=== PATIENT | female | born 1960 | race African-American/Black ===

== ENCOUNTER 2016-07-26 15:45 | Inpatient (IN) ==
--- NOTE | 2016-07-26 17:44 | PROVIDER DOCUMENTATION ---
This chart was entered by Monica Murray Scribe, acting as scribe for Agusto De Guzman MD. HPI-General Adult - General Chief Complaint: Weakness Stated Complaint: lethargy, post dialysis Time Seen by Provider: 07/26/16 16:22 Source: patient Allergies/Adverse Reactions: Patient Allergies Allergy/AdvReac Type Severity Reaction Status Date / Time No Known Allergies Allergy Verified 07/26/16 16:07 Home Medications: Home Medication List Medication Instructions Recorded Confirmed Last Taken Type Insulin NPH Hum/Reg Insulin Hm 4 unit SQ DIRECTED 06/02/14 07/26/16 07/26/16 History [Humulin 70/30 Kwikpen] Hydralazine [Apresoline] 50 mg PO TID #90 tablet 05/03/15 07/26/16 07/26/16 Rx Gabapentin [Neurontin] 100 mg PO TID #60 capsule 07/28/16 Unknown Rx - History of Present Illness -Gen Adult Nature of Presenting Problems: Pt is a 55 yof who came to the ED with a cc of being lethargic after completing dialysis. Pt reports she took a sleeping pill before her treatment, when she finished her treatment her blood pressure was low and was lethargic. Location of Pain/Injury: reports: none Pain Radiation: reports: no radiation Quality of Pain: reports: none Onset/Duration: reports: just prior to arrival Timing: reports: still present Context/Activities at Onset: reports: none Modifying Factors: improves with: nothing Associated Symptoms: reports: weakness Similar Symptoms Previously?: No Recently seen or treated by another doctor?: Yes Review of Systems - Adult - REVIEW OF SYSTEMS - ADULT Constitutional: reports: fatique. denies: chills, fever Eyes: reports: no symptoms reported Ears, Nose, Mouth & Throat: reports: no symptoms reported Cardiovascular: reports: no symptoms reported Respiratory: reports: no symptoms reported Gastrointestinal: denies: diarrhea, nausea, vomiting Genitourinary: reports: no symptoms reported Musculoskeletal: reports: no symptoms reported Integumentary: reports: no symptoms reported Neurological: reports: loss of balance. denies: ataxia, seizure, syncope, tremors Psychiatric: reports: no symptoms reported Endocrine: reports: no symptoms reported Hematologic/Lymphatic: reports: no symptoms reported Allergic/Immunologic: reports: no symptoms reported All Other Systems: Reviewed and Negative Past History - Adult - PAST MEDICAL HISTORY-ADULT Review of Records: reports: Nursing Assessment Review Major Childhood Illnesses: reports: denies history Cardiovascular: reports: CAD, CHF, HTN Respiratory: reports: denies history Gastrointestinal: reports: denies history Obstetrical/Gynecological: reports: denies history Genitourinary: reports: kidney disease, kidney stones, other (stents in kidneys ) Musculoskeletal: reports: arthritis, chronic pain (neuropathy) Neurological: reports: other (diabetic BLE peripheral neuropathy) Endocrine/Immune: reports: anemia, Diabetes Other Conditions: reports: denies history - PRIOR SURGERIES/PROCEDURES Surgical/Procedure History: reports: other (stents in kidney) - PRIOR HOSPITALIZATIONS Prior Hospitalizations: reports: for other non-related - IMMUNIZATION STATUS Childhood Immunizations: See Nurse Assessment Flu Vaccine: See Nurse Assessment - FAMILY HISTORY Family History: reviewed, not pertinent Physical Exam-General - PHYSICAL EXAM-ADULT Initial Vital Signs Reviewed: Yes - CONSTITUTIONAL General Appearance: alert, no apparent distress, slow to respond - EYES Eyes: PERRL/EOMI, pink conjunctivae - HEAD, EARS, NOSE, MOUTH & THROAT HENMT: normocephalic/atraumatic, moist mucous membranes - NECK Neck: non-tender, full range of motion - RESPIRATORY Respiratory: chest non-tender, lungs clear, normal breath sounds - CARDIOVASCULAR Cardiovascular: normal peripheral pulses, regular rate, rhythm - GASTROINTESTINAL (ABDOMEN) Abdominal Exam: normal bowel sounds, non tender, soft - MUSCULOSKELETAL Back Exam: normal inspection, no CVA tenderness Extremity: normal range of motion, non-tender - SKIN Integumentary: normal color, normal turgor, warm/dry Progress - PLAN OF CARE/RESULTS Progress/Plan/Lab Results: Vital Signs - 8 hr 07/26/16 16:01 Temperature 98.0 F Pulse Rate 65 Respiratory Rate 16 Blood Pressure 99/56 O2 Sat by Pulse Oximetry 98 Result Diagrams: 07/28/16 04:25 07/28/16 04:25 - CHANGE OF SHIFT REPORT (ED Provider) Report Given and Care Transferred to:: Dr. Ren Time of Transfer: 18:00 Items Pending: Labs, XRAY Results, Other (Dispo) Departure - Departure Time of Disposition Decision: 20:35 DIAGNOSIS: Generalized weakness Disposition: ADMITTED INPATIENT 09 Certified Medical Emergency: Emergent Condition: Stable - Critical Care Note This patient required my direct & personal management of CC.: No This chart was documented by the indicated scribe, (Monica Murray Scribe) and accurately reflects the services I performed and decisions made by me, Agusto De Guzman MD, as attested by the provider's signature.
[2016-07-26 17:54] LABS: MANUAL DIFF NEEDED? NO
[2016-07-26 17:58] LABS: BASO% 0.2 % (0.0-0.8); EOS# 0.03 X1000 (0.0-0.7); EOS% 0.2 % (0.0-10.0); HEMATOCRIT 40.8 % (37.0-47.0); HEMOGLOBIN 13.4 g/dL (12.0-16.0); IMM GRAN# 0.04 X1000 (0.0-0.04); IMM GRAN% 0.3 % (0.0-0.5); LYMPH# 2.07 X1000 (1.2-3.4); LYMPH% 15.9 % (20.5-51.1); MCH 28.6 PG (27-31); MCHC 32.8 g/dL (33-37); MCV 87.2 FL (81-99); MONO# 0.78 X1000 (0.11-0.59); MPV 10.9 FL (7.4-10.4); NEUT% 77.4 % (42.2-75.2); PLT 199 X1000 (130-400); RBC 4.68 XMIL (4.2-5.4)
[2016-07-26 18:27] LABS: ALBUMIN 3.6 g/dL (3.5-5.0); CALCIUM 8.5 mg/dL (8.8-10.2); MAGNESIUM 1.8 mg/dL (1.5-2.7); POTASSIUM 4.1 mmol/L (3.5-5.1); TOTAL BILIRUBIN 0.86 mg/dL (0.20-1.00); TOTAL PROTEIN 9.9 g/dL (6.3-8.3)
[2016-07-26] MEDS ORDERED: NEURONTIN PO ONE (18:52)
[2016-07-26] MEDS ORDERED: NS 500 ML IV ONE (19:47)
[2016-07-26] MEDS ORDERED: NS 500 ML ONE (19:56)
--- NOTE | 2016-07-26 20:01 | Diag Imaging Result Doc PS360 ---
CHEST-PORTABLE - 07/26/2016 INDICATION: Hypotension TECHNIQUE: COMPARISON: 01/15/2016 FINDINGS: The lungs are normally expanded and clear. Heart size and mediastinal contours are normal. No pneumothorax or pleural effusion. IMPRESSION: Negative exam. Electronically signed by August Hong 07/26/2016 7:59 PM
[2016-07-26] MEDS ORDERED: NS 1,000 ML IV SCH (21:33)
[2016-07-26] MEDS ORDERED: ZOFRAN IV PRN (21:33)
[2016-07-26] MEDS ORDERED: NEO-SYNEPHRINE 50 MG in NS 250 ML IV SCH (21:33)
--- NOTE | 2016-07-26 23:15 | HISTORY AND PHYSICAL ---
PRIMARY CARE PHYSICIAN: She does not recall. CHIEF COMPLAINT: She passed out. HISTORY OF PRESENTING ILLNESS: A 55-year-old female with a history of end-stage renal disease on renal dialysis on Friday, Friday, Friday, diabetes mellitus type 2 and hypertension was brought to the emergency department by ambulance after she passed out. She states that she may have been at the dialysis center when this occurred but she does not really recall. Is unclear she states if too much of her volume was pulled out. She was evaluated in the ER, she was hypotensive. She was given fluid boluses and due to presenting symptoms, it was thought that she would need hospitalization for further management. At the time of my examination, she had denied any headache, fever, chills, chest pain, shortness of breath, hemoptysis or weight changes. States that she feels weak. PAST MEDICAL HISTORY: Includes end-stage renal disease on renal dialysis Friday, Friday, Friday, diabetes mellitus type 2, hypertension. PAST SURGICAL HISTORY: Dialysis catheter. ALLERGIES: No known drug allergies. CURRENT MEDICATIONS: As listed in the MAR. SOCIAL HISTORY: She is a former smoker. No history of alcohol or illicit drug use. FAMILY HISTORY: No history of coronary disease. REVIEW OF SYSTEMS: Twelve point review of systems is as in HPI. Other systems negative. PHYSICAL EXAMINATION: GENERAL: Cooperative, friendly female. She is resting comfortably now. VITAL SIGNS: Temperature 98.0 degrees, pulse 65, respirations 16, blood pressure 99/56, she is saturating 98%. HEENT: Atraumatic, normocephalic. Extraocular movements intact. PERRLA. NECK: No masses. CHEST: Clear to auscultation. CARDIOVASCULAR: Regular rate and rhythm. ABDOMEN: Soft. Positive bowel sounds. EXTREMITIES: No edema. NEURO: She is awake, alert, oriented x3. : No bladder distention. SKIN: Warm. LABORATORIES AND STUDIES: WBC 12.99, hemoglobin 13.4 hematocrit 40.8, platelets 199,000. Sodium 135, potassium 4.1, chloride is 87, BUN is 19, creatinine 3.8, glucose is 223. ASSESSMENT: This is a 55-year-old female with a history of end-stage renal disease, diabetes mellitus type 2 and hypertension was brought to the emergency department after she had an episode where she passed out. She is unclear exactly what happened but states that she may have been at dialysis center when this occurred. She was evaluated in the emergency room, she was found to be hypotensive and due to presenting symptoms, she would need hospitalization for further management. 1. Syncopal episode. 2. End-stage renal disease. 3. Diabetes mellitus type 2. 4. Hypotension. PLAN: 1. We will admit patient to ICU. 2. We will check orthostatic blood pressure and pulse. 3. We will consult Nephrology for dialysis. 4. Will monitor blood glucose closely and put patient on sliding scale insulin regimen. 5. Due to hypotension will give her IV fluid boluses and will consider pressors if she remains hypotensive. 6. We will put patient on DVT prophylaxis with SCD and heparin. 7. We will continue to follow and reassess. cc: Melchor Potter MD
[2016-07-26] MEDS: HEPARIN SUBQ SCH (23:48)
[2016-07-26] MEDS: HUMALOG SUBQ SCH (23:48)
[2016-07-26] MEDS: TYLENOL PO PRN (23:49)
[2016-07-27 05:01] LABS: MANUAL DIFF NEEDED? NO
[2016-07-27 05:04] LABS: BASO% 0.2 % (0.0-0.8); EOS% 0.8 % (0.0-10.0); HEMATOCRIT 38.9 % (37.0-47.0); HEMOGLOBIN 12.8 g/dL (12.0-16.0); IMM GRAN# 0.02 X1000 (0.0-0.04); IMM GRAN% 0.2 % (0.0-0.5); LYMPH% 36.4 % (20.5-51.1); MCH 28.8 PG (27-31); MCHC 32.9 g/dL (33-37); MCV 87.4 FL (81-99); MONO# 0.82 X1000 (0.11-0.59); MONO% 6.8 % (1.7-9.3); MPV 11.1 FL (7.4-10.4); NEUT% 55.6 % (42.2-75.2); PLT 203 X1000 (130-400); RBC 4.45 XMIL (4.2-5.4)
[2016-07-27 05:42] LABS: CALCIUM 8.1 mg/dL (8.8-10.2); POTASSIUM 3.9 mmol/L (3.5-5.1)
[2016-07-27] MEDS: HUMALOG SUBQ SCH ×4 (06:27→20:50)
[2016-07-27] MEDS ORDERED: NS 2,000 ML MISC PRN (09:09)
[2016-07-27] MEDS ORDERED: HEPARIN ONE (09:19)
[2016-07-27] MEDS ORDERED: NS 2,000 ML ONE (09:19)
--- NOTE | 2016-07-27 11:36 | CONSULTATION ---
DATE OF CONSULTATION: 07/27/2016 REASON FOR ADMISSION: Altered mental status. REASON FOR CONSULTATION: Assist with medical management, end-stage renal disease management. CONSULTING PHYSICIAN: Dr. Potter. HISTORY OF PRESENT ILLNESS: This is a 55-year-old female who was at dialysis yesterday when I received a call from the charge nurse there that the patient was extremely obtunded, would rouse up to tactile stimuli, become very agitated, and drift off back to sleep. At that time, she had stable vital signs with blood pressure systolic greater than 90. The patient has a history of inappropriate medication consumption and they were directed to send the patient to the emergency room in the event that she needed narcotic reversal. Apparently, on the way to the emergency room, she did confide in the attendant coin operated laundry that she had taken extra doses of her sleeping medicine. She did not inform this to the ER staff, but did again relay that information to the Intensive Care Unit staff. In the emergency room, her blood pressures were never below 90 systolic. However, she was given fluid boluses because there was some concern that she was "too dry." The patient was admitted to the hospital for further workup and treatment. This morning, her blood pressures are elevated and on clinical exam she does actually appear to be somewhat fluid overloaded. She openly states to me that she took at least 1 dose of her "sleeping medicine" when she was getting on the bus to go to dialysis. She could not confirm that she had taken an additional dose of her medication, but she stated that she wanted to "sleep through dialysis." This morning, she is awake and alert, oriented to person and place. She states that the events of yesterday are still foggy. She could not remember the name of her medication that she was recently started on, but she states that she got it filled at the [facility]. PAST MEDICAL HISTORY: End-stage renal disease on hemodialysis on a Friday, Friday, Friday schedule. Diabetes, type 2, insulin-dependent. Hypertension. COPD. Gastroparesis. Diabetic neuropathy. Neurogenic bladder. Previous history of tobacco and cocaine abuse. PAST SURGICAL HISTORY: She has had a renal stent with removal, dialysis catheter in the past, and she has an AV fistula to the right upper extremity now. ALLERGIES: No known drug allergies. HOME MEDICATIONS: Listed as insulin, Apresoline, gabapentin and, amitriptyline. Unclear if the amitriptyline is what the patient is referring to as her sleeping medicine. FAMILY HISTORY: Diabetes, type 2; hypertension; COPD; breast cancer. SOCIAL HISTORY: She has a previous history of both illicit drug use and inappropriate narcotic use, with an episode during 1 of her hospitalizations of taking outside medicines. Previous smoker. Denies ETOH use. REVIEW OF SYSTEMS: Pertinent positives noted above. PHYSICAL EXAMINATION: Vital Signs: Temperature 97.3 degrees, pulse 59, respiratory rate 13. Blood pressure currently is 127/44. There have been on the monitor blood pressures in the upper 150s over 80s. Intake and output have not been measured. She had what appears to be at least a liter of fluid given in the emergency room that was not documented, according to the orders. HEENT: Normocephalic, atraumatic. Oral mucosa moist. Tongue is midline. Neck : Supple. Trachea midline. She has positive JVD. Cardiovascular: She has a regular rate and rhythm. There is no murmur or gallop. Pulmonary: She has equal excursion. She is on O2 supplementation. She has no increased work of breathing. She has no wheezes or rales currently. Abdomen: Soft. Positive bowel sounds. Genitourinary: Not inspected. Minimal void. Extremities: She has 1+ pretibial edema. Integumentary: Skin is warm and dry. AV fistula in upper extremity is clean, dry, and intact. Neuro: Grossly nonfocal this morning. LABORATORY DATA: WBC of 12.0, hemoglobin 12.8, sodium 138, potassium 3.9, CO2 of 26, BUN 34, creatinine 5.3, calcium 8.1 albumin 3.6, and lactic acid of 3.2. ASSESSMENT AND PLAN: 1. Altered mental status. It does not appear that the patient was hypovolemic during dialysis. Her blood pressures did not indicate that and clinical examination definitely does not correlate with hypovolemia. We do have information from the patient directly to this practitioner that she did, indeed, take her medications not as prescribed. This morning, she is awake and alert, and in no acute distress. We will plan to ultrafiltrate today to get her back to her dry weight, as she is now a couple of liters heavy. 2. Electrolytes, acid-base balance, anemia. These are all stable. 3. Blood pressure. Anticipate that we will achieve control once we get this extra fluid off of her. Seen data reviewed discussed anthony Norris. I agree with the above assessment and plan of care. rg Dictated by ARTUR East for Noel Price MD cc: Noel Price MD [facility]
[2016-07-27] MEDS: HEPARIN SUBQ SCH ×2 (11:57→20:50)
[2016-07-27] MEDS: NEURONTIN PO SCH (16:19)
--- NOTE | 2016-07-27 16:28 | PROGRESS NOTE ---
DATE: 07/27/2016 SUBJECTIVE: Today Ms. Cheney refers to be doing a whole lot better. According to her, she took 1 of her amitriptyline pills yesterday before dialysis and she became very or altered at dialysis. This morning she is a whole lot awake, alert, and very conversational. OBJECTIVE: Vital signs: Blood pressure is 123/94, pulse of 73, respirations 15 , temperature 97.8 degrees. General: Ms. Cheney is a 55-year-old female. She is in bed, not seemingly distress. HEENT: Mucosa is pink and moist. Anicteric. Acyanotic. Neck: Supple. Chest: Clear. Cardiovascular: Regular rate and rhythm. Abdomen: Soft. Extremities: No pedal edema. REPEATER CHIEF: Patient is alert and oriented. LABORATORY DATA: WBC is 12.09, hemoglobin is 12.8, platelet count of 203,000. Chemistries reviewed, consistent with end-stage renal disease. Glucose is 126. ASSESSMENT AND PLAN: 1. Altered mental status, likely due to toxic metabolic encephalopathy from drug side effects as we assume this is due to amitriptyline or possibly other sedatives that she might have taking. 2. End-stage renal disease, on hemodialysis. 3. Diabetes mellitus, stable. 4. Hypotension on admission. This, as I said, could be due to medication side effects and amitriptyline is very notorious for causing that. 5. Peripheral diabetic neuropathy. Patient is on both amitriptyline and gabapentin. Amitriptyline is on hold. I will restart her on her gabapentin at a lower dose, 100 mg 3 times per day. 6. Mild troponin elevation. She denies any chest pain. Will just keep an eye on that. cc: MD NEHAL Solaon
[2016-07-27] MEDS: TYLENOL PO PRN (20:51)
[2016-07-28 05:07] LABS: MANUAL DIFF NEEDED? NO
[2016-07-28 05:10] LABS: BASO% 0.5 % (0.0-0.8); EOS# 0.27 X1000 (0.0-0.7); EOS% 3.1 % (0.0-10.0); HEMATOCRIT 36.5 % (37.0-47.0); HEMOGLOBIN 12.4 g/dL (12.0-16.0); IMM GRAN# 0.02 X1000 (0.0-0.04); IMM GRAN% 0.2 % (0.0-0.5); LYMPH# 4.39 X1000 (1.2-3.4); LYMPH% 50.1 % (20.5-51.1); MCH 29.4 PG (27-31); MCV 86.5 FL (81-99); MONO# 0.85 X1000 (0.11-0.59); MONO% 9.7 % (1.7-9.3); NEUT% 36.4 % (42.2-75.2); PLT 187 X1000 (130-400); RBC 4.22 XMIL (4.2-5.4)
[2016-07-28 05:39] LABS: CALCIUM 7.5 mg/dL (8.8-10.2); POTASSIUM 4.5 mmol/L (3.5-5.1)
[2016-07-28] MEDS: HUMALOG SUBQ SCH ×2 (06:34→10:48)
[2016-07-28] MEDS: TYLENOL PO PRN (07:27)
[2016-07-28 07:28] VITALS: BP 145/90
[2016-07-28] MEDS: NEURONTIN PO SCH (08:11)
[2016-07-28] MEDS: HEPARIN SUBQ SCH (08:11)
--- NOTE | 2016-07-28 20:56 | DISCHARGE SUMMARY ---
ADMISSION DATE: 07/26/2016 DISCHARGE DATE: 07/28/2016 DISPOSITION: home. FOLLOWUP: Dr. Noel Price. INVASIVE PROCEDURES DONE DURING ADMISSION: None. IMAGING STUDIES OF SIGNIFICANCE: A chest x-ray was done on presentation which was negative for any acute lung disease. ADMISSION DIAGNOSES: 1. Syncopal episode. 2. Endstage renal disease. 3. Diabetes mellitus. 4. Hypotension. DIAGNOSIS AT THE TIME OF DISCHARGE: 1. Altered mental status on presentation likely due to toxic metabolic encephalopathy from drug side effects, improved. 2. Hypotension on admission likely due to amitriptyline side effects. 3. Severe peripheral diabetic neuropathy. 4. End stage renal disease, on hemodialysis. 5. Diabetes mellitus. DISCHARGE MEDICATIONS: 1. Insulin 70/30, 4 units. 2. Hydralazine 50 mg, 3 times per day. 3. Gabapentin 100 mg, 3 times per day. MEDICATIONS THAT HAVE BEEN DISCONTINUED: 1. Amitriptyline 10 mg at bedtime has been discontinued. 2. Gabapentin 300 3 times per day has also been changed to only 100 mg 3 times per day because she has end-stage renal disease on hemodialysis. PRESENTING COMPLAINT: Passed out and confused. HISTORY OF PRESENTING COMPLAINT: Ms. Cheney is a 55-year-old female who refers to have severe peripheral neuropathy, so he would she took a dose of amitriptyline for sleeping to go to dialysis. At dialysis she was found to be confused and not very coherent, so she was brought to the emergency department for further medical care. On presentation, patient was found to have a blood pressure of about 99/ 56, was admitted to the ICU for further medical care. HOSPITAL COURSE: Patient received a session of dialysis. All of the sedatives were discontinued. Blood pressure improved, gabapentin was reduced to 100 mg 3 times per day and amitriptyline was completely discontinued from her medications. She improved very significantly, blood pressure improved and her mentation completely cleared. Today she is eating, she feels strong, she wants to go home. Vitals today, blood pressure is 145/90, pulse of 73, respirations 15, temperature 97.9 degrees. Physical exam is completely unremarkable. Patient is going to be discharged in a very stable condition. DISPOSITION: home. ACTIVITY: As tolerated. DIET: Healthy heart diet and renal diet. FOLLOWUP: Dr. Noel Price. She has been strictly counseled against amitriptyline and also has been told to reduce the dose on the gabapentin. cc: Anthony Cruz MD
== END 2016-07-28 11:22 | disposition home or self-care (01) ==
LOC: ED 15:45 → 3N 21:09 → SUATTDRO 21:09 → 3N 21:26 → ICU 21:49
PROVIDERS: ATTEND Internal Medicine

== ENCOUNTER 2018-04-05 02:31 | Inpatient (IN) ==
--- NOTE | 2018-04-05 03:03 | PROVIDER DOCUMENTATION ---
HPI-General Adult - General Chief Complaint: Chest Pain Stated Complaint: GENERAL ADULT Time Seen by Provider: 04/05/18 02:55 Source: patient, EMS (Patient is a 57 year old black female with ESRD (receives hemodialysis MWF,right forearm fistula), HTN, painful diabetic neuropathy, cirrhosis with ascites who presents by EMS complaining of sharp left sided chest pain for past 3 days. Chest pain is worse with movement and touch. Followed by Dr. WILEY Hammonds. Denies h/o CAD.) Allergies/Adverse Reactions: Patient Allergies Allergy/AdvReac Type Severity Reaction Status Date / Time No Known Allergies Allergy Verified 03/31/18 09:26 Home Medications: Home Medication List Medication Instructions Recorded Confirmed Last Taken Type Amlodipine Besylate [Norvasc] 10 mg PO DAILY 01/16/17 04/05/18 02/10/18 07:00 History Gabapentin [Neurontin] 300 mg PO BID 01/16/17 04/05/18 02/10/18 07:00 History Calcium Acetate 2 cap PO AC 01/25/17 04/05/18 02/10/18 07:00 History Cholecalciferol (Vitamin D3) 1,000 unit PO DAILY 01/25/17 04/05/18 02/10/18 07: 00 History [Vitamin D3] Mv,Calcium,Min/Iron/Folic/Vitk 1 each PO DAILY 01/25/17 02/10/18 02/10/18 07:00 History [Essential Woman Tablet] Duloxetine HCl 60 mg PO DAILY 08/26/17 04/05/18 02/10/18 07:00 History Amitriptyline [Elavil] 10 mg PO HS 08/27/17 04/05/18 02/08/18 21:00 History Methocarbamol [Robaxin] 500 mg PO QHS 08/27/17 04/05/18 02/09/18 21:00 History Insulin Humulin 70/30 [Humulin 10 unit SUBQ BID CC insuln.pen 01/29/1802/10/18 07:00 Rx 70/30] Dicyclomine HCl 10 mg PO TID 04/05/18 04/05/18 Unknown History Furosemide 1 tab PO BID 04/05/18 04/05/18 Unknown History Omeprazole 1 cap PO DIRECTED 02/03/19 02/03/19 Unknown History - History of Present Illness -Gen Adult Nature of Presenting Problems: Patient is a 57 year old black female with ESRD (receives hemodialysis MWF, right forearm fistula), HTN, painful diabetic neuropathy,cirrhosis with ascites who presents by EMS complaining of sharp left sided chest pain for past 3 days. Chest pain is worse with movement and touch. Followed by Dr. WILEY Hammonds. Denies h /o CAD. Location of Pain/Injury: reports: chest, lower extremity (both feet due to peripheral neuropathy) Pain Radiation: reports: no radiation Quality of Pain: reports: sharp Onset/Duration: reports: gradual, 3 days ago Timing: reports: still present Context/Activities at Onset: reports: none Modifying Factors: improves with: movement Similar Symptoms Previously?: Yes Recently seen or treated by another doctor?: Yes (Dr. WILEY Hammonds) Review of Systems - Adult - REVIEW OF SYSTEMS - ADULT Constitutional: denies: chills, fever Eyes: denies: blurred vision Ears, Nose, Mouth & Throat: reports: no symptoms reported Cardiovascular: reports: chest pain Respiratory: reports: see HPI Gastrointestinal: denies: abdominal pain, diarrhea, nausea, vomiting Genitourinary: reports: no symptoms reported Musculoskeletal: reports: see HPI Integumentary: denies: rash Neurological: reports: no symptoms reported Psychiatric: reports: no symptoms reported Endocrine: reports: no symptoms reported Hematologic/Lymphatic: reports: no symptoms reported Allergic/Immunologic: reports: no symptoms reported Past History - Adult - PAST MEDICAL HISTORY-ADULT Review of Records: reports: Old Records Reviewed, Nursing Assessment Review, Medications Reviewed, Social history reviewed & non-contributory. Major Childhood Illnesses: reports: denies history Cardiovascular: reports: CAD, CHF, HTN Respiratory: reports: asthma Gastrointestinal: reports: denies history Obstetrical/Gynecological: reports: denies history Genitourinary: reports: dialysis, kidney disease, kidney stones, other (stents in kidneys ) Musculoskeletal: reports: arthritis, chronic pain (neuropathy) Neurological: reports: other (diabetic BLE peripheral neuropathy) Psychiatric: reports: denies history Endocrine/Immune: reports: anemia, Diabetes Other Conditions: reports: denies history - PRIOR SURGERIES/PROCEDURES Surgical/Procedure History: reports: cholecystectomy, other (stents in kidney) - PRIOR HOSPITALIZATIONS Prior Hospitalizations: reports: for other non-related - IMMUNIZATION STATUS Childhood Immunizations: See Nurse Assessment Flu Vaccine: See Nurse Assessment - FAMILY HISTORY Family History: reviewed, not pertinent Physical Exam-General - CONSTITUTIONAL General Appearance: alert, no apparent distress, other - EYES Eyes: other (clear, nonicteric) - HEAD, EARS, NOSE, MOUTH & THROAT HENMT: moist mucous membranes - NECK Neck: supple - RESPIRATORY Respiratory: lungs clear - CARDIOVASCULAR Cardiovascular: regular rate, rhythm - GASTROINTESTINAL (ABDOMEN) Abdominal Exam: non tender, distended (acites) - LYMPHATIC Lymphatic: no adenopathy - MUSCULOSKELETAL Back Exam: normal inspection, no CVA tenderness Extremity: normal range of motion, non-tender Peripheral Pulses: radial (R): 2+, radial (L): 2+ - SKIN Integumentary: warm/dry - NEUROLOGIC Neurologic: grossly normal, no motor/sensory deficits - PSYCHIATRIC Psych/Mental Status: anxious Progress - PLAN OF CARE/RESULTS Progress/Plan/Lab Results: Vital Signs - 8 hr 04/05/18 02:35 Temperature 98 F Pulse Rate 63 Respiratory Rate 18 Blood Pressure 151/084 O2 Sat by Pulse Oximetry 98 HEART SCORE= 5 Result Diagrams: 04/06/18 07:23 04/06/18 07:23 - CONSULTS/PCP/HOSPITALIST Notification #1 *Consult/PCP/Hospitalist*: Dr. Irving, hospitalist Time Discussed: 05:30 Reason/Comments: admit to hospitalist at [facility] Consult Disposition: Admit #2 Consult: Dr. Potter hospitalist Reason/Comments: will notify WILEY Hammonds, admit to WILEY Hammonds Consult Disposition: Admit Departure - Departure Date of Disposition Decision: 04/05/18 Time of Disposition Decision: 07:05 DIAGNOSIS: Hypocalcemia, Hyperkalemia, Elevated d-dimer Chest pain Qualifiers: Chest pain type: unspecified Qualified Code(s): R07.9 - Chest pain, unspecified Ascites Qualifiers: Ascites type: other type Qualified Code(s): R18.8 - Other ascites Disposition: ADMITTED INPATIENT 09 Certified Medical Emergency: Emergent Condition: Stable - Critical Care Note This patient required my direct & personal management of CC.: No Attestation - Physician/ JULISA Attestation Patient care was provided by Advanced Practice Provider:: No The physician spent face to face time with patient:: Yes Advanced Practice Provider documentation review:: Supervising physician onsite and consulted in the evaluation and care of this patient. The physician did have a face to face encounter with the patient.
[2018-04-05 03:38] LABS: BASO# 0.05 X1000 (0.0-0.2); BASO% 0.6 % (0.0-0.8); EOS# 0.44 X1000 (0.0-0.7); EOS% 4.9 % (0.0-10.0); HEMATOCRIT 32.2 % (37.0-47.0); HEMOGLOBIN 10.7 g/dL (12.0-16.0); IMM GRAN# 0.02 X1000 (0.0-0.04); IMM GRAN% 0.2 % (0.0-0.5); LYMPH# 2.85 X1000 (1.2-3.4); LYMPH% 31.9 % (20.5-51.1); MCH 28.1 PG (27-31); MCHC 33.2 g/dL (33-37); MCV 84.5 FL (81-99); MONO# 0.66 X1000 (0.11-0.59); MONO% 7.4 % (1.7-9.3); MPV 11.3 FL (7.4-10.4); NEUT# 4.91 X1000 (1.4-6.5); PLT 170 X1000 (130-400); RBC 3.81 XMIL (4.2-5.4); RDW 14.7 % (11.5-14.5); WBC 8.93 X1000 (4.8-10.8)
[2018-04-05] MEDS ORDERED: ASPIRIN PO ONE (04:07)
[2018-04-05 04:09] LABS: ALBUMIN 2.5 g/dL (3.5-5.0); TOTAL BILIRUBIN 0.5 mg/dL (0.20-1.00); TOTAL PROTEIN 7.4 g/dL (6.3-8.3)
[2018-04-05 04:25] LABS: POTASSIUM 5.8 mmol/L (3.5-5.1)
[2018-04-05 04:26] LABS: CREATININE 14.7 mg/dL (0.5-0.9)
[2018-04-05 04:27] LABS: CALCIUM 6.5 mg/dL (8.8-10.2)
[2018-04-05] MEDS ORDERED: TUMS EXTRA STRENGTH PO ONE (04:49)
[2018-04-05] MEDS ORDERED: HUMULIN R IV ONE (05:37)
[2018-04-05] MEDS ORDERED: D50W SYRINGE IV ONE (05:37)
[2018-04-05] MEDS ORDERED: SODIUM BICARBONATE 8.4% IV PUSH ONE (05:37)
--- NOTE | 2018-04-05 07:26 | Diag Imaging Result Doc PS360 ---
EXAM: CHEST-PORTABLE 04/05/2018 HISTORY: left sided chest pain TECHNIQUE: AP portable at 0327 COMMENT: The inspiration is suboptimal. The atelectatic and other ill-defined opacities present on 02/25/2018 have largely resolved. The heart size and pulmonary vascularity are within normal limits. IMPRESSION: No evidence of acute disease. Electronically signed by Dhaval Morris 04/05/2018 7:23 AM
[2018-04-05] MEDS ORDERED: VELTASSA PO ONE (08:43)
[2018-04-05 10:06] LABS: POTASSIUM 5.4 mmol/L (3.5-5.1)
[2018-04-05 10:13] LABS: CALCIUM 6.7 mg/dL (8.8-10.2); CREATININE 13.4 mg/dL (0.5-0.9)
[2018-04-05] MEDS ORDERED: ZOFRAN IV PRN (12:21)
[2018-04-05] MEDS ORDERED: LABETALOL IV PRN (12:32)
[2018-04-05] MEDS ORDERED: OMEPRAZOLE PO SCH (12:45)
--- NOTE | 2018-04-05 13:57 | PROGRESS NOTE ---
DATE: 04/05/2018 Ms Cheney was admitted early this morning for a renal failure as well as chest pains. She had borderline troponin elevation however renal failure is difficult to decide. We have ordered EKG on her and we are going to get abdominal ultrasound and later on possibly abdominal paracentesis on her . -5 cc: MD Gonzalo Elena MD
--- NOTE | 2018-04-05 14:17 | HISTORY AND PHYSICAL ---
HISTORY OF PRESENT ILLNESS: Ms. Cheney who is a 57-year-old female had some chest pain in the pectoral area on the left side, and she also had some drowsy spells and she had passed out. She says she passed out many times during the dialysis. PAST MEDICAL HISTORY: She has a known case of chronic renal failure for the last 2 years and has been getting dialysis. She has a shunt in the right upper arm. She says she has insulin- dependent diabetes as well as history of hypertension. SOCIAL HISTORY: She used to be an alcoholic. She quit drinking 3 years ago. She does not smoke and does not use any illicit drugs. ALLERGIES: She is not allergic to any medications. PAST SURGICAL HISTORY: Reveals history of cholecystectomy as well as the shunt put in. MEDICATIONS: Include amitriptyline 10 mg, amlodipine, calcium acetate, cholecalciferol, dicyclomine, duloxetine, furosemide, gabapentin, methocarbamol, Humulin 70/30 10 units subcutaneously b.i.d., and omeprazole. REVIEW OF SYSTEMS: Other than what has been mentioned except generalized weakness and increasing ascites, it is noncontributory. PHYSICAL EXAMINATION: VITAL SIGNS: Reveal temperature normal, pulse 63 per minute, respiratory rate 14 per minute, blood pressure 136/70. HEENT: Head normocephalic. Pupils PERRLA. Fundus examination not done. ENT examination unremarkable. NECK: Supple. JVP normal. There is no evidence of lymphadenopathy or thyroid enlargement. EXTREMITIES: There is mild bilateral pedal edema. No calf tenderness, no edema. No cyanosis or clubbing. Pedal pulses feeble. The patient has a shunt in the right upper arm. BREASTS: Exam not done. CHEST: Normal to inspection. LUNGS: Clear on auscultation. CARDIAC: PMI in the normal position. Heart sounds normal. No murmur, gallop or rub noted. ABDOMEN: Distended from ascites. No guarding, rigidity, free fluid, masses, or organomegaly. Bowel sounds normal. RECTAL: Exam deferred. SENIOR POLICY ANALYST: Higher functions normal. Cranial nerves normal. Motor and sensory system examination unremarkable. Deep tendon reflexes normal. Plantars downgoing. Skull and spine examination normal for age. No cerebellar signs or signs of meningeal irritation. LOCOMOTOR: Exam unremarkable. SKIN: Exam unremarkable. IMPRESSION: 1. The patient has a history of chest pain. There is borderline elevation of the troponins. EKG has been ordered. 2. She has massive ascites from history of cirrhosis. 3. Chronic renal failure. 4. History of hypertension. 5. The patient has a history of chronic alcoholism; has quit drinking for last 3 years. PLAN: We will continue the current management outlined. cc: MD Gonzalo Elena MD
[2018-04-05] MEDS: BENTYL PO SCH ×2 (14:25→20:23)
[2018-04-05] MEDS: PROTONIX IV SCH (14:25)
--- NOTE | 2018-04-05 15:04 | Diag Imaging Result Doc PS360 ---
EXAM: US ABDOMEN-COMPLETE 04/05/2018 HISTORY: ascites TECHNIQUE: Abdominal ultrasound. COMMENT: There is marked ascites. The liver is somewhat nodular in appearance suggesting cirrhosis. There is antegrade flow in the portal vein. The kidneys are slightly atrophic and hyperechoic. The spleen is not enlarged. There is no evidence of hydronephrosis. The gallbladder is surgically absent. There is no evidence of biliary dilatation the common bile duct measuring 4 mm. There is a left pleural effusion. The visualized portions of the aorta and inferior vena cava are within normal limits. IMPRESSION: Ascites. Cirrhosis. Renal atrophy and medical renal disease. Left pleural effusion. Electronically signed by Dhaval Morris 04/05/2018 3:02 PM
--- NOTE | 2018-04-05 16:09 | EKG Report ---
Test Performed on : 04/05/2018 03:30:47 AM Test Reason : pain Blood Pressure : / mmHG Vent. Rate : 061 BPM Atrial Rate : 061 BPM P-R Int : 128 ms QRS Dur : 072 ms QT Int : 496 ms P-R-T Axes : 040 007 060 degrees QTc Int : 499 ms Normal sinus rhythm. with sinus arrhythmia. Cannot rule out Anterior infarct (cited on or before 16-DEC-2017) Abnormal ECG When compared with ECG of 16-DEC-2017 06:38, No significant change was found Unconfirmed Result
[2018-04-05] MEDS: HUMULIN R SUBQ SCH ×2 (17:12→22:32)
[2018-04-05] MEDS ORDERED: INSULIN PEN NEEDLES ONE (17:31)
[2018-04-05] MEDS ORDERED: IMODIUM PO PRN (17:54)
[2018-04-05] MEDS: MORPHINE IV PRN ×2 (18:06→20:23)
[2018-04-05] MEDS: HUMULIN 70/30 SUBQ SCH (18:46)
[2018-04-05] MEDS: LASIX PO SCH (20:23)
[2018-04-05] MEDS: NEURONTIN PO SCH (20:23)
[2018-04-05] MEDS: ROBAXIN PO SCH (20:23)
[2018-04-06] MEDS: HUMULIN R SUBQ SCH ×4 (05:32→21:14)
[2018-04-06] MEDS ORDERED: TIGHT: 0.2 ML/HR FOR DIALYSIS MISC PRN (06:41)
[2018-04-06] MEDS ORDERED: NS 2,000 ML MISC PRN (06:41)
[2018-04-06] MEDS ORDERED: HEPARIN IV PRN (06:41)
[2018-04-06] MEDS: MORPHINE IV PRN ×2 (07:18→17:16)
--- NOTE | 2018-04-06 07:29 | EKG Report ---
Test Performed on : 04/06/2018 07:09:49 AM Test Reason : CP Blood Pressure : / mmHG Vent. Rate : 072 BPM Atrial Rate : 072 BPM P-R Int : 134 ms QRS Dur : 076 ms QT Int : 452 ms P-R-T Axes : 048 -05 041 degrees QTc Int : 494 ms Sinus rhythm. with premature atrial complexes. Cannot rule out Anterior infarct (cited on or before 16-DEC-2017) Abnormal ECG When compared with ECG of 05-APR-2018 12:51, (Unconfirmed) premature atrial complexes. are now present Confirmed by Trice PEREZ, Carlos Oliver ([id number]) on 04/06/2018 3:56:40 PM
[2018-04-06 07:52] LABS: BASO# 0.05 X1000 (0.0-0.2); BASO% 0.6 % (0.0-0.8); EOS# 0.27 X1000 (0.0-0.7); EOS% 3.1 % (0.0-10.0); HEMATOCRIT 32.6 % (37.0-47.0); HEMOGLOBIN 10.5 g/dL (12.0-16.0); IMM GRAN# 0.02 X1000 (0.0-0.04); IMM GRAN% 0.2 % (0.0-0.5); LYMPH# 2.02 X1000 (1.2-3.4); LYMPH% 23.4 % (20.5-51.1); MCH 27.9 PG (27-31); MCHC 32.2 g/dL (33-37); MCV 86.7 FL (81-99); MONO# 0.48 X1000 (0.11-0.59); MONO% 5.6 % (1.7-9.3); MPV 11.5 FL (7.4-10.4); NEUT# 5.79 X1000 (1.4-6.5); NEUT% 67.1 % (42.2-75.2); PLT 168 X1000 (130-400); RBC 3.76 XMIL (4.2-5.4); RDW 14.9 % (11.5-14.5); WBC 8.63 X1000 (4.8-10.8)
--- NOTE | 2018-04-06 08:04 | EKG Report ---
Test Performed on : 04/05/2018 12:51:45 PM Test Reason : chest pain Blood Pressure : / mmHG Vent. Rate : 066 BPM Atrial Rate : 066 BPM P-R Int : 132 ms QRS Dur : 074 ms QT Int : 492 ms P-R-T Axes : 047 003 061 degrees QTc Int : 515 ms Normal sinus rhythm. Cannot rule out Anterior infarct (cited on or before 16-DEC-2017) Prolonged QT Abnormal ECG When compared with ECG of 05-APR-2018 03:30, (Unconfirmed) No significant change was found Confirmed by Carlos Carnes MD ([id number]) on 04/06/2018 3:55:57 PM
--- NOTE | 2018-04-06 08:18 | EKG Report ---
Test Performed on : 04/06/2018 08:14:37 AM Test Reason : Chest Pain Blood Pressure : / mmHG Vent. Rate : 075 BPM Atrial Rate : 075 BPM P-R Int : 134 ms QRS Dur : 072 ms QT Int : 432 ms P-R-T Axes : 032 001 057 degrees QTc Int : 482 ms Sinus rhythm. with marked sinus arrhythmia. Cannot rule out Anterior infarct (cited on or before 16-DEC-2017) Abnormal ECG When compared with ECG of 06-APR-2018 07:09, (Unconfirmed) premature atrial complexes. are no longer present Confirmed by Trice PEREZ, Carlos Oliver ([id number]) on 04/06/2018 3:56:48 PM
[2018-04-06 08:24] LABS: ALB/GLOB RATIO 0.5; ALBUMIN 2.5 g/dL (3.5-5.0); TOTAL BILIRUBIN 0.39 mg/dL (0.20-1.00); TOTAL PROTEIN 7.6 g/dL (6.3-8.3)
[2018-04-06] MEDS: NEURONTIN PO SCH ×2 (08:26→21:13)
[2018-04-06] MEDS: BENTYL PO SCH ×3 (08:26→17:09)
[2018-04-06] MEDS: CENTRUM TABLET PO SCH (08:26)
[2018-04-06] MEDS: LASIX PO SCH ×2 (08:26→21:13)
[2018-04-06] MEDS: HUMULIN 70/30 SUBQ SCH ×2 (08:27→17:09)
[2018-04-06] MEDS: CYMBALTA PO SCH (08:27)
[2018-04-06 08:56] LABS: CALCIUM 6.1 mg/dL (8.8-10.2); CREATININE 14.1 mg/dL (0.5-0.9); POTASSIUM 6.5 mmol/L (3.5-5.1)
[2018-04-06] MEDS: PROTONIX IV SCH (14:01)
--- NOTE | 2018-04-06 18:09 | NEPHROLOGY CONSULTATION ---
DATE: 04/06/2018 REASON FOR ADMISSION: Chest pain. REASON FOR CONSULT: End-stage renal disease with assistance with medical management. CONSULTING PHYSICIAN: Dr. Canchola for Dr. Hammonds. HISTORY OF PRESENT ILLNESS: Ms. Cheney is a 57-year-old female who is known to our outpatient services for hemodialysis on Friday, Friday, Friday at the [facility]. Patient stated that she had onset of chest pain going into her left pectoral area left side down her arm. She states that she has had drowsy spells where she felt like she might have passed out. She denies any chest pain at this time except to touch. No increased work of breathing. She does have a congested cough. No fever or chills, though she states she has had a fever at home. She has complains of loss of appetite though she has no nausea, vomiting or diarrhea. She denies any recent falls. PAST MEDICAL HISTORY: End-stage renal disease with hemodialysis on Friday, Friday, Friday. She has a left upper arm graft. She is an insulin-dependent diabetic. She has hypertension, anemia of chronic disease, osteodystrophy of chronic disease. She has no liver disease secondary to history of hepatitis C with multiple ultrasound abdominal guided paracentesis. This has been followed by Dr. Gipson. PREVIOUS SURGICAL HISTORY: Is again multiple paracentesis, she has an AV graft to the left upper arm. She has a history of cirrhosis of the liver, peripheral neuropathy secondary to her diabetes, as mentioned fistula to the right upper arm, cholecystectomy, previous tunnel dialysis catheters and paracentesis. FAMILY HISTORY: Notable for father with COPD, mother with lung cancer. SOCIAL HISTORY: She is single. She states that she lives with her . She has 1 son. She denies tobacco. Remote use of cocaine. No illicit drug use or alcohol use recently according to the patient. She is receiving pain medication per the pain clinic. CURRENT ALLERGIES: Listed as no known drug allergies. HOME MEDICATIONS: Have yet to be reconciled. REVIEW OF SYSTEMS: Times 10 with pertinent positives listed above in the HPI. VITAL SIGNS: Temperature 99.2 degrees, blood pressure 130/81, heart rate 84, respirations 18, she is on room air, her last recorded saturation is 100%, she has had 0 recorded in or out up to this point. LAB: Sodium 140, potassium 6.5, chloride 102, CO2 19, BUN 86, creatinine 14.1 , glucose 85, anion gap of 19, calcium 6.1, albumin 2.5, white count 8.63, hemoglobin 10.5, hematocrit 32.6 with a platelet count of 168,000. REPORTS: The patient has had a chest x-ray upon admission showing no evidence of acute disease. Abdominal ultrasound indicates ascites, cirrhosis, renal atrophy of medical renal disease with a left pleural effusion. PHYSICAL EXAM: This is a 57-year-old female, she is resting quietly in bed. She appears chronically ill, no acute distress.Skin: Warm and dry. HEENT: Normocephalic, atraumatic. Conjunctiva is pale. She has ADAM. Mucous membranes are dry. Neck: Supple. Trachea midline, no evidence of JVD. Cardiovascular: She is regular rate and rhythm without murmur or gallop. Lungs: Clear to auscultation bilaterally. Equal excursion. She is on room air. Abdomen: Soft, slightly distended, nontender, hypoactive bowel sounds. Genitourinary: Not inspected. Minimal void with dialysis assist. Extremities: Has no edema, no clubbing or cyanosis. Palpable fistula to the right upper arm. Neurological: Alert and oriented x3. ASSESSMENT AND PLAN: 1. Chronic kidney disease stage 5D. The patient is due for her routine dialysis treatment today. We will place her on a 2 K bath, she is to dialyze for 3-1/2 hours. We will attempt to pull her below her outpatient dry weight and challenge this weight secondary to fluid volume overload. 2. Electrolytes and acid-base balance. Hyperkalemia with correction on dialysis. 3. Anemia. This is acceptable. 4. Left pleural effusion. We will challenge her dry weight on dialysis today. We reevaluate in the a.m. for further need of dialysis. 5. Chronic ascites with multiple paracentesis. We will defer to the primary care team. Like to thank you for allowing us to follow with this patient. Dictated by ARTUR Keith for Noel Price MD Face to face encounter, data reviewed, discussed with Farida Bajwa on 04/06/18. I agree with the above assessment and plan of care. cc: ARTUR Keithh, MD Gonzalo Hammonds, MD [facility]
[2018-04-06] MEDS ORDERED: CALCIUM GLUCONATE 1 GM in NS 50 ML IV ONE (20:54)
[2018-04-06] MEDS: ROBAXIN PO SCH (21:14)
[2018-04-06] MEDS: ELAVIL PO SCH (21:27)
--- NOTE | 2018-04-06 22:22 | PROGRESS NOTE ---
DATE: 04/06/2018 A 57-year-old female admitted from [place] for chest pain. The patient is known history of end-stage kidney disease, on dialysis #3 also ascites requiring repeated paracenteses due to cirrhosis of liver from hepatitis C. Pain is reproducible. EXAMINATION: Temperature is 99 degrees, pulse is 85, blood pressure 143/84, weight 152 pounds.HEENT: Slightly pale. No jaundice. Neck: Supple. Pain is reproducible. Bilateral air entry. Heart: Sounds are regular. Belly: Is soft. Ascites noted. No neurological deficits. INVESTIGATIONS: CBC. White cell count 8.6, hematocrit 32, platelet 168,000. SMA 7 sodium 140, potassium 6.5, chloride 102, BUN 86, creatinine 14.1, glucose 85, calcium 6.1. Positive cardiac CK was normal. EKG showed normal sinus. QT interval slightly prolonged nothing acute. ASSESSMENT AND PLAN: 1. Chest pain. EKG is negative. Troponin is falsely elevated due to end-stage kidney disease. Previous stress test August 2017 negative looked like musculoskeletal pain. Will use the morphine and basically topical NSAIDs. 2. End-stage kidney disease. Going for dialysis. 3. Ascites due to cirrhosis. Paracentesis as needed. 4. Hypocalcemia. Replace the calcium and reconcile home medications. Will follow up. LEVEL OF DOCUMENTATION: 25 minutes. cc: Gonzalo Hammonds MD
[2018-04-07] MEDS: HUMULIN R SUBQ SCH ×4 (06:28→20:53)
[2018-04-07] MEDS: PHOSLO PO SCH ×3 (06:32→16:53)
[2018-04-07] MEDS: MORPHINE IV PRN ×3 (06:35→12:30)
[2018-04-07 08:24] LABS: ALBUMIN 2.7 g/dL (3.5-5.0); CREATININE 8.5 mg/dL (0.5-0.9); PHOSPHORUS 7.5 mg/dL (2.7-4.5); POTASSIUM 5.2 mmol/L (3.5-5.1)
[2018-04-07] MEDS: CYMBALTA PO SCH (08:37)
[2018-04-07] MEDS: VITAMIN D PO SCH (08:37)
[2018-04-07] MEDS: NORVASC PO SCH (08:37)
[2018-04-07] MEDS: NEURONTIN PO SCH ×2 (08:37→20:53)
[2018-04-07] MEDS: BENTYL PO SCH ×3 (08:37→16:53)
[2018-04-07] MEDS: LASIX PO SCH ×2 (08:37→20:53)
[2018-04-07] MEDS: HUMULIN 70/30 SUBQ SCH ×2 (08:38→16:53)
[2018-04-07] MEDS: CENTRUM TABLET PO SCH (08:41)
[2018-04-07 09:17] LABS: CALCIUM 6.9 mg/dL (8.8-10.2)
[2018-04-07] MEDS: SODIUM CHLORIDE 0.9% INJ SCH (12:34)
[2018-04-07] MEDS: PROTONIX IV SCH (12:34)
--- NOTE | 2018-04-07 15:14 | NEPHROLOGY PROGRESS NOTE ---
DATE: 04/07/2018 TIME SEEN: 08 SUBJECTIVE: Ms. Cheney is resting quietly on the side of the bed. She has just finished washing up this a.m. Complains of pain to touch to her left chest wall. OBJECTIVE: Vital Signs: Temperature 98.2 degrees, blood pressure 146/81, heart rate 76, respirations 18. She is on room air. Last recorded saturation 95%. She has had 540 in, 2600 out. LABORATORY DATA: Sodium 141, potassium 5.2, chloride 100, CO2 24, BUN 38, creatinine 8.5, glucose 100, anion gap 17, calcium 6.9, phosphorus 7.5, albumin 2.7. Previous hemoglobin 10.5. PHYSICAL EXAMINATION: General: This is a 57-year-old female. She is resting quietly on the side of the bed. She is in no acute distress though she does have some discomfort to tactile stimuli of the left chest wall. HEENT: Normocephalic, atraumatic. Conjunctivae pale. She has ADAM. Mucous membranes dry. Neck: Supple. Trachea midline. No JVD. Cardiovascular: Regular rate and rhythm without murmur or gallop. Lungs: Clear to auscultation bilaterally. Equal excursion on room air. Abdomen: Distended, nontender. Hypoactive bowel sounds. Genitourinary: Not inspected. Minimal void with dialysis assist. Extremities : No edema, no clubbing or cyanosis. Palpable fistula to the right upper arm. Neurological: Alert and oriented x3. ASSESSMENT AND PLAN: 1. Chronic kidney disease stage 5D. The patient had her dialysis treatment yesterday. No indications for intervention today. We will plan for dialysis in the a.m. 2. Fluid volume overload. Again, we challenged the patient's dry weight yesterday. We will re- evaluate in the a.m. 3. Electrolytes, acid-base balance. This is improved after dialysis yesterday. 4. Anemia. This remains acceptable. 5. Left pleural effusion, again with challenge on her dry weight. 6. Chronic ascites with multiple paracenteses. This is followed by the primary care. 7. Continued chest pain. I have not spoken with Dr. Hammonds. He is planning to order topical analgesic. I would like to thank you for allowing us to follow with this patient. Dictated by ARTUR Keith for Noel Price MD Face to face encounter, data reviewed, discussed with Farida Bajwa on 04/08/18. I agree with the above assessment and plan of care. cc: ARTUR Keith MD Jagan Reddy, MD [facility]
[2018-04-07] MEDS: ROBAXIN PO SCH (20:53)
[2018-04-07] MEDS: ELAVIL PO SCH (20:53)
[2018-04-07] MEDS ORDERED: VOLTAREN 1% GEL TOP ONE (21:53)
--- NOTE | 2018-04-07 22:53 | PROGRESS NOTE ---
DATE: 04/07/2018 SUBJECTIVE: The patient is in the bathroom. Still complains of left-sided precordial chest pain, reproducible. The patient had dialysis yesterday. PHYSICAL EXAMINATION: Temperature is 97 degrees, pulse is 76, blood pressure 126/87. HEENT: Minus 2 L. Pain is reproducible. Cardiovascular: Heart sounds are regular. Abdomen: Belly is soft. Mild ascites noted. Neurologic: No neurological deficits. INVESTIGATIONS: EKG was unremarkable. Cardiac enzymes were negative. Previous stress test 6 months ago negative. Chest x-ray was stable. ASSESSMENT AND PLAN: 1. Chest pain is musculoskeletal pain. We will use the diclofenac gel topically. 2. End-stage kidney disease, as per Dr. Price for dialysis. 3. Hypocalcemia, on replacement therapy. 4. Ascites due to cirrhosis of liver. Paracentesis as needed. 5. No need for cardiac workup until she has some EKG changes. 6. Continue with present medical therapy. LEVEL OF DOCUMENTATION: 25 minutes. cc: Gonzalo Hammonds MD
[2018-04-08] MEDS: MORPHINE IV PRN ×3 (04:15→19:23)
[2018-04-08] MEDS ORDERED: HEPARIN IV PRN (05:38)
[2018-04-08] MEDS ORDERED: TIGHT: 0.2 ML/HR FOR DIALYSIS MISC PRN (05:38)
[2018-04-08] MEDS ORDERED: NS 2,000 ML MISC PRN (05:38)
[2018-04-08] MEDS: PHOSLO PO SCH ×3 (06:23→16:02)
[2018-04-08] MEDS: HUMULIN R SUBQ SCH ×4 (06:24→21:06)
--- NOTE | 2018-04-08 08:05 | NEPHROLOGY PROGRESS NOTE ---
DATE: 04/08/2018 TIME SEEN: 0640. SUBJECTIVE: Ms. Cheney is resting quietly in bed. She has just awoken. She states that it is too early to tell if she is feeling well, though she does have some abdominal discomfort due to swelling. OBJECTIVE: Vital Signs: Temperature 97.6 degrees, blood pressure 114/88, heart rate 75, respirations 16. She is on room air. Last recorded saturation 99%. She has had 420 in. She has had only 3 mL recorded out after dialysis yesterday. Laboratory Data: Labs are currently pending. Last potassium 5.2, with a hemoglobin of 10.5. Physical Examination: General: This is a 57-year-old, female resting quietly in bed. Skin: Warm and dry. HEENT: Normocephalic, atraumatic. Conjunctivae pale. She has ADAM. Mucous membranes dry. Neck: Supple. Trachea midline. No JVD. Cardiovascular : Regular rate and rhythm without murmur or gallop. Lungs: Clear to auscultation bilaterally. Equal excursion, on room air. Abdomen: Distended. Semifirm. Hypoactive bowel sounds noted. Tender on palpation. Genitourinary: Not inspected. Minimal void with dialysis assist. Extremities: Have no edema. No clubbing or cyanosis. Neurological: She is alert and oriented x3. ASSESSMENT AND PLAN: 1. Chronic kidney disease stage 5D. We will plan for hemodialysis today. We will place her on a 2 K bath. She is to dialyze for 3.5 hours. We will attempt to pull her to her outpatient dry weight. 2. Electrolytes and acid-base balance. These are all currently pending. 3. Anemia. This has been low but acceptable. 4. Left pleural effusion. Again, we have challenged her dry weight. 5. Chronic ascites with multiple paracenteses. We will defer to the primary care team. I would like to thank you for allowing us to follow with this patient. Dictated by ARTUR Keith for Noel Price MD Face to face encounter, data reviewed, discussed with Farida Bajwa on 04/08/18. I agree with the above assessment and plan of care. cc: ARTUR Keith MD Jagan Reddy, MD [facility]
[2018-04-08 08:22] LABS: ALBUMIN 2.9 g/dL (3.5-5.0); PHOSPHORUS 8.2 mg/dL (2.7-4.5); POTASSIUM 5.2 mmol/L (3.5-5.1)
[2018-04-08 08:25] LABS: CALCIUM 6.9 mg/dL (8.8-10.2); CREATININE 10.8 mg/dL (0.5-0.9)
[2018-04-08] MEDS ORDERED: CALCIUM GLUCONATE 1 GM in NS 50 ML IV ONE (08:32)
[2018-04-08] MEDS: CENTRUM TABLET PO SCH (10:09)
[2018-04-08] MEDS: CYMBALTA PO SCH (10:09)
[2018-04-08] MEDS: HUMULIN 70/30 SUBQ SCH ×2 (10:09→16:02)
[2018-04-08] MEDS: NEURONTIN PO SCH ×2 (10:09→21:06)
[2018-04-08] MEDS: BENTYL PO SCH ×3 (10:09→16:02)
[2018-04-08] MEDS: NORVASC PO SCH (10:09)
[2018-04-08] MEDS: VITAMIN D PO SCH (10:09)
[2018-04-08] MEDS: LASIX PO SCH ×2 (10:09→21:06)
[2018-04-08] MEDS: VOLTAREN 1% GEL TOP SCH ×4 (10:10→21:07)
[2018-04-08] MEDS ORDERED: INSULIN PEN NEEDLES ONE (10:13)
[2018-04-08] MEDS: PROTONIX IV SCH (14:25)
[2018-04-08] MEDS: ROBAXIN PO SCH (21:06)
[2018-04-08] MEDS: ELAVIL PO SCH (21:06)
--- NOTE | 2018-04-09 01:19 | PROGRESS NOTE ---
DATE: 04/08/2018 SUBJECTIVE: The patient is still complaining of pain and swelling of the belly. OBJECTIVE: Vital Signs: Temperature is 99 degrees, pulse is 79. Vitals are stable. HEENT: Within normal limits. Neck: Supple. Abdomen: Reproducible pain, some ascites noted. LABORATORY DATA: Reviewed. Sodium 138, potassium 5.2, BUN 44, creatinine 10.8 , glucose 120, calcium 6.9. ASSESSMENT AND PLAN: 1. Hypocalcemia on PhosLo and calcium gluconate. 2. Chest pain is musculoskeletal pain. Diclofenac gel. 3. Going for dialysis. 4. Diabetes is stable on sliding scale with insulin coverage. 5. We will attempt a paracentesis. She is more distended and going for dialysis today. Continue to follow up. LEVEL OF DOCUMENTATION: 25 minutes. cc: Gonzalo Hammonds MD MTDD
[2018-04-09] MEDS: MORPHINE IV PRN ×2 (05:24→11:32)
[2018-04-09] MEDS: HUMULIN R SUBQ SCH ×4 (06:22→21:33)
[2018-04-09] MEDS: PHOSLO PO SCH ×3 (06:22→17:08)
[2018-04-09 07:45] LABS: ALBUMIN 2.8 g/dL (3.5-5.0); CREATININE 6.9 mg/dL (0.5-0.9); PHOSPHORUS 4.7 mg/dL (2.7-4.5); POTASSIUM 4.6 mmol/L (3.5-5.1)
[2018-04-09 07:55] LABS: CALCIUM 6.9 mg/dL (8.8-10.2)
--- NOTE | 2018-04-09 08:33 | Diag Imaging Result Doc PS360 ---
EXAM: CHEST-1 VIEW - 04/09/2018 HISTORY: congested cough with chest tightness TECHNIQUE: Portable chest COMPARISON: 04/05/2018 FINDINGS: Heart size appears upper normal. Inspiration is mildly shallow. There is atelectasis at the bilateral lung bases which has increased. The upper lungs appear clear. There is no pleural effusion or pneumothorax identified. IMPRESSION: Mildly shallow inspiration. Atelectasis at bilateral lung bases which has increased compared to prior. Electronically signed by Rocky Alvarado 04/09/2018 8:31 AM
[2018-04-09] MEDS ORDERED: CALCIUM GLUCONATE 1 GM in NS 50 ML IV ONE (08:52)
[2018-04-09 09:33] LABS: INR 1.04; PROTIME 14.5 Seconds (11.0-16.0)
[2018-04-09 09:34] LABS: PTT 24.4 Seconds (22.3-41.8)
[2018-04-09] MEDS: HUMULIN 70/30 SUBQ SCH ×2 (11:28→16:47)
[2018-04-09] MEDS: NORVASC PO SCH (11:29)
[2018-04-09] MEDS: NEURONTIN PO SCH ×2 (11:29→21:42)
[2018-04-09] MEDS: CYMBALTA PO SCH (11:29)
[2018-04-09] MEDS: VITAMIN D PO SCH (11:29)
[2018-04-09] MEDS: LASIX PO SCH ×2 (11:29→21:41)
[2018-04-09] MEDS: VOLTAREN 1% GEL TOP SCH ×4 (11:30→21:42)
[2018-04-09] MEDS: CENTRUM TABLET PO SCH (11:30)
[2018-04-09] MEDS: BENTYL PO SCH ×3 (11:30→17:08)
[2018-04-09] MEDS: PROTONIX IV SCH ×2 (11:31→11:36)
--- NOTE | 2018-04-09 11:42 | Diag Imaging Result Doc PS360 ---
US ABD PARACENTESIS W S/I - 04/09/2018 INDICATION: ascites COMPARISON: 04/05/2018 FINDINGS: The risks and benefits of the procedure were discussed with the patient. All questions were answered. Written and verbal consent was obtained. Ultrasound scanning demonstrated ascites. Overlying skin was prepped and draped in sterile fashion. Local anesthesia was achieved with injection of 10 cc 1% lidocaine. The paracentesis catheter was advanced until the return of ascites fluid. 4.75 L of dark tylor fluid was aspirated. The catheter was withdrawn intact. There were no known complications. IMPRESSION: Technically successful ultrasound-guided paracentesis with no known complications. Electronically signed by Todd Duke 04/09/2018 11:40 AM
--- NOTE | 2018-04-09 12:51 | NEPHROLOGY PROGRESS NOTE ---
DATE: 04/09/2018 DATE AND TIME SEEN: 04/09/2018 at 0650. SUBJECTIVE: Ms. Cheney is resting quietly in bed. The head of the bed is elevated. She states that she is lethargic. Difficulty with inspiratory breathing. OBJECTIVE: Her most recent vital signs: Temperature 98 degrees, blood pressure 123/80 heart rate 87, respirations 18. She is on room air. Last recorded saturation 94%. She has had 240 In. She has had 1800 Out. LABORATORY DATA: Sodium 135, potassium 4.6, chloride 95, CO2 of 28. BUN 20, creatinine 6.9, glucose 113. Her anion gap is 12. Calcium 6.9, phosphorus 4.7, albumin is 2.8. She has a corrected calcium of 7.86. Previous hemoglobin 10.5 on 04/06/2018. PHYSICAL EXAMINATION: This is a 57-year-old -[place] female resting quietly in bed. She is in no acute distress. Her skin is warm and dry. HEENT: Normocephalic, atraumatic. Conjunctiva is pale. She has ADAM. Mucous membranes are dry. Neck is supple. Trachea midline. She does have JVD at the 6 cm mame. Cardiovascular: She has regular rate and rhythm. S4 is present. Lungs are clear to auscultation bilaterally. Equal excursion. She is on room air. Abdomen is soft, distended, tight, tympanic with hypo bowel sounds. Genitourinary not inspected. Minimal void with dialysis assist. Extremities have no edema. No clubbing or cyanosis. Neurologic: Alert and oriented x3. ASSESSMENT AND PLAN: 1. Chronic kidney disease, stage 5D. The patient had her routine dialysis treatment yesterday. No indications for intervention today. She is scheduled for paracentesis for possible later this afternoon. 2. Electrolytes and acid-base balance. These are acceptable with correction on dialysis. 3. Anemia, this remains stable next increased work of breathing. Patient is scheduled for paracentesis. I would to thank you for allowing us to follow with this patient. Dictated by ARTUR Keith for Noel Price MD [id number] encounter. Data reviewed and discussed with Janet Bajwa. I agree with the above assessment and plan of care. cc: ARTUR Keith MD Jagan Hammonds, MD [facility]
[2018-04-09] MEDS ORDERED: LASIX IV ONE (19:49)
[2018-04-09] MEDS ORDERED: TYLENOL PO ONE (19:49)
[2018-04-09 20:03] LABS: ALLEN TEST YES; BE 4.1 mmoll (-3.0-3.0); BLOOD TYPE ARTERIAL; METHB 0.9 % (0.0-1.5); O2(CT) 14.3 mL/dL (15.0-23.0); O2HB 90.4 % (95.0-99.0); PCO2(98.6) 45 mmHg (35-45); PO2(98.6) 63 mmHg (60-100); SAMPLE BLOOD; SAO2 93.9 % (95.0-100.0); THB 11.2 g/dL (11.5-17.4); pH(98.6) 7.42 (7.35-7.45)
[2018-04-09 20:04] LABS: MODALITY VENTIMASK
[2018-04-09] MEDS ORDERED: LASIX ONE (20:07)
--- NOTE | 2018-04-09 20:09 | Diag Imaging Result Doc PS360 ---
EXAM: CHEST-PORTABLE 04/09/2018 HISTORY: decreased o2 sat TECHNIQUE: AP portable upright at 2002 COMMENT: The inspiration is suboptimal. There is ill-defined opacity in both lungs which is worse than on the previous study of 04/09/2018 at 0814. IMPRESSION: Pulmonary edema. Electronically signed by Dhaval Morris 04/09/2018 8:06 PM
[2018-04-09] MEDS ORDERED: LASIX 160 MG in NS 25 ML IV ONE (21:00)
[2018-04-09] MEDS ORDERED: SODIUM CHLORIDE 0.9% INJ SCH (21:30)
[2018-04-09] MEDS ORDERED: TYLENOL PR ONE (21:35)
[2018-04-09] MEDS: ELAVIL PO SCH (21:41)
[2018-04-09] MEDS: ROBAXIN PO SCH (21:42)
[2018-04-09] MEDS ORDERED: LEVAQUIN 250 MG in NS 50 ML IV ONE (22:00)
--- NOTE | 2018-04-09 22:49 | PROGRESS NOTE ---
DATE: 04/09/2018 SUBJECTIVE: The patient still has a little bit of chest pain, reproducible. EXAMINATION: Chest: Clear. Heart: Sounds are regular. Abdomen: Belly is soft, distended. Ascites. LABS: PT/INR is normal. SMA-7: Sodium 138, potassium 4.6, chloride 95, BUN 20 , creatinine 6.9, calcium 6.9. Albumin 2.8. ASSESSMENT AND PLAN: 1. Cirrhosis of liver due to hepatitis C, with intractable ascites. We will do the abdominal paracentesis today. 2. End-stage kidney disease on dialysis tomorrow. 3. Chest pain, basically reproducible. Diclofenac gel as needed. 4. Hypocalcemia, asymptomatic. Corrected calcium is 7.4. We will give calcium acetate and gluconate as needed. Will follow up. LEVEL OF DOCUMENTATION: 25 minutes. cc: Gonzalo Hammonds MD MTDD
[2018-04-09] MEDS ORDERED: ROCEPHIN 1 GM in NS 50 ML IV ONE (23:06)
[2018-04-09] MEDS ORDERED: NS 250 ML IV SCH (23:15)
[2018-04-09] MEDS ORDERED: LEVOPHED 8 MG in D5 1/2 NS 250 ML IV SCH (23:15)
[2018-04-09 23:25] LABS: URINE SOURCE CATH
[2018-04-09 23:29] LABS: BILIRUBIN URINE NEGATIVE (NEGATIVE); BLOOD URINE MODERATE (NEGATIVE); COLOR ORANGE; GLUCOSE URINE NEGATIVE (NEGATIVE); KETONE URINE NEGATIVE (NEGATIVE); LEUKOCYTES URINE LARGE (NEGATIVE); NITRITE URINE NEGATIVE (NEGATIVE); PH URINE 7.5; PROTEIN URINE 200 mg/dL (NEGATIVE); SP GRAVITY URINE 1.004; TURBIDITY URINE TURBID (CLEAR); UROBILINOGEN URINE NORMAL (NORMAL)
[2018-04-09 23:32] LABS: UR EPITHELIAL CELLS <10 /HPF (<10); URINE BACTERIA 4+ /HPF; URINE RBC <10 /HPF (<10); URINE WBC TNTC /HPF (<10); URINE YEAST PRESENT
[2018-04-10 01:34] LABS: BASO# 0.03 X1000 (0.0-0.2); BASO% 0.2 % (0.0-0.8); EOS# 0.03 X1000 (0.0-0.7); EOS% 0.2 % (0.0-10.0); HEMATOCRIT 33.3 % (37.0-47.0); HEMOGLOBIN 10.3 g/dL (12.0-16.0); IMM GRAN# 0.07 X1000 (0.0-0.04); IMM GRAN% 0.5 % (0.0-0.5); LYMPH# 1.74 X1000 (1.2-3.4); LYMPH% 12.3 % (20.5-51.1); MCH 28.2 PG (27-31); MCHC 30.9 g/dL (33-37); MCV 91.2 FL (81-99); MONO# 0.64 X1000 (0.11-0.59); MONO% 4.5 % (1.7-9.3); MPV 11.5 FL (7.4-10.4); NEUT# 11.65 X1000 (1.4-6.5); NEUT% 82.3 % (42.2-75.2); PLT 134 X1000 (130-400); RBC 3.65 XMIL (4.2-5.4); RDW 14.9 % (11.5-14.5); WBC 14.16 X1000 (4.8-10.8)
[2018-04-10 02:00] LABS: ALB/GLOB RATIO 0.5; ALBUMIN 2.4 g/dL (3.5-5.0); CREATININE 8.1 mg/dL (0.5-0.9); MAGNESIUM 1.7 mg/dL (1.5-2.7); POTASSIUM 4.6 mmol/L (3.5-5.1); TOTAL BILIRUBIN 0.86 mg/dL (0.20-1.00); TOTAL PROTEIN 7.2 g/dL (6.3-8.3)
[2018-04-10 02:55] LABS: CK INDEX 0.6 (0.0-2.5); CK-MB 2.64 ng/mL (0.0-5.0)
[2018-04-10] MEDS: TYLENOL PO PRN (04:19)
[2018-04-10 04:35] LABS: BASO# 0.02 X1000 (0.0-0.2); BASO% 0.1 % (0.0-0.8); EOS# 0.01 X1000 (0.0-0.7); EOS% 0.1 % (0.0-10.0); HEMOGLOBIN 9.8 g/dL (12.0-16.0); IMM GRAN% 0.5 % (0.0-0.5); LYMPH# 1.42 X1000 (1.2-3.4); LYMPH% 8.9 % (20.5-51.1); MCH 28.7 PG (27-31); MCHC 31.6 g/dL (33-37); MCV 90.6 FL (81-99); MONO# 0.79 X1000 (0.11-0.59); MONO% 4.9 % (1.7-9.3); MPV 11.5 FL (7.4-10.4); NEUT# 13.72 X1000 (1.4-6.5); NEUT% 85.5 % (42.2-75.2); PLT 120 X1000 (130-400); RBC 3.42 XMIL (4.2-5.4); RDW 14.9 % (11.5-14.5); WBC 16.04 X1000 (4.8-10.8)
[2018-04-10 04:36] LABS: IMM GRAN# 0.08 X1000 (0.0-0.04)
[2018-04-10 04:37] LABS: ALLEN TEST YES; BE 1.3 mmoll (-3.0-3.0); BLOOD TYPE ARTERIAL; HCO3-(ACT) 25.9 mmoll (20.0-26.0); METHB 1.2 % (0.0-1.5); O2(CT) 13.6 mL/dL (15.0-23.0); PCO2(98.6) 44 mmHg (35-45); PO2(98.6) 75 mmHg (60-100); SAMPLE BLOOD; THB 10.3 g/dL (11.5-17.4); pH(98.6) 7.39 (7.35-7.45)
[2018-04-10 04:49] LABS: MODALITY VENTIMASK
[2018-04-10 05:02] LABS: ALBUMIN 2.2 g/dL (3.5-5.0); CREATININE 8.4 mg/dL (0.5-0.9); PHOSPHORUS 6.4 mg/dL (2.7-4.5)
[2018-04-10 05:05] LABS: CALCIUM 6.7 mg/dL (8.8-10.2)
[2018-04-10] MEDS: HUMULIN R SUBQ SCH ×4 (06:11→20:31)
[2018-04-10] MEDS: PHOSLO PO SCH ×3 (06:13→15:59)
[2018-04-10 06:28] LABS: LYMPHS 9 % (21-51); MONO 4 % (1-9); SEGS 87 % (42-75)
--- NOTE | 2018-04-10 07:23 | EKG Report ---
Test Performed on : 04/09/2018 9:48:16 PM Test Reason : SOB Blood Pressure : / mmHG Vent. Rate : 103 BPM Atrial Rate : 103 BPM P-R Int : 118 ms QRS Dur : 064 ms QT Int : 344 ms P-R-T Axes : 039 008 051 degrees QTc Int : 450 ms Sinus tachycardia. Otherwise normal ECG When compared with ECG of 06-APR-2018 08:14, No significant change was found Confirmed by Trice PEREZ, Carlos Oliver ([id number]) on 04/10/2018 9:22:23 AM
[2018-04-10] MEDS ORDERED: NS 2,000 ML MISC PRN (08:12)
[2018-04-10] MEDS ORDERED: HEPARIN IV PRN (08:12)
[2018-04-10] MEDS ORDERED: TIGHT: 0.2 ML/HR FOR DIALYSIS MISC PRN (08:12)
[2018-04-10] MEDS: CYMBALTA PO SCH (08:31)
[2018-04-10] MEDS: HUMULIN 70/30 SUBQ SCH ×2 (08:31→15:59)
[2018-04-10] MEDS: NEURONTIN PO SCH ×2 (08:32→20:29)
[2018-04-10] MEDS: PROTONIX IV SCH ×2 (08:32→14:58)
[2018-04-10] MEDS: NORVASC PO SCH (08:32)
[2018-04-10] MEDS: VITAMIN D PO SCH (08:32)
[2018-04-10] MEDS: LASIX PO SCH (08:32)
[2018-04-10] MEDS: CENTRUM TABLET PO SCH (08:32)
[2018-04-10] MEDS: BENTYL PO SCH ×3 (08:32→15:59)
[2018-04-10] MEDS: VOLTAREN 1% GEL TOP SCH ×4 (08:35→20:30)
[2018-04-10] MEDS: MORPHINE IV PRN ×2 (15:59→20:51)
--- NOTE | 2018-04-10 18:07 | PROGRESS NOTE ---
DATE: 04/10/2018 SUBJECT: Events noted. Last night I was told patient went to respiratory distress and crackles in both bases. Blood pressure was dropped, moved to the ICU. The patient was on Ventimask. Chest x-ray mild pulmonary vasculature. Patient had a paracentesis and this morning patient is little comfortable, blood pressure is stable, little bit on the low side. EXAM: Temperature is 98 degrees, blood pressure is on the low side.HEENT: Within normal limits. Crackles in the right base. Heart: Sounds are regular. Belly: Is soft. Decreased abdominal distention. No edema. LABS: White cell count 16, hematocrit 31, platelets 120,000. ABG pH is 7.39, pCO2 44, PO2 75 on 50% Ventimask. SMA-7 sodium 136, potassium 4.6, chloride 95, BUN 32, creatinine 8.1, calcium 7.0. Cardiac enzymes were negative. Positive troponin. EKG sinus tachycardia nothing acute. ASSESSMENT AND PLAN: 1. Acute respiratory distress, possible aspiration pneumonia. Oxygen, Levaquin was given. 2. Altered mental status. Will check the ammonia level tomorrow. 3. Cirrhosis of liver status post paracentesis. 4. End-stage kidney disease on dialysis. 5. Hold the blood pressure medicine since the blood pressure on the low side and also since the patient is on dialysis will stop the Lasix. 6. Patient is due for dialysis. 7. Gastrointestinal prophylaxis with IV Protonix. 8. Hypocalcemia stable. Will give her Levaquin after the dialysis. Will repeat the labs in the morning. LEVEL OF DOCUMENTATION: 35 minutes. cc: Gonzalo Hammonds MD
[2018-04-10] MEDS: ROBAXIN PO SCH (20:29)
[2018-04-10] MEDS: ELAVIL PO SCH (20:29)
--- NOTE | 2018-04-11 01:58 | NEPHROLOGY PROGRESS NOTE ---
DATE: 04/10/2018 TIME SEEN: 08:50 a.m. SUBJECTIVE: The patient is currently undergoing hemodialysis. Her blood pressure has dropped some this morning. She has no complaints. No pain or work of breathing. OBJECTIVE: Vital Signs: Temperature is 100.3 degrees, pulse 68, respiratory rate 13, blood pressure 85/56. Intake 640 mL, output 200 mL. General: This is a middle-aged female, resting in bed, no acute distress. HEENT: Normocephalic and atraumatic. Conjunctivae pale. Neck: Supple. Positive JVD in a reclined position. Cardiovascular: Regular rate and rhythm with a gallop. Pulmonary: She is clear, she has some rhonchi bilaterally. No increased work of breathing. Abdomen: Soft, positive bowel sounds. Genitourinary: Not inspected. Extremities: Dialysis access noted. No edema. Integumentary: Skin is warm and dry. LABORATORY DATA: WBC of 16.0, hemoglobin 9.8, sodium 136, potassium 5.0, CO2 is 24, creatinine 8.4. ASSESSMENT AND PLAN: 1. End-stage renal disease on hemodialysis, today is her routine dialysis day. We have had to reduce her goal for ultrafiltration secondary to her hypotension. The nurses will monitor and keep me in close contact to make further decisions. We will attempt to finish a complete 4 hour treatment today. 2. Cirrhosis of the liver. Followed by primary. 3. Hypocalcemia. Her calcium today corrected was 7.4. We will treat it as warranted. She is running on a normal calcium bath today. Dictated by ART[facility] for Noel Price MD cc: MD Gonzalo Badillo MD
[2018-04-11 05:43] LABS: ALLEN TEST YES; BLOOD TYPE ARTERIAL; HCO3-(ACT) 31.1 mmoll (20.0-26.0); METHB 0.9 % (0.0-1.5); O2HB 92.6 % (95.0-99.0); PO2(98.6) 71 mmHg (60-100); SAMPLE BLOOD; SAO2 95.6 % (95.0-100.0); THB 9.9 g/dL (11.5-17.4)
[2018-04-11 05:44] LABS: PCO2(98.6) 55 mmHg (35-45)
[2018-04-11 05:45] LABS: MODALITY CANNULA
[2018-04-11 05:56] LABS: HEMATOCRIT 32.7 % (37.0-47.0); HEMOGLOBIN 10.2 g/dL (12.0-16.0); MCH 29.9 PG (27-31); MCHC 31.2 g/dL (33-37); MCV 95.9 FL (81-99); MPV 12.4 FL (7.4-10.4); RBC 3.41 XMIL (4.2-5.4); RDW 15.7 % (11.5-14.5); WBC 21.41 X1000 (4.8-10.8)
[2018-04-11] MEDS: HUMULIN R SUBQ SCH ×4 (06:14→21:18)
[2018-04-11] MEDS: PHOSLO PO SCH ×3 (06:16→16:34)
[2018-04-11] MEDS: HUMULIN 70/30 SUBQ SCH ×2 (07:43→16:35)
[2018-04-11] MEDS: BENTYL PO SCH ×3 (08:46→16:34)
[2018-04-11] MEDS: VOLTAREN 1% GEL TOP SCH ×4 (08:46→21:18)
[2018-04-11] MEDS: CYMBALTA PO SCH (08:46)
[2018-04-11] MEDS: VITAMIN D PO SCH (08:46)
[2018-04-11] MEDS: PROTONIX IV SCH ×2 (08:46→12:12)
[2018-04-11] MEDS: CENTRUM TABLET PO SCH (08:46)
[2018-04-11] MEDS: NEURONTIN PO SCH ×2 (08:46→21:17)
[2018-04-11] MEDS: MORPHINE IV PRN ×2 (09:43→16:51)
[2018-04-11 10:02] LABS: ALBUMIN 2.2 g/dL (3.5-5.0); CALCIUM 7.5 mg/dL (8.8-10.2); PHOSPHORUS 4.9 mg/dL (2.7-4.5); POTASSIUM 5.2 mmol/L (3.5-5.1)
[2018-04-11 10:05] LABS: CREATININE 5.3 mg/dL (0.5-0.9)
--- NOTE | 2018-04-11 11:41 | Diag Imaging Result Doc PS360 ---
CHEST-2 VIEWS - 04/11/2018 INDICATION: hypoxia COMPARISON: 04/09/2018 FINDINGS: There is some increasing linear atelectasis or infiltrate in the right lower lobe. The central pulmonary edema/volume overload has significantly improved. Heart size and pulmonary vascularity are normal. No pneumothorax or pleural effusion. IMPRESSION: Mixed changes, with overall improvement from prior. Electronically signed by August Hong 04/11/2018 11:38 AM
--- NOTE | 2018-04-11 12:40 | PROGRESS NOTE ---
DATE: 04/11/2018 VITAL SIGNS: Vital signs stable with temperature 98.0 degrees, heart rate 76, respirations 18, blood pressure 127/75, O2 saturation on 3 L nasal oxygen 97%. SUBJECTIVE: The patient is a 57-year-old black female with history of chronic renal failure on dialysis, history of hepatitis C, history of respiratory distress, improving. She had paracentesis and hemodialysis yesterday. Chest reveals a few increased upper airway sounds, but she states she feels better than yesterday. Blood gases this morning reveal pCO2 55, PO2 71, pH 7.40 on 3 L nasal oxygen. Hemoglobin is 10.2, hematocrit 32.7, white blood count 21,400. Blood sugar is 85. Troponin on 04/10/2018 was 0.28. EKG on 04/05 revealed sinus rhythm with a rate 61. There was a possibility of anterior infarct, age undetermined, but according to me, there was a Q- wave in anterior leads. She is improved, but will be kept in ICU today. cc: MD Gonzalo Cordero MD
[2018-04-11] MEDS: ROBAXIN PO SCH (21:17)
[2018-04-11] MEDS: ELAVIL PO SCH (21:17)
--- NOTE | 2018-04-12 05:12 | NEPHROLOGY PROGRESS NOTE ---
DATE: 04/11/2018 SUBJECTIVE: The patient is complaining of some shortness of breath. She was unable to have significant fluid volume removal yesterday secondary to blood pressure. OBJECTIVE: Vital Signs: Temperature 98 degrees, pulse 76, respiratory rate 18, blood pressure 127/75. Intake 980 mL. Output 244 mL. General: This is a chronically ill-appearing female, resting in bed. She does not appear in acute distress. HEENT: Normocephalic, atraumatic. Conjunctivae are pale. Oral mucosa moist. Neck: Supple, with positive JVD. Cardiovascular: Regular rate and rhythm with a gallop. Pulmonary: She had some rhonchi bilaterally. No wheeze or rales. Abdomen: Soft. Positive bowel sounds. : Not inspected. Extremities: No clubbing, cyanosis, or edema. Integumentary: Skin remains warm and dry. Lab Data: WBC of 21.4, hemoglobin 10.2. ASSESSMENT AND PLAN: 1. Chronic kidney disease 5D. She is to have a chest x-ray later on this morning and then, depending on those results, we will make a decision if we need to run her for ultrafiltrate removal only. If not, her next dialysis treatment will be on Friday. 2. Cirrhosis, followed by primary. 3. Electrolytes, acid-base balance, anemia. These have been stable. Dictated by ART[facility] for Noel Price MD cc: MD Gonzalo Badillo MD
[2018-04-12] MEDS: PHOSLO PO SCH ×3 (06:28→16:17)
[2018-04-12] MEDS: HUMULIN R SUBQ SCH ×4 (06:29→21:13)
[2018-04-12] MEDS: MORPHINE IV PRN ×5 (06:33→21:13)
[2018-04-12] MEDS: HUMULIN 70/30 SUBQ SCH ×2 (07:28→16:11)
[2018-04-12] MEDS: CYMBALTA PO SCH (08:40)
[2018-04-12] MEDS: VITAMIN D PO SCH (08:40)
[2018-04-12] MEDS: PROTONIX IV SCH ×2 (08:40→11:37)
[2018-04-12] MEDS: NEURONTIN PO SCH ×3 (08:40→16:17)
[2018-04-12] MEDS: BENTYL PO SCH ×3 (08:40→16:16)
[2018-04-12] MEDS: CENTRUM TABLET PO SCH (08:42)
[2018-04-12] MEDS: VOLTAREN 1% GEL TOP SCH ×4 (08:44→21:14)
[2018-04-12 09:18] LABS: HEMATOCRIT 33.8 % (37.0-47.0); HEMOGLOBIN 10.4 g/dL (12.0-16.0); MCHC 30.8 g/dL (33-37); MCV 90.9 FL (81-99); MPV 11.8 FL (7.4-10.4); RBC 3.72 XMIL (4.2-5.4); RDW 14.8 % (11.5-14.5); WBC 16.51 X1000 (4.8-10.8)
[2018-04-12 09:37] LABS: ALBUMIN 2.3 g/dL (3.5-5.0); CALCIUM 7.2 mg/dL (8.8-10.2); PHOSPHORUS 4.5 mg/dL (2.7-4.5); POTASSIUM 4.9 mmol/L (3.5-5.1)
[2018-04-12 09:47] LABS: CREATININE 7.7 mg/dL (0.5-0.9)
--- NOTE | 2018-04-12 10:04 | Diag Imaging Result Doc PS360 ---
CHEST-2 VIEWS - 04/12/2018 INDICATION: hypoxia COMPARISON: 04/11/2018 FINDINGS: Lung volumes are slightly lower, with slight worsening linear atelectasis in the lung bases. Heart size is normal. No pneumothorax or pleural effusion. IMPRESSION: Slightly lower lung volumes with slight worsening linear atelectasis in the bases. Electronically signed by August Hong 04/12/2018 10:02 AM
--- NOTE | 2018-04-12 10:33 | PROGRESS NOTE ---
DATE: 04/12/2018 VITAL SIGNS: Temperature 98, heart rate 63, respirations 10, blood pressure 129/76, O2 saturation on 3 L nasal oxygen of 99%. LABORATORY: Glucose 88. SUBJECTIVE: Patient complains of hurting all over. She is receiving morphine for pain. She also has gabapentin 300 mg b.i.d. This is increased to t.i.d. OBJECTIVE: Chest reveals a few scattered rhonchi. Abdomen is soft. There is no ankle edema. PLAN: Continue hemodialysis, which will be done tomorrow. Chest x-ray this morning is pending. cc: MD Gonzalo Cordero MD
--- NOTE | 2018-04-12 15:18 | NEPHROLOGY PROGRESS NOTE ---
DATE: 04/12/2018 SUBJECTIVE: Patient complaining of some back pain. Otherwise no other issues. OBJECTIVE: Vital Signs: Temperature 97.9 degrees, pulse 75, respiratory rate 14, blood pressure 135/80. Intake 1.1. Output none. General: Middle-aged female, resting in bed. No acute distress. Complaining of some back pain. HEENT: Normocephalic, atraumatic. ADAM. Neck: Supple. Positive JVD. Cardiovascular: Regular rate and rhythm. Has a gallop noted. Pulmonary: Continues with rhonchi bilaterally. She is on 2 L nasal cannula. Abdomen: Soft. Positive bowel sounds. : Not inspected. Extremities: No clubbing, cyanosis. Perhaps some trace dependent edema. Integumentary: Skin is warm and dry. LAB DATA: WBC of 16.5, hemoglobin 10.4. Sodium 135, potassium 4.9, CO2 29, creatinine 7.7, calcium 7.2, albumin 2.3. Chest x-ray with slightly lower lung volumes and worsening linear atelectasis. No pneumothorax or pleural effusion is noted. ASSESSMENT AND PLAN: 1. Chronic kidney disease 5D. We are dialyzing on a Friday, Friday, Friday schedule. Her next treatment will be Friday. 2. Cirrhosis has been followed by the primary. She has received a paracentesis. 3. Respiratory status has been marginal. We did not dialyze her yesterday as she had some interval improvement noted on CXR. We will plan tomorrow for dialysis with attempt to get her back down to dry weight. We had difficulty with her fluid volumes prior on dialysis secondary to her paracentesis. 4. Medication review. No changes needed. Dictated by ART[facility] for Noel Price MD cc: MD Gonzalo Badillo MD MTDD
[2018-04-12] MEDS: ROBAXIN PO SCH (21:12)
[2018-04-12] MEDS: ELAVIL PO SCH (21:12)
[2018-04-13] MEDS: PHOSLO PO SCH ×4 (05:36→16:18)
[2018-04-13] MEDS: MORPHINE IV PRN ×2 (05:37→08:16)
[2018-04-13] MEDS ORDERED: NS 2,000 ML MISC PRN (05:57)
[2018-04-13] MEDS ORDERED: TIGHT: 0.2 ML/HR FOR DIALYSIS MISC PRN (05:57)
[2018-04-13] MEDS ORDERED: HEPARIN IV PRN (05:57)
[2018-04-13] MEDS: HUMULIN R SUBQ SCH ×4 (06:26→21:28)
[2018-04-13 07:54] LABS: HEMATOCRIT 33.9 % (37.0-47.0); HEMOGLOBIN 10.3 g/dL (12.0-16.0); MCH 27.6 PG (27-31); MCHC 30.4 g/dL (33-37); MCV 90.9 FL (81-99); MPV 11.3 FL (7.4-10.4); RBC 3.73 XMIL (4.2-5.4); RDW 14.8 % (11.5-14.5); WBC 11.26 X1000 (4.8-10.8)
[2018-04-13] MEDS: PROTONIX IV SCH (08:06)
[2018-04-13] MEDS: VOLTAREN 1% GEL TOP SCH ×4 (08:06→21:40)
[2018-04-13] MEDS: CYMBALTA PO SCH (08:07)
[2018-04-13] MEDS: NEURONTIN PO SCH ×3 (08:07→16:19)
[2018-04-13] MEDS: CENTRUM TABLET PO SCH (08:07)
[2018-04-13] MEDS: VITAMIN D PO SCH (08:07)
[2018-04-13] MEDS: SODIUM CHLORIDE 0.9% INJ SCH (08:07)
[2018-04-13] MEDS: BENTYL PO SCH ×3 (08:07→16:18)
[2018-04-13 08:24] LABS: ALBUMIN 2.4 g/dL (3.5-5.0); CALCIUM 7.9 mg/dL (8.8-10.2); CREATININE 9.1 mg/dL (0.5-0.9); POTASSIUM 5.9 mmol/L (3.5-5.1)
[2018-04-13] MEDS: HUMULIN 70/30 SUBQ SCH ×2 (08:44→16:24)
--- NOTE | 2018-04-13 09:17 | Diag Imaging Result Doc PS360 ---
EXAM: CHEST-2 VIEWS HISTORY: hypoxia TECHNIQUE: Chest two views COMPARISON: 04/12/2018 FINDINGS: Poor inspiratory effort. There are infiltrates and atelectasis in the lower right lung. These are slightly more pronounced. The heart remains mildly prominent. No pleural effusions. IMPRESSION: Mild interval worsening. Electronically signed by Hussein Knox 04/13/2018 9:14 AM
--- NOTE | 2018-04-13 10:16 | NEPHROLOGY PROGRESS NOTE ---
DATE: 04/13/2018 SUBJECTIVE: The patient is sitting up in bed. She states that she just hurts all over. OBJECTIVE: Vital Signs: Temperature 98.7 degrees, pulse 91, respiratory rate 16, blood pressure 130/62. Intake 960 mL. Output not measured. General: This is a middle-aged female, sitting up in bed. She is in no acute distress. HEENT: Normocephalic, atraumatic. ADAM. Neck: Supple with trace JVD. Cardiovascular: Regular rate and rhythm with a gallop. Pulmonary: Continues with rhonchi bilaterally. Equal excursion. He is on O2 supplementation via nasal cannula. Abdomen: Soft with positive bowel sounds. Mildly distended. : Not inspected. Extremities: No clubbing or cyanosis. Trace dependent edema. Integumentary: Skin is warm and dry. LABORATORY DATA: WBC of 11.2, hemoglobin 10.3. Sodium 135, potassium 5.9, CO2 of 27, creatinine 9.1. Phosphorus 5.0. Albumin 2.4. ASSESSMENT AND PLAN: 1. Chronic kidney disease 5D. Today is her routine dialysis day. Will dialyze on a 2-potassium bath/ultrafiltrate to her last dry weight as tolerated, 2 to 3 liters removal regular treatment time. 2. Respiratory status. She has had some interval worsening. See above for plan. 3. Cirrhosis, followed by primary. She has received a paracentesis while she has been in the hospital. Dictated by [facility] for Noel Price MD Face to face encounter, data reviewed, discussed with Leah Norris on 04/13/18. I agree with the above assessment and plan of care. cc: MD Gonzalo Badillo MD MTDD
[2018-04-13] MEDS ORDERED: VANCOMYCIN 1 GM/NS 1 GM/250 ML IVPB IV SCH (13:00)
[2018-04-13 14:41] LABS: INR 0.92; PROTIME 13.2 Seconds (11.0-16.0)
[2018-04-13] MEDS: TAZIDIME 2 GM/NS 2 GM/100 ML IVPB IV SCH (15:05)
[2018-04-13] MEDS ORDERED: VANCOMYCIN 1 GM/NS 1 GM/250 ML IVPB IV ONE (17:00)
[2018-04-13] MEDS: ROBAXIN PO SCH (21:40)
[2018-04-13] MEDS: ELAVIL PO SCH (21:40)
--- NOTE | 2018-04-14 00:46 | PROGRESS NOTE ---
DATE: 04/13/2018 SUBJECTIVE: The patient is running a fever. Discussed with Dr. Murphy. He is going to give some vancomycin and Fortaz after dialysis. She also some crackles in the right base. Chest x-ray: Right lower lobe atelectasis. Apparently, she had a fall in the night. No external head injuries noted. Continue to monitor. EXAMINATION: Vital Signs: Temperature is 97 degrees, pulse is 85, blood pressure is stable. HEENT: Crackles in the right base. Heart sounds are regular. Abdomen: Belly is soft. Does have distention. LABS: White cell count 11, hematocrit 33, platelets 142,000. SMA-7: Sodium 135, potassium 5.9, BUN 44, creatinine 9.1. Urine cultures: Gram positive cocci on 04/10/2018, 40,000 to 22881. Blood cultures were negative. Chest x-ray: Right lower lobe atelectasis and pneumonia. ASSESSMENT AND PLAN: 1. Fever. Slightly elevated white cell count. Right lower lobe pneumonia. Continue antibiotics, as per Dr. Price, vancomycin and Fortaz. 2. Incentive spirometry every 2 hours. 3. End-stage kidney disease, on hemodialysis, as per Dr. Price. 4. Ascites, due to cirrhosis. Required paracentesis as needed. 5. Rule out subacute bacterial peritonitis. 6. Diabetes is stable. 7. Hypotension. Discontinue the amlodipine. 8. Also requested palliative care consult, basically for the living will and the group home prognosis. 9. Head injury. Monitor neuro checks. Will follow up. LEVEL OF DOCUMENTATION: 25 minutes. cc: Gonzalo Hammonds MD
[2018-04-14] MEDS ORDERED: BLISTEX MEDICATED BERRY LIP BALM TOP PRN (02:07)
[2018-04-14] MEDS: PHOSLO PO SCH ×3 (06:08→16:56)
[2018-04-14] MEDS: HUMULIN R SUBQ SCH ×4 (06:10→21:00)
[2018-04-14] MEDS: HUMULIN 70/30 SUBQ SCH ×2 (08:00→16:57)
[2018-04-14] MEDS: VITAMIN D PO SCH (09:04)
[2018-04-14] MEDS: SODIUM CHLORIDE 0.9% INJ SCH (09:04)
[2018-04-14] MEDS: CYMBALTA PO SCH (09:04)
[2018-04-14] MEDS: NEURONTIN PO SCH ×3 (09:04→16:59)
[2018-04-14] MEDS: PROTONIX IV SCH (09:04)
[2018-04-14] MEDS: VOLTAREN 1% GEL TOP SCH ×4 (09:05→21:59)
[2018-04-14] MEDS: BENTYL PO SCH ×3 (09:05→16:59)
[2018-04-14] MEDS: CENTRUM TABLET PO SCH (09:05)
--- NOTE | 2018-04-14 11:27 | Diag Imaging Result Doc PS360 ---
US ABD PARACENTESIS W S/I - 04/14/2018 INDICATION: diagnostic paracentesis to exclude SBP COMPARISON: None FINDINGS: The risks and benefits of the procedure were discussed with the patient. All questions were answered. Written and verbal consent was obtained. Ultrasound scanning demonstrated a very small amount of ascites. Overlying skin was prepped and draped in sterile fashion. Anesthesia was achieved with injection of 10 cc 1% lidocaine. The paracentesis catheter was advanced until the return of ascites fluid. 80 cc was aspirated. The catheter was withdrawn intact. The patient reported no symptoms from the procedure. IMPRESSION: Successful and uncomplicated ultrasound-guided paracentesis. Electronically signed by August Hong 04/14/2018 11:25 AM
[2018-04-14] MEDS: ATIVAN IV PRN ×2 (12:25→22:30)
--- NOTE | 2018-04-14 14:58 | NEPHROLOGY PROGRESS NOTE ---
DATE: 04/14/2018 SUBJECTIVE: The patient had a fall last night. Today she has some confusion. She has some spasticity noted with movement. OBJECTIVE: Vital Signs: Afebrile, pulse 78, respiratory rate 28, blood pressure 111/73. Intake 820 mL. Output 2 L. General: This is a middle-aged female, sitting up in bed. She is awake and alert. She is in no acute distress. HEENT: Normocephalic, atraumatic. Oral mucosa moist. Neck: Supple without JVD. Cardiovascular: Regular rate and rhythm. Pulmonary : She has rhonchi bilaterally but no wheeze or rales. Abdomen: Soft. Positive bowel sounds. : Not inspected. Extremities: No clubbing, cyanosis, or edema. She does have some spasticity noted to the upper extremities. Integumentary: Skin is warm and dry. LAB DATA: No new labs today. ASSESSMENT AND PLAN: 1. Chronic kidney disease 5D. Continue Friday, Friday, Friday schedule. 2. Cirrhosis. She has received a previous paracentesis. She has had an elevation in white count and some positive cultures. She is to have a diagnostic paracentesis today. 3. Respiratory status acceptable. Continue to monitor. We will dialyze again tomorrow. 4. Some spasticity. Her calcium was noted yesterday at 7.9. She did dialyze on a normal calcium bath. We will plan to check labs in the morning and adjust treatment as needed. Dictated by ARTUR [facility] for Noel Price MD Face to face encounter, data reviewed, discussed with Leah Norris on 04/14/18. I agree with the above assessment and plan of care. cc: MD Gonzalo Badillo MD [facility]
[2018-04-14 16:07] LABS: BODY FLUID SOURCE PERITONEAL FLUID; WBC BF 452 /cumm
[2018-04-14 16:39] LABS: MONOS 72 %; POLYS 28 %
--- NOTE | 2018-04-14 21:55 | PROGRESS NOTE ---
DATE: 04/14/2018 SUBJECT: The patient is confused. Had a injury left elbow and she is not doing very well. EXAM: Low-grade fever. Vitals are stable.HEENT: Within normal limits. Neck: Supple. No lymphadenopathy. Chest: Poor air entry. Heart: Sounds are regular. Belly: Soft. Ascites noted. INVESTIGATIONS: None reported. Blood sugar 144. Peritoneal fluid white cell count is 452 and PML 28. Urine cultures positive for enterococci faecalis faecium 40,000 to 50,000. ASSESSMENT AND PLAN: 1. Altered mental status and ammonia levels were normal. 2. Fever. Right lower lobe pneumonia. White cells more than 250. Subacute bacterial peritonitis. Patient was receiving vancomycin and Fortaz after dialysis by Dr. Price. 3. Incentive spirometry. 4. Agitations. Ativan as needed, in restraints. 5. End-stage kidney disease on dialysis. 6. Diabetes stable. 7. Gastrointestinal prophylaxis with IV Protonix. Long-term prognosis is poor. Consulted palliative consult with Rosy. The patient is due for dialysis tomorrow. 8. Urinary tract infection with vancomycin-resistant enterococci and resistant to vancomycin is only sensitive to Macrobid. Will discuss with the family about long-term prognosis. LEVEL OF DOCUMENTATION: 25 minutes. cc: Gonzalo Hammonds MD
--- NOTE | 2018-04-14 21:58 | PROGRESS NOTE ---
DATE: 04/15/2018 SUBJECT: Since last night patient is mental status changed, she has come back to restless, confused, wants to go home. Had injury to the left elbow. No external bruises noted. EXAM: Temperature 97 degrees, pulse is 59, blood pressure is 155/70.HEENT: Within normal limits. Neck: Supple. Lungs: Poor air entry. Crackles in the right base. Heart: Sounds are regular. Belly: Is soft, distended ascites. LABS: Urine cultures grew enterococci faecium resistant to the vancomycin. Blood cultures are pending. White cell counts cell count is 452. ASSESSMENT AND PLAN: 1. Altered mental status. Ammonia levels were normal. Continue Ativan as needed. 2. End-stage kidney disease on hemodialysis as per Dr. Price. 3. Right lower lobe atelectasis pneumonia status post vancomycin and Fortaz. 4. Subacute bacterial peritonitis based on the cell count. Continue antibiotics postdialysis. 5. Cirrhosis of liver due to hepatitis C, poor candidate for treatment. 6. Diabetes stable. 7. Altered mental status due to metabolic encephalopathy. Consider palliative consult. 8. Will discuss with the family about living will and further treatment. Prognosis is poor. Also vancomycin-resistant Enterococci. We have to consider using Macrobid by mouth based on the sensitivity. LEVEL OF DOCUMENTATION: 25 minutes. cc: Gonzalo Hammonds MD MTDD
[2018-04-14] MEDS: ELAVIL PO SCH (21:59)
[2018-04-14] MEDS: ROBAXIN PO SCH (21:59)
[2018-04-15] MEDS: HUMULIN R SUBQ SCH ×4 (06:15→21:04)
[2018-04-15] MEDS: PHOSLO PO SCH ×3 (06:20→18:23)
[2018-04-15] MEDS ORDERED: NS 2,000 ML MISC PRN (06:36)
[2018-04-15] MEDS ORDERED: HEPARIN IV PRN (06:36)
[2018-04-15] MEDS ORDERED: TIGHT: 0.2 ML/HR FOR DIALYSIS MISC PRN (06:36)
[2018-04-15 08:21] LABS: BASO# 0.06 X1000 (0.0-0.2); BASO% 0.7 % (0.0-0.8); EOS# 0.35 X1000 (0.0-0.7); EOS% 3.8 % (0.0-10.0); HEMATOCRIT 35.4 % (37.0-47.0); HEMOGLOBIN 11.1 g/dL (12.0-16.0); IMM GRAN# 0.06 X1000 (0.0-0.04); IMM GRAN% 0.7 % (0.0-0.5); LYMPH# 1.78 X1000 (1.2-3.4); LYMPH% 19.4 % (20.5-51.1); MCH 27.9 PG (27-31); MCHC 31.4 g/dL (33-37); MCV 88.9 FL (81-99); MONO# 1.08 X1000 (0.11-0.59); MONO% 11.8 % (1.7-9.3); MPV 11.6 FL (7.4-10.4); NEUT# 5.85 X1000 (1.4-6.5); NEUT% 63.6 % (42.2-75.2); PLT 154 X1000 (130-400); RBC 3.98 XMIL (4.2-5.4); RDW 14.6 % (11.5-14.5); WBC 9.18 X1000 (4.8-10.8)
[2018-04-15] MEDS: SODIUM CHLORIDE 0.9% INJ SCH (08:32)
[2018-04-15] MEDS: PROTONIX IV SCH (08:32)
[2018-04-15] MEDS: HUMULIN 70/30 SUBQ SCH ×2 (08:33→18:23)
[2018-04-15] MEDS: VOLTAREN 1% GEL TOP SCH ×4 (08:43→21:00)
[2018-04-15] MEDS: CYMBALTA PO SCH (08:44)
[2018-04-15] MEDS: BENTYL PO SCH ×3 (08:44→18:22)
[2018-04-15] MEDS: VITAMIN D PO SCH (08:44)
[2018-04-15] MEDS: CENTRUM TABLET PO SCH (08:45)
[2018-04-15] MEDS: NEURONTIN PO SCH ×3 (08:45→18:22)
--- NOTE | 2018-04-15 09:11 | Diag Imaging Result Doc PS360 ---
EXAM: CHEST-PORTABLE 04/15/2018 HISTORY: PNA TECHNIQUE: AP portable at 0808 COMMENT: There are atelectatic changes present in the lingula and right base particularly in the right middle lobe. The possibility of right middle lobe pneumonia cannot be excluded. Compared to 04/13/2018 the ill-defined opacity over the right base which was present previously has diminished. IMPRESSION: Bilateral subsegmental atelectasis, particularly in the right middle lobe. Electronically signed by Dhaval Morris 04/15/2018 9:09 AM
[2018-04-15 09:18] LABS: POTASSIUM 5.1 mmol/L (3.5-5.1)
[2018-04-15 10:02] LABS: ALBUMIN 2.3 g/dL (3.5-5.0); CALCIUM 7.3 mg/dL (8.8-10.2); CREATININE 7.5 mg/dL (0.5-0.9); PHOSPHORUS 4.3 mg/dL (2.7-4.5)
[2018-04-15] MEDS: TAZIDIME 2 GM/NS 2 GM/100 ML IVPB IV SCH (12:03)
[2018-04-15] MEDS: MORPHINE IV PRN ×2 (18:32→21:16)
[2018-04-15] MEDS: ROBAXIN PO SCH (21:00)
[2018-04-15] MEDS: ELAVIL PO SCH (21:00)
--- NOTE | 2018-04-15 21:39 | NEPHROLOGY PROGRESS NOTE ---
DATE: 04/15/2018 SUBJECTIVE: She is somnolent, but arousable. I was not really able to get any purposeful speech from her or participation. OBJECTIVE: Her exam was performed at 0630. Vital signs: Blood pressure 128/86, heart rate 67, respirations 10, afebrile. General: Again somnolent but arousable. No acute distress. Skin: Warm and dry. HEENT: Oropharynx is dry. Neck: Neck veins are not distended. Cardiovascular: Heart is irregular with S4. Lungs: Equal. No crackles or wheezes. Abdomen: Distended, soft, modestly tender. Bowel sounds are diminished. Extremities: Have no edema, clubbing, or cyanosis. IMPRESSION: 1. Chronic kidney disease, 5D. She will have routine hemodialysis today. Her ultrafiltration will be guided by her blood pressure. Two K bath. 2. Altered mental status. She did have an elevated white blood cell count in her peritoneal fluid, but it is not clear to me that she has peritonitis. She has been treated with IV antibiotics without improvement. Her ammonia level was normal. She did grow vancomycin- resistant Enterococcus from the urine. We will ask Dr. Walton to help us with a plan. cc: MD Gonzalo Badillo MD
--- NOTE | 2018-04-15 21:43 | INFECTIOUS DISEASE CONSULT REP ---
DATE: 04/15/2018 PRESENT ILLNESS: The patient has cirrhosis of the liver and does have ascites. The ascities white blood cell count is 452 and anything above 250 qualifies as being spontaneous bacterial peritonitis. The only problem I have with the patient's white blood cell count though is that 72% of the cells are mononuclear and usually with spontaneous bacterial peritonitis neutrophils are the predominant type of white cell. Also, another factor is that the patient is not complaining of pain in her abdomen and on exam it was not tender. It may be that the patient is early in the development of the infection and that could explain some of the atypical features. On chest x- ray, she may have a right middle lobe pneumonia. The patient does have a vancomycin resistant enterococcal urinary tract infection. The patient is asymptomatic and she denied having dysuria or flank pain or fever or chills. I would consider her urine is an symptomatic urinary tract infection. RECOMMENDATIONS: I agree with treating the patient with vancomycin and ceftazidime for two reasons. One, she may have a right middle lobe pneumonia, and two, she may have spontaneous bacterial peritonitis in its early stages. As far as treating the patient's vancomycin-resistant enterococcal urinary tract infection, I think it is totally asymptomatic and for that reason I do not think it is necessary to treat it. If treatment were going to be done, I would be giving her daptomycin. If she develops a leukocytosis or appears not to be getting better , then I will go ahead and repeat the urine culture and at that time if it shows vancomycin- resistant Enterococcus, I think the patient would deserve treatment at that time. DISCUSSION: I was unable to get a history from the patient. According to the information in the computer, the patient was initially admitted with left-sided chest pain. She also had an altered mental status. Her CBC shows a white count of 9180, hemoglobin 11.1 and platelet count 154,000. Creatinine 7.5. GFR is 7. The patient's ascites had a white blood cell count of 452 of which 72% were mononuclear cells. The patient's chest x-ray showed possible right middle lobe pneumonia. Blood cultures are negative. The ascitic fluid drawn off has a negative culture , also. The patient's urine grew vancomycin-resistant Enterococcus. PAST MEDICAL HISTORY / REVIEW OF SYSTEMS: I was unable to be to obtain that from the patient. The patient's past medical history a is renal failure requiring dialysis, diabetes mellitus, hypertension, alcoholic. The patient, however, has said that she stopped drinking alcoholic beverages 3 years ago. She does not smoke cigarettes or use illicit drugs. PAST SURGICAL HISTORY: Positive for cholecystectomy and creation of an arterial venous shunt in the right arm. HOME MEDICATIONS: Include: Amitriptyline, amlodipine, cholecalciferol, dicyclomine, duloxetine, furosemide, gabapentin, methocarbamol, insulin and omeprazole. PHYSICAL EXAMINATION: Vital Signs: Temperature is 98, pulse 80, respirations 12, blood pressure is 130/90. The patient weighs 129 pounds. General: This is a chronically ill- appearing middle- aged female. She also looks somewhat malnourished. Head, Eyes, Ears, Nose and Throat: She did attempt to talk, but it was in a very soft voice and I could not make out anything she was saying. There was no drainage from the nose or ears, and she did not have any white coating on her tongue. Neck: No meningismus. Lungs: Clear to auscultation. Cardiovascular: Heart rate is regular. Abdomen: Somewhat protuberant. It is soft. It is not tender. Neurologic: The patient is lethargic. She could move her extremities. There was no tremor. Extremities: Patient has an AV fistula in the right arm. The fistula is functional. Integument: No rash noted. Thank you for the consult. cc: MD Gonzalo Potter MD MTDD
--- NOTE | 2018-04-16 01:11 | PROGRESS NOTE ---
DATE: 04/15/2018 SUBJECTIVE: The patient was combative last night. She was given 1 dose of Ativan. This morning, the patient was dozing off, still under restraints. EXAM: Vital Signs: Temperature is 98 degrees, vitals are stable. HEENT: Sleeping. Heart: Sounds are regular. Abdomen: Belly is soft, distended. INVESTIGATIONS: CBC: White cell count 9.1, hematocrit 35, platelets 154,000. SMA-7: BUN 30, creatinine 7.5. ASSESSMENT AND PLAN: 1. Altered mental status due to metabolic encephalopathy. 2. Aspiration pneumonia. Currently, receiving antibiotics post dialysis, as per Dr. Price. 3. VRE. We will slowly change to the Macrobid by mouth. 4. Ascites, due to cirrhosis from hepatitis C. Paracenteses p.r.n. May be subacute bacterial peritonitis. Continues to need IV antibiotics post dialysis. 5. Altered mental status. We will hold Ativan. Patient is going for dialysis today. We will closely monitor mental status. Also, initiate palliative services for advanced directives. 6. We will follow up. LEVEL OF DOCUMENTATION: 25 minutes. cc: Gonzalo Hammonds MD
[2018-04-16] MEDS: MORPHINE IV PRN ×3 (05:48→19:54)
[2018-04-16] MEDS: HUMULIN R SUBQ SCH ×3 (06:57→16:15)
[2018-04-16] MEDS: PHOSLO PO SCH ×3 (06:58→16:22)
[2018-04-16] MEDS: HUMULIN 70/30 SUBQ SCH ×2 (08:25→16:25)
[2018-04-16] MEDS: SODIUM CHLORIDE 0.9% INJ SCH (08:25)
[2018-04-16] MEDS: PROTONIX IV SCH (08:26)
[2018-04-16] MEDS: NEURONTIN PO SCH ×3 (08:26→16:22)
[2018-04-16] MEDS: VOLTAREN 1% GEL TOP SCH (08:26)
[2018-04-16] MEDS: CYMBALTA PO SCH (08:26)
[2018-04-16] MEDS: VITAMIN D PO SCH (08:26)
[2018-04-16] MEDS: BENTYL PO SCH ×3 (08:26→16:22)
[2018-04-16] MEDS: CENTRUM TABLET PO SCH (08:26)
--- NOTE | 2018-04-16 12:12 | NEPHROLOGY PROGRESS NOTE ---
DATE: 04/16/2018 TIME SEEN: 06 SUBJECTIVE: Ms. Cheney is resting quietly in bed. She does open her eyes today. She has recognition to Dr. Price and myself. No specific complaints. VITAL SIGNS: Temperature 97.7 degrees, blood pressure 110/73, heart rate 66, respirations 10. She is on 2 L nasal cannula. Her last recorded saturation is 100%. She has had 960 in. She has had 1600 out. LABORATORY DATA: Sodium 130, potassium 5.1, BUN of 30 with a creatinine of 7.5 on the 13th, with a hemoglobin of 11.1. PHYSICAL EXAMINATION: General: This is a 57-year-old female. She is resting quietly in bed. There is no acute distress. Skin: Warm and dry. HEENT: Normocephalic, atraumatic. Conjunctivae pale pink. She has ADAM. Mucous membranes are dry. Neck: Supple. Trachea midline. No evidence of JVD. Cardiovascular: She is regular rate and rhythm. She has an S4 present. Lungs: She has expiratory wheezes, otherwise scattered rhonchi bilateral, on O2. Abdomen: Slightly distended. Paracentesis yesterday. Positive bowel sounds. Genitourinary: Not inspected. Minimal void with dialysis assist. Extremities: No edema. No clubbing or cyanosis. Neurological: As mentioned above. ASSESSMENT AND PLAN: 1. Chronic kidney disease stage 5D. The patient had hemodialysis yesterday. No indications for intervention today. 2. Electrolytes and acid-base balance. These have been acceptable. 3. Anemia. This has been low, but acceptable. 4. Altered mental status. The patient continues with an elevated white blood cell count in her peritoneal fluid. Dr. Walton is now on board. She does have vancomycin- resistant enterococcus in her urine. She remains on intravenous antibiotics. I would like to thank you for allowing us to follow with this patient. Dictated by ARTUR Keith for Noel Price MD Face to face encounter, data reviewed, discussed with Farida Bajwa on 04/16/18. I agree with the above assessment and plan of care. cc: ARTUR Keith MD Jagan Reddy, MD [facility]
[2018-04-16] MEDS: ATIVAN IV PRN (13:33)
--- NOTE | 2018-04-16 19:16 | INFECTIOUS DISEASE PROGRESS NO ---
DATE: 04/16/2018 PRESENT ILLNESS: The patient has spontaneous bacterial peritonitis. She also has a vancomycin- resistant enterococcal infection, which is asymptomatic. The patient also, based on chest x-ray finding, may have a right middle lobe pneumonia. MEDICATIONS: The patient is getting vancomycin and ceftazidime. PHYSICAL EXAMINATION: Vital Signs: Temperature is 97.6 degrees, pulse 71, respirations 16, blood pressure 121/76. General: This is an ill-appearing, lethargic, middle-aged female. She is in no acute distress. Head, eyes, ears, nose, and throat: She did not respond to verbal stimuli. She did not open her eyes when I requested her to. Neck: No stiffness. Lungs: Clear to auscultation. Cardiovascular: Regular heart rate. Extremities: Patient has an AV fistula in her right arm. Abdomen: Soft and nontender. Neurologic: Patient is lethargic tonight. She does not respond to verbal stimuli. There is no tremor. DIAGNOSTIC STUDIES: There is no lab today and no new x-ray today. ASSESSMENT AND PLAN: The patient has: 1. Spontaneous bacterial peritonitis. 2. Possible right lung pneumonia. 3. She also has a symptomatic vancomycin-resistant enterococcal urinary tract infection. My plan is to continue with the vancomycin and ceftazidime, which was ordered by Dr. Price, to treat the patient's spontaneous bacterial peritonitis, and those also should treat well any possible pneumonia. COMORBIDITIES: Include the followin. She has end-stage renal disease, requiring dialysis. 2. The patient also has cirrhosis of the liver. 3. She is a diabetic. 4. She is an alcoholic. cc: MD Gonzalo Potter MD
[2018-04-16] MEDS: ROBAXIN PO SCH (20:02)
[2018-04-16] MEDS: ELAVIL PO SCH (20:02)
[2018-04-17] MEDS: HUMULIN R SUBQ SCH ×5 (01:51→22:02)
--- NOTE | 2018-04-17 03:52 | PROGRESS NOTE ---
DATE: 04/16/2018 SUBJECTIVE: The patient's mental status improved off Ativan. Able to eat. Appreciated Dr. Wlaton' consult. EXAMINATION: Vital Signs: Temperature is 98.6, pulse is 77, blood pressure is stable. 2 L nasal cannula 97%. Poor air entry. Heart: Sounds are regular. Abdomen: Belly is soft. Some ascites noted. INVESTIGATIONS: Blood sugars normal. ASSESSMENT AND PLAN: 1. Altered mental status, metabolic encephalopathy. Better. 2. Right middle lobe pneumonia, along with subacute bacterial peritonitis. Continue on vancomycin and Fortaz, as per Dr. Walton and Dr. Price. 3. End-stage kidney disease, on dialysis. 4. Posterior reversible encephalopathy syndrome, asymptomatic. Continue to watch. 5. The patient clinically stable. Will be transferred to the regular floor. Discussed with the palliative services about advanced care planning. So far, no decision was made. Continue present treatment. Please see the transfer orders to the floor. LEVEL OF DOCUMENTATION: 25 minutes. cc: Gonzalo Hammonds MD
[2018-04-17] MEDS: PHOSLO PO SCH ×3 (06:19→18:47)
[2018-04-17] MEDS: MORPHINE IV PRN ×4 (06:25→18:56)
[2018-04-17 06:50] LABS: ALBUMIN 2.2 g/dL (3.5-5.0); CALCIUM 7.3 mg/dL (8.8-10.2); PHOSPHORUS 3.8 mg/dL (2.7-4.5); POTASSIUM 4.5 mmol/L (3.5-5.1)
[2018-04-17 06:53] LABS: CREATININE 5.7 mg/dL (0.5-0.9)
[2018-04-17] MEDS ORDERED: HEPARIN IV PRN (07:18)
[2018-04-17] MEDS ORDERED: TIGHT: 0.2 ML/HR FOR DIALYSIS MISC PRN (07:18)
[2018-04-17] MEDS ORDERED: NS 2,000 ML MISC PRN (07:18)
[2018-04-17] MEDS: DUONEB (A & A) INH PRN (07:46)
[2018-04-17] MEDS: VITAMIN D PO SCH (10:57)
[2018-04-17] MEDS: NEURONTIN PO SCH ×3 (10:57→18:47)
[2018-04-17] MEDS: BENTYL PO SCH ×3 (10:57→18:47)
[2018-04-17] MEDS: CENTRUM TABLET PO SCH (10:57)
[2018-04-17] MEDS: PROTONIX IV SCH (10:57)
[2018-04-17] MEDS: CYMBALTA PO SCH (10:57)
[2018-04-17] MEDS: HUMULIN 70/30 SUBQ SCH ×2 (11:06→18:52)
[2018-04-17] MEDS: D50W 250 ML, AMINOSYN 15% 500 ML, LIPOSYN 20% 250 ML IV SCH ×3 (14:00)
--- NOTE | 2018-04-17 14:24 | INFECTIOUS DISEASE PROGRESS NO ---
DATE: 04/17/2018 PRESENT ILLNESS: Ms. Cheney is being treated for a spontaneous bacterial peritonitis and right- sided pneumonia. There is also a vancomycin-resistant Enterococcus growing in her urine. However, she is asymptomatic. MEDICATIONS: She is receiving 1 g of IV vancomycin after dialysis and 2 g of IV ceftazidime every 48 hours. PHYSICAL EXAMINATION: Vital Signs: Temperature is 98 degrees, pulse rate 75, respiratory rate 18, blood pressure 114/70, O2 saturation 93% on 2 L nasal cannula. General: This is a chronically ill-appearing, middle-aged female. She is lying in bed, currently in no acute distress. HEENT: Oral mucous membranes are pink and moist. Conjunctivae are pale pink. Neck: Supple. Trachea is midline. Cardiovascular: Heart rate and rhythm are regular. Normal sinus rhythm on the monitor. Radial and pedal pulses are palpable bilaterally, +1. She has a right upper arm fistula. Site has a good thrill and bruit. Lungs: Coarse rhonchi on the right and wheezing noted on the left. Abdomen: Mildly firm but nontender; bowel sounds are active. Neurologic: She is awake, alert, and appropriate. Able to move around in the bed with mild weakness. No tremors noted. LABORATORY AND X-RAY: No CBC today. Her creatinine is 5.7, GFR 9. Her urine has grown a vancomycin resistant enterococcus. Blood cultures have been negative. Peritoneal fluid on gram stain shows no bacteria; however, the culture is preliminary. No imaging reports today. ASSESSMENT AND PLAN: Ms. Cheney is being treated for a bacterial peritonitis as well as a right- sided pneumonia. She is receiving IV vancomycin after dialysis and ceftazidime every 48 hours, which we will continue at this time. Her vancomycin resistant enterococcus is asymptomatic so does not deserve any treatment at this point. These plans have been discussed with and recommended by Dr. Walton. COMORBIDITIES: For Ms. Cheney include end-stage renal disease with hemodialysis, history of cirrhosis of the liver, diabetes mellitus, and alcoholism. Dictated by ARTUR Tate for Rory Walton MD This chart was documented by, ARTUR Tate and accurately reflects the services performed, treatment plan and medical decisions as attested by the providers signature Rory Walton MD. cc: MD Gonzalo Potter MD [facility]ITALOriana
--- NOTE | 2018-04-17 15:51 | NEPHROLOGY PROGRESS NOTE ---
DATE: 04/17/2018 SUBJECTIVE: Ms. Cheney is much better today. She is sitting up eating, talking appropriate. Denies abdominal pain. OBJECTIVE: Vital Signs: Blood pressure 146/73, heart rate 92, respiration 18, afebrile. Generally: No acute distress. Skin: Warm and dry. HEENT: Oropharynx is dry. Neck: Neck veins are not distended. Heart: Regular. No gallops. Lungs: Equal. No crackles or wheezes. Abdomen: Distended, soft, nontender. Extremities: No edema, clubbing, or cyanosis. IMPRESSION: 1. Chronic kidney disease 5D. She will have her routine dialysis today using a 2 potassium bath. 2. Anemia, within target. 3. Spontaneous bacterial peritonitis. Appears to be responding. 4. Cirrhosis. 5. Malnutrition. She is eating better. cc: MD Gonzalo Badillo MD
[2018-04-17] MEDS ORDERED: VANCOMYCIN 1 GM/NS 1 GM/250 ML IVPB IV ONE (17:00)
[2018-04-17] MEDS: TAZIDIME 2 GM/NS 2 GM/100 ML IVPB IV SCH ×2 (18:50→18:53)
--- NOTE | 2018-04-17 20:34 | PROGRESS NOTE ---
DATE: 04/17/2018 SUBJECTIVE: Patient is doing better. Transferred out of the ICU and patient getting routine dialysis. Apparently, patient wants to go for rehab at [facility], [employer] involved. Waiting for a bed in [facility]. OBJECTIVE: Vital Signs: Weight 113 pounds. Chest: Clear. Cardiovascular: Heart sounds are regular. Abdomen: Belly is soft. Ascites noted. ASSESSMENT AND PLAN: 1. End-stage kidney disease on dialysis as per Dr. Price. 2. Pneumonia. Subacute bacterial peritonitis. Vancomycin and Fortaz. 3. Incentive spirometry. 4. Diabetes is stable. 5. Ascites, stable. 6. VRE asymptomatic. 7. Disposition: Will go to rehab at [facility]. medical services manager consult. LEVEL OF DOCUMENTATION: 25 minutes. cc: Gonzalo Hammonds MD MTDD
[2018-04-17] MEDS: ELAVIL PO SCH (22:02)
[2018-04-17] MEDS: ROBAXIN PO SCH (22:02)
[2018-04-18] MEDS: MORPHINE IV PRN ×4 (04:24→23:55)
[2018-04-18] MEDS: PHOSLO PO SCH ×3 (06:18→17:36)
[2018-04-18 06:55] LABS: CALCIUM 7.1 mg/dL (8.8-10.2)
[2018-04-18 07:04] LABS: ALBUMIN 2.4 g/dL (3.5-5.0); CREATININE 4.4 mg/dL (0.5-0.9); PHOSPHORUS 2.7 mg/dL (2.7-4.5); POTASSIUM 3.9 mmol/L (3.5-5.1)
[2018-04-18] MEDS: HUMULIN R SUBQ SCH ×4 (07:32→21:33)
[2018-04-18] MEDS: DUONEB (A & A) INH PRN ×3 (07:42→20:20)
[2018-04-18] MEDS: HUMULIN 70/30 SUBQ SCH ×2 (08:15→17:35)
[2018-04-18] MEDS: PROTONIX IV SCH (08:15)
[2018-04-18] MEDS: SODIUM CHLORIDE 0.9% INJ SCH (08:15)
[2018-04-18] MEDS: BENTYL PO SCH ×3 (08:16→17:36)
[2018-04-18] MEDS: CYMBALTA PO SCH (08:16)
[2018-04-18] MEDS: VITAMIN D PO SCH (08:16)
[2018-04-18] MEDS: CENTRUM TABLET PO SCH (08:17)
[2018-04-18] MEDS: NEURONTIN PO SCH ×3 (08:17→17:36)
--- NOTE | 2018-04-18 13:54 | PROGRESS NOTE ---
DATE: 04/18/2018 SUBJECTIVE: The patient is a little better. Had dialysis yesterday. Receiving antibiotics. Abdomen is distending. The patient wants to go to rehab at [facility]. PHYSICAL EXAMINATION: Vital signs: Temperature is 98 degrees, pulse is 92, blood pressure 129/78 on 90% room air. HEENT: Within normal limits. Decreased air entry on the right side. Heart: Sounds are regular. Abdomen: Belly is soft, distended. ASSESSMENT AND PLAN: 1. End-stage kidney disease, on dialysis Friday, Friday, Friday. 2. Right lower lobe pneumonia and subacute bacterial peritonitis on IV vancomycin and Fortaz after dialysis. 3. Continue incentive spirometry. 4. Cirrhosis of liver due to hepatitis, which is stable. 5. Diabetes is stable. 6. Hypertension is stable and now, off amlodipine due to low blood pressure. 7. Since the patient is , I am going to discuss with the for palliative services and living will tomorrow and also social insurance specialist consult for rehab placement. LEVEL OF DOCUMENTATION: 25 minutes. cc: Gonzalo Hammonds MD
[2018-04-18] MEDS ORDERED: INSULIN PEN NEEDLES ONE (15:18)
[2018-04-18] MEDS: ROBAXIN PO SCH (21:05)
[2018-04-18] MEDS: ELAVIL PO SCH (21:05)
[2018-04-19 06:08] LABS: ALBUMIN 2.5 g/dL (3.5-5.0); CALCIUM 7.6 mg/dL (8.8-10.2); CREATININE 6.1 mg/dL (0.5-0.9); PHOSPHORUS 3.2 mg/dL (2.7-4.5); POTASSIUM 4.5 mmol/L (3.5-5.1)
[2018-04-19] MEDS: MORPHINE IV PRN ×5 (06:24→21:04)
[2018-04-19] MEDS: HUMULIN R SUBQ SCH ×3 (06:51→17:28)
[2018-04-19] MEDS: DUONEB (A & A) INH PRN ×2 (07:33→11:42)
[2018-04-19] MEDS: PHOSLO PO SCH ×3 (08:48→17:27)
[2018-04-19] MEDS: NEURONTIN PO SCH ×3 (08:50→17:27)
[2018-04-19] MEDS: BENTYL PO SCH ×3 (08:51→17:27)
[2018-04-19] MEDS: CYMBALTA PO SCH (08:51)
[2018-04-19] MEDS: HUMULIN 70/30 SUBQ SCH ×2 (08:51→17:27)
[2018-04-19] MEDS: VITAMIN D PO SCH (08:51)
[2018-04-19] MEDS: CENTRUM TABLET PO SCH (08:52)
[2018-04-19] MEDS: SODIUM CHLORIDE 0.9% INJ SCH (08:52)
[2018-04-19] MEDS: PROTONIX IV SCH (08:52)
[2018-04-19] MEDS: VOLTAREN 1% GEL TOP SCH ×2 (13:38→17:27)
[2018-04-19] MEDS: ROBITUSSIN PO PRN ×2 (13:39→21:05)
[2018-04-19] MEDS: TAZIDIME 2 GM/NS 2 GM/100 ML IVPB IV SCH (15:32)
--- NOTE | 2018-04-19 15:43 | PROGRESS NOTE ---
DATE: 04/19/2018 SUBJECTIVE: Last night, I had several phone calls from the nursing staff. She has complaining of precordial chest pain, coughing, distention of the abdomen. She wants to go for rehabilitation. Subsequent EKGs and cardiac enzymes were negative. Pain is reproducible. Some rhonchi on the right side of the chest. EXAMINATION: Vital signs: Temperature is 98.7, pulse is 95, blood pressure 115/77. Lungs: Rhonchi. Chest: Reproducible pain. Abdomen: Ascites noted. DIAGNOSTIC STUDIES: SMA-7: Sodium 137, potassium 4.5, chloride 96, BUN 27, creatinine 6.1, glucose 99, calcium 7.6. CK was normal. ASSESSMENT AND PLAN: 1. Chest pain, musculoskeletal. Topical diclofenac gel. 2. Bronchitis. Continue on IV antibiotics post dialysis. 3. Ascites. We will attempt another paracentesis before she leaves. DISPOSITION: 1. Discussed palliative services. No family was around. 2. Rehab placement. LEVEL OF DOCUMENTATION: 25 minutes. cc: Gonzalo Hammonds MD
[2018-04-19] MEDS: ROBAXIN PO SCH (20:52)
[2018-04-19] MEDS: ELAVIL PO SCH (20:52)
[2018-04-20] MEDS ORDERED: HEPARIN IV PRN (05:49)
[2018-04-20] MEDS ORDERED: NS 2,000 ML MISC PRN (05:49)
[2018-04-20] MEDS ORDERED: TIGHT: 0.2 ML/HR FOR DIALYSIS MISC PRN (05:49)
[2018-04-20] MEDS: HUMULIN R SUBQ SCH ×4 (06:47→21:52)
[2018-04-20] MEDS: PHOSLO PO SCH ×3 (06:56→15:14)
[2018-04-20 07:01] LABS: ALBUMIN 2.4 g/dL (3.5-5.0); CALCIUM 8.5 mg/dL (8.8-10.2); CREATININE 7.8 mg/dL (0.5-0.9); PHOSPHORUS 4.4 mg/dL (2.7-4.5); POTASSIUM 5.3 mmol/L (3.5-5.1)
[2018-04-20] MEDS: DUONEB (A & A) INH PRN ×2 (07:43→15:55)
[2018-04-20] MEDS: HUMULIN 70/30 SUBQ SCH ×2 (08:49→17:46)
[2018-04-20] MEDS: SODIUM CHLORIDE 0.9% INJ SCH (08:50)
[2018-04-20] MEDS: PROTONIX IV SCH (08:50)
[2018-04-20] MEDS: VOLTAREN 1% GEL TOP SCH ×3 (08:50→17:45)
[2018-04-20] MEDS: MORPHINE IV PRN ×2 (08:50→15:14)
--- NOTE | 2018-04-20 08:57 | EKG Report ---
Test Performed on : 04/18/2018 9:16:24 PM Test Reason : Chest Pain Blood Pressure : / mmHG Vent. Rate : 088 BPM Atrial Rate : 088 BPM P-R Int : 134 ms QRS Dur : 080 ms QT Int : 400 ms P-R-T Axes : 033 004 052 degrees QTc Int : 484 ms Normal sinus rhythm. Prolonged QT Abnormal ECG When compared with ECG of 18-APR-2018 15:58, (Unconfirmed) No significant change was found Confirmed by Carlos Carnes MD ([id number]) on 04/20/2018 3:28:08 PM
--- NOTE | 2018-04-20 09:01 | EKG Report ---
Test Performed on : 04/18/2018 3:58:35 PM Test Reason : CP Blood Pressure : / mmHG Vent. Rate : 080 BPM Atrial Rate : 080 BPM P-R Int : 136 ms QRS Dur : 090 ms QT Int : 418 ms P-R-T Axes : 034 002 041 degrees QTc Int : 482 ms Normal sinus rhythm. Nonspecific T wave abnormality Prolonged QT Abnormal ECG When compared with ECG of 09-APR-2018 21:48, QRS duration has increased Confirmed by Trice PEREZ, Carlos Oliver ([id number]) on 04/20/2018 3:27:54 PM
[2018-04-20] MEDS: D50W 250 ML, AMINOSYN 15% 500 ML, LIPOSYN 20% 250 ML IV SCH ×3 (10:00)
--- NOTE | 2018-04-20 11:22 | NEPHROLOGY PROGRESS NOTE ---
DATE: 04/20/2018 TIME SEEN 0700.: SUBJECTIVE: Ms. Cheney is resting quietly in bed. She is sitting up. She is eating her dinner from last night. OBJECTIVE: Vitals: Her most recent vital signs, last temperature 98.6 degrees , blood pressure 116/65, heart rate 74, respirations 12. She is on room air. Last recorded saturation is 96%. General: This is a 57-year-old female resting quietly in bed. She is more awake and alert. She has no complaints of abdominal discomfort. Skin: Warm and dry. HEENT: Normocephalic, atraumatic. Conjunctivae pale pink. She has ADAM. Mucous membranes are dry. Neck: Supple. Trachea midline. No evidence of JVD. Cardiovascular: Regular rate and rhythm. S4 is present. Lungs: Clear to auscultation bilaterally. Equal excursion on room air. Abdomen: Remains distended without tenderness. Genitourinary: Not inspected. Minimal void with dialysis assist. Extremities: Have no edema. No clubbing or cyanosis. Neurological: She is alert and oriented x3. INPUT AND OUTPUT: She has had 1080 in, she has had 0 recorded out with need for dialysis. LABORATORIES: Sodium 134, potassium 5.3, chloride 96, CO2 25, BUN 35, creatinine 7.8, glucose 110, anion gap of 13, her calcium is 8.5, phosphorus 4.4, albumin is 2.4. Patient had a previous hemoglobin of 11.1 on 04/15. ASSESSMENT AND PLAN: 1. Chronic kidney disease stage 5D. The patient is due for her routine dialysis treatment today. We will place her on a 2K bath. She is to dialyze for 3.5 hours. We will attempt to pull 2 L of ultrafiltration. 2. Electrolytes and acid-base balance. These remain fairly stable. 3. Anemia. This is acceptable. 4. Peritonitis. Abdomen remains distended. She did have a paracentesis last week. No tenderness noted. 5. Malnutrition. The patient states that she is eating better. I would like to thank you for allowing us to follow with this patient. Dictated by ARTUR Keith for Noel Price MD Face to face encounter, data reviewed, discussed with Farida Bajwa on 04/21/18. I agree with the above assessment and plan of care. cc: ARTUR Keith MD Jagan Reddy, MD MTDD
[2018-04-20] MEDS: BENTYL PO SCH ×3 (14:14→17:46)
[2018-04-20] MEDS: NEURONTIN PO SCH ×3 (14:15→17:46)
[2018-04-20] MEDS: CENTRUM TABLET PO SCH (15:13)
[2018-04-20] MEDS: CYMBALTA PO SCH (15:13)
[2018-04-20] MEDS: VITAMIN D PO SCH (15:14)
--- NOTE | 2018-04-20 15:29 | INFECTIOUS DISEASE PROGRESS NO ---
DATE: 04/20/2018 PRESENT ILLNESS: The patient is being treated now for spontaneous bacterial peritonitis and a right-sided pneumonia. The patient does have a vancomycin-resistant enterococcal urinary tract infection; however, as mentioned above, this is asymptomatic and because of that, does not require treatment. MEDICATIONS: Currently the patient is receiving vancomycin and ceftazidime as treatment for the patient's pneumonia and spontaneous bacterial peritonitis. PHYSICAL EXAMINATION: Vital Signs: Temperature is 98.3 degrees, pulse 74, respirations 16, blood pressure 122/71. General: This is an ill-appearing, middle-aged female. She is in no acute distress. Head, eyes, ears, nose, throat: She can hear my spoken words and see near objects. She does not have any white patches on her tongue. Neck: No meningismus. Lungs: Clear to auscultation. Cardiovascular: Heart rate is regular. Abdomen: Soft and nontender. Extremities: The patient has a right upper arm AV fistula which is functioning well. Neurologic: The patient is alert. She can move her extremities. There is no tremor. LAB AND X-RAY: There is no new x-ray for today. The patient's creatinine is 7.8. GFR is 7. CK is 91. ASSESSMENT AND PLAN: Patient is being treated for spontaneous bacterial peritonitis and pneumonia with vancomycin and ceftazidime, as mentioned above. I plan to continue those 2 antibiotics. I have ordered a chest x-ray for tomorrow. As regarding the patient's enterococcal urinary tract infection, she is asymptomatic and because of this, treatment is not indicated. COMORBIDITIES: The patient has end-stage renal disease with hemodialysis. She also has a history of cirrhosis of the liver, diabetes mellitus, and alcoholism. cc: MD Gonzalo Potter MD
[2018-04-20] MEDS ORDERED: VANCOMYCIN 1 GM/NS 1 GM/250 ML IVPB IV ONE (17:00)
--- NOTE | 2018-04-20 20:10 | PROGRESS NOTE ---
DATE: 04/20/2018 SUBJECTIVE: The patient anxious to go to [facility] and spoke to Dr. Price. She has gone to dialysis. Also abdomen is distended. She has some peritonitis. EXAM: Vital signs: Temperature 97, vitals are stable. HEENT: Within normal limits. Lungs: Reproducible sign, decreased rhonchi on the right side. Abdomen: Belly is soft, distended. LABS: SMA-7: Sodium 134, potassium 5.3, BUN 35, creatinine 7.8. ASSESSMENT AND PLAN: 1. Right lower lobe pneumonia and subacute bacterial endocarditis. Continue on vancomycin and Fortaz. 2. Vancomycin-resistant enterococcus, stable. 3. Chest pain, atypical. Previous cardiac workup was negative in August 2017. 4. Diabetes. Stable. DISPOSITION: Rehab at [facility]. We will schedule for paracentesis in the morning tomorrow and after that, we will discharge to the rehab when the bed is available. Dr. Price is going to do vancomycin and Fortaz after the dialysis. LEVEL OF DOCUMENTATION: 25 minutes. cc: Gonzalo Hammonds MD
[2018-04-20] MEDS: ELAVIL PO SCH (21:52)
[2018-04-20] MEDS: ROBAXIN PO SCH (21:52)
[2018-04-21] MEDS ORDERED: INSULIN PEN NEEDLES ONE (05:18)
--- NOTE | 2018-04-21 06:31 | Diag Imaging Result Doc PS360 ---
EXAM: CHEST-1 VIEW HISTORY: pneumonia TECHNIQUE: Portable chest single view COMPARISON: 04/15/2018 FINDINGS: Poor inspiratory effort. The heart is borderline mildly prominent. Decreased infiltrates in the right lower lung. No pleural effusions identified. IMPRESSION: Mild interval improvement. Electronically signed by Hussein Knox 04/21/2018 6:27 AM
[2018-04-21] MEDS: TYLENOL PO PRN (06:41)
[2018-04-21] MEDS: PHOSLO PO SCH ×3 (06:42→16:47)
[2018-04-21] MEDS: HUMULIN R SUBQ SCH ×4 (06:47→23:37)
[2018-04-21 06:59] LABS: CALCIUM 7.6 mg/dL (8.8-10.2); CREATININE 4.9 mg/dL (0.5-0.9); PHOSPHORUS 2.9 mg/dL (2.7-4.5); POTASSIUM 4.4 mmol/L (3.5-5.1)
[2018-04-21] MEDS: MORPHINE IV PRN ×4 (07:33→21:39)
[2018-04-21] MEDS: DUONEB (A & A) INH PRN ×2 (07:39→14:56)
[2018-04-21] MEDS: SODIUM CHLORIDE 0.9% INJ SCH (09:56)
[2018-04-21] MEDS: PROTONIX IV SCH (09:56)
[2018-04-21] MEDS: CYMBALTA PO SCH (09:57)
[2018-04-21] MEDS: CENTRUM TABLET PO SCH (09:57)
[2018-04-21] MEDS: BENTYL PO SCH ×3 (09:57→21:39)
[2018-04-21] MEDS: HUMULIN 70/30 SUBQ SCH ×2 (09:57→17:27)
[2018-04-21] MEDS: NEURONTIN PO SCH ×3 (09:57→21:39)
[2018-04-21] MEDS: VITAMIN D PO SCH (09:57)
[2018-04-21] MEDS: VOLTAREN 1% GEL TOP SCH ×2 (10:04→14:33)
--- NOTE | 2018-04-21 10:41 | Diag Imaging Result Doc PS360 ---
EXAM: US ABD PARACENTESIS W S/I HISTORY: Ascites TECHNIQUE: Ultrasound-guided paracentesis COMPARISON: None. FINDINGS: Prior to the procedure I discussed the risk and benefits with the patient. Primary risks include bleeding, infection, bowel injury, and liver injury. Questions were answered. Consent was given. The permit was signed. Ultrasound was used to localize the largest fluid collection in the right abdomen. This area was cleaned and draped in the normal fashion. Lidocaine was used as a local anesthetic. Needle and catheter were advanced into the fluid collection on the first attempt without difficulty. The needle was withdrawn. The catheter was hooked to suction. Approximately 4.4 L of thin yellowish fluid were withdrawn without difficulty. The catheter was then withdrawn. No immediate postprocedural complications. IMPRESSION: Successful ultrasound-guided paracentesis. Electronically signed by Hussein Knox 04/21/2018 10:39 AM
[2018-04-21] MEDS: TAZIDIME 2 GM/NS 2 GM/100 ML IVPB IV SCH (13:15)
--- NOTE | 2018-04-21 14:09 | NEPHROLOGY PROGRESS NOTE ---
DATE: 04/21/2018 TIME SEEN: 0735 SUBJECTIVE: Ms. Cheney is resting quietly. No complaints. She is n.p.o. She is to have a paracentesis this morning. They are just administering morphine at this time. OBJECTIVE: Vital Signs: The patient's last temperature was 98.1 degrees, blood pressure 136/88, heart rate 73, respirations 18. She is on room air. Last recorded saturation is 100%. She has had 620 in, 1995 out on dialysis with plans for dialysis in the a.m. LABORATORY DATA: Electrolytes: Sodium 135, potassium 4.4, chloride 101, CO2 27 , BUN 21, creatinine 4.9, glucose 86, anion gap 7, calcium 7.6, phosphorus 2.9, albumin 2. The patient had a previous hemoglobin of 11.1 on 04/15/2018. PHYSICAL EXAMINATION: General: This is a 57-year-old female resting quietly in bed. Head of the bed is elevated. No acute distress. Skin: Warm and dry. HEENT: Normocephalic, atraumatic. Conjunctivae pale. She has ADAM. Mucous membranes are dry. Neck: Supple. Trachea midline. No evidence of JVD. Cardiovascular: She is regular rate and rhythm. She has an S4 present. Lungs: Clear to auscultation anteriorly. Equal excursion on room air. Abdomen: Soft, nontender. Positive bowel sounds. This is distended, tight, tympanic. Genitourinary: Not inspected. Minimal void with dialysis assist. Extremities : No edema. No clubbing or cyanosis. Neurological: Alert and oriented x3. ASSESSMENT AND PLAN: 1. Chronic kidney disease stage 5D. The patient is due for her routine dialysis treatment in the a.m. No indications for intervention at this time. 2. Electrolytes and acid-base balance, again with correction on dialysis. 3. Anemia. This is acceptable. 4. Peritonitis. The patient has been on approximately 13 days of an antibiotic with possible no indications for follow up on an outpatient basis. We will evaluate upon discharge. 5. Malnutrition. The patient states that she is eating slightly better. I would like to thank you for allowing us to follow with this patient. Dictated by ARTUR Keith for Noel Price MD Face to face encounter, data reviewed, discussed with Farida Bajwa on 04/21/18. I agree with the above assessment and plan of care. cc: ARTUR Keith MD Jagan Reddy, MD MTDD
[2018-04-21] MEDS: VANCOCIN PO SCH (16:47)
--- NOTE | 2018-04-21 17:51 | INFECTIOUS DISEASE PROGRESS NO ---
DATE: 04/21/2018 PRESENT ILLNESS: Ms. Cheney is being treated for a spontaneous bacterial peritonitis and a right- sided pneumonia. There is also a vancomycin-resistant Enterococcus in her urine. However, she is asymptomatic, and this does not require treatment. This morning she has had an ultrasound-guided paracentesis with over 4 L of fluid removed. She also has a positive C difficile antigen. Although the C. difficile toxin is negative, she is having numerous loose bowel movements, so we will treat her for C. Diff diarrhea. MEDICATIONS: She is on day 8 of vancomycin 1 g IV after dialysis and ceftazidime 2 g IV every 48 hours. PHYSICAL EXAMINATION: Vital Signs: Temperature is 97.8, pulse rate 90, respiratory rate 16, blood pressure 115/71, O2 saturation 94% on room air. General: Ms. Cheney is a chronically ill- appearing, middle-aged female. She is lying in bed, currently in no acute distress. HEENT: Atraumatic, normocephalic. Oral mucous membranes are pink and dry. Conjunctivae are pink. Neck: Supple. Trachea is midline. Cardiovascular: Heart rate and rhythm are regular. Normal sinus rhythm on the monitor. Pedal and radial pulses are +1 bilaterally. There is a right upper arm AV fistula. The site has a good thrill and bruit. Respiratory: Lung sounds are clear and diminished bilaterally. Abdomen: Soft, round, and mildly tender to the right lower quadrant where there is a Band-Aid from her previous paracentesis. Bowel sounds are active. Neurologic: She is awake and alert. She states she has not had many bowel movements, however, the tech and nurse confirmed that there have been multiple bowel movements with at least 6 for today. She is able to move all her extremities while in the bed without a tremor. LABORATORY AND X-RAY: No recent CBC today. Her creatinine is 4.9. GFR 11. As mentioned before, stool for C difficile antigen was positive; C. difficile toxin was negative. Chest x-ray today shows decreased infiltrates in the right lower lung with a mild interval improvement. On ultrasound-guided paracentesis done this morning, approximately 4.4 L of thin yellowish fluid were removed. ASSESSMENT AND PLAN: Ms. Cheney is being treated for right-sided pneumonia and spontaneous bacterial peritonitis. She has had ultrasound-guided paracentesis, however, the lab does not have any fluid available for us to test. At this point, we will continue her on the IV vancomycin after dialysis and ceftazidime as ordered. Because of her numerous stools and positive Clostridium difficile antigen, we will start her on vancomycin 250 mg by mouth every 6 hours. These plans have been discussed with and recommended by Dr. Walton. COMORBIDITIES: For Ms. Cheney include end-stage renal disease with hemodialysis, cirrhosis of the liver, diabetes mellitus and alcoholism. Dictated by ARTUR Tate for Rory Walton MD This chart was documented by, ARTUR Tate and accurately reflects the services performed, treatment plan and medical decisions as attested by the providers signature Rory Walton MD. cc: MD Gonzalo Potter MD MTDD
[2018-04-21] MEDS: ELAVIL PO SCH (21:39)
[2018-04-21] MEDS: ROBAXIN PO SCH (21:39)
--- NOTE | 2018-04-21 21:49 | PROGRESS NOTE ---
DATE: 04/21/2018 SUBJECTIVE: The patient is a little better. Chest x-ray elevation of right hemidiaphragm. The patient is going for dialysis and paracentesis today. EXAMINATION: Vital Signs: Temp 97, pulse is 90, blood pressure 133/72. HEENT: Within normal limits. Decreased breath sounds in the right base. Heart: Heart sounds are regular. Abdomen: Belly is soft, distended. INVESTIGATIONS: SMA-7: Sodium 135, potassium 4.4, BUN 21, creatinine 4.9. Paracentesis was done, removed 4.4 L of fluid. ASSESSMENT AND PLAN: 1. Recurrent paracentesis with subacute bacterial peritonitis. Currently receiving IV vancomycin and Fortaz. 2. VRE, stable. 3. Elevation of right hemidiaphragm. Pneumonia better. 4. Cirrhosis of liver due to hepatitis C. 5. 4.4 L removed. End-stage kidney disease, on dialysis and currently stable. 6. We will follow up. Palliative care consult is still pending. cc: Gonzalo Hammonds MD
[2018-04-22] MEDS: VOLTAREN 1% GEL TOP SCH ×6 (00:14→16:37)
[2018-04-22] MEDS: VANCOCIN PO SCH ×4 (00:14→17:46)
[2018-04-22] MEDS ORDERED: TIGHT: 0.2 ML/HR FOR DIALYSIS MISC PRN (06:15)
[2018-04-22] MEDS ORDERED: HEPARIN IV PRN (06:15)
[2018-04-22] MEDS ORDERED: NS 2,000 ML MISC PRN (06:15)
[2018-04-22 06:22] LABS: BASO# 0.06 X1000 (0.0-0.2); BASO% 0.7 % (0.0-0.8); EOS# 0.29 X1000 (0.0-0.7); EOS% 3.1 % (0.0-10.0); HEMATOCRIT 27.6 % (37.0-47.0); HEMOGLOBIN 8.3 g/dL (12.0-16.0); IMM GRAN# 0.02 X1000 (0.0-0.04); IMM GRAN% 0.2 % (0.0-0.5); LYMPH# 2.27 X1000 (1.2-3.4); LYMPH% 24.6 % (20.5-51.1); MCH 26.6 PG (27-31); MCHC 30.1 g/dL (33-37); MCV 88.5 FL (81-99); MONO# 0.59 X1000 (0.11-0.59); MONO% 6.4 % (1.7-9.3); MPV 11.1 FL (7.4-10.4); PLT 148 X1000 (130-400); RBC 3.12 XMIL (4.2-5.4); RDW 14.1 % (11.5-14.5); WBC 9.23 X1000 (4.8-10.8)
[2018-04-22 06:32] LABS: ALBUMIN 2.1 g/dL (3.5-5.0); CALCIUM 7.6 mg/dL (8.8-10.2)
[2018-04-22 06:35] LABS: CREATININE 6.6 mg/dL (0.5-0.9)
[2018-04-22] MEDS: PHOSLO PO SCH ×3 (06:36→17:02)
[2018-04-22] MEDS: HUMULIN R SUBQ SCH ×3 (06:36→17:19)
[2018-04-22] MEDS: BENTYL PO SCH ×4 (07:06→20:41)
[2018-04-22] MEDS: NEURONTIN PO SCH ×4 (07:06→20:41)
[2018-04-22] MEDS: DUONEB (A & A) INH PRN ×2 (07:47→19:38)
[2018-04-22] MEDS: MORPHINE IV PRN (08:00)
[2018-04-22] MEDS: CYMBALTA PO SCH (08:11)
[2018-04-22] MEDS: CENTRUM TABLET PO SCH (08:11)
[2018-04-22] MEDS: PROTONIX IV SCH (08:11)
[2018-04-22] MEDS: SODIUM CHLORIDE 0.9% INJ SCH (08:11)
[2018-04-22] MEDS: VITAMIN D PO SCH (08:11)
[2018-04-22] MEDS: HUMULIN 70/30 SUBQ SCH ×2 (08:26→17:18)
[2018-04-22] MEDS: TAZIDIME 2 GM/NS 2 GM/100 ML IVPB IV SCH (10:24)
--- NOTE | 2018-04-22 14:28 | NEPHROLOGY PROGRESS NOTE ---
DATE: 04/22/2018 TIME SEEN: 0800 hours. SUBJECTIVE: Ms. Cheney is resting quietly on the side of the bed. Her is at her bedside. She states that she is feeling a little bit better today. She had a paracentesis completed yesterday. OBJECTIVE: Vital Signs: Temperature 98.3 degrees, blood pressure 117/75, heart rate 83, respirations 20. She is currently on room air. Last recorded saturation 100%. The patient has a paracentesis of 4.4 L removed without any urine output documented; 960 in. General: On physical examination, this is a 57-year-old female resting quietly on the side of the bed. She is in no acute distress, so she states that she will be discharged. She is to go to rehab. HEENT: Normocephalic, atraumatic. Conjunctiva is pale pink. She has ADAM. Mucous membranes are dry. Neck: Supple. Trachea midline. No JVD. Cardiovascular: Regular rate and rhythm. She has an S4 present. Lungs: Clear to auscultation bilaterally. Equal excursion on room air. Abdomen: Soft, still slightly distended, but not tight. Positive bowel sounds. No tenderness present. Genitourinary: Not inspected. Minimal void with dialysis assist. Extremities: Have no edema. No clubbing or cyanosis. Neurological: Alert and oriented x3. LABS: Sodium is 135, potassium 5, chloride 99, CO2 28. BUN 29, creatinine 6.6 , glucose is 96. Her anion gap is 8. Her calcium is 7.6, phosphorus 4, albumin 2.1. The patient has a white count 9.23, hemoglobin 8.3, hematocrit 27.6 with a platelet count of 148. ASSESSMENT AND PLAN: 1. Chronic kidney disease stage 5 D. The patient is due for her routine dialysis treatment today. We will place her on a 2 potassium bath, dialyze for 3-1/2 hours. We will attempt to pull 2 liters of ultrafiltration as tolerated. 2. Electrolytes, acid-base balance with correction on dialysis. 3. Anemia. This remains low. It appears that it has dropped to 8.3 from 11.1 on her last check on the . No indications for intervention. We will monitor. 4. Abdominal discomfort. The patient has a history of peritonitis. She has received 14 days of antibiotics. I would like to thank you for allowing us to follow with this patient. Dictated by ARTUR Keith for Noel Price MD Face to face encounter, data reviewed, discussed with Farida Bajwa on 04/22/18. I agree with the above assessment and plan of care. cc: ARTUR Keith MD Jagan Reddy, MD [facility]
[2018-04-22] MEDS ORDERED: VANCOMYCIN 1 GM/NS 1 GM/250 ML IVPB IV ONE (17:00)
[2018-04-22] MEDS: TYLENOL PO PRN (17:46)
--- NOTE | 2018-04-22 17:48 | INFECTIOUS DISEASE PROGRESS NO ---
DATE: 04/22/2018 SUBJECTIVE: The patient is being treated for spontaneous bacterial peritonitis , right-sided pneumonia and Clostridium difficile diarrhea. The patient also has a vancomycin -resistant enterococcus in her urine, but this is asymptomatic. MEDICATIONS: The patient is being treated with vancomycin which is the 9th day of treatment, and ceftazidime with the 9th day of treatment also. This is the first day of treatment with p.o. vancomycin. OBJECTIVE: Vital signs: Temperature is 98.6 degrees, pulse 92, respirations 16 , blood pressure 107/64. In general this is a chronically ill-appearing middle-aged female. She is in no acute distress. She told me today that she is not having as many loose stools. Head , eyes, ears, nose, throat: She can hear my spoken words and see near objects. She does not have any white coating of her tongue. Neck: No stiffness. Lungs clear to auscultation. Cardiovascular: Heart rate is regular. Abdomen is soft and nontender. Extremities: The patient has a functional AV fistula in the right arm. Neurologic: The patient is alert. She can move her extremities. There is no tremor. DIAGNOSTIC DATA: There is no new radiographic study today. ASSESSMENT AND PLAN: 1. The patient has spontaneous bacterial peritonitis, pneumonia, and Clostridium difficile diarrhea. The plan is to continue treatment with intravenous vancomycin and ceftazidime, and also p.o. vancomycin. The patient's urinary tract infection is asymptomatic and does not require antibiotic treatment. COMORBIDITIES: She has endstage renal disease and on hemodialysis. 3. She also has cirrhosis of the liver with an associated ascites. 4. The patient has diabetes mellitus. 5. Unfortunately she is an alcoholic. cc: MD Gonzalo Potter MD [facility]
--- NOTE | 2018-04-22 18:45 | PROGRESS NOTE ---
DATE: 04/22/2018 SUBJECTIVE: Patient's family at bedside. Leatha the nurse was there. I discussed with the patient along with . She does have living will DNR. She does want to go to [facility]. She had a paracentesis yesterday. The patient has been in good spirits. OBJECTIVE: On examination, temperature is 98 degrees, heart rate is 104, and blood pressure 90/60, and 130 pounds.HEENT: Exam is within normal limits. Neck: Supple. Decreased breath sounds on the right side. Heart: Sounds are regular. Abdomen: Belly is soft with ascites noted. INVESTIGATIONS: CBC: White cell count 9.2, hematocrit 27, and platelets 148, 000. SMA 7. BUN 29 and creatinine 6.6. ASSESSMENT AND PLAN: 1. The patient is medically stable for subacute bacterial endocarditis. C. Difficile antigen diarrhea. Continue on IV vancomycin and ceftazidime. 2. AMS stable. 3. Living will, DNR. 4. Disposition: Rehab at [facility]. We will discuss with the licensed social worker. LEVEL OF DOCUMENTATION: 25 minutes. cc: Gonzalo Hammonds MD MTDD
[2018-04-22] MEDS: ELAVIL PO SCH (20:41)
[2018-04-22] MEDS: ROBAXIN PO SCH (20:41)
[2018-04-23] MEDS: VANCOCIN PO SCH ×2 (00:42→05:58)
[2018-04-23] MEDS: HUMULIN R SUBQ SCH ×2 (01:49→07:24)
[2018-04-23] MEDS: PHOSLO PO SCH ×2 (05:55→07:17)
[2018-04-23 06:54] LABS: ALBUMIN 2.1 g/dL (3.5-5.0); CALCIUM 7.9 mg/dL (8.8-10.2); CREATININE 3.9 mg/dL (0.5-0.9); PHOSPHORUS 2.9 mg/dL (2.7-4.5)
[2018-04-23] MEDS: HUMULIN 70/30 SUBQ SCH (07:17)
[2018-04-23] MEDS: DUONEB (A & A) INH PRN (07:18)
[2018-04-23 07:47] VITALS: BP 95/56
--- NOTE | 2018-04-23 09:06 | DISCHARGE SUMMARY ---
ADMISSION DATE: 04/05/2018 DISCHARGE DATE: 04/23/2018 DISCHARGING DIAGNOSES: 1. Chest pain, atypical, musculoskeletal. Previous cardiac workup in August 2017 was negative. 2. Altered mental status due to metabolic encephalopathy due to right lower lobe pneumonia and subacute bacterial peritonitis. SECONDARY DIAGNOSES: 1. Abnormal chest x-ray with elevated right hemidiaphragm. 2. Cirrhosis of liver due to chronic hepatitis C infection, genotype 1 B, viral load 2.6 million units. 3. End-stage kidney disease, on hemodialysis. 4. Type 2 diabetes, insulin dependent. 5. Peripheral neuropathy due to diabetes. 6. Hypertension, off medications. CONSULTS: 1. Dr. Price. 2. Dr. Walton. PROCEDURES: 1. Hemodialysis as per Dr. Price. 2. BiPAP machine. 3. Multiple paracenteses. White cell count more than 500. 4. Microbiology: C. difficile toxin is negative but the antigen is positive. Blood cultures are negative. Peritoneal fluid so far is negative. Urine cultures, Enterobacter faecium VRE. BRIEF HISTORY: She is a 57-year-old, female with a known history of cirrhosis of liver due to hepatitis C, waiting for treatment, associated with ascites and also end-stage kidney disease, on dialysis. Came in with atypical chest pain. The patient was ruled out for DC. EKG changes were negative. She was given diclofenac gel for p.r.n. pain. HOSPITAL COURSE: 1. The patient had extensive workup done 6 months ago which was negative. I would pursue further workup if there are any EKG changes. 2. The patient continues to have ascites. We attempted twice to drain the 4.5 L fluid x2. 3. Hospital course was prolonged due to altered mental status due to metabolic encephalopathy associated with aspiration pneumonia in the right lung and also fever. Panculture workup done. It showed nonspecific VRE, asymptomatic. 4. Subacute bacterial peritonitis. White cell count more than 500. Cultures were negative. Dr. Walton was consulted. Patient was given incentive spirometry, noninvasive ventilator support, and also IV antibiotics with vancomycin and Fortaz post dialysis. 5. After that, her mental status was improved. Patient was given incentive spirometry. 6. I did discuss with the living will. The patient was competent as well as the proxy, the , was there. She did express living will, Do Not Resuscitate. No CPR, no ventilator support, no defibrillation. 7. The patient continues to be weak. [facility] The patient is transferred to [facility]. LABS: CBC: White cell count 9.2, hematocrit 27, platelets 148,000. SMA 7 is normal. Creatinine 3.1. Chest x-ray, stable elevation of right hemidiaphragm. DISCHARGING INSTRUCTIONS: 1. Oxygen as needed. 2. Pneumococcal vaccine 13, 05/26/2017. 3. Living will, Do Not Resuscitate. 4. End-stage kidney disease, on hemodialysis by Dr. Price. 5. Vancomycin and Fortaz post dialysis for the next 2 weeks. 6. For diabetes, I cut down the insulin 70/35 units subcutaneous b.i.d., and follow with sliding scale with insulin coverage. 7. For the hypertension, discontinue amlodipine. 8. Chronic neuropathy pain, gabapentin 300 b.i.d. 9. Vitamin D 3000 units daily, multivitamin 1 tablet daily, calcium acetate 667 two tablets p.o. a.c. t.i.d., duloxetine 60 daily, Elavil 10 daily, Robaxin 500 daily, Prilosec 40 daily. 10. Follow up maintenance care with Dr. Price. cc: MD Noel Trejo MD Leroy F. Harris, MD
[2018-04-23] MEDS: PROTONIX IV SCH (09:14)
[2018-04-23] MEDS: CENTRUM TABLET PO SCH (09:15)
[2018-04-23] MEDS: NEURONTIN PO SCH (09:15)
[2018-04-23] MEDS: VITAMIN D PO SCH (09:15)
[2018-04-23] MEDS: SODIUM CHLORIDE 0.9% INJ SCH (09:15)
[2018-04-23] MEDS: CYMBALTA PO SCH (09:15)
[2018-04-23] MEDS: BENTYL PO SCH (09:15)
--- NOTE | 2018-04-23 14:59 | NEPHROLOGY PROGRESS NOTE ---
DATE: 04/23/2018 DATE AND TIME: Date seen 04/23/2018; time seen is 721. SUBJECTIVE: Ms. Cheney is resting quietly in bed. She does not appear as tearful today as yesterday. She appears very lethargic. OBJECTIVE: Vital Signs: Her most recent vital signs: Her last temperature 98.7, blood pressure 115/66, heart rate 79, respirations 12. She is on room air. Last recorded saturation is 94%. She had 480 in. She had a liter removed on dialysis. LABS: Sodium 139, potassium 4, chloride 101, CO2 34, BUN 17, creatinine is 3.9 , glucose of 73. Her anion gap is 4. Calcium 7.9, phosphorus 2.9, albumin 2.1. Her most recent hemoglobin of 8.3 on the . PHYSICAL EXAMINATION: General: This is a 57-year-old female resting quietly in bed. She is in no acute distress. Skin: Warm and dry. HEENT: Normocephalic , atraumatic. Conjunctiva is pale. She has ADAM. Mucous membranes are dry. Neck: Supple. Trachea midline. No evidence of JVD. Cardiovascular: She is regular rate and rhythm. She has an S4. Lungs: Clear to auscultation bilaterally. Equal excursion on room air. Abdomen: Slightly distended, though soft, nontender. Genitourinary: Not inspected. Minimal void with dialysis assist. Extremities: Have trace pretibial edema. Neurologic: She is awake and alert today. ASSESSMENT AND PLAN: 1. Chronic kidney disease stage 5D. Patient is due for her routine dialysis treatment in the a.m. We have discussed that if she is discharged for rehab, she is to go to her outpatient prescription on Friday, Friday, Friday. 2. Electrolytes, acid-base balance, again with correction on dialysis. 3. Anemia. This is low but stable. 4. Abdominal discomfort with a history of peritonitis. She has been on a 14- day history of antibiotics, followed by Dr. Walton and the primary care team. I would like to thank you for allowing us to follow with this patient. Dictated by ARTUR Keith for Noel Price MD Face to face encounter, data reviewed, discussed with Farida Bajwa on 04/23/18. I agree with the above assessment and plan of care. cc: ARTUR Keith MD Jagan Reddy, MD MTDD
== END 2018-04-23 11:04 | DRG 432 ==
LOC: 3N 02:31 → P.ED 02:31 → SUATTDRO 07:05 → SUPCPDRO 07:05 → 3N 04-07 05:30 → ICU 04-09 23:42 → 4N 04-16 12:59
PROVIDERS: ADMIT Internal Medicine; ATTEND Internal Medicine
CPT/HCPCS: 49083; 71010; 71020; 71045; 71046; 76700; 80048; 80053; 80069; 81001; 82140; 82550; 82553; 82805; 82948; 83735; 84484; 85025; 85027; 85610; 85730; 86850; 86900; 86901; 87040; 87070; 87077; 87088; 87186; 87205; 87324; 87449; 89051; 93005; 93010; 94640; 94761; 94799; 96374; 96375; 97110; 97116; 97162; 97530; 99285; A9270; C9113; J0610; J0696; J0713; J1644; J1940; J1956; J2060; J2270; J3370; J7030; S0164; XXXXX

== ENCOUNTER 2018-05-22 00:58 | Inpatient (IN) ==
[2018-05-22] MEDS ORDERED: ASPIRIN PO ONE (01:17)
[2018-05-22] MEDS ORDERED: ASPIRIN PR ONE (01:17)
[2018-05-22 02:02] LABS: BASO# 0.04 X1000 (0.0-0.2); BASO% 0.4 % (0.0-0.8); EOS# 0.24 X1000 (0.0-0.7); EOS% 2.7 % (0.0-10.0); HEMATOCRIT 34.8 % (37.0-47.0); HEMOGLOBIN 10.7 g/dL (12.0-16.0); IMM GRAN# 0.02 X1000 (0.0-0.04); IMM GRAN% 0.2 % (0.0-0.5); LYMPH# 2.35 X1000 (1.2-3.4); LYMPH% 26.2 % (20.5-51.1); MCH 26.6 PG (27-31); MCHC 30.7 g/dL (33-37); MCV 86.4 FL (81-99); MONO# 0.51 X1000 (0.11-0.59); MONO% 5.7 % (1.7-9.3); MPV 11.5 FL (7.4-10.4); NEUT# 5.82 X1000 (1.4-6.5); NEUT% 64.8 % (42.2-75.2); PLT 204 X1000 (130-400); RBC 4.03 XMIL (4.2-5.4); RDW 15.1 % (11.5-14.5); WBC 8.98 X1000 (4.8-10.8)
[2018-05-22 02:08] LABS: INR 0.95; PROTIME 13.5 Seconds (11.0-16.0)
[2018-05-22 02:09] LABS: PTT 26.3 Seconds (22.3-41.8)
[2018-05-22 03:13] LABS: ALB/GLOB RATIO 0.4; ALBUMIN 2.5 g/dL (3.5-5.0); CALCIUM 7.4 mg/dL (8.8-10.2); POTASSIUM 5.4 mmol/L (3.5-5.1); TOTAL BILIRUBIN 0.38 mg/dL (0.20-1.00); TOTAL PROTEIN 8.9 g/dL (6.3-8.3)
[2018-05-22 03:18] LABS: CREATININE 7.5 mg/dL (0.5-0.9)
--- NOTE | 2018-05-22 04:00 | PROVIDER DOCUMENTATION ---
This chart was entered by Jacquelin Grant Scribe, acting as scribe for Elan Aponte MD. HPI-Cardiac General - General Chief Complaint: Chest Pain Stated Complaint: cp Time Seen by Provider: 05/22/18 01:03 Source: patient Allergies/Adverse Reactions: Patient Allergies Allergy/AdvReac Type Severity Reaction Status Date / Time No Known Allergies Allergy Verified 03/31/18 09:26 Home Medications: Home Medication List Medication Instructions Recorded Confirmed Last Taken Type Gabapentin [Neurontin] 300 mg PO BID 01/16/17 05/08/18 05/07/18 History Calcium Acetate 2 cap PO AC 01/25/17 05/08/18 05/07/18 History Cholecalciferol (Vitamin D3) 1,000 unit PO DAILY 01/25/17 05/08/18 05/07/18 History [Vitamin D3] Mv,Calcium,Min/Iron/Folic/Vitk 1 each PO DAILY 01/25/17 05/08/18 05/07/18 History [Essential Woman Tablet] Duloxetine HCl 60 mg PO DAILY 08/26/17 05/08/18 05/07/18 History Amitriptyline [Elavil] 10 mg PO HS 08/27/17 05/08/18 05/07/18 History Methocarbamol [Robaxin] 500 mg PO QHS 08/27/17 05/08/18 05/07/18 History Omeprazole 1 cap PO DIRECTED 04/05/18 05/08/18 05/07/18 History Duloxetine HCl [Cymbalta] 60 mg PO DAILY #5 capsule. 04/23/18 05/08/18 05/07/18 Rx Insulin Humulin 70/30 [Humulin 5 unit SUBQ BID CC #1 insuln.pen 04/23/18 05/08/18 05/07/18 Rx 70/30] - History of Present Illness-Cardiac Nature of Presenting Problem: pT IS 57/F Presenting to ED w/ sharp chest pain that is intermittent and started around 1 hr [employer]. Pt sts that she was sleeping and right after she woke up the pain started. She sts that she has had a cough lately w/ yellow sputum. Pt has hx of DM, neuropathy, Cirrhosis, htn, and has dialysis Friday, Friday, Friday. Location: reports: substernal Quality of Pain: reports: sharp Severity in ED: moderate Onset/Duration: 1 hour ago Timing: still present Context/Activities at Onset: reports: none, sleep Modifying Factors: improves with: nothing Palpitation Quality: N/A History of arrythmia: reports: none Recent use of:: reports: no stimulants Nitro Today/Relief: reports: no nitro taken today Aspirin Treatment Today: reports: no aspirin today Prior Chest Pain/Cardiac Workup: reports: no prior chest pain Associated Symptoms: reports: denies symptoms. denies: abdominal pain, back pain, diaphoresis, fever/chills, vomiting Similar Symptoms Previously?: No Recently Seen Here or By Another Healthcare Provider: No Review of Systems - Adult - REVIEW OF SYSTEMS - ADULT Constitutional: reports: no symptoms reported. denies: chills, fever Eyes: reports: no symptoms reported Ears, Nose, Mouth & Throat: reports: no symptoms reported. denies: ear pain, throat pain Cardiovascular: reports: chest pain. denies: edema Respiratory: reports: cough (Productive cough w/ yellow sputum) Gastrointestinal: denies: abdominal pain, constipation, nausea, vomiting Genitourinary: reports: no symptoms reported Musculoskeletal: reports: no symptoms reported Integumentary: reports: no symptoms reported Neurological: reports: no symptoms reported. denies: dizziness/vertigo, headache/migraines Psychiatric: reports: no symptoms reported Endocrine: reports: no symptoms reported Hematologic/Lymphatic: reports: no symptoms reported Allergic/Immunologic: reports: no symptoms reported All Other Systems: Reviewed and Negative Past History - Adult - PAST MEDICAL HISTORY-ADULT Review of Records: reports: Old Records Reviewed, Nursing Assessment Review, Medications Reviewed, Social history reviewed & non-contributory. Major Childhood Illnesses: reports: denies history Cardiovascular: reports: CAD, CHF, HTN Respiratory: reports: asthma Gastrointestinal: reports: denies history Obstetrical/Gynecological: reports: denies history Genitourinary: reports: dialysis, kidney disease, kidney stones, other (stents in kidneys ) Musculoskeletal: reports: arthritis, chronic pain (neuropathy) Neurological: reports: other (diabetic BLE peripheral neuropathy) Psychiatric: reports: denies history Endocrine/Immune: reports: anemia, Diabetes Other Conditions: reports: denies history - PRIOR SURGERIES/PROCEDURES Surgical/Procedure History: reports: cholecystectomy, other (stents in kidney) - PRIOR HOSPITALIZATIONS Prior Hospitalizations: reports: for other non-related - IMMUNIZATION STATUS Childhood Immunizations: See Nurse Assessment Flu Vaccine: See Nurse Assessment - FAMILY HISTORY Family History: reviewed, not pertinent - SOCIAL HISTORY Smoking: denies, non-smoker Substance Use: none/never Alcohol Use Frequency: sober (former use) Living Situation: family Physical Exam-General - PHYSICAL EXAM-ADULT Initial Vital Signs Reviewed: Yes - CONSTITUTIONAL General Appearance: appears well, alert, no apparent distress - EYES Eyes: PERRL/EOMI, pink conjunctivae - HEAD, EARS, NOSE, MOUTH & THROAT HENMT: normocephalic/atraumatic, moist mucous membranes, normal ENT inspection, TMs normal, pharynx normal - NECK Neck: non-tender, full range of motion, supple, normal inspection - RESPIRATORY Respiratory: chest non-tender, normal breath sounds, rhonchi (Diffuse expitory Rhonchi bilaterally) - CARDIOVASCULAR Cardiovascular: regular rate, rhythm - GASTROINTESTINAL (ABDOMEN) Abdominal Exam: soft - LYMPHATIC Lymphatic: no adenopathy - MUSCULOSKELETAL Back Exam: normal inspection Extremity: non-tender, normal gait, normal inspection - SKIN Integumentary: normal color, warm/dry - NEUROLOGIC Neurologic: grossly normal - PSYCHIATRIC Psych/Mental Status: normal mood/affect, normal thought content, normal thought process, oriented x 3 - HEART Score HEART Score: History: Moderately Suspicious HEART Score: ECG: Normal HEART Score: Age: 45-65 Years HEART Score: Risk Factors for Atherosclerotic Disease: > or = 3 Risk Factors or History of Atherosclerotic Disease HEART Score: Troponin: > or = 3x Normal Limit Total HEART Score:: 6 Progress - PLAN OF CARE/RESULTS Progress/Plan/Lab Results: Vital Signs - 8 hr 05/22/18 01:15 05/22/18 01:17 05/22/18 02:02 Temperature 98.2 F Pulse Rate 83 83 77 Respiratory Rate 19 18 20 Blood Pressure 153/107 153/107 146/82 O2 Sat by Pulse Oximetry 98 97 95 Laboratory Results - last 24 hr 05/22/18 05/22/18 05/22/18 01:45 01:45 01:45 WBC 8.98 RBC 4.03 L Hgb 10.7 L Hct 34.8 L MCV 86.4 MCH 26.6 L MCHC 30.7 L RDW Std Deviation 15.1 H Plt Count 204 MPV 11.5 H Immature Gran % (Auto) 0.2 Neut % (Auto) 64.8 Lymph % (Auto) 26.2 [place] % (Auto) 5.7 Eos % (Auto) 2.7 Baso % (Auto) 0.4 Immature Gran # (Auto) 0.02 Neut # (Auto) 5.82 Lymph # (Auto) 2.35 [place] # (Auto) 0.51 Eos # (Auto) 0.24 Baso # (Auto) 0.04 PT INR PTT (Actin FS) Sodium 144 Potassium 5.4 H Chloride 104 Carbon Dioxide 28 Anion Gap 12 BUN 24 H Creatinine 7.5 H Estimated GFR/1.73 m2 7 BUN/Creatinine Ratio 3 Glucose 118 H Calculated Osmolality 292 Calcium 7.4 L Total Bilirubin 0.38 AST 46 H ALT 24 Alkaline Phosphatase 148 H Creatine Kinase 60 Troponin T [id number] Pept 4808 H Total Protein 8.9 H Albumin 2.5 L Globulin 6.4 Albumin/Globulin Ratio 0.4 05/22/18 05/22/18 01:45 01:45 WBC RBC Hgb Hct MCV MCH MCHC RDW Std Deviation Plt Count MPV Immature Gran % (Auto) Neut % (Auto) Lymph % (Auto) [place] % (Auto) Eos % (Auto) Baso % (Auto) Immature Gran # (Auto) Neut # (Auto) Lymph # (Auto) [place] # (Auto) Eos # (Auto) Baso # (Auto) PT 13.5 INR 0.95 PTT (Actin FS) 26.3 Sodium Potassium Chloride Carbon Dioxide Anion Gap BUN Creatinine Estimated GFR/1.73 m2 BUN/Creatinine Ratio Glucose Calculated Osmolality Calcium Total Bilirubin AST ALT Alkaline Phosphatase Creatine Kinase Troponin T 0.287 H [id number] Pept Total Protein Albumin Globulin Albumin/Globulin Ratio Orders Category Date Time Status Cardiac Monitoring DIRECTED Care 05/22/18 01:17 Active Oxygen Therapy- ED Nursing DIRECTED Care 05/22/18 01:17 Active Saline Loc NOW Care 05/22/18 01:17 Active CHEST-2 VIEWS [RAD] Stat Exams 05/22/18 01:17 Taken CBC WITH ELECTRONIC DIFF [HEME] Stat Lab 05/22/18 01:45 Completed CK PROFILE [SP CHEM] Stat Lab 05/22/18 01:45 Completed CK PROFILE [SP CHEM] Stat Lab 05/22/18 03:47 Ordered COMPREHENSIVE METABOLIC PANEL [CHEM] Stat Lab 05/22/18 01:45 Completed PRO B-NATRIURETIC PEPTIDE Stat Lab 05/22/18 01:45 Completed PROTIME WITH INR [COAG] Stat Lab 05/22/18 01:45 Completed PTT [COAG] Stat Lab 05/22/18 01:45 Completed TROPONIN T Stat Lab 05/22/18 01:45 Completed TROPONIN T Stat Lab 05/22/18 03:47 Ordered Aspirin Med 05/22/18 01:17 Discontinued 300 mg [place] NOW ONE Aspirin Med 05/22/18 01:17 Discontinued 325 mg PO NOW ONE CP/SOB/Palp >45 yrs of Age Stat Oth 05/22/18 01:17 Ordered EKG [EKG] Stat Ther 05/22/18 00:48 Ordered EKG [EKG] Stat Ther 05/22/18 01:17 Ordered Result Diagrams: 05/22/18 01:45 05/22/18 01:45 - EKG 1 Time of EKG reading by physician:: 01:09 EKG Read and Signed by:: Elan Aponte EKG Interpretation (*Must complete 3 of following elements*): Abnormal (normal sinus rhythm, prolonged QT, abnormal ECG) Rate: 81 Rhythm: sinus 2 Time of EKG reading by physician:: 03:58 EKG Read and Signed by:: Elan Aponte EKG Interpretation (*Must complete 3 of following elements*): Abnormal Rate: 77 Rhythm: NSR QRS: other (prolonged QT) - XRAY 1 XRAY Study: Chest Impression: Normal (per me) - CONSULTS/PCP/HOSPITALIST Notification #1 *Consult/PCP/Hospitalist*: [place] Time Discussed: 03:52 Consult Disposition: Admit Departure - Departure Date of Disposition Decision: 05/22/18 Time of Disposition Decision: 03:52 DIAGNOSIS: Chest pain Qualifiers: Chest pain type: unspecified Qualified Code(s): R07.9 - Chest pain, unspecified Chronic renal failure Qualifiers: Chronic kidney disease stage: stage 5 Qualified Code(s): N18.5 - Chronic kidney disease, stage 5 Cirrhosis Qualifiers: Hepatic cirrhosis type: alcoholic cirrhosis Disposition: ADMITTED INPATIENT 09 Certified Medical Emergency: Emergent Condition: Good Referrals and Follow-Ups: Arias Hammonds MD [Primary Care Provider] - - Critical Care Note This patient required my direct & personal management of CC.: No Attestation - Physician/ JULISA Attestation Patient care was provided by Advanced Practice Provider:: No The physician spent face to face time with patient:: Yes Advanced Practice Provider documentation review:: Supervising physician onsite and consulted in the evaluation and care of this patient. The physician did have a face to face encounter with the patient. This chart was documented by the indicated scribe, (Jacquelin Grant, Clementeibnesha) and accurately reflects the services I performed and decisions made by me, Elan Aponte MD, as attested by the provider's signature.
--- NOTE | 2018-05-22 05:13 | HISTORY AND PHYSICAL ---
ADDENDUM HISTORY OF PRESENT ILLNESS: Ashley Cheney is a 57-year-old lady complaining of 1-2 day history of chest pain with associated shortness of breath, no palpitations, but she did admit to having lightheadedness. The pain has been sharp, intermittent in the left precordial area. Admits to having a cough productive of yellowish sputum, but no fever or chills. No specific aggravating or relieving factors associated with this chest pain. Denies any palpitations or diaphoresis. No leg swelling, PND or orthopnea. OBJECTIVE: Exam notable for bibasilar crepitations. A distended abdomen with shifting dullness on percussion of the abdomen. She has an everted umbilical hernia. Bowel sounds diminished. ASSESSMENT AND PLAN: The patient has chest pain with mildly elevated troponin, but CK is normal. This could very well be renal in nature, however, the patient also has had a stress test in the last 6 months which was negative. She may benefit from an elective catheterization by Cardiology. Cardiac serial enzymes will be ordered. Patient's chest film showed very poor inspiratory effort, but her exam was very impressive for bibasilar crepitations. With a history of a cough productive of sputum I think it would not be out of order to order a noncontrast CT scan to rule out a coexisting pneumonia. She will be scheduled for dialysis today and also she may benefit from paracentesis. For now on aspirin, statins, i.e. 20 mg of Lipitor and 81 mg aspirin. Continue with insulin. Dr. 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 cc: MD Gonzalo Nath MD
[2018-05-22] MEDS ORDERED: NS 2,000 ML MISC PRN (05:51)
[2018-05-22] MEDS ORDERED: HEPARIN IV PRN (05:51)
[2018-05-22] MEDS ORDERED: TIGHT: 0.2 ML/HR FOR DIALYSIS MISC PRN (05:51)
[2018-05-22] MEDS ORDERED: VANCOMYCIN IV PER PHARMACY MISC SCH (06:15)
[2018-05-22] MEDS: HEPARIN SUBQ SCH ×2 (06:58→18:26)
[2018-05-22] MEDS: HUMULIN R SUBQ SCH ×4 (06:59→20:11)
[2018-05-22] MEDS: PRILOSEC PO SCH (06:59)
--- NOTE | 2018-05-22 07:20 | Diag Imaging Result Doc PS360 ---
EXAM: CHEST-2 VIEWS 05/22/2018 HISTORY: CP TECHNIQUE: PA and lateral chest COMMENT: There is apparent platelike atelectasis in the right lower lobe and middle lobe. There may be some atelectasis in the left lower lobe as well. The lungs are actually slightly better expanded than on 04/21/2018. IMPRESSION: Bibasilar atelectasis. Electronically signed by Dhaval Morris 05/22/2018 7:17 AM
--- NOTE | 2018-05-22 07:23 | HISTORY AND PHYSICAL ---
PRIMARY CARE PROVIDER: Dr. Hammonds. DATE AND TIME: 05/22/2018 at 0430. CHIEF COMPLAINT: Chest pain. HISTORY OF PRESENT ILLNESS: Ms. Cheney is a 57-year-old female with a past medical history most notable for insulin-dependent diabetes mellitus, liver cirrhosis, and end-stage renal disease, on hemodialysis on Mondays, Wednesdays, and Fridays. The patient states that at approximately 30 minutes prior to her arrival to the ER tonight she began having chest pain which she described was sharp in nature. It was in her left chest just below her left breast and does radiate to the center of her chest. She reports associated symptoms of feeling like she was going to pass out. The patient states that last night that she did have an episode of nausea and 1 3 did have 1 episode of nausea and vomiting. The patient reports that during this vomiting episode that she did become choked. She also is reporting on productive cough that has been ongoing but has slightly worsened. She reports the sputum he is thick yellow in color. She also reports that she feels as though she has been running a fever. She denies any headache, shortness of breath, abdominal pain. The patient states that she does feel that her abdomen is distended and stretched. She denies any swelling in the extremities. Upon evaluation in the ER. The patient was noted to have some slightly elevated troponins with the initial being 0.287 and a repeat being 0.241, though she is a renal patient. BUN is 24, creatinine is 7.5 with a GFR 7. The patient's chest x-ray does not appear to have any acute abnormalities, though the patient did have crackles noted in the right upper lung field as well as bilateral lung bases. She was also diminished in her bilateral bases as well. Given this as well as her reported productive cough and fever, we did decide to do a CT chest without contrast which did show that the patient did have a small amount of fluid in the right bronchus which could indicate aspiration. There was mid right lung base atelectasis and consolidation which likely represents pneumonia or pneumonitis. She was also noted to have a large abdominal ascites. At this time the patient will be admitted for further treatment and evaluation of her chest pain, abdominal ascites, and pneumonia. REVIEW OF SYSTEMS: A 14 point review of systems was conducted with the patient. All were negative except for pertinent positives mentioned above in the HPI. PAST MEDICAL HISTORY: 1. End-stage renal disease, on hemodialysis on Mondays, Wednesdays, and Fridays. 2. Insulin-dependent diabetes mellitus. 3. History of hypertension. 4. History of alcohol abuse. 5. History of nicotine abuse. PAST SURGICAL HISTORY: 1. Shunt placement in right upper arm. 2. Cholecystectomy. 3. Reported stent placement and removal in the kidneys. SOCIAL HISTORY: The patient is a former smoker. She also has a history of alcoholism though reports that she quit drinking 3 years ago. There is no known illicit drug use. FAMILY HISTORY: Positive for her mother having a history of diabetes mellitus and lung cancer. She reports she thinks her father from lung problems. ALLERGIES: Patient has no known allergies. HOME MEDICATIONS: 1. Elavil 10 mg p.o. at bedtime. 2. Calcium acetate 667 mg 2 capsules p.o. a.c. 3. Duloxetine 60 mg p.o. daily. 4. Gabapentin 300 mg p.o. b.i.d. 5. Methocarbamol 500 mg p.o. at bedtime. DIAGNOSTIC DATA/LABORATORY RESULTS: White blood cell count is 8.98, hemoglobin 10.7, hematocrit 34.8, platelet count is 204,000. PT 13.5, INR 0.95. PTT is 26.3. Sodium 144, potassium 5.4, chloride 104, serum bicarb is 28, BUN 24, creatinine 7.5, with a GFR of 7, glucose 118 calcium 7.4, her total bilirubin is 0.38, AST 46, ALT 24, alkaline phosphatase is 148, CK 60, troponin is 0.287, proBNP is 4808. EKGs show normal sinus rhythm with a prolonged QT. Ventricular rate is 81 and QTc is 487. Chest x-ray does not show any acute disease though we did perform a CT chest noncontrast which showed small fluid within the right bronchus which could indicate aspiration. There was mild right lung base atelectasis and consolidation which likely represents pneumonia or pneumonitis. There is also a large abdominal ascites which was noted to be increased since prior exam. There is a nodular liver which may indicate cirrhosis. There is also trace pleural effusion. PHYSICAL EXAMINATION: VITAL SIGNS: Temperature 98.2 degrees, heart rate 56, respirations 18, blood pressure 143/83, oxygen saturation is 97% on room air. PHYSICAL EXAMINATION: Ms. Cheney is a pleasant 57-year-old female. She was resting in the ER stretcher. She was in no acute distress. She was awake, alert and able to answer questions appropriately. HEENT: Head is atraumatic, normocephalic. Pupils are equal, round, reactive to light, were 3 mm bilaterally. Brisk. Oral mucosa is moist. Oropharynx clear. NECK: Supple. Trachea midline. CARDIOVASCULAR: Patient has S1 and S2. No murmurs, gallops, rubs appreciated with a regular rate and rhythm. PULMONARY: Patient has symmetrical chest expansion bilaterally though she did have coarse crackles and rhonchi noted in right upper lung field and did have crackles noted in bilateral bases as well as being diminished somewhat as well. ABDOMEN: Soft. Does appear to be distended. She did have some tenderness upon palpation in the left upper and lower quadrants though no rebound tenderness noted. Bowel sounds were present in all 4 quadrants, were normoactive. EXTREMITIES: No cyanosis or edema noted. No cyanosis or edema noted. Pulse, motor, and sensory is intact in all extremities. Radial pulses and pedal pulses were 2+ bilaterally. INTEGUMENTARY: The patient's skin is pink, warm, and dry. NEUROLOGICAL: The patient is alert and oriented to person, place, time, and situation. She is able to move all extremities, there do not appear to be any focal neurological deficits noted. ASSESSMENT AND PLAN: 1. Chest pain. The patient is reporting some intermittent chest pain that is in her left chest. The patient was recently admitted for this in April,. She has had a stress test in the last 6 months which was negative. At this time we will continue to evaluate her chest pain. Her troponins were slightly elevated. This could be secondary to her renal disease as well. We will continue with serial cardiac enzymes. Repeat the EKG. We will place her on aspirin therapy daily. We have ordered an echocardiogram. We will place a consult with cardiology and will await their evaluation and further recommendations for management. 2. Pneumonia. Given that may be a possibility of aspiration pneumonia as well as the patient has recently been admitted inpatient to the hospital, we will cover her for healthcare associated pneumonia and place her with antibiotic coverage of Zosyn and vancomycin. Blood cultures and sputum cultures have been ordered. We will do DuoNeb as needed, incentive spirometry. We will continue to follow closely. 3. Ascites with a history of liver cirrhosis. The patient has recently in the last month had to have a paracentesis performed. We have placed orders for this to be done. We have placed orders for an ultrasound-guided paracentesis later on this morning as well as peritoneal fluid studies. We will continue to follow. 4. End-stage renal disease, on hemodialysis on Mondays, Wednesdays, and Fridays. We have placed a consult with Dr. Price with Nephrology and will await his evaluation, further recommendations for management. 5. Insulin-dependent diabetes mellitus. We are awaiting the patient's home medication for this to be updated and verified. Though until that time we will continue her on a sliding scale insulin per low-dose protocol and we will do pattern fingerstick blood sugars. 6. Deep vein thrombosis prophylaxis will be provided with heparin 5000 units subcutaneously q.12 hours. The patient has been placed on the medical floor with telemetry. She will have vital signs q.4 hours. We will do strict intake and output. She will be NPO until her ultrasound- guided paracentesis is performed. Further orders and recommendations pending hospital course, diagnostic studies, and physician evaluation. Dictated by ARTUR Parra for Sara Baird MD cc: MD Gonzalo Nath MD MTDD
[2018-05-22] MEDS ORDERED: VANCOMYCIN 1 GM/NS 1 GM/250 ML IVPB IV SCH (07:30)
--- NOTE | 2018-05-22 07:30 | Diag Imaging Result Doc PS360 ---
EXAM: CT THORAX W/O CONTRAST INDICATION: Productive cough,Bilateral Crackles TECHNIQUE: This exam was performed using automated exposure control, adjustment of mA or kV according to patient size, and/or use of iterative reconstruction technique. COMPARISON: 06/06/2016 FINDINGS: There is mild linear atelectasis at the right lung base. There is also superimposed airspace infiltrate at the right lung base in the right middle lobe and right lower lobe suggesting pneumonia or pneumonitis. There is minimal atelectasis at the left lung base. There is trace pleural fluid at the right lung base. There is layering fluid in the right mainstem bronchus. There is extensive coronary artery atherosclerotic calcification. Limited views of the upper abdomen reveals large volume ascites. The liver exhibits a nodular contour indicating cirrhosis. IMPRESSION: 1.Atelectasis with superimposed airspace infiltrate at the right lung base suggesting pneumonia or pneumonitis. 2.Layering fluid in the right mainstem bronchus, which may indicate aspiration or simply bronchitis. 3.Large volume ascites. 4.Cirrhotic liver. Electronically signed by Todd Duke 05/22/2018 7:28 AM
--- NOTE | 2018-05-22 07:58 | EKG Report ---
Test Performed on : 05/22/2018 03:54:08 AM Test Reason : CP Blood Pressure : / mmHG Vent. Rate : 077 BPM Atrial Rate : 077 BPM P-R Int : 130 ms QRS Dur : 072 ms QT Int : 436 ms P-R-T Axes : 032 009 059 degrees QTc Int : 493 ms Normal sinus rhythm. Prolonged QT Abnormal ECG When compared with ECG of 22-MAY-2018 01:07, (Unconfirmed) No significant change was found Unconfirmed Result
[2018-05-22] MEDS ORDERED: VANCOMYCIN 1 GM/NS 1 GM/250 ML IVPB IV ONE ×2 (08:00→18:00)
[2018-05-22] MEDS: PHOSLO PO SCH ×3 (08:26→20:07)
--- NOTE | 2018-05-22 09:07 | Diag Imaging Result Doc PS360 ---
EXAM: US ABD PARACENTESIS W S/I 05/22/2018 HISTORY: Ascites,Hx of Liver Cirrhosis TECHNIQUE: Ultrasound-guided paracentesis COMMENT: The risks and benefits of the procedure including the possibility of bleeding, infection, or reaction to lidocaine were discussed with patient and she agreed to the procedure. Following sterile preparation of the skin laterally on the right and administration 1% lidocaine to the skin and deeper soft tissues, the paracentesis catheter was placed and subsequently 2.8 L of dark tylor fluid was drained. There are no immediate complications. The fluid was sent to the laboratory in its entirety. IMPRESSION: Successful ultrasound-guided paracentesis. Electronically signed by Dhaval Morris 05/22/2018 9:04 AM
--- NOTE | 2018-05-22 09:17 | EKG Report ---
Test Performed on : 05/22/2018 01:07:55 AM Test Reason : cp Blood Pressure : / mmHG Vent. Rate : 081 BPM Atrial Rate : 081 BPM P-R Int : 124 ms QRS Dur : 070 ms QT Int : 420 ms P-R-T Axes : 038 -01 067 degrees QTc Int : 487 ms Normal sinus rhythm. Prolonged QT Abnormal ECG When compared with ECG of 18-APR-2018 21:16, No significant change was found Unconfirmed Result
[2018-05-22 09:42] LABS: GLUCOSE BODY FLUID 113 mg/dL; LDH BODY FLUID 139 U/L; TOTAL PROT BODY FLUID 3.2 g/dL
[2018-05-22 10:11] LABS: WBC BF 467 /cumm
[2018-05-22 10:14] LABS: MONOS 97 %; POLYS 3 %
[2018-05-22 10:20] LABS: BODY FLUID SOURCE PERITONEAL FLUID
[2018-05-22] MEDS: TYLENOL PO PRN ×2 (13:26→19:04)
[2018-05-22] MEDS: NEURONTIN PO SCH (13:26)
[2018-05-22] MEDS: ZOSYN 2.25 GM in NS 50 ML IV SCH (14:26)
[2018-05-22] MEDS: DUONEB (A & A) INH PRN (15:55)
--- NOTE | 2018-05-22 17:33 | CARDIOLOGY CONSULTATION ---
DATE: 05/22/2018 Cardiology was consulted for chest pain. Ms. Cheney is a 57-year-old, Afro-[place]ong[place]ian lady with history of insulin-dependent diabetes, liver cirrhosis, end-stage renal disease on dialysis. Came to the emergency room complained of having 30 minutes of chest pain which is said under her left chest. She also has cirrhosis, ascites and underwent dialysis today. She complains of having had cough with mucoid to mucopurulent expectoration. There is no history of palpitations. There is no previous cardiac history. Her troponins were abnormal at 0.287 and 0.241 in the setting of chronic renal failure. Chest x-ray showed no acute abnormalities. Chest CT was done which revealed small fluid in the right bronchus which could indicate aspiration. REVIEW OF SYSTEM: 14 -point review of systems was done. GI: There is no history of nausea, vomiting, diarrhea. There is no history of hematemesis or melena. Central nervous system: No focal weakness to suggest CVA, TIA. : There is no dysuria or hematuria. PAST MEDICAL HISTORY: 1. End-stage renal disease on dialysis, insulin-dependent diabetic. 2. Hypertension. 4. Shunt placement in the right upper arm. 5. Cholecystectomy reported stent placement and removal of kidneys in the past. 6. Patient is a former smoker. She has history of alcohol abuse. She quit drinking 3 years ago. PHYSICAL EXAMINATION: Blood pressure was 104/57. First and second heart sounds were heard. There was no S3 gallop.Respiratory: Few scattered wheeze. Abdomen: Was distended, nontender. Respiratory: Normal air entry. There was scattered wheeze. Central nervous system: Patient was alert oriented x3. Was moving all 4 extremities. Detailed central nervous system examination not performed . HOME MEDICATIONS: Include gabapentin, calcium acetate, duloxetine, amitriptyline, methocarbamol . ASSESSMENT AND PLAN: Ms. Ashley Cheney is a 57-year-old lady with history of diabetes, liver cirrhosis, end-stage renal disease on dialysis. Was admitted with chest discomfort. Cardiac enzymes abnormal secondary to renal failure. Electrocardiogram revealed normal sinus rhythm. There was no acute ST-T changes to suggest ischemia or infarction. She underwent paracentesis today given the large abdominal ascites secondary to her cirrhosis. From a cardiac standpoint she has history of diabetes and hypertension. Will get an echocardiogram to assess cardiac and valvular function. She has a history of alcohol abuse which she discontinued 3 years back. She underwent dialysis today. Will plan for a Lexiscan Cardiolite stress test to assess for and rule out ischemia. I have not made any other changes to her medications. Thank for the consult. Will follow hospital course. cc: MD Gonzalo Miller MD MTDD
--- NOTE | 2018-05-22 18:01 | NEPHROLOGY PROGRESS NOTE ---
DATE: 05/22/2018 SUBJECTIVE: She was admitted because of chest pain. She recently was hospitalized for the same pain. It has resolved now. She is coughing some. OBJECTIVE: Vital Signs: Blood pressure 104/57, heart rate 82, respirations 15, afebrile. General: No acute distress. Skin: Warm and dry. Conjunctivae are pink. Neck: Neck veins are not distended. Heart: Regular. No gallops. Lungs: Equal with rhonchi. Abdomen: Distended and soft. Bowel sounds are present. Extremities: Have no edema, clubbing, or cyanosis. IMPRESSION: 1. Chronic kidney disease 5D. She will have her routine hemodialysis today. 2. Chest pain. Possible pneumonia. Chest CT results are suggestive of pneumonia. She is being treated by Dr. Hammonds with Zosyn and vancomycin. Her anemia is in target. Chest pain is resolved at this time. cc: MD Gonzalo Badillo MD
[2018-05-22] MEDS ORDERED: TYLENOL PO PRN (18:57)
[2018-05-22] MEDS: ELAVIL PO SCH (20:07)
[2018-05-23] MEDS: HEPARIN SUBQ SCH ×2 (06:43→17:26)
[2018-05-23] MEDS: PRILOSEC PO SCH (06:43)
[2018-05-23] MEDS: PHOSLO PO SCH ×3 (06:43→17:25)
[2018-05-23] MEDS: ZOSYN 2.25 GM in NS 50 ML IV SCH ×2 (06:43→17:25)
[2018-05-23] MEDS: HUMULIN R SUBQ SCH ×4 (06:50→20:45)
[2018-05-23 07:49] LABS: BASO# 0.03 X1000 (0.0-0.2); BASO% 0.5 % (0.0-0.8); EOS# 0.16 X1000 (0.0-0.7); EOS% 2.7 % (0.0-10.0); HEMATOCRIT 27.9 % (37.0-47.0); HEMOGLOBIN 8.4 g/dL (12.0-16.0); LYMPH# 1.33 X1000 (1.2-3.4); LYMPH% 22.8 % (20.5-51.1); MCH 26.6 PG (27-31); MCHC 30.1 g/dL (33-37); MCV 88.3 FL (81-99); MONO# 0.41 X1000 (0.11-0.59); MPV 11.6 FL (7.4-10.4); PLT 183 X1000 (130-400); RBC 3.16 XMIL (4.2-5.4); RDW 15.3 % (11.5-14.5); WBC 5.83 X1000 (4.8-10.8)
[2018-05-23 08:04] LABS: ALBUMIN 1.9 g/dL (3.5-5.0); CREATININE 5.8 mg/dL (0.5-0.9); PHOSPHORUS 4.3 mg/dL (2.7-4.5); POTASSIUM 4.1 mmol/L (3.5-5.1)
[2018-05-23 08:05] LABS: CALCIUM 7.1 mg/dL (8.8-10.2)
[2018-05-23] MEDS: ASPIRIN PO SCH (10:12)
--- NOTE | 2018-05-23 12:04 | PROGRESS NOTE ---
DATE: 05/23/2018 SUBJECTIVE: Ms. Cheney is a 57-year-old, patient admitted with chest pain. Admission history and physical noted. The patient is doing fair. The patient is still complaining of generalized pain and achiness. No unusual shortness of breath. No fever or chills. Mild cough. No expectoration. The patient is scheduled to have a stress test on Friday. Oral intake is fair. PAST MEDICAL HISTORY: Significant for diabetes mellitus, on insulin, cirrhosis of the liver, end- stage renal disease, on hemodialysis, history of chronic pain; the patient is to go to a pain clinic, and hypertension. OBJECTIVE: Vitals: Her vital signs were noted. Blood pressure 108/76, pulse 84, respirations 16, temperature 98.1 degrees. Skin: No rash or petechiae. HEENT: Head atraumatic, normocephalic. [place] conjunctivae. Anicteric sclerae. Neck: Supple. No JVD. Lungs: Bibasilar crepitations. Heart: S1 and S2 heard. A 2/6 systolic murmur at the apex. Abdomen: Soft. No distention. Bowel sounds present. CNA PCT: Alert, awake, able to move all 4 limbs. LABORATORY DATA: Hemoglobin 8.4, hematocrit 27.9, WBC count 5.83, platelet count 183,000. Electrolytes results reviewed, BUN 19, creatinine 5.8. Troponin 0.25. PROBLEMS: Chest pain. The patient is scheduled to have a stress test on Friday. She does have multiple risk factors, diabetes mellitus, end-stage renal disease, cirrhosis of the liver with ascites. Overall the patient is doing fair. We will continue current treatment. Her hemoglobin was low, I am going to recheck tomorrow, no active bleeding. cc: MD Gonzalo Lockett MD
[2018-05-23] MEDS: DUONEB (A & A) INH PRN (16:14)
[2018-05-23] MEDS: TYLENOL PO PRN (18:18)
--- NOTE | 2018-05-23 20:29 | ECHO REPORT ---
ORDER DATE: 05/22/2018 REQUESTING TEAM: Hospitalists. REASON FOR STUDY: Patient with dyspnea, edema. M-MODE MEASUREMENTS: Left ventricle end diastole: 2.7. Left ventricle end systole: 1.1. Posterior wall: 1.2. Interventricular septum: 1.1. Left atrium: 4.1. SUMMARY OF 2-DIMENSIONAL IMAGIN. The left ventricle is hyperdynamic. Ejection fraction is 85% to 90%. There is evidence of an intracardiac gradient due to the hypercontractility of the left ventricle. 2. The aortic valve has 3 cusps. They open normally. Color flow mapping unremarkable. 3. The mitral annulus shows calcification. 4. Pulsed wave Doppler of mitral inflow shows normal E/A ratio. 5. Tissue Doppler of septal and lateral mitral annulus was not well demonstrated in this study; in fact, it was not even done. 6. The right-sided chambers appear to be normal. 7. The left atrium appears to be mildly enlarged. 8. I do not see evidence of pericardial effusion. There is the suggestion of a pleural effusion. 9. The pulmonic valve is not abnormal. It was well visualized. 10.The tricuspid valve is unremarkable. 11.Pulmonary pressure is estimated at 41 to 46 mmHg. SUMMARY: This study shows: 1. Hyperdynamic left ventricle with ejection fraction of 85% to 90% with mild degree of concentric LVH. 2. Dense calcification of the mitral annulus. 3. Diastolic function is probably normal. 4. Mild pulmonary hypertension in the range of 41 to 46 mmHg. 5. There is no pericardial effusion. Pleural effusion appears to be present. Clinical correlation recommended. cc: MD Gonzalo Wiggins MD
[2018-05-23] MEDS: ELAVIL PO SCH (20:46)
--- NOTE | 2018-05-23 21:14 | CARDIOLOGY PROGRESS NOTE ---
DATE: 05/23/2018 CHIEF COMPLAINT: Pain in the chest. SUBJECTIVE: Ms. Shravan fleming now is having pain in the legs and in the lower body. She says that the pain in the chest is intermittent and may last up to 10 minutes. It is pleuritic in nature, and to some extent is reproducible by pressing on the rib cage. She underwent dialysis yesterday and also underwent paracentesis with removal of 2.8 liters of ascites. OBJECTIVE: Vital Signs: Blood pressure is 113/72, pulse 84, respirations 16, temperature 98.5. General: The patient is awake and alert, in no distress. HEENT: Unremarkable. Chest: Tender to palpation in the anterior rib cage. Cardiovascular: Heart sounds regular and rhythmic. No definite gallop or significant murmur. Lungs: Clear to auscultation and percussion. Abdomen: Distended with ascites. Extremities: Show no edema. Neurological: Follows commands. Moves all extremities. BLOOD WORK: Sodium 139, potassium 4.1, BUN 19, creatinine 5.8. Troponins are 0.287, 0.241, 0.280, 0.292, 0.255. DIAGNOSTICS: EKG shows sinus rhythm with a prolonged QT. No ST shifts. IMPRESSION: 1. Probably noncardiac chest pain. 2. End-stage renal disease on hemodialysis. 3. Ascites/cirrhosis. 4. Chronic pain syndrome. 5. History of hypertension and nephrotic syndrome from diabetes. 6. Elevation of troponin, chronic, probably nonspecific. Question of CAD/non ST NH/subendocardial ischemia. RECOMMENDATIONS: At this point time I would suggest symptomatic management of the pain and will arrange for a stress test as mentioned by Dr. Moreno in his note. Further advice will follow. cc: MD Gonzalo Wiggins MD [facility]
[2018-05-24] MEDS: HEPARIN SUBQ SCH ×3 (05:55→17:30)
[2018-05-24] MEDS: PRILOSEC PO SCH (06:51)
[2018-05-24] MEDS: PHOSLO PO SCH ×3 (06:51→17:00)
[2018-05-24] MEDS: HUMULIN R SUBQ SCH ×4 (06:51→20:15)
[2018-05-24 07:23] LABS: BASO# 0.04 X1000 (0.0-0.2); BASO% 0.7 % (0.0-0.8); EOS# 0.25 X1000 (0.0-0.7); EOS% 4.2 % (0.0-10.0); HEMOGLOBIN 8.5 g/dL (12.0-16.0); LYMPH# 1.73 X1000 (1.2-3.4); MCH 26.6 PG (27-31); MCHC 30.4 g/dL (33-37); MCV 87.5 FL (81-99); MONO# 0.39 X1000 (0.11-0.59); MONO% 6.5 % (1.7-9.3); MPV 10.6 FL (7.4-10.4); NEUT# 3.55 X1000 (1.4-6.5); NEUT% 59.6 % (42.2-75.2); PLT 164 X1000 (130-400); RDW 15.4 % (11.5-14.5); WBC 5.96 X1000 (4.8-10.8)
[2018-05-24 07:34] LABS: LYMPHS 28 % (21-51); MONO 10 % (1-9); NRBC 1 % (0-0); SEGS 62 % (42-75)
[2018-05-24 07:59] LABS: ALB/GLOB RATIO 0.4; ALBUMIN 2.1 g/dL (3.5-5.0); CREATININE 6.9 mg/dL (0.5-0.9); POTASSIUM 4.1 mmol/L (3.5-5.1); TOTAL BILIRUBIN 0.27 mg/dL (0.20-1.00); TOTAL PROTEIN 7.5 g/dL (6.3-8.3)
[2018-05-24] MEDS: ZOSYN 2.25 GM in NS 50 ML IV SCH ×2 (09:06→20:15)
[2018-05-24] MEDS: ASPIRIN PO SCH (09:07)
[2018-05-24] MEDS: NEURONTIN PO SCH (09:07)
--- NOTE | 2018-05-24 12:03 | PROGRESS NOTE ---
DATE: 05/24/2018 SUBJECTIVE: Ms. Cheney is doing fair. The patient was complaining of getting dizzy when she tries to get up. No typical chest pain. Does have generalized body aches. The patient claimed [place] helps her pain. She used to go to [facility] the [facility]. The patient had episode of dizziness and patient claims she pulled her IV and she does not remember. The patient has end-stage renal disease, on hemodialysis. No nausea or vomiting. No apparent bleeding per rectum or hematemesis. Denied vertigo. The patient is very vague and a poor historian. OBJECTIVE: Vital Signs: Blood pressure this morning 114/79, pulse 79, temperature 97.4. Neck: Supple. No JVD. Lungs: Bilateral good air entry present. CVS: S1 and S2 heard. A 2/6 systolic murmur at the apex. Abdomen: Soft, globular. Bowel sounds present. MORTAR WORKER: Alert, awake. Able to move all 4 limbs. Laboratory Data: Done today, hemoglobin 8.5, hematocrit 28, WBC count 5.96, platelets 164,000. Potassium 4.1, BUN 27, creatinine 6.9, calcium was 7. PROBLEM LIST: 1. End-stage renal disease, on hemodialysis. 2. Hypertension. 3. Postural dizziness. 4. Anemia, most likely of chronic disease. 5. Atypical chest pain. PLAN: Advised patient to get up slowly. Fall precaution. Always ask for help when she goes to the bathroom. The patient is scheduled to have a stress test tomorrow. Her calcium was 7 but corrected calcium is normal. Overall plan discussed with the patient and she is in agreement. cc: MD Gonzalo Lockett MD
[2018-05-24 15:55] LABS: HEMATOCRIT 28.3 % (37.0-47.0); HEMOGLOBIN 8.8 g/dL (12.0-16.0); MCHC 31.1 g/dL (33-37); MCV 90.1 FL (81-99); MPV 11.1 FL (7.4-10.4); RBC 3.14 XMIL (4.2-5.4); WBC 6.67 X1000 (4.8-10.8)
[2018-05-24] MEDS: TYLENOL PO PRN (18:29)
[2018-05-24] MEDS: ELAVIL PO SCH (20:15)
[2018-05-25] MEDS: HUMULIN R SUBQ SCH ×4 (05:47→22:04)
[2018-05-25] MEDS: PHOSLO PO SCH ×3 (05:56→16:10)
[2018-05-25] MEDS: HEPARIN SUBQ SCH ×2 (05:56→18:11)
[2018-05-25] MEDS: PRILOSEC PO SCH (05:57)
[2018-05-25] MEDS ORDERED: TIGHT: 0.2 ML/HR FOR DIALYSIS MISC PRN (07:52)
[2018-05-25] MEDS ORDERED: NS 2,000 ML MISC PRN (07:52)
[2018-05-25] MEDS ORDERED: HEPARIN IV PRN (07:52)
--- NOTE | 2018-05-25 08:11 | EKG Report ---
Test Performed on : 05/23/2018 06:10:53 AM Test Reason : chest pain Blood Pressure : / mmHG Vent. Rate : 079 BPM Atrial Rate : 079 BPM P-R Int : 126 ms QRS Dur : 068 ms QT Int : 446 ms P-R-T Axes : 055 017 067 degrees QTc Int : 511 ms Normal sinus rhythm. Prolonged QT Abnormal ECG When compared with ECG of 22-MAY-2018 03:54, (Unconfirmed) No significant change was found Unconfirmed Result
[2018-05-25] MEDS ORDERED: LEXISCAN ONE (08:53)
[2018-05-25] MEDS ORDERED: AMINOPHYLLINE ONE (09:11)
[2018-05-25] MEDS: ZOSYN 2.25 GM in NS 50 ML IV SCH (15:28)
--- NOTE | 2018-05-25 16:03 | Diag Imaging Result Document ---
PROCEDURE NAME: MYOCARDIAL PERF SCAN, STR/REST - 05/25/2018 PROCEDURE PERFORMED: Lexiscan Cardiolite stress test. DESCRIPTION OF PROCEDURE: Lexiscan was infused per standard protocol. Following Lexiscan infusion, the patient developed hypotension. Aminophylline was given. There was no chest pain. There were 125 mg of aminophylline given intravenously. Blood pressure normalized following that. There were no dysrhythmias noted. There were 11.2 mCi of Cardiolite injected for the rest phase and 31.1 mCi of Cardiolite injected for the stress phase. Gated SPECT images were obtained in standard views. Images revealed normal myocardial perfusion, normal left ventricular cavity size, left ventricular ejection fraction 90%. CONCLUSIONS: 1. No chest pain. 2. Negative Lexiscan stress electrocardiogram. 3. Normal myocardial perfusion. 4. Left ventricular ejection fraction by gated SPECT was 90%. cc: MD Sharron Miller PA
[2018-05-25] MEDS: ASPIRIN PO SCH (16:17)
[2018-05-25] MEDS ORDERED: VANCOMYCIN 1 GM/NS 1 GM/250 ML IVPB IV ONE (17:00)
[2018-05-25] MEDS: TYLENOL PO PRN (19:55)
[2018-05-25] MEDS ORDERED: CALCIUM GLUCONATE 1 GM in NS 50 ML IV ONE (20:58)
--- NOTE | 2018-05-25 21:17 | PROGRESS NOTE ---
DATE: 05/25/2018 SUBJECT: Level 3 documentation. 57-year-old female admitted to the hospital hospitalist with chest pain. The patient was seen by Dr. Moreno. Patient is well known before. I did see the patient on Friday morning and with chest pain on the left side. Followup EKG is negative. Dr. Moreno has been scheduled for perfusion scan test this morning. Events noted over the weekend. Patient also had abdominal paracentesis drain 2.9 L of tylor colored fluid. PAST MEDICAL HISTORY: Reviewed. PAST SURGICAL HISTORY: Reviewed. MEDICINES: Reviewed. ALLERGIES: Not known. EXAMINATION: Temperature is 98 degrees, pulse is 83. Vitals are stable.HEENT: Within normal limits. Neck: Supple. Chest: Bilateral air entry. Heart: Sounds are regular. Pain is not reproducible. Belly: Is soft. Decreased ascites. No obvious deficits noted. INVESTIGATIONS: CBC. White cell count 5.9, hematocrit 28, platelets 164,000. SMA 7 sodium 139, potassium 4.1, chloride 102, BUN 27, creatinine 6.9, calcium 7.0, glucose 200. LFTs were normal. Fluid white cell count 467. Blood cultures were negative. Sputum cultures were negative. ASSESSMENT AND PLAN: 1. Chest pain. EKG is negative, positive troponin with underlying chronic kidney disease. Schedule for Lexiscan. Echocardiography findings were reassuring. Appreciate Dr. Morales follow up over the weekend. 2. End-stage kidney disease on dialysis. 3. Hypocalcemia. Replace the calcium gluconate. 4. Ascites due to hepatitis C, intermittent paracenteses as needed. 5. Living will, do not resuscitate. 6. History of right lower lobe bronchopneumonia getting vancomycin after dialysis. 7. Type 2 diabetes on sliding scale with insulin coverage and will follow up on the pending labs. Hopefully will be discharged in the morning. LEVEL OF DOCUMENTATION: 35. cc: Gonzalo Hammonds MD
[2018-05-25] MEDS: ELAVIL PO SCH (21:51)
[2018-05-26] MEDS: PRILOSEC PO SCH (06:11)
[2018-05-26] MEDS: HEPARIN SUBQ SCH (06:12)
[2018-05-26] MEDS: PHOSLO PO SCH (06:12)
[2018-05-26] MEDS: HUMULIN R SUBQ SCH (06:12)
[2018-05-26 07:13] VITALS: BP 116/71
--- NOTE | 2018-05-26 07:25 | NEPHROLOGY PROGRESS NOTE ---
DATE: 05/26/2018 SUBJECTIVE: She is feeling better this morning. No nausea, vomiting, less diarrhea. She is hoping for discharge. OBJECTIVE: Vital Signs: Blood pressure 132/82, heart rate 79, respirations 15, afebrile. Generally: No acute distress. Skin: Warm and dry. Conjunctivae are pink. Neck: Neck veins are not distended. Heart: Regular with S4. Lungs: Equal, no crackles. Abdomen: Distended but soft. Normal bowel sounds. Nontender. Extremities: No edema, clubbing or cyanosis. IMPRESSION: Chronic kidney disease 5D. She had her routine hemodialysis yesterday. Volume status, electrolytes, acid base in target. Anemia is below target but stable. Does not meet criteria for transfusion. cc: MD Gonzalo Badillo MD
[2018-05-26] MEDS ORDERED: IMODIUM PO ONE (08:49)
[2018-05-26] MEDS: NEURONTIN PO SCH (09:29)
[2018-05-26] MEDS: ASPIRIN PO SCH (09:29)
--- NOTE | 2018-05-27 22:14 | DISCHARGE SUMMARY ---
ADMISSION DATE: 05/22/2018 DISCHARGE DATE: 05/26/2018 DISCHARGING DIAGNOSIS: Atypical chest pain due to noncardiac. Cardiac stress test was negative. SECONDARY DIAGNOSES: 1. Abnormal chest x-ray with elevated right hemidiaphragm. 2. Right-sided bronchopneumonia due to gram-negative rods. 3. Cirrhosis of liver due to chronic hepatitis C infection, genotype 1B. Associated with ascites. 4. End-stage kidney disease, on hemodialysis to the right AV graft. 5. Type 2 diabetes. Diet controlled. 6. Peripheral neuropathy due to diabetes and chronic pain. 7. Hypertension, off medications. CONSULT: 1. Noel Price MD. 2. Christian Moreno MD. PROCEDURES: 1. Cardiac perfusion scan negative for ischemia. 2. Echocardiography: Normal LV systolic function. Mild LVH. No significant valvular heart disease seen. Ejection fraction 70%. 3. Abdominal paracentesis drained 2.8 L of fluid. BRIEF HISTORY: Please see the H and P that was done by hospitalist on 05/22/2018. In brief, she is a 57-year-old, female, with above problems. Came to the hospital with chest pain on the left side associated with increasing ascites and productive cough. Sputum cultures grew gram-negative rods. Patient was given IV vancomycin post dialysis. Abdominal paracentesis was done draining 2.8 L of fluid. Patient also has dialysis as needed by Dr. Price. As a part of the chest pain, positive troponin, EKG was negative. Further workup. The patient has no significant structural heart disease at this time. She has a low risk for having coronary artery disease. Findings were reassuring. The rest of the hospital course was uneventful. DISCHARGE MEDICATIONS: Neurontin 300 p.o. b.i.d., calcium acetate 667, two tablets p.o. a.c. Duloxetine 60 daily. Elavil 10 daily. Robaxin 500 daily. DuoNeb q.6 as needed, Prilosec 40 daily. DISCHARGE INSTRUCTIONS: 1. Continue paracentesis as needed by Dr. Gipson. Continue hemodialysis as per Dr. Price. 2. Living will, DNR. 3. The patient stopped taking blood pressure medicine as well as diabetic medicines. 4. Patient also needs IV antibiotics post dialysis as per Dr. Price. cc: MD Noel Trejo MD
== END 2018-05-26 11:18 | disposition home health service (06) | DRG 313 ==
LOC: SUPCPDRO → ED 00:58 → 3N 05:06 → SUATTDRO 05:06 → 3N 09:04
PROVIDERS: ADMIT Internal Medicine; ATTEND Internal Medicine
CPT/HCPCS: 49083; 71020; 71046; 71250; 78452; 80053; 80069; 82550; 82945; 82948; 83615; 83735; 83880; 84157; 84484; 85025; 85027; 85610; 85730; 87040; 87070; 87077; 87186; 87205; 87324; 89051; 93005; 93010; 93017; 93306; 94640; 94761; 94799; 99283; A9270; A9500; J0280; J0610; J0820; J1644; J2543; J2785; J3370; J7030; XXXXX

== ENCOUNTER 2018-06-15 15:03 | Inpatient (IN) ==
[2018-06-15] MEDS ORDERED: MORPHINE IV ONE ×2 (16:00→17:14)
[2018-06-15] MEDS ORDERED: ZOFRAN IV ONE (16:00)
[2018-06-15] MEDS ORDERED: APRESOLINE IV ONE (16:01)
[2018-06-15 16:37] LABS: BASO# 0.06 X1000 (0.0-0.2); BASO% 0.6 % (0.0-0.8); EOS# 0.21 X1000 (0.0-0.7); EOS% 2.2 % (0.0-10.0); HEMATOCRIT 35.2 % (37.0-47.0); HEMOGLOBIN 11.6 g/dL (12.0-16.0); LYMPH# 2.76 X1000 (1.2-3.4); LYMPH% 28.5 % (20.5-51.1); MCH 26.7 PG (27-31); MCV 81.1 FL (81-99); MONO# 0.35 X1000 (0.11-0.59); MONO% 3.6 % (1.7-9.3); NEUT# 6.32 X1000 (1.4-6.5); NEUT% 65.1 % (42.2-75.2); PLT 255 X1000 (130-400); RBC 4.34 XMIL (4.2-5.4); RDW 14.8 % (11.5-14.5)
[2018-06-15 17:14] LABS: ALB/GLOB RATIO 0.4; ALBUMIN 2.6 g/dL (3.5-5.0); CALCIUM 7.1 mg/dL (8.8-10.2); TOTAL BILIRUBIN 0.38 mg/dL (0.20-1.00); TOTAL PROTEIN 9.3 g/dL (6.3-8.3)
[2018-06-15 17:16] LABS: CREATININE 16.5 mg/dL (0.5-0.9); POTASSIUM 6.6 mmol/L (3.5-5.1)
[2018-06-15] MEDS ORDERED: CALCIUM GLUCONATE 1 GM in NS 50 ML IV ONE (17:22)
[2018-06-15] MEDS ORDERED: HUMULIN R IV ONE (17:53)
[2018-06-15] MEDS ORDERED: D50W SYRINGE IV ONE (17:53)
[2018-06-15] MEDS ORDERED: DILAUDID IV ONE (17:53)
[2018-06-15] MEDS ORDERED: KAYEXALATE PO ONE (17:55)
--- NOTE | 2018-06-15 18:00 | Diag Imaging Result Doc PS360 ---
CHEST-PORTABLE - 06/15/2018 INDICATION: VOLUME OVERLOAD COMPARISON: 05/22/2018 FINDINGS: Lung volumes are critically low. No infiltrates or edema. IMPRESSION: Critically low lung volumes. Electronically signed by August Hong 06/15/2018 5:57 PM
--- NOTE | 2018-06-15 19:48 | HISTORY AND PHYSICAL ---
HISTORY OF PRESENT ILLNESS: A 57-year-old, patient came to the ER because of abdominal pain. The patient was scheduled to have paracentesis tomorrow. Patient's pain was more localized to left lower quadrant. The patient was also complaining of significant pain in the left leg. The patient was supposed to go for dialysis today, but she could not. In the ER, the patient was complaining of significant pain in the left leg, left lower quadrant. The patient did have some nausea but no vomiting. Evaluated by ER physician. The patient's lab data revealed hyperkalemia. Creatinine was 16. The patient was in moderate pain, evaluated by ER physician. The patient's hyperkalemia was treated conservatively. ER physician talked to contract assistant for dialysis, but they decided to do dialysis in the morning. The patient was admitted for further care. The patient denied any vomiting, occasional nausea. No high-grade fever. Patient did have chills. She denied any typical chest pain or palpitations, complaining of cough with scanty sputum production. No diarrhea, blood or mucus in the stool. The patient has end-stage renal disease on dialysis. No major weight loss or weight gain. The patient has increasing ascites with tense abdominal wall and abdomen umbilical hernia, complaining of pain in the left leg, no history of trauma, more pain with movement. No heat or cold intolerance. No further history available at this time. The patient is very vague and poor historian. ALLERGIES: No known drug allergy. PAST SURGICAL HISTORY: Significant for stent in the kidney, AV graft to right upper arm, cholecystectomy. PAST MEDICAL HISTORY: History of alcohol abuse, quit drinking a few years ago, hypertension, insulin-dependent diabetes mellitus, end-stage renal disease on hemodialysis, nicotine abuse, cirrhosis of the liver and ascites. SOCIAL HISTORY: , lives with the . Denied alcohol or substance abuse. FAMILY HISTORY: Significant for diabetes mellitus and lung cancer in the mother. Father from lung problems. Patient is not sure. HOME MEDICATIONS: Include Elavil, calcium acetate, Cymbalta, Neurontin and methocarbamol. PHYSICAL EXAMINATION: GENERAL: Middle-aged patient in moderate distress. VITAL SIGNS: Blood pressure 141/100, pulse 83, respirations 20, temperature 98 degrees. SKIN: No rash or petechiae HEENT: Head atraumatic, normocephalic. [place] conjunctivae. [place] sclerae. Extraocular muscle movement normal. Fundus cannot be penetrated. Good oral hygiene. No tonsillopharyngeal congestion or exudate. Ears and nose benign. NECK: Supple. No JVD, thyromegaly or lymphadenopathy. CHEST: Bibasilar crepitation. No rales. CARDIOVASCULAR: S1 and S2 heard, 2/6 systolic murmur at the apex. ABDOMEN: Soft, globular. Bowel sounds present. The patient does have tense ascites, umbilical hernia. Some tenderness left lower quadrant. EXTREMITIES: No cyanosis, clubbing. No acute DVT. CENTRAL NERVOUS SYSTEM: Alert, awake, answering questions fairly well. Movement of left leg minimally painful. CONSIDERATION: 1. Patient admitted with abdominal pain. The patient does have tense ascites, scheduled to have peritoneocentesis tomorrow. 2. End-stage renal disease with hyperkalemia. The patient missed dialysis. We are going to treat hyperkalemia. 3. Left leg pain. I am going to get x-ray on the left femur and pelvis. 4. Diabetes mellitus. 5. Hypertension. 6. Cirrhosis of the liver, end-stage renal disease. PLAN: Admit the patient for pain management, symptomatic treatment, close observation, nephrology consult. Overall plan discussed at length with the patient, and she is in agreement. cc: Henry Glass MD
[2018-06-15] MEDS ORDERED: SODIUM CHLORIDE 0.9% INJ ONE (20:18)
[2018-06-15] MEDS ORDERED: PROTONIX IV ONE (20:18)
[2018-06-15] MEDS ORDERED: HUMALOG SUBQ ONE (20:18)
--- NOTE | 2018-06-15 21:20 | Diag Imaging Result Doc PS360 ---
CT ABDOMEN/PELVIS W/O CONTRAST - 06/15/2018 INDICATION: abd. pain COMPARISON: 10/23/2017 FINDINGS: There is linear atelectasis in the lung bases. No infiltrates. Heart size is top normal. There is severe ascites. There is severe cirrhosis. There is severe vascular disease. No bowel obstruction or free air. There are moderate degenerative changes of the spine. No acute or suspicious bony lesion. IMPRESSION: Advanced cirrhosis. Severe ascites. This exam was performed using automated exposure control, adjustment of mA or kV according to patient size, and/or use of iterative reconstruction technique Electronically signed by August Hong 06/15/2018 9:18 PM
--- NOTE | 2018-06-15 21:21 | Diag Imaging Result Doc PS360 ---
XRAY PELVIS W/HIP 2-3VW LT - 06/15/2018 INDICATION: lt. hip pain TECHNIQUE: Four views COMPARISON: 07/24/2012 FINDINGS: Bones are intact and normally aligned. Joint spaces and soft tissues are clear. IMPRESSION: Negative exam. Electronically signed by August Hong 06/15/2018 9:18 PM
[2018-06-15] MEDS: ELAVIL PO SCH (22:31)
[2018-06-15] MEDS: NEURONTIN PO SCH (22:31)
[2018-06-15] MEDS: MORPHINE IV PRN (22:32)
--- NOTE | 2018-06-15 23:18 | PROVIDER DOCUMENTATION ---
This chart was entered by Flakita Covington Scribe, acting as scribe for Domonique Baer MD. HPI-Abdominal Pain/GI Problem - General Chief Complaint: Abdominal Pain Stated Complaint: ABDOMENAL DISTENTION Time Seen by Provider: 06/15/18 15:06 Source: patient Allergies/Adverse Reactions: Patient Allergies Allergy/AdvReac Type Severity Reaction Status Date / Time No Known Allergies Allergy Verified 06/15/18 21:43 Home Medications: Home Medication List Medication Instructions Recorded Confirmed Last Taken Type Gabapentin [Neurontin] 300 mg PO BID 01/16/17 06/15/18 05/07/18 History Calcium Acetate 2 cap PO AC 01/25/17 06/15/18 05/07/18 History Duloxetine HCl 60 mg PO DAILY 08/26/17 06/15/18 05/07/18 History Amitriptyline [Elavil] 10 mg PO HS 08/27/17 06/15/18 05/07/18 History Methocarbamol [Robaxin] 500 mg PO QHS 08/27/17 06/15/18 05/07/18 History Albuterol 2.5MG/Ipratrop 0.5MG 3 ml INH Q6H PRN PRN neb 05/26/18 06/15/18 Unknown Rx [Duoneb (A & A)] Omeprazole [Prilosec] 40 mg PO DAILY@0700 cap 05/26/18 06/15/18 Unknown Rx Amlodipine [Norvasc] 1 tab PO QAM 06/15/18 06/15/18 Unknown History Hydroxyzine HCl 1 tab PO Q8H PRN 06/15/18 06/15/18 Unknown History - History of Present Illness-ABD Nature of Presenting Problems: Patient is a 57 year old female who presents to the ED via EMS with LUQ and LLQ abdominal pain with nausea and vomiting. History of liver cirrhosis with multiple paracentesis. Reports she has an appointment tomorrow for paracentesis but could not make it. Denies chest pain and shortness of breath. Report missing her dialysis today due to abdominal pain. Abdominal Pain Onset Location: reports: LUQ, LLQ Pain Radiation: reports: no radiation Quality of Pain: reports: aching Severity in ED: reports: mild Onset/Duration: reports: gradual Timing: reports: still present Activities at Onset: reports: light activity Modifying Factors: improves with: nothing Associated Symptoms: reports: nausea, vomiting Bruising or Bleeding Gums?: No Similar Symptoms Previously?: Yes Recently seen or treated by another doctor?: Yes Review of Systems - Adult - REVIEW OF SYSTEMS - ADULT Constitutional: reports: no symptoms reported. denies: chills, fever, fatique Eyes: reports: no symptoms reported Ears, Nose, Mouth & Throat: reports: no symptoms reported Cardiovascular: reports: no symptoms reported. denies: chest pain, irregular heart rate, palpitations Respiratory: reports: no symptoms reported. denies: cough, shortness of breath, wheezing Gastrointestinal: reports: see HPI, abdominal pain (LUQ and LLQ), nausea, vomit ing. denies: diarrhea Genitourinary: reports: no symptoms reported Musculoskeletal: reports: no symptoms reported. denies: back pain, muscle aches, neck pain Integumentary: reports: no symptoms reported Neurological: reports: no symptoms reported Past History - Adult - PAST MEDICAL HISTORY-ADULT Review of Records: reports: Nursing Assessment Review, Medications Reviewed, Social history reviewed & non-contributory. Major Childhood Illnesses: reports: denies history Cardiovascular: reports: CAD, CHF, HTN Respiratory: reports: asthma Gastrointestinal: reports: other (cirrhosis) Obstetrical/Gynecological: reports: denies history Genitourinary: reports: dialysis, kidney disease, kidney stones, other (stents in kidneys ) Musculoskeletal: reports: arthritis, chronic pain (neuropathy) Neurological: reports: other (diabetic BLE peripheral neuropathy) Psychiatric: reports: denies history Endocrine/Immune: reports: anemia, Diabetes Other Conditions: reports: denies history - PRIOR SURGERIES/PROCEDURES Surgical/Procedure History: reports: cholecystectomy, other (stents in kidney) - PRIOR HOSPITALIZATIONS Prior Hospitalizations: reports: for other non-related - IMMUNIZATION STATUS Childhood Immunizations: See Nurse Assessment Flu Vaccine: See Nurse Assessment - FAMILY HISTORY Family History: reviewed, not pertinent - SOCIAL HISTORY Smoking: cigarettes (former) Substance Use: denies Physical Exam-General - PHYSICAL EXAM-ADULT Initial Vital Signs Reviewed: Yes - CONSTITUTIONAL General Appearance: alert, no apparent distress. negative: lethargic, slow to respond - HEAD, EARS, NOSE, MOUTH & THROAT HENMT: moist mucous membranes, normal ENT inspection. negative: angioedema, hearing deficit - RESPIRATORY Respiratory: chest non-tender, lungs clear, normal breath sounds. negative: crackles, stridor - CARDIOVASCULAR Cardiovascular: normal peripheral pulses, regular rate, rhythm. negative: tachycardia, systolic murmur - GASTROINTESTINAL (ABDOMEN) Abdominal Exam: normal bowel sounds, distended, tenderness (LUQ and LLQ). neg ative: guarding, rebound - MUSCULOSKELETAL Extremity: non-tender, normal inspection. negative: deformity, erythema, swelling - SKIN Integumentary: normal color, normal turgor, warm/dry. negative: ecchymosis, erythema, jaundice - NEUROLOGIC Neurologic: grossly normal, no motor/sensory deficits. negative: aphasia - PSYCHIATRIC Psych/Mental Status: oriented x 3, anxious. negative: paranoid Progress - PLAN OF CARE/RESULTS Progress/Plan/Lab Results: Vital Signs - 8 hr 06/15/18 15:16 Temperature 98 F Pulse Rate 85 Respiratory Rate 20 Blood Pressure 186/110 O2 Sat by Pulse Oximetry 100 Orders Category Date Time Status cxr [CHEST-PORTABLE] [RAD] Stat Exams 06/15/18 15:40 Ordered CBC WITH ELECTRONIC DIFF [HEME] Stat Lab 06/15/18 15:40 Uncollected CMP [COMPREHENSIVE METABOLIC PANEL] [CHEM] Stat Lab 06/15/18 15:40 Uncollected Hydralazine [Apresoline] Med 06/15/18 16:01 Discontinued 10 mg IV NOW ONE Morphine Med 06/15/18 16:00 Discontinued 4 mg IV NOW ONE Ondansetron [Zofran] Med 06/15/18 16:00 Discontinued 4 mg IV NOW ONE Hyperkalemia treated with ca gluconate, kayxalate and D50 and Insulin. EKG didn't show hyperkalemic changes. Further management per PCP. HD tmw per Dr. Price. US done at bedside by myself showed Ascites. Result Diagrams: 06/15/18 15:55 06/15/18 15:55 - REASSESSMENT Reassessment #1 Time Reassessed: 17:12 Status: unchanged - EKG 1 Time of EKG reading by physician:: 15:14 EKG Read and Signed by:: Domonique Traore EKG Interpretation (*Must complete 3 of following elements*): Abnormal Rate: 86 Rhythm: normal sinus rhythm [place] Interval: normal Comments: cannot rule out anterior infarct, age undetermined - CONSULTS/PCP/HOSPITALIST Notification #1 *Consult/PCP/Hospitalist*: Dr. Glass Time Discussed: 17:47 (Dr. Glass accepted patient for Dr. Hammonds. ) Reason/Comments: Dr. Traore consulted with Dr. Glass about patient. Consult Disposition: Admit #2 Consult: Dr. Price Time Discussed: 17:53 Reason/Comments: Dr. Traore consulted with Dr. Price about patient. Consult Disposition: other (Patient will have dialysis tomorrow morning.) Departure - Departure Date of Disposition Decision: 06/15/18 Time of Disposition Decision: 23:14 DIAGNOSIS: Hyperkalemia, ESRD (end stage renal disease) on dialysis, Elevated serum creatinine Ascites Qualifiers: Ascites type: due to alcoholic cirrhosis Qualified Code(s): K70.31 - Alcoholic cirrhosis of liver with ascites Abdominal pain Qualifiers: Abdominal location: left upper quadrant Qualified Code(s): R10.12 - Left upper quadrant pain Disposition: ADMITTED INPATIENT 09 Certified Medical Emergency: Emergent Condition: Serious - Critical Care Note This patient required my direct & personal management of CC.: No Attestation - Physician/ JULISA Attestation Patient care was provided by Advanced Practice Provider:: No The physician spent face to face time with patient:: Yes Advanced Practice Provider documentation review:: Supervising physician onsite and consulted in the evaluation and care of this patient. The physician did have a face to face encounter with the patient. This chart was documented by the indicated scribe, (Flakita Covington Scribe) and accurately reflects the services I performed and decisions made by me, Domonique Baer MD, as attested by the provider's signature.
[2018-06-15] MEDS: DUONEB (A & A) INH PRN (23:24)
[2018-06-16] MEDS: PHOSLO PO SCH ×4 (05:42→16:35)
[2018-06-16] MEDS: MORPHINE IV PRN ×3 (05:58→21:10)
[2018-06-16] MEDS ORDERED: TIGHT: 0.2 ML/HR FOR DIALYSIS MISC PRN (06:09)
[2018-06-16] MEDS ORDERED: HEPARIN IV PRN (06:09)
[2018-06-16] MEDS ORDERED: NS 2,000 ML MISC PRN (06:09)
[2018-06-16 06:27] LABS: BASO# 0.02 X1000 (0.0-0.2); BASO% 0.2 % (0.0-0.8); EOS# 0.05 X1000 (0.0-0.7); EOS% 0.5 % (0.0-10.0); HEMATOCRIT 30.3 % (37.0-47.0); HEMOGLOBIN 10.2 g/dL (12.0-16.0); IMM GRAN# 0.03 X1000 (0.0-0.04); IMM GRAN% 0.3 % (0.0-0.5); LYMPH# 2.81 X1000 (1.2-3.4); LYMPH% 27.9 % (20.5-51.1); MCH 27.2 PG (27-31); MCHC 33.7 g/dL (33-37); MCV 80.8 FL (81-99); MONO# 0.39 X1000 (0.11-0.59); MONO% 3.9 % (1.7-9.3); MPV 10.4 FL (7.4-10.4); NEUT# 6.77 X1000 (1.4-6.5); NEUT% 67.2 % (42.2-75.2); PLT 209 X1000 (130-400); RBC 3.75 XMIL (4.2-5.4); RDW 14.9 % (11.5-14.5); WBC 10.07 X1000 (4.8-10.8)
[2018-06-16 06:35] LABS: INR 1.06; PROTIME 14.7 Seconds (11.0-16.0)
--- NOTE | 2018-06-16 07:15 | EKG Report ---
Test Performed on : 06/15/2018 3:14:37 PM Test Reason : ED. NO EKG ORDER FOR MUSE Blood Pressure : / mmHG Vent. Rate : 086 BPM Atrial Rate : 086 BPM P-R Int : 130 ms QRS Dur : 076 ms QT Int : 416 ms P-R-T Axes : 042 -08 036 degrees QTc Int : 497 ms Normal sinus rhythm. Cannot rule out Anterior infarct , age undetermined Abnormal ECG When compared with ECG of 23-MAY-2018 06:10, Minimal criteria for Anterior infarct are now present Unconfirmed Result
[2018-06-16 07:28] LABS: ALB/GLOB RATIO 0.4; ALBUMIN 2.3 g/dL (3.5-5.0); CALCIUM 7.2 mg/dL (8.8-10.2); TOTAL BILIRUBIN 0.3 mg/dL (0.20-1.00); TOTAL PROTEIN 8.3 g/dL (6.3-8.3)
[2018-06-16] MEDS: DUONEB (A & A) INH PRN (07:32)
[2018-06-16 07:38] LABS: CREATININE 16.1 mg/dL (0.5-0.9)
--- NOTE | 2018-06-16 09:13 | NEPHROLOGY CONSULTATION ---
DATE: 06/16/2018 REASON FOR ADMISSION: Increased work of breathing with localized left lower quadrant pain and weakness. REASON FOR CONSULT: End-stage renal disease with assistance with medical management and hyperkalemia. CONSULTING PHYSICIAN: Henry Glass MD HISTORY OF PRESENT ILLNESS: Ms. Cheney is a 57-year-old female who is known to our outpatient services for hemodialysis on Friday, Friday, Friday. Patient stated that when she woke up yesterday morning, she was very weak, could not get out of bed, had increased work of breathing and had missed her dialysis treatment. Subsequently, she was brought to the ER with complaints of abdominal pain. The patient has a scheduled paracentesis today. Due to this significant pain and elevated potassium in the 6 range, the patient was admitted. Her hyperkalemia was treated conservatively in the emergency room with plan for dialysis today. She states that she has had difficulty breathing over the last 2 weeks, worsening with her increased ascites. She denies any emesis, though she states that she is chronically nauseated. No diarrhea. No fever or chills. Positive for abdominal swelling. No chest pain. No lower extremity swelling. No hematochezia, hemoptysis or hematuria. The patient does have decreased urinary output secondary to dialysis. Due to these findings, patient was admitted for further monitoring and evaluation. She continues to be scheduled for paracentesis today. PAST MEDICAL HISTORY: The patient is positive for end-stage renal disease with hemodialysis on Friday, Friday, Friday. She has positive cirrhosis with ascites, hypertension, insulin- dependent diabetes mellitus type 2, nicotine abuse, anemia of chronic disease, osteodystrophy of chronic disease. PAST SURGICAL HISTORY: Patient has had stent in the kidney, AV graft to the right upper arm, cholecystectomy with multiple paracenteses. SOCIAL HISTORY: She is . She lives with her . Denies any alcohol or current substance abuse. ALLERGIES: Listed as no known drug allergies. HOME MEDICATIONS: Elavil, calcium acetate, Cymbalta, Neurontin, and methocarbamol. REVIEW OF SYSTEMS: Review of systems x10 with pertinent positives listed above in the history of present illness. PHYSICAL EXAMINATION: General: This is a 57-year-old female. She is resting quietly in bed. She appears in moderate distress secondary to shortness of breath with poor inspiratory effort secondary to her ascites. Skin: Warm and dry. HEENT: Normocephalic, atraumatic. Conjunctiva is pale. She has ADAM. Mucous membranes are dry. Neck: Supple, trachea midline, no evidence of JVD. Cardiovascular: She is regular rate and rhythm. She has a soft systolic murmur. Lungs: Clear to auscultation bilaterally. Equal excursion on room air. Abdomen: Distended, tight. Positive bowel sounds. Genitourinary: Not inspected, minimal void with dialysis assist. Extremities: No edema. No clubbing or cyanosis. Neurological: Alert and oriented x3. ASSESSMENT AND PLAN: 1. Chronic kidney disease stage 5D. The patient is due for routine dialysis treatment today secondary to her hyperkalemia and missed treatment yesterday. We will place her on a 2K bath. She is to dialyze for 3.5 hours. We will attempt to pull 2-3 L of ultrafiltration prior to her paracentesis. 2. Electrolytes and acid-base balance with correction on dialysis. 3. Anemia. This remains low, but fairly stable. 4. Abdominal pain with tense ascites, scheduled for paracentesis today. I would like to thank you for allowing us to follow with this patient. Dictated by ARTUR Keith for Noel Price MD Face to face encounter, data reviewed, discussed with Farida Bajwa on 06/16/18. I agree with the above assessment and plan of care. cc: ARTUR Keith MD Bharat K. Vakharia, MD [facility]
[2018-06-16] MEDS: NEURONTIN PO SCH ×2 (13:15→21:04)
[2018-06-16] MEDS: CYMBALTA PO SCH (13:15)
--- NOTE | 2018-06-16 15:13 | Diag Imaging Result Doc PS360 ---
EXAM: US ABD PARACENTESIS W S/I 06/16/2018 HISTORY: ascites TECHNIQUE: Ultrasound-guided paracentesis COMMENT: The study was performed by Dr. Hong. The examination and risks and benefits were discussed with the patient by Dr. Hong. Following sterile preparation the skin and administration 1% lidocaine to the skin and deeper soft tissues the paracentesis catheter was placed on the right and 7.5 L of dark bloody fluid was drained and sent in its entirety to the laboratory. IMPRESSION: Successful ultrasound-guided paracentesis. Electronically signed by Dhaval Morris 06/16/2018 3:10 PM
[2018-06-16 16:23] LABS: BODY FLUID SOURCE ASCETIC FLUID; WBC BF 492 /cumm
[2018-06-16 16:24] LABS: MONOS 88 %; POLYS 12 %
[2018-06-16] MEDS: ELAVIL PO SCH (21:04)
--- NOTE | 2018-06-16 21:51 | PROGRESS NOTE ---
DATE: 06/16/2018 SUBJECTIVE: A 57-year-old, female, well known to the hospital with end-stage kidney disease, intractable ascites, came in with abdominal distention, hyperkalemia. I appreciated Dr. Price consult. The patient is going for dialysis today. REVIEW OF SYSTEMS: Abdominal distention, cough. EXAMINATION: Vital Signs: Temperature is 98, pulse 85, blood pressure is 116/80. HEENT Exam: Within normal limits. Decreased breath sounds in the right base. Heart: Sounds are regular. Abdomen: Belly is soft. Intractable ascites. Tight, tense. No obvious deficits. INVESTIGATIONS: CBC: White cell count 10, hematocrit 30.3, platelets 209. PT/INR is normal. SMA-7: Sodium 138, potassium 6.0, BUN 74, creatinine 6.1. LFTs were normal. White cell count 492 in ascitic fluid. ASSESSMENT AND PLAN: 1. End-stage kidney disease on dialysis. 2. Hyperkalemia. Follow up on dialysis. 3. Hepatitis C with intractable ascites. Schedule for paracentesis. Drained 2.5 L of fluid. Follow up on white cells and culture and sensitivity. 4. Abnormal chest x-ray elevation of right hemidiaphragm. Incentive spirometry. 5. Repeat the renal profile in the morning and a full liquid diet. Off on blood pressure medicine and diabetes. 6. Poor prognosis. Living Will/Do Not Resuscitate. Will follow up. LEVEL OF DOCUMENTATION: 25 minutes. cc: MD Henry Trejo MD
[2018-06-17] MEDS ORDERED: TIGHT: 0.2 ML/HR FOR DIALYSIS MISC PRN (06:06)
[2018-06-17] MEDS ORDERED: NS 2,000 ML MISC PRN (06:06)
[2018-06-17] MEDS ORDERED: HEPARIN IV PRN (06:06)
[2018-06-17 06:09] LABS: PHOSPHORUS 8.2 mg/dL (2.7-4.5); POTASSIUM 5.7 mmol/L (3.5-5.1)
[2018-06-17 06:10] LABS: CALCIUM 6.8 mg/dL (8.8-10.2); CREATININE 11.7 mg/dL (0.5-0.9)
[2018-06-17] MEDS: PHOSLO PO SCH ×3 (06:11→16:51)
[2018-06-17] MEDS ORDERED: CALCIUM GLUCONATE 1 GM in NS 50 ML IV ONE (07:00)
--- NOTE | 2018-06-17 09:07 | NEPHROLOGY PROGRESS NOTE ---
DATE: 06/17/2018 TIME SEEN: 07:15. SUBJECTIVE: Ms. Cheney is resting quietly in bed. She has been on the phone. She states that she is feeling better after her paracentesis yesterday. OBJECTIVE: Vital Signs: Temperature 98.6, pressure 101/44, heart rate 73, respirations 14. She is on room air. Last recorded saturation 94%. General: This is a 57-year-old female. She is resting quietly in bed. She appears chronically ill. No acute distress. Skin: Warm and dry. HEENT: Normocephalic, atraumatic. Conjunctiva is pale pink. She has ADAM. Mucous membranes are dry. Neck: Supple, trachea midline. No evidence of JVD. Cardiovascular: She is regular rate and rhythm. She has an S4 present. Lungs: Clear to auscultation anteriorly. Equal excursion on O2. Abdomen: Soft, nontender, positive bowel sounds. Genitourinary: Not inspected. Minimal void with dialysis assist. Extremities: Currently have no edema. No clubbing or cyanosis. Neurological: She is alert and oriented x3. INPUT AND OUTPUT: She has had 100 in. She has had 700 out with 2.5 L removed on paracentesis not documented yesterday. LABORATORY DATA: Sodium 138, potassium 5.7, chloride 100, CO2 25, BUN 48, creatinine 11.7, glucose 94. Her anion gap is 13, calcium 6.8, phosphorus 8.2, albumin is 2. Previous hemoglobin of 10.2. ASSESSMENT AND PLAN: 1. Chronic kidney disease stage 5D. Today is patient's routine dialysis treatment day. We will place her on a 2K bath. She is to dialyze for 3.5 hours. We will attempt to pull patient to her outpatient dry weight -1 L. 2. Electrolytes and acid-base balance with correction on dialysis. 3. Anemia. This remains low, but stable. 4. Cirrhosis with ascites. Patient had 2.5 L with removal on paracentesis, to be followed by the primary care. I would like to thank you for allowing us to follow with this patient. Dictated by ARTUR Keith for Noel Price MD Face to face encounter, data reviewed, discussed with Farida Bajwa on 06/17/18. I agree with the above assessment and plan of care. cc: ARTUR Keith MD Bharat K. Vakharia, MD [facility]
[2018-06-17] MEDS: CYMBALTA PO SCH (14:09)
[2018-06-17] MEDS: NEURONTIN PO SCH ×2 (14:09→20:53)
--- NOTE | 2018-06-17 16:28 | Diag Imaging Result Doc PS360 ---
EXAM: P'TBLE-CERVICAL SPINE 1 VIEW 06/17/2018 HISTORY: neck pain TECHNIQUE: Portable upright lateral cervical spine COMMENT: There is some disc space narrowing at the C3-4 level and particularly at the C6-7 level where there is anterior and posterior osteophyte formation. This was also the case on the previous study of 07/24/2012. There is no evidence of prevertebral soft tissue swelling, fracture, or subluxation. IMPRESSION: Degenerative disc disease particularly at C6-7. Electronically signed by Dhaval Morris 06/17/2018 4:26 PM
[2018-06-17] MEDS: LEVAQUIN 500 MG/D5W 500 MG/100 ML IVPB IV SCH (16:50)
[2018-06-17] MEDS: MORPHINE IV PRN ×2 (16:50→22:22)
--- NOTE | 2018-06-17 20:07 | PROGRESS NOTE ---
DATE: 06/17/2018 SUBJECTIVE: Interval history was reviewed. Had dialysis yesterday, going for today #2. Abdominal paracentesis done. PHYSICAL EXAMINATION: Vital signs: Temperature is low-grade fever, heart rate is 108. Vitals are stable. HEENT: Within normal limits. Chest: Poor air entry on the right side. Heart: Distant sounds. Abdomen: Belly is soft, less distended. INVESTIGATIONS: Sodium 138, potassium 5.7, chloride 100, BUN 48, creatinine 11.7, calcium 6.8. Ascitic fluid: White cells 492. ASSESSMENT AND PLAN: 1. Abdominal paracentesis, 7.5 L removed. Increased white cells. 2. End-stage kidney disease on dialysis. 3. Elevated right hemidiaphragm. PLAN OF CARE: 1. Administer IV antibiotics, Levaquin, after dialysis. 2. Hypocalcemia: Replace the calcium gluconate. 3. Hold the blood pressure medicine and diabetic medication. 4. Living will/DNR. 5. Follow up. LEVEL OF DOCUMENTATION: 25 minutes. cc: MD Henry Trejo MD
[2018-06-17] MEDS: ELAVIL PO SCH (20:53)
[2018-06-18 08:06] LABS: ALBUMIN 1.9 g/dL (3.5-5.0); CREATININE 6.8 mg/dL (0.5-0.9); PHOSPHORUS 3.7 mg/dL (2.7-4.5); POTASSIUM 4.7 mmol/L (3.5-5.1)
[2018-06-18] MEDS: CYMBALTA PO SCH (08:20)
[2018-06-18] MEDS: NEURONTIN PO SCH ×2 (08:20→21:10)
[2018-06-18] MEDS: PHOSLO PO SCH ×3 (08:22→16:39)
[2018-06-18 08:53] LABS: CALCIUM 6.4 mg/dL (8.8-10.2)
--- NOTE | 2018-06-18 08:57 | NEPHROLOGY PROGRESS NOTE ---
DATE: 06/18/2018 DATE AND TIME OF EXAM: 06/18/2018 at 0620 hours. SUBJECTIVE: Ms. Cheney is resting quietly in bed. Head of the bed is elevated. She states that she is feeling much better. Her abdomen is soft. OBJECTIVE: Her most recent vital signs: Her last temperature 97.5 degrees, blood pressure 125/93, heart rate 94, respirations are 12. She is on room air. Last recorded saturation 95%. She has had 360 in; 1.3 liters removed on dialysis yesterday. General: This is a 57-year-old female resting quietly in bed. She is in no acute distress. Skin: Warm and dry. HEENT: Normocephalic, atraumatic. Conjunctiva is pale pink. She has ADAM. Mucous membranes are dry. Neck: Supple. Trachea midline. No JVD. Cardiovascular: Regular rate and rhythm. Patient has an S4. Lungs: Clear to auscultation anteriorly. Equal excursion on room air. Abdomen: Soft, nontender. Positive bowel sounds. Genitourinary: Not inspected. Minimal void with dialysis assist. Extremities: Have no edema. No clubbing or cyanosis. Neurological: Alert and oriented x3. LABORATORY DATA: Sodium 140, potassium 4.7, chloride is 103, CO2 28. BUN 21, creatinine 6.8, glucose is 130. Her anion gap is 9. Her calcium is currently pending. Her phosphorus is 3.7, albumin of 1.9. Patient had a previous hemoglobin of 10.2 on the sixteenth. ASSESSMENT AND PLAN: 1. Chronic kidney disease stage 5 D. The patient is in need of dialysis in the morning if she remains in the hospital, otherwise she has been instructed to go to her outpatient dialysis prescription appointment as directed. 2. Electrolytes, acid-base balance; these are acceptable with correction on dialysis. 3. Anemia; this has been low, but stable. 4. Cirrhosis with ascites. This is followed by Dr. Hammonds. Patient had a paracentesis during her hospitalization. We will plan to assist the patient since we do a daily weight on arrival at dialysis with possible indications of greater than a 5 kg weight gain of maybe scheduling outpatient paracentesis to prevent further hospitalizations. I would like to thank you for allowing us to follow with this patient. Dictated by ARTUR Keith for Noel Price MD Face to face encounter, data reviewed, discussed with Farida Bajwa on 06/19/18. I agree with the above assessment and plan of care. cc: ARTUR Keith MD Bharat K. Vakharia, MD [facility]
[2018-06-18] MEDS: MORPHINE IV PRN (14:14)
[2018-06-18] MEDS: NORCO-5 PO PRN (16:39)
[2018-06-18] MEDS: LEVAQUIN 500 MG/D5W 500 MG/100 ML IVPB IV SCH (16:42)
[2018-06-18] MEDS ORDERED: CALCIUM GLUCONATE 1 GM in NS 50 ML IV ONE (19:18)
--- NOTE | 2018-06-18 19:41 | PROGRESS NOTE ---
DATE: 06/18/2018 SUBJECTIVE: The patient is getting better. Had a fall and complains of neck pain, requesting pain medicine. X-rays were reviewed. Spondylosis changes. No focal symptoms and signs noted. PHYSICAL EXAMINATION: Vital Signs: Temperature is 98. Vitals are stable. Lungs: Decreased breath sounds at right base. Cardiovascular: Heart sounds are regular. Belly: Soft. No tense ascites. Neurologic: No focal deficits. INVESTIGATIONS: Sodium 140, potassium 4.7, chloride 103, BUN 21, creatinine 6.8, calcium 6.4, albumin 1.9. ASSESSMENT AND PLAN: 1. Hypocalcemia. Replace with calcium gluconate. 2. End-stage kidney disease on dialysis. 3. Ascites with elevated white cell count. Levaquin post dialysis. 4. Living will/DO NOT RESUSCITATE. 5. If she is stable will discharge tomorrow and will coordinate with Dr. Price. LEVEL OF DOCUMENTATION: Twenty-five minutes. cc: MD Henry Trejo MD
[2018-06-18] MEDS: ELAVIL PO SCH (21:10)
[2018-06-19] MEDS: PHOSLO PO SCH ×3 (06:17→16:49)
[2018-06-19] MEDS ORDERED: NS 2,000 ML MISC PRN (08:15)
[2018-06-19] MEDS ORDERED: HEPARIN IV PRN (08:15)
[2018-06-19 09:01] LABS: ALBUMIN 1.8 g/dL (3.5-5.0); CREATININE 8.6 mg/dL (0.5-0.9); PHOSPHORUS 4.6 mg/dL (2.7-4.5); POTASSIUM 4.9 mmol/L (3.5-5.1)
[2018-06-19] MEDS: CYMBALTA PO SCH (09:02)
[2018-06-19] MEDS: NEURONTIN PO SCH ×2 (09:02→20:37)
[2018-06-19] MEDS: NORCO-5 PO PRN ×2 (09:09→16:49)
--- NOTE | 2018-06-19 16:33 | PROGRESS NOTE ---
DATE: 06/19/2018 SUBJECTIVE: The patient is better. Cytology is negative for malignancy and admitted in [place] for heart failure. She lives by herself. She can do her activities of daily living. She wants to go to [facility]. REVIEW OF SYSTEMS: None reported other than neck pain. EXAMINATION: Weight 139 pounds, temperature is 98 degrees, pulse 74, slightly anemic.Neck: Supple. Decreased breath sounds right base. Heart: Sounds are regular. Belly: Is soft, slightly distended. Umbilical hernia present. Nonfocal. INVESTIGATIONS: Sodium 132, potassium 4.9, BUN 31, creatinine 8.6, calcium 7.0, albumin 1.8. ASSESSMENT AND PLAN: 1. End-stage kidney disease on dialysis. 2. Hypocalcemia on calcium acetate. 3. Hypertension off medications. 4. Diabetes off medicines. 5. Intractable ascites due to cirrhosis due to hepatitis C. Paracentesis as needed. Cytology is negative. 6. Severe hypoproteinemia and hypoalbuminemia with combination of end-stage kidney disease and cirrhosis. 7. Living will do not resuscitate. 8. Continue IV Levaquin post dialysis. 9. Incentive spirometry. 10. greeter guest services consult for rehab placement. The patient is going for dialysis today. LEVEL OF DOCUMENTATION: 25 minutes. cc: MD Henry Trejo MD
[2018-06-19] MEDS: LEVAQUIN 500 MG/D5W 500 MG/100 ML IVPB IV SCH (16:50)
--- NOTE | 2018-06-19 18:57 | NEPHROLOGY PROGRESS NOTE ---
DATE: 06/19/2018 SUBJECTIVE: She is lying in bed flat. No shortness of breath, nausea or vomiting. She does feel like her abdomen is somewhat more distended today. She is anticipating discharge after dialysis. OBJECTIVE: Vital Signs: Blood pressure 127/82, heart rate 101, respirations 16, afebrile. General: No acute distress. Skin: Warm and dry. Conjunctivae are pink. Neck: Neck veins are not distended. Heart: Regular with a gallop. Lungs: Equal. No crackles. Abdomen: Mildly distended with ascites. Extremities: Have no edema, clubbing, or cyanosis. IMPRESSION: Chronic kidney disease 5D. She will undergo her routine hemodialysis today with a goal of 2 to 3 L ultrafiltration as her blood pressure allows. Electrolytes and acid-base are in target. Anemia is in target. Okay for discharge after treatment. She is being treated with levofloxacin for presumed SBP. Cultures are negative thus far. Appropriate dosing as an outpatient would be 250 mg every 48 hours. cc: MD Henry Badillo MD
[2018-06-19] MEDS: ELAVIL PO SCH (20:37)
[2018-06-19] MEDS: MORPHINE IV PRN (20:41)
[2018-06-20] MEDS: PHOSLO PO SCH ×4 (05:49→17:16)
[2018-06-20] MEDS: MORPHINE IV PRN ×2 (09:31→17:17)
[2018-06-20] MEDS: CYMBALTA PO SCH (09:31)
[2018-06-20] MEDS: NEURONTIN PO SCH ×2 (09:31→21:10)
--- NOTE | 2018-06-20 09:48 | PROGRESS NOTE ---
DATE: 06/20/2018 SUBJECTIVE: The patient says she does not feel well. She has been coughing up yellow sputum. She has had a frontal headache. Her neck still hurts so we know she has got some cervical disk disease per her previous x-ray. She also says her belly still hurts. She does have ascites from hepatitis C. OBJECTIVE: Vital signs: Blood pressure is 93/57, respirations 16, pulse 84, temperature 99.4 degrees. HEENT: She is normocephalic. EOMI. PERRLA. Throat clear. Neck: Tender posteriorly. Lungs: Have scattered rales that apparently she did not have previously. Heart: Regular rate and rhythm without murmurs, gallops, friction rubs. Abdomen: Distended from some ascites with just mild generalized tenderness. Neurological: Intact grossly. ASSESSMENT: 1. Abdominal pain with ascites from hepatitis C. 2. End-stage renal disease. 3. Rales in her chest, possibly pneumonia versus bronchitis. 4. Headache. 5. Hypocalcemia with of calcium of 7. 6. Chronic anemia. PLAN: We will get a chest x-ray and sinus films. The patient is already on Levaquin. Might consider a change if we think that she has had some aspiration. cc: MD Henry Moncada Jr, MD MTDD
--- NOTE | 2018-06-20 10:10 | Diag Imaging Result Doc PS360 ---
CHEST-2 VIEWS - 06/20/2018 INDICATION: cough COMPARISON: 06/15/2018 FINDINGS: Lung volumes are improved but still rather low. There is some stable infiltrate or atelectasis in the right middle lobe. No new infiltrates. IMPRESSION: Improved lung volumes. No new infiltrates. Electronically signed by August Hong 06/20/2018 10:07 AM
--- NOTE | 2018-06-20 10:11 | Diag Imaging Result Doc PS360 ---
X-ray paranasal sinuses three views - 06/20/2018 INDICATION: headache COMPARISON: None FINDINGS: The paranasal sinuses are normally developed and clear. Mastoid air cells are clear as well. IMPRESSION: Negative exam. Electronically signed by August Hong 06/20/2018 10:08 AM
[2018-06-20] MEDS: ROCEPHIN 1 GM in NS 50 ML IV SCH (13:07)
--- NOTE | 2018-06-20 14:48 | NEPHROLOGY PROGRESS NOTE ---
DATE: 06/20/2018 SUBJECTIVE: She states she does not feel well today. She thought maybe she had a fever and has been coughing. She did a not eat her lunch. OBJECTIVE: Vital Signs: Blood pressure 93/57, heart rate 84, respirations 16, temperature 99.4 degrees. General: Chronically ill woman. No acute distress. Skin: Warm and dry. Conjunctivae are pink. Neck: Neck veins are not distended. Heart: Regular. Lungs: Equal. Abdomen: Has ascites. Extremities: Have no edema, clubbing, or cyanosis. IMPRESSION: Chronic kidney disease 5D. She had her routine dialysis yesterday. Electrolytes and acid-base are in target. Chest x-ray without pulmonary edema. Hemoglobin in target. cc: MD Henry Badillo MD
[2018-06-20] MEDS: DUONEB (A & A) INH PRN (16:39)
[2018-06-20] MEDS: LEVAQUIN 500 MG/D5W 500 MG/100 ML IVPB IV SCH (17:17)
[2018-06-20] MEDS: ELAVIL PO SCH (21:10)
[2018-06-20] MEDS: NORCO-5 PO PRN (21:56)
[2018-06-21] MEDS: PHOSLO PO SCH ×3 (06:25→18:43)
[2018-06-21] MEDS: NORCO-5 PO PRN ×3 (06:25→21:34)
[2018-06-21] MEDS: PRILOSEC PO SCH (06:25)
--- NOTE | 2018-06-21 09:41 | PROGRESS NOTE ---
DATE: 06/21/2018 SUBJECTIVE: The patient says she is still coughing and coughed up some sputum. She is already on Levaquin and Rocephin. Chest x-ray showed either atelectasis or infiltrate in the right middle lobe that is unchanged from previous x-rays. Sinus films were normal. The patient also complains of numbness in her legs but she is already on Neurontin. OBJECTIVE: Vital Signs: Blood pressure is 97/70, respirations 16, pulse 80, temperature 98.4 degrees Fahrenheit. HEENT: She is normocephalic. EOMs intact. PERRLA. Throat clear. Lungs: Have bibasilar rales and rhonchi. Heart: Regular rate and rhythm without murmurs, gallops, or friction rubs. Abdomen: Soft but with some ascites and some mild generalized tenderness. Neurological Examination: Intact grossly except for numbness in her legs, may have neuropathy. ASSESSMENT: 1. Cirrhosis from hepatitis C. 2. End-stage renal disease. 3. Bronchitis. 4. Right middle lobe pneumonia versus atelectasis. PLAN: Continue support. cc: MD Henry Moncada Jr, MD
[2018-06-21] MEDS: CYMBALTA PO SCH (10:32)
[2018-06-21] MEDS: ROCEPHIN 1 GM in NS 50 ML IV SCH (10:32)
[2018-06-21] MEDS: NEURONTIN PO SCH ×2 (10:32→21:34)
[2018-06-21] MEDS: LEVAQUIN 500 MG/D5W 500 MG/100 ML IVPB IV SCH (18:43)
[2018-06-21] MEDS: ELAVIL PO SCH (21:34)
[2018-06-22] MEDS: NORCO-5 PO PRN ×2 (05:45→16:00)
[2018-06-22] MEDS: PHOSLO PO SCH ×2 (05:46→06:13)
[2018-06-22] MEDS: PRILOSEC PO SCH ×2 (05:46→06:13)
[2018-06-22] MEDS ORDERED: NS 2,000 ML MISC PRN (07:21)
[2018-06-22] MEDS ORDERED: TIGHT: 0.2 ML/HR FOR DIALYSIS MISC PRN (07:21)
[2018-06-22] MEDS ORDERED: HEPARIN IV PRN (07:21)
[2018-06-22 08:49] VITALS: BP 120/70
--- NOTE | 2018-06-22 09:50 | NEPHROLOGY PROGRESS NOTE ---
DATE: 06/22/2018 SUBJECTIVE: The patient complaining of some abdominal distention and lower leg pain, "burning numbness". OBJECTIVE: Vital Signs: Temperature 98.8 degrees, pulse 74, respiratory rate 18, blood pressure 98/71. Intake 120 mL, output not measured. General: This is a middle-aged female, resting in bed. She is awake and alert. She is in no acute distress. HEENT: Normocephalic. ADAM. Conjunctivae pale. Oral mucosa moist. Dentition poor. Neck: Supple without JVD. Cardiovascular: Regular rate and rhythm. Pulmonary: Mild ascites with some generalized tenderness. No point tenderness. Positive bowel sounds. : Not inspected. Extremities: No edema. Integumentary: Skin is warm and dry. LABORATORY DATA: Pending. Her last labs on the indicated a sodium of 132, potassium 4.9, creatinine of 8.6, and calcium 7. ASSESSMENT AND PLAN: 1. Chronic kidney disease 5D. Today is her routine dialysis day. We will plan to dialyze on a 2 K bath/UF to dry weight 3.5 hour treatment. We will draw labs this morning prior to dialysis to guide therapy. 2. Neuropathy. Her primary is aware of this. The patient already has morphine and Neurontin ordered for pain control as well as hydrocodone acetaminophen. No changes to current plan. Dictated by ARTUR East for Noel Price MD Face to face encounter, data reviewed, discussed with Leah Norris on 06/22/18. I agree with the above assessment and plan of care. cc: MD Henry Badillo MD MTDD
[2018-06-22] MEDS: MORPHINE IV PRN (10:56)
--- NOTE | 2018-06-22 10:58 | DISCHARGE SUMMARY ---
ADMISSION DATE: 06/15/2018 DISCHARGE DATE: 06/22/2018 DISCHARGING DIAGNOSES: 1. Tense ascites due to cirrhosis of liver due to hepatitis C. 2. Hyperkalemia due to end-stage renal disease. 3. Abnormal chest x-ray with right hemidiaphragm. 4. Cirrhosis of liver due to chronic hepatitis C infection, genotype 1B. 5. End-stage kidney disease, on hemodialysis, on right arteriovenous graft. 6. Type 2 diabetes, diet controlled. 7. Hypertension, off medications. 8. Peripheral neuropathy due to chronic pain and diabetes. CONSULTS: Dr. Price. PROCEDURES: 1. Hemodialysis for hyperkalemia. 2. Abdominal paracentesis, 7.5 L of dark fluid was aspirated. Cytology was negative for malignancy. BRIEF HISTORY: Please see the H and P that was done by Dr. Glass. In brief, she is a 57-year- old, female who was admitted to the hospital on 06/15/2018 with tense ascites, hyperkalemia, worsening of the kidney function tests. HOSPITAL COURSE: The patient had several dialyses to control hyperkalemia. She also has tense ascites. Abdominal paracentesis done by radiologist. Cytology was showing some infection with elevated white cell count and negative for malignancy. I did request Dr. Price to continue IV antibiotics with the Levaquin postdialysis. Unfortunately, patient's was admitted in [place]. She does not have any help at home and she has been requesting to go to [facility] for convalescence. LABS: Sodium 132, potassium 4.9, BUN 31, creatinine 8.6, calcium 7.0, albumin 1.8. Routine cultures from the ascites, no growth. DISCHARGE INSTRUCTIONS: 1. Incentive spirometry. 2. Fluid restrictions of 1.5 L per day. 3. Living will, Do Not Resuscitate. 4. Neurontin 300 p.o. b.i.d., calcium acetate 667 capsule 2 capsules with meals, duloxetine 60 daily, amitriptyline 10 daily, Robaxin 500 at bedtime, DuoNebs as needed for bronchitis, Prilosec 40 daily, hydroxyzine 10 q.8 for itching. 5. Discontinue all the medicines for blood pressure and diabetes control. 6. Sliding scale with insulin coverage. 7. Prognosis is poor. 8. Continue paracentesis as needed and dialysis as per Dr. Price. 9. Continue antibiotics postdialysis for the next 2 weeks. cc: MD Henry Trejo MD
[2018-06-22 12:58] LABS: HEMATOCRIT 26.5 % (37.0-47.0); HEMOGLOBIN 8.4 g/dL (12.0-16.0); MCH 26.3 PG (27-31); MCHC 31.7 g/dL (33-37); MCV 83.1 FL (81-99); RBC 3.19 XMIL (4.2-5.4); RDW 14.5 % (11.5-14.5); WBC 8.29 X1000 (4.8-10.8)
[2018-06-22 13:06] LABS: ALBUMIN 1.9 g/dL (3.5-5.0); CALCIUM 7.3 mg/dL (8.8-10.2); PHOSPHORUS 3.8 mg/dL (2.7-4.5); POTASSIUM 4.9 mmol/L (3.5-5.1)
[2018-06-22 13:14] LABS: CREATININE 5.9 mg/dL (0.5-0.9)
[2018-06-22] MEDS: ROCEPHIN 1 GM in NS 50 ML IV SCH (13:52)
[2018-06-22] MEDS: CYMBALTA PO SCH (15:21)
[2018-06-22] MEDS: NEURONTIN PO SCH (15:21)
[2018-06-22] MEDS: DUONEB (A & A) INH PRN (16:14)
== END 2018-06-22 17:17 | DRG 441 ==
LOC: SUPCPDRO → ED 15:03 → EDIPHOLD 20:26 → 3S 21:55 → 3N 06-17 22:57
PROVIDERS: ADMIT Internal Medicine; ATTEND Internal Medicine
CPT/HCPCS: 49083; 70220; 71010; 71020; 71045; 71046; 72020; 73502; 74176; 80053; 80069; 82948; 85025; 85027; 85610; 87070; 88112; 88305; 89051; 93005; 94640; 94761; 94799; 96365; 96375; 96376; 99285; A9270; C9113; J0360; J0610; J0696; J1170; J1644; J1956; J2270; J2405; J7030; S0164; XXXXX

== ENCOUNTER 2018-07-27 12:54 | Inpatient (IN) ==
--- NOTE | 2018-07-27 13:36 | Diag Imaging Result Doc PS360 ---
EXAM: CHEST-1 VIEW HISTORY: sepsis TECHNIQUE: Chest single view COMPARISON: 07/22/2018 FINDINGS: Poor inspiratory effort. No cardiomegaly. Atelectasis and infiltrates in the right lung base. Right hemidiaphragm is mildly elevated. The left lung is clear. No pulmonary edema. There is a vascular stent in the upper right arm. IMPRESSION: Right basilar infiltrates and atelectasis. Electronically signed by Hussein Knox 07/27/2018 1:33 PM
[2018-07-27 14:23] LABS: BASO# 0.03 X1000 (0.0-0.2); BASO% 0.4 % (0.0-0.8); EOS# 0.09 X1000 (0.0-0.7); EOS% 1.1 % (0.0-10.0); HEMATOCRIT 31.9 % (37.0-47.0); HEMOGLOBIN 10.8 g/dL (12.0-16.0); IMM GRAN# 0.02 X1000 (0.0-0.04); IMM GRAN% 0.2 % (0.0-0.5); LYMPH# 1.64 X1000 (1.2-3.4); LYMPH% 19.3 % (20.5-51.1); MCH 27.4 PG (27-31); MCHC 33.9 g/dL (33-37); MONO# 0.64 X1000 (0.11-0.59); MONO% 7.5 % (1.7-9.3); MPV 11.8 FL (7.4-10.4); NEUT# 6.06 X1000 (1.4-6.5); NEUT% 71.5 % (42.2-75.2); PLT 168 X1000 (130-400); RBC 3.94 XMIL (4.2-5.4); RDW 15.3 % (11.5-14.5); WBC 8.48 X1000 (4.8-10.8)
--- NOTE | 2018-07-27 14:24 | Diag Imaging Result Doc PS360 ---
EXAM: CT ABDOMEN/PELVIS W/O CONTRAST HISTORY: abdo swelling TECHNIQUE: Emergency CT of the abdomen and pelvis without contrast COMPARISON: 06/15/2018 FINDINGS: There is likely a combination of atelectasis and scarring in the lower right lung. There may be small underlying infiltrates on the right as well. The liver is nodular. The gallbladder has been removed. The spleen is not enlarged. Normal pancreas, and adrenal glands. The kidneys are small. Prominent atherosclerosis. There is a large amount of abdominal and pelvic ascites. No bowel obstruction. The uterus is small. Urinary bladder is moderately distended. IMPRESSION: Cirrhosis with ascites This exam was performed using automated exposure control, adjustment of mA or kV according to patient size, and/or use of iterative reconstruction technique. Electronically signed by Hussein Knox 07/27/2018 2:22 PM
[2018-07-27 14:45] LABS: ALB/GLOB RATIO 0.4; ALBUMIN 2.1 g/dL (3.5-5.0); TOTAL BILIRUBIN 0.42 mg/dL (0.20-1.00); TOTAL PROTEIN 7.6 g/dL (6.3-8.3)
[2018-07-27 15:08] LABS: CK INDEX 1.6 (0.0-2.5); CK-MB 22.39 ng/mL (0.0-5.0)
[2018-07-27 15:25] LABS: INR 1.03; PROTIME 14.4 Seconds (11.0-16.0)
[2018-07-27 15:26] LABS: PTT 35.7 Seconds (22.3-41.8)
[2018-07-27] MEDS ORDERED: ZOFRAN IV ONE (15:34)
[2018-07-27] MEDS ORDERED: DILAUDID IV ONE (15:34)
[2018-07-27 15:44] LABS: POTASSIUM 6.1 mmol/L (3.5-5.1)
[2018-07-27 15:45] LABS: CREATININE 14.9 mg/dL (0.5-0.9)
[2018-07-27 15:46] LABS: CALCIUM 6.3 mg/dL (8.8-10.2)
--- NOTE | 2018-07-27 16:59 | PROVIDER DOCUMENTATION ---
This chart was entered by Flakita Covington Scribe, acting as scribe for Dawson Patterson MD. HPI-Abdominal Pain/GI Problem - General Chief Complaint: SEPSIS ALERT - D Stated Complaint: FLUID ON ABDOMEN Time Seen by Provider: 07/27/18 13:17 Source: patient Allergies/Adverse Reactions: Patient Allergies Allergy/AdvReac Type Severity Reaction Status Date / Time No Known Allergies Allergy Verified 07/01/18 15:40 Home Medications: Home Medication List Medication Instructions Recorded Confirmed Last Taken Type Gabapentin [Neurontin] 300 mg PO BID 01/16/17 07/15/18 07/03/18 06:30 History 300 Calcium Acetate 2 cap PO AC 01/25/17 07/15/18 07/03/18 06:30 History 2 Duloxetine HCl 60 mg PO DAILY 08/26/17 07/15/18 07/03/18 06:30 History 60 Amitriptyline [Elavil] 10 mg PO HS 08/27/17 07/15/18 07/02/18 19:00 History 10 Methocarbamol [Robaxin] 500 mg PO QHS 08/27/17 07/15/18 07/02/18 19:00 History 500 Albuterol 2.5MG/Ipratrop 0.5MG 3 ml INH Q6H PRN PRN neb 05/26/18 07/15/18 Unknown Rx [Duoneb (A & A)] Omeprazole [Prilosec] 40 mg PO DAILY@0700 cap 05/26/18 07/15/18 07/03/18 05:00 Rx 40 Hydroxyzine HCl 1 tab PO Q8H PRN 06/15/18 07/15/18 Unknown History - History of Present Illness-ABD Nature of Presenting Problems: Patient is a 57 year old female who presents with generalized abdominal pain. History of cirrhosis. Does not report nausea and vomiting. Abdominal Pain Onset Location: reports: generalized abdomen Pain Radiation: reports: no radiation Quality of Pain: reports: tightness Severity in ED: reports: mild Onset/Duration: reports: gradual Timing: reports: still present, getting worse Activities at Onset: reports: light activity Associated Symptoms: reports: denies symptoms Bruising or Bleeding Gums?: No Similar Symptoms Previously?: Yes Recently seen or treated by another doctor?: Yes Review of Systems - Adult - REVIEW OF SYSTEMS - ADULT Constitutional: reports: no symptoms reported. denies: chills, fever, fatique Eyes: reports: no symptoms reported Ears, Nose, Mouth & Throat: reports: no symptoms reported Cardiovascular: reports: no symptoms reported Respiratory: reports: no symptoms reported Gastrointestinal: reports: see HPI, abdominal pain (generalized). denies: diarrhea, nausea, vomiting Genitourinary: reports: no symptoms reported Musculoskeletal: reports: no symptoms reported. denies: back pain, muscle aches, neck pain Integumentary: reports: no symptoms reported Neurological: reports: no symptoms reported Psychiatric: reports: no symptoms reported Endocrine: reports: no symptoms reported Hematologic/Lymphatic: reports: no symptoms reported Allergic/Immunologic: reports: no symptoms reported All Other Systems: Reviewed and Negative Past History - Adult - PAST MEDICAL HISTORY-ADULT Review of Records: reports: Nursing Assessment Review, Medications Reviewed, Social history reviewed & non-contributory. Major Childhood Illnesses: reports: denies history Cardiovascular: reports: CAD, CHF, HTN Respiratory: reports: asthma Gastrointestinal: reports: liver disease Obstetrical/Gynecological: reports: denies history Genitourinary: reports: dialysis, kidney disease, kidney stones, other (stents in kidneys ) Musculoskeletal: reports: arthritis, chronic pain (neuropathy) Neurological: reports: other (diabetic BLE peripheral neuropathy) Psychiatric: reports: denies history Endocrine/Immune: reports: anemia, Diabetes Other Conditions: reports: denies history - PRIOR SURGERIES/PROCEDURES Surgical/Procedure History: reports: cholecystectomy, other (stents in kidney) - PRIOR HOSPITALIZATIONS Prior Hospitalizations: reports: for other non-related - IMMUNIZATION STATUS Childhood Immunizations: See Nurse Assessment Flu Vaccine: See Nurse Assessment - FAMILY HISTORY Family History: reviewed, not pertinent - SOCIAL HISTORY Smoking: cigarettes (former) Substance Use: none presently/history of abuse Alcohol Use Frequency: sober (former use) Physical Exam-General - PHYSICAL EXAM-ADULT Initial Vital Signs Reviewed: Yes - CONSTITUTIONAL General Appearance: alert, no apparent distress. negative: lethargic, slow to respond - EYES Eyes: PERRL/EOMI, pink conjunctivae. negative: scleral icterus - HEAD, EARS, NOSE, MOUTH & THROAT HENMT: normocephalic/atraumatic, moist mucous membranes. negative: angioedema, hearing deficit - RESPIRATORY Respiratory: chest non-tender, lungs clear, normal breath sounds. negative: crackles, stridor, wheezing - CARDIOVASCULAR Cardiovascular: normal peripheral pulses, regular rate, rhythm. negative: tac hycardia, systolic murmur - GASTROINTESTINAL (ABDOMEN) Abdominal Exam: normal bowel sounds, distended, tenderness (diffuse). negative: guarding, rebound - MUSCULOSKELETAL Extremity: non-tender, normal inspection. negative: deformity, erythema, s welling - SKIN Integumentary: normal color, normal turgor, warm/dry. negative: cyanosis, ecchymosis, erythema, jaundice - NEUROLOGIC Neurologic: grossly normal. negative: aphasia, facial droop - PSYCHIATRIC Psych/Mental Status: normal mood/affect, oriented x 3. negative: anxious Progress - PLAN OF CARE/RESULTS Progress/Plan/Lab Results: Vital Signs - 8 hr 07/27/18 13:05 Temperature 97.3 F L Pulse Rate 97 H Respiratory Rate 24 Blood Pressure 127/92 O2 Sat by Pulse Oximetry 99 Orders Category Date Time Status Cardiac Monitoring DIRECTED Care 07/27/18 13:12 Active IV Insertion ORDERED Care 07/27/18 13:12 Active Notify MD of + Sepsis Screen NOW Care 07/27/18 13:12 Active Notify Physician As Ordered Care 07/27/18 13:12 Active CHEST-1 VIEW [RAD] Stat Exams 07/27/18 13:[address] ABDOMEN/PELVIS W/O CONTRAST [CT] Stat Exams 07/27/18 13:18 Ordered BLOOD CULTURE [BLDCUL] Stat Lab 07/27/18 13:12 Uncollected CBC WITH DIFF [HEME] Stat Lab 07/27/18 13:12 Uncollected CK PROFILE [SP CHEM] Stat Lab 07/27/18 13:12 Uncollected COMPREHENSIVE METABOLIC PANEL [CHEM] Stat Lab 07/27/18 13:12 Uncollected LACTATE, PLASMA [CHEM] Q3H Lab 07/27/18 13:15 Uncollected LACTATE, PLASMA [CHEM] Q3H Lab 07/27/18 16:15 Uncollected LACTATE, PLASMA [CHEM] Q3H Lab 07/27/18 19:15 Uncollected PROTIME WITH INR [COAG] Stat Lab 07/27/18 13:12 Uncollected PTT [COAG] Stat Lab 07/27/18 13:12 Uncollected TROPONIN T Stat Lab 07/27/18 13:12 Uncollected URINALYSIS W/POSS RFLX CULT [URINALYSIS] Stat Lab 07/27/18 13:12 Uncollected Oxygen Device Stat Oth 07/27/18 13:12 Active Result Diagrams: 07/27/18 13:45 07/27/18 13:45 - XRAY 1 XRAY Study: Chest Impression: See EMR Report ( EXAM: CHEST-1 VIEW HISTORY: sepsis TECHNIQUE: Chest single view COMPARISON: 07/22/2018 FINDINGS: Poor inspiratory effort. No cardiomegaly. Atelectasis and infiltrates in the right lung base. Right hemidiaphragm is mildly elevated. The left lung is clear. No pulmonary edema. There is a vascular stent in the upper right arm. IMPRESSION: Right basilar infiltrates and atelectasis. Electronically signed by Hussein Knox 07/27/2018 1:33 PM 07/27/18 1333 Interpreting Physician: Hussein Knox MD Dictated Date/Time: 07/27/18 1332 cc: Dawson Patterson MD; Noel Price MD) - CT/MRI 1 CT Study: Abdomen, Pelvis Impression: See EMR Report ( EXAM: CT ABDOMEN/PELVIS W/O CONTRAST HISTORY: abdo swelling TECHNIQUE: Emergency CT of the abdomen and pelvis without contrast COMPARISON: 06/15/2018 FINDINGS: There is likely a combination of atelectasis and scarring in the lower right lung. There may be small underlying infiltrates on the right as well. The liver is nodular. The gallbladder has been removed. The spleen is not enlarged. Normal pancreas, and adrenal glands. The kidneys are small. Prominent atherosclerosis. There is a large amount of abdominal and pelvic ascites. No bowel obstruction. The uterus is small. Urinary bladder is moderately distended. IMPRESSION: Cirrhosis with ascites This exam was performed using automated exposure control, adjustment of mA or kV according to patient size, and/or use of iterative reconstruction technique. Electronically signed by Hussein Knox 07/27/2018 2:22 PM 07/27/18 1422 Interpreting Physician: Hussein Knox MD Dictated Date/Time: 07/27/18 1418 cc: Dawson Patterson MD; Noel Price MD) - CONSULTS/PCP/HOSPITALIST Notification #1 *Consult/PCP/Hospitalist*: Dr. Canchola Time Discussed: 16:51 Reason/Comments: Dr. Patterson consulted with Dr. Canchola about patient. Consult Disposition: Admit Procedures - ADDITIONAL PROCEDURES Additional Procedure: Paracentesis Consent Form Signed if Applicable?: Yes Site Prep: Chlorhexidine, Betadine Anesthetic: 1%, Lidocaine/Xylocaine Volume of Anesthetic (ml's): 5 Description of Procedure (Other): Dr. Doan removed 3.5 L of beaulieu honey colored fluid from patient's abdomen. Departure - Departure Date of Disposition Decision: 07/27/18 Time of Disposition Decision: 16:53 DIAGNOSIS: Hyperkalemia, Ascites, ESRD (end stage renal disease) on dialysis Disposition: ADMITTED INPATIENT 09 Certified Medical Emergency: Emergent Condition: Fair Referrals and Follow-Ups: Noel Price MD [Primary Care Provider] - - Critical Care Note This patient required my direct & personal management of CC.: No Attestation - Physician/ JULISA Attestation Patient care was provided by Advanced Practice Provider:: No The physician spent face to face time with patient:: Yes Advanced Practice Provider documentation review:: Supervising physician onsite and consulted in the evaluation and care of this patient. The physician did have a face to face encounter with the patient. This chart was documented by the indicated scribe, (Flakita Covington Scribe) and accurately reflects the services I performed and decisions made by me, Dawson Patterson MD, as attested by the provider's signature.
[2018-07-27 17:52] LABS: BODY FLUID SOURCE PERITONEAL FLUID; WBC BF 292 /cumm
[2018-07-27 17:54] LABS: SPECIMEN PERITONEAL FLUID
[2018-07-27 18:06] LABS: ALBUMIN BODY FLUID 0.7 g/dL; AMYLASE BODY FLUID 38 U/L; GLUCOSE BODY FLUID 128 mg/dL; LDH BODY FLUID 128 U/L
[2018-07-27] MEDS ORDERED: ULTRAM PO PRN (18:51)
[2018-07-27] MEDS ORDERED: ZOFRAN IV PRN (18:58)
[2018-07-27] MEDS ORDERED: ATARAX PO PRN (19:05)
[2018-07-27] MEDS ORDERED: DUONEB (A & A) INH PRN (19:05)
[2018-07-27 19:08] LABS: MONOS 83 %; POLYS 17 %
--- NOTE | 2018-07-27 19:29 | HISTORY AND PHYSICAL ---
HISTORY OF PRESENT ILLNESS: Ms. Cheney is a 57-year-old female who has end-stage renal disease came in with abdominal distention today. She said her abdomen was uncomfortable. It was very distended. She has a known case of cirrhosis with ascites. CT scan showed cirrhosis with ascites. Peritoneal tapping was done by the ER physician, Dr. Patterson. The peritoneal fluid had showed the pH was 8, and WBC count was 292. Fluid glucose was 128 and LDH was 128. Fluid amylase was 38, and albumin was 0.7. She was very uncomfortable. An abdominal paracentesis was done in the emergency room. Her potassium was 6.1. Hence, she was admitted to the hospital. She would was sent for emergency dialysis. Ms. Cheney is a very poor historian. Moreover, she is very noncompliant about her dialysis. According to the records, this is the first time in 10 days that she is trying to get the dialysis. She gives history of her being on dialysis for last 5 years. PAST SURGICAL HISTORY: She denies having any surgery. SOCIAL HISTORY: She used to drink 10 years ago heavily. She still smokes about 1 pack of cigarettes per day. She has 1 child. REVIEW OF SYSTEMS: Other than abdominal discomfort and distention, it is noncontributory. She is a patient of Dr. Hammonds. PHYSICAL EXAMINATION: VITAL SIGNS: Reveal temperature normal. Pulse 80 per minute. Blood pressure which was 142/103 in the emergency room, has come down some after about 4 hours to 137/99. She weighs 135 pounds and is 5 feet 6 inches tall. HEENT: Head normocephalic. Pupils PERRLA. Fundus examination not done. Neck supple. JVP normal. ENT examination is unremarkable. There is no evidence of lymphadenopathy, thyroid enlargement, cyanosis, or clubbing. She is anemic. She has bilateral leg edema. She has a shunt on her right upper arm. BREAST EXAM: Not done. CHEST: Normal on inspection. LUNGS: Clear on auscultation except for occasional rales on the right base. PMI in the normal position. HEART: Sounds normal. No murmur, gallop, or rub noted. ABDOMEN: Distended. It is positive for ascites. She has liver cirrhosis. I cannot feel the spleen at the present time on account of mild distention. No lymphadenopathy noted. 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 Higher functions, cranial nerves, motor, sensory system exam is unremarkable. She is alert. Deep tendon reflexes are sluggish. SKIN: Unremarkable. IMPRESSION: 1. Liver cirrhosis with ascites. 2. Hyperkalemia. 3. End-stage renal disease. 4. Possible infiltrate in the right lower lung or atelectasis. PLAN: To repeat potassium in the morning. Get blood cultures and start IV antibiotics on her. cc: Agustín Canchola MD
[2018-07-27] MEDS ORDERED: NS 2,000 ML MISC PRN (19:44)
[2018-07-27] MEDS: ROBAXIN PO SCH (22:02)
[2018-07-27] MEDS: LEVAQUIN 500 MG/D5W 500 MG/100 ML IVPB IV SCH (22:02)
[2018-07-27] MEDS: ELAVIL PO SCH (22:03)
[2018-07-27] MEDS: NEURONTIN PO SCH (22:03)
[2018-07-28] MEDS: PRILOSEC PO SCH (06:40)
[2018-07-28] MEDS: PHOSLO PO SCH ×3 (06:40→16:44)
[2018-07-28] MEDS: HUMALOG SUBQ SCH ×4 (06:55→21:09)
[2018-07-28 07:04] LABS: BASO# 0.03 X1000 (0.0-0.2); BASO% 0.4 % (0.0-0.8); EOS# 0.15 X1000 (0.0-0.7); HEMATOCRIT 29.4 % (37.0-47.0); HEMOGLOBIN 9.7 g/dL (12.0-16.0); LYMPH# 2.25 X1000 (1.2-3.4); LYMPH% 30.1 % (20.5-51.1); MCH 26.9 PG (27-31); MCV 81.7 FL (81-99); MONO# 0.79 X1000 (0.11-0.59); MONO% 10.6 % (1.7-9.3); MPV 11.2 FL (7.4-10.4); NEUT# 4.25 X1000 (1.4-6.5); NEUT% 56.9 % (42.2-75.2); PLT 165 X1000 (130-400); RDW 14.9 % (11.5-14.5); WBC 7.47 X1000 (4.8-10.8)
--- NOTE | 2018-07-28 07:25 | EKG Report ---
Test Performed on : 07/28/2018 07:01:53 AM Test Reason : CP Blood Pressure : / mmHG Vent. Rate : 083 BPM Atrial Rate : 083 BPM P-R Int : 128 ms QRS Dur : 070 ms QT Int : 426 ms P-R-T Axes : 047 021 059 degrees QTc Int : 500 ms Normal sinus rhythm. Prolonged QT Abnormal ECG When compared with ECG of 15-JUN-2018 15:14, (Unconfirmed) No significant change was found Confirmed by Junior PEREZ, Kam Claudio ([id number]) on 07/28/2018 12:43:01 PM
[2018-07-28 07:50] LABS: AGAP 15; ALB/GLOB RATIO 0.4; ALBUMIN 1.9 g/dL (3.5-5.0); ALKALINE PHOSPHATASE 153 U/L (32-104); BUN 47 mg/dL (8-22); CHLORIDE 102 mmol/L (98-107); COSMO 289; DIRECT BILIRUBIN < 0.10 mg/dL (0.00-0.20); ESTIMATED GFR 4; GLUCOSE 78 mg/dL (70-104); GOT 60 U/L (10-30); GPT 33 U/L (10-36); MAGNESIUM 2.1 mg/dL (1.5-2.7); PHOSPHORUS 8.8 mg/dL (2.7-4.5); POTASSIUM 5.5 mmol/L (3.5-5.1); SODIUM 139 mmol/L (136-145); TCO2 22 mmol/L (25-35); TOTAL BILIRUBIN 0.37 mg/dL (0.20-1.00); TOTAL PROTEIN 6.9 g/dL (6.3-8.3)
[2018-07-28 07:57] LABS: CREATININE 11.2 mg/dL (0.5-0.9)
[2018-07-28 07:58] LABS: CALCIUM 6.2 mg/dL (8.8-10.2)
[2018-07-28] MEDS ORDERED: CALCIUM GLUCONATE 2 GM in NS 100 ML IV ONE (08:51)
--- NOTE | 2018-07-28 10:18 | NEPHROLOGY CONSULTATION ---
DATE: 07/28/2018 REASON FOR ADMISSION: Abdominal pain with increased work of breathing. REASON FOR CONSULTATION: End-stage renal disease with assistance with medical management. CONSULTING PHYSICIAN: Dr. Hammonds. HISTORY OF PRESENT ILLNESS: Ms. Cheney is a 57-year-old female who is known to our outpatient services for hemodialysis on Friday, Friday, Friday at the [facility]. The patient has chronic hepatitis C with cirrhosis and chronic ascites. Patient has been scheduled for multiple paracenteses on an outpatient basis approximately every 2 weeks. Due to patient's increased work of breathing and unable to go to her dialysis treatment yesterday, she presented to the emergency room with complaints of abdominal pain. The patient had a paracentesis in the emergency room. Per the ED, they pulled approximately 3.5 L off. She went up to dialysis yesterday evening, had approximately 2 L removed on dialysis yesterday evening. She states her abdomen is wrapping machine tender. She still has positive ascites which is ballotable. She denies any chest pain. No increased work of breathing at this time. This has improved. She denies any nausea, vomiting. No diarrhea. No fever or chills. The patient does say that at times she is chronically nauseated, though not this morning. She has decreased urinary output secondary to her routine dialysis. Otherwise, no further complaints. PAST MEDICAL HISTORY: Chronic kidney disease stage 5D with hemodialysis on Friday, Friday, Friday at the [facility]. She has positive Hepatitis C associated with cirrhosis and ascites, hypertension, insulin-dependent diabetes mellitus type 2, nicotine abuse, anemia of chronic disease, osteodystrophy of chronic disease. PAST SURGICAL HISTORY: She has multiple paracenteses approximately every other week for chronic ascites, AV graft to the right upper arm, cholecystectomy, history of EGD and colonoscopy. SOCIAL HISTORY: She is . She lives with her . Denies any alcohol or current substance abuse. ALLERGIES: Listed as no known drug allergies. HOME MEDICATIONS: 1. Elavil. 2. Calcium acetate. 3. Cymbalta. 4. Neurontin. 5. Methocarbamol. REVIEW OF SYSTEMS: Times 10 with pertinent positives best listed in HPI. VITAL SIGNS: The patient's most recent vital signs are temperature is 98.9 degrees, blood pressure 109/77, heart rate 83, respirations 14. She is on room air, last recorded saturation 100%. She has had 5.5 L removed, 2 L on dialysis, 3.5 L per paracentesis yesterday. LABORATORY DATA: Most recent labs, sodium is 139, potassium 5.5, chloride 102, CO2 22, BUN 47, creatinine is 11.2, her glucose is 78, her anion gap is 15. Calcium is 6.2. Phosphorus 8.8, albumin is 1.9. Her corrected calcium is 7.88 for hypoalbuminemia. The patient's white count 7.47, hemoglobin 9.7, hematocrit is 29.4 with a platelet count of 165,000. Prior to her paracentesis, she had a PT of 14.4, INR 1.03, PTT of 35.7. PHYSICAL EXAMINATION: General: This is a 57-year-old female. She is resting quietly in bed. She appears chronically ill. No acute distress. Skin: Warm and dry. HEENT: Normocephalic, atraumatic. Conjunctiva is pale. She has ADAM. Mucous membranes are dry. Neck: Supple. Trachea midline. She has positive JVD. Cardiovascular: She is regular rate and rhythm. She has an S4 gallop. Lungs: Clear to auscultation bilaterally. Equal excursion. Diminished breath sounds on room air. Abdomen: Remains distended. She has an umbilical hernia in place. Hypo bowel sounds present. Extremities: Have no edema. No clubbing or cyanosis. Genitourinary: Not inspected. Minimal void with dialysis assist. Neurological: Alert and oriented x3. ASSESSMENT AND PLAN: 1. Chronic kidney disease stage 5D. The patient is due for routine dialysis in the a.m. She had her dialysis treatment yesterday evening, tolerated this well. 2. Electrolytes and acid-base balance. These are acceptable. 3. Anemia. This is low but acceptable. 4. Liver cirrhosis with ascites. We will plan for chronically scheduled paracentesis every 2 weeks through our office to assist with patient's fluid volume overload and continue to encourage full dialysis treatments to assist with her fluid volume. 5. Possible infiltrate to the right lower lung. This is followed by the primary care. I would to thank you for allowing us to follow with this patient. Dictated by ARTUR Keith for Noel Price MD Face to face encounter, data reviewed, discussed with Farida Bajwa on 07/28/18. I agree with the above assessment and plan of care. cc: ARTUR Keith MD Amit V. Vora, MD MTDD
[2018-07-28] MEDS: CYMBALTA PO SCH (10:21)
[2018-07-28] MEDS: NEURONTIN PO SCH ×2 (10:22→21:09)
[2018-07-28] MEDS: LEVAQUIN 500 MG/D5W 500 MG/100 ML IVPB IV SCH (18:01)
[2018-07-28] MEDS: ELAVIL PO SCH (21:09)
[2018-07-28] MEDS: ROBAXIN PO SCH (21:09)
--- NOTE | 2018-07-28 21:45 | PROGRESS NOTE ---
DATE: 07/28/2018 SUBJECTIVE: A 57-year-old, female is well known to this hospital with refractory ascites due to hepatitis C and also end-stage kidney disease on dialysis. Apparently, she skipped the dialysis and came in with ascites, worsening of the kidney function tests. The patient had dialysis yesterday and also abdominal paracentesis. The patient is anxious to go home. OBJECTIVE: Vital signs: 99.2, pulse 92. Vitals are stable. HEENT Exam: Within normal limits. Chest: Bilateral air entry. Decreased breath sounds on the right side. Cardiovascular: Heart sounds are regular. Abdomen: Belly is soft. Ascites noted. Neurologic: No obvious neurological deficits. INVESTIGATIONS: CBC: White cell count 7.4, hematocrit 39, platelets 165,000. Sodium 139, potassium 5.5, BUN 47, creatinine 11.2, calcium 6.2. ASSESSMENT AND PLAN: 1. Ascites due to hepatitis C. Paracentesis as needed. 2. Genotype 1B hepatitis C infection. Unable to treat the infection by Dr. Gipson. 3. Hyperkalemia due to skipping the dialysis. Continue hemodialysis as per Dr. Price. 4. Elevation of right hemidiaphragm, stable. 5. Type 2 diabetes, diet controlled. 6. Hypertension, off medication. 7. Peripheral neuropathy. Continue chronic pain medications. 8. Hypocalcemia. Give calcium gluconate. 9. Living will/DNR. 10. Reconcile home medications and continue the hemodialysis and follow up on the blood cultures and poor prognosis and will follow up. cc: MD Agustín Trejo MD
[2018-07-29] MEDS ORDERED: TIGHT: 0.2 ML/HR FOR DIALYSIS MISC PRN (06:08)
[2018-07-29] MEDS ORDERED: NS 2,000 ML MISC PRN (06:08)
[2018-07-29] MEDS ORDERED: HEPARIN IV PRN (06:08)
[2018-07-29 07:36] LABS: PHOSPHORUS 9.9 mg/dL (2.7-4.5)
[2018-07-29 07:49] LABS: CREATININE 12.3 mg/dL (0.5-0.9); POTASSIUM 6.1 mmol/L (3.5-5.1)
[2018-07-29] MEDS: PHOSLO PO SCH ×3 (07:49→17:23)
[2018-07-29] MEDS: PRILOSEC PO SCH (07:49)
[2018-07-29 07:50] LABS: CALCIUM 6.5 mg/dL (8.8-10.2)
[2018-07-29] MEDS: HUMALOG SUBQ SCH ×5 (07:50→22:20)
[2018-07-29] MEDS: CALCIUM GLUCONATE 2 GM in NS 100 ML IV ONE (08:53)
[2018-07-29] MEDS: NEURONTIN PO SCH ×2 (08:53→22:14)
[2018-07-29] MEDS: CYMBALTA PO SCH (08:53)
[2018-07-29] MEDS ORDERED: ALBUMIN 25% IV ONE (09:00)
[2018-07-29] MEDS: MORPHINE IV PRN ×4 (09:02→22:15)
--- NOTE | 2018-07-29 10:33 | Diag Imaging Result Doc PS360 ---
EXAM: US ABD PARACENTESIS W S/I HISTORY: ascities TECHNIQUE: Ultrasound-guided paracentesis COMPARISON: None. FINDINGS: Prior to the procedure I discussed the risk and benefits with the patient. Primary risks include bleeding, infection, bowel injury, and liver injury. Questions were answered. Consent was given. The permit was signed. Ultrasound was used to localize the largest fluid collection in the right abdomen. This area was cleaned and draped in the normal fashion. Lidocaine was used as a local anesthetic. Needle and catheter were advanced into the fluid collection on the first attempt without difficulty. The needle was withdrawn. The catheter was hooked to suction. Approximately 5.3 L of thin yellowish fluid were withdrawn without difficulty. The catheter was then withdrawn. No immediate postprocedural complications. IMPRESSION: Successful ultrasound-guided paracentesis. Electronically signed by Hussein Knox 07/29/2018 10:31 AM
[2018-07-29] MEDS: LEVAQUIN 500 MG/D5W 500 MG/100 ML IVPB IV SCH (18:01)
--- NOTE | 2018-07-29 18:49 | NEPHROLOGY PROGRESS NOTE ---
DATE: 07/29/2018 SUBJECTIVE: She had another paracentesis today with total volume of 5.3 L. She is complaining of some back pain but no other new complaints. No nausea or vomiting, etc. OBJECTIVE: Vital Signs: Blood pressure 132/86, heart rate 60, respirations 20, afebrile. She is currently on dialysis. General: No acute distress. Skin: Warm and dry. Eyes: Conjunctivae are pink. Neck: Veins are not appreciated. Heart: Regular with gallop. Lungs: Equal. No crackles. Abdomen: Soft, nontender. Bowel sounds present. Extremities: Minimal edema. No clubbing or cyanosis. IMPRESSION: Chronic kidney disease 5D. She has moderate hyperkalemia today, 6.1. Hemoglobin is stable. Volume status improved. Plan for 3 L ultrafiltration 2K bath today. Okay for discharge thereafter and we will arrange for her to have scheduled outpatient paracenteses every 2 weeks. cc: MD Agustín Badillo MD
--- NOTE | 2018-07-29 19:59 | PROGRESS NOTE ---
DATE: 07/29/2018 SUBJECTIVE: Patient complains of distention and she lives by herself. PHYSICAL EXAMINATION: Vital Signs: Temperature is 98 degrees. Vitals are stable, 148 pounds. HEENT: Within normal limits. Neck: Supple. Chest: Decreased breath sounds, right side. Heart: Sounds are regular. Abdomen: Belly is soft, distended. INVESTIGATIONS: Sodium 137, potassium 6.1, chloride 100, BUN 52, creatinine 12.3, calcium 6.5. ASSESSMENT AND PLAN: 1. Ascites. Will repeat paracentesis today. 2. End-stage kidney disease, on dialysis. Will hold the discharge and after these procedures, if she is stable, will discharge. Continue present treatment. LEVEL OF DOCUMENTATION: 25 minutes. cc: MD Agustín Trejo MD
[2018-07-29] MEDS: ELAVIL PO SCH (22:15)
[2018-07-29] MEDS: ROBAXIN PO SCH (22:15)
[2018-07-30] MEDS: MORPHINE IV PRN ×3 (03:02→08:03)
[2018-07-30] MEDS: PRILOSEC PO SCH (06:56)
[2018-07-30] MEDS: PHOSLO PO SCH (06:56)
[2018-07-30 07:29] LABS: CREATININE 7.1 mg/dL (0.5-0.9); POTASSIUM 4.6 mmol/L (3.5-5.1)
[2018-07-30 07:30] LABS: ALBUMIN 2.5 g/dL (3.5-5.0); PHOSPHORUS 5.6 mg/dL (2.7-4.5)
[2018-07-30] MEDS ORDERED: CALCIUM GLUCONATE 1 GM in NS 50 ML IV ONE (07:48)
[2018-07-30] MEDS: NEURONTIN PO SCH (08:04)
[2018-07-30] MEDS: CYMBALTA PO SCH (08:04)
[2018-07-30 08:16] VITALS: BP 115/86
[2018-07-30] MEDS: HUMALOG SUBQ SCH (08:24)
[2018-07-30] MEDS: CALCIUM GLUCONATE 2 GM in NS 100 ML IV ONE (09:53)
--- NOTE | 2018-07-30 13:55 | NEPHROLOGY PROGRESS NOTE ---
DATE: 07/30/2018 DATE AND TIME OF EXAM: 07/30/2018 at 0650 hours. SUBJECTIVE: Ms. Cheney is resting quietly in bed. States that she got hot during the evening; otherwise, denies any fever or chills. OBJECTIVE: Her most recent vital signs: Last temperature 98.8 degrees, blood pressure 112/78, heart rate 90, respirations 16. She is on room air. Last recorded saturation is 95%. She has had 1200 in; she has had 3 L removed on dialysis. General: This is a 57-year-old female resting quietly in bed. Her skin is warm and dry. She is in no acute distress. HEENT: Normocephalic, atraumatic. Conjunctiva is pale pink. She has ADAM. Mucous membranes are dry. Neck: Supple. Trachea midline. No evidence of JVD. Cardiovascular: She is regular rate and rhythm. She is without murmur or gallop. Lungs: Clear to auscultation bilaterally. Equal excursion on room air. Abdomen: Nontender, slightly distended. Hypo bowel sounds. Genitourinary: Not inspected. Minimal void with dialysis assist. Extremities: Have no edema, no clubbing or cyanosis. Neurological: Alert and oriented x3. LABORATORY DATA: Sodium 139, potassium 4.6, chloride 101, CO2 29. BUN 22, creatinine 7.1, glucose 108. Her anion gap is 9, calcium 7, phosphorus 5.6 with an albumin of 2.5. The patient has a corrected hypoalbuminemia calcium of 8.2. She has a previous hemoglobin of 9.7 on the twenty-. ASSESSMENT AND PLAN: 1. Chronic kidney disease stage 5 D. The patient will plan for hemodialysis in the morning. She has been instructed that if she is discharged, she is to go to her outpatient dialysis clinic appointment. 2. Electrolytes and acid-base balance. These are acceptable. 3. Anemia; this remains low, but stable. 4. Abdominal ascites. Patient had a paracentesis on arrival on Friday and yesterday. We have discussed that we will schedule a planned paracentesis every 2 weeks on an outpatient basis. I would like to thank you for allowing us to follow with this patient. Dictated by ARTUR Keith for Noel Price MD Face to face encounter, data reviewed, discussed with Farida Bajwa on 07/30/18. I agree with the above assessment and plan of care. cc: ARTUR Keith MD Amit V. Vora, MD MTDD
--- NOTE | 2018-08-02 01:41 | DISCHARGE SUMMARY ---
ADMISSION DATE: 07/27/2018 DISCHARGE DATE: 07/30/2018 DISCHARGING DIAGNOSES: 1. Intractable ascites due to hepatitis C infection, genotype 1B, not amenable to treatment. Needs once a week therapeutic paracentesis, as scheduled by Dr. Price. 2. Hyperkalemia due to end-stage kidney disease, abnormal chest x-ray with right hemidiaphragm elevation. 3. Cirrhosis of liver due to chronic hepatitis C infection. 4. End-stage kidney disease on hemodialysis with right arteriovenous graft. 5. Type 2 diabetes, diet controlled. 6. Hypertension, off medication. 7. Peripheral neuropathy causing chronic pain due to diabetes. CONSULTS: Dr. Price. PROCEDURES: 1. Abdominal paracentesis x2. 2. End-stage kidney disease on dialysis requiring for the hyperkalemia. BRIEF HISTORY: Please see the H and P that was done on 07/27/2018. In brief, she is a 57-year- old, female skipping the dialysis, unable to go for abdominal paracentesis. Came in with hyperkalemia, worsening of kidney function tests, and ascites. HOSPITAL COURSE: Patient was given paracentesis x2 and consecutive hemodialysis. After that, her condition is stable. The rest of the hospital course was uneventful. Patient is anxious to go home. LABS: At the time of discharge as follows, CBC: White cell count 7.4, hematocrit 29, platelets 165,000. Sodium 139, potassium 4.6, chloride 101, BUN 22, creatinine 7.1. Glucose 108, calcium 7.0. Blood cultures were negative. DISCHARGE INSTRUCTIONS: 1. Outpatient hemodialysis as per Dr. Price. 2. Outpatient schedule for abdominal paracentesis for tense ascites as needed. 3. Living will, DO NOT RESUSCITATE. 4. Fluid restrictions. 5. Neurontin 300 p.o. b.i.d., calcium acetate 2 capsules with meals t.i.d., duloxetine 60 daily, Elavil 10 at bedtime, Robaxin 500 daily, Prilosec 40 daily, hydroxyzine as needed, nebulizers q.6 hours as needed. The patient has been off on blood pressure medicines and diabetic medicines. 6. For chronic pain, the patient is asking for [place] as needed. The patient in the past seen by pain specialist. cc: MD Agustín Trejo MD
== END 2018-07-30 10:49 | disposition home health service (06) | DRG 432 ==
LOC: ED 12:54 → 4N 18:31
PROVIDERS: ADMIT Internal Medicine; ATTEND Internal Medicine
CPT/HCPCS: 49082; 49083; 71010; 71045; 74176; 80048; 80053; 80069; 80076; 82042; 82150; 82550; 82553; 82945; 82948; 83605; 83615; 83735; 83986; 84100; 84484; 85025; 85610; 85730; 87040; 87205; 88112; 89051; 93005; 93010; 94761; 96374; 96375; 99285; A9270; J0610; J1170; J1644; J1815; J1956; J2270; J2405; J7030; P9047; XXXXX

== ENCOUNTER 2018-08-21 13:02 | Inpatient (IN) ==
--- NOTE | 2018-08-21 14:33 | PROVIDER DOCUMENTATION ---
[id number] - General Chief Complaint: Fall Stated Complaint: FALL Time Seen by Provider: 08/21/18 14:03 Allergies/Adverse Reactions: Patient Allergies Allergy/AdvReac Type Severity Reaction Status Date / Time No Known Allergies Allergy Verified 07/01/18 15:40 Home Medications: Home Medication List Medication Instructions Recorded Confirmed Last Taken Type Gabapentin [Neurontin] 300 mg PO BID 01/16/17 08/12/18 08/11/18 21:00 History Calcium Acetate 2 cap PO AC 01/25/17 08/12/18 08/11/18 21:00 History Duloxetine HCl 60 mg PO DAILY 08/26/17 08/12/18 08/11/18 08:00 History Amitriptyline [Elavil] 10 mg PO HS 08/27/17 08/12/18 08/11/18 21:00 History Methocarbamol [Robaxin] 500 mg PO QHS 08/27/17 08/12/18 08/11/18 21:00 History Albuterol 2.5MG/Ipratrop 0.5MG 3 ml INH Q6H PRN PRN neb 05/26/18 08/12/18 08/11/18 21:00 Rx [Duoneb (A & A)] Omeprazole [Prilosec] 40 mg PO DAILY@0700 cap 05/26/18 08/12/18 08/11/18 08:00 Rx Hydroxyzine HCl 1 tab PO Q8H PRN 06/15/18 08/12/18 08/11/18 21:00 History - History of Present Illness -Trauma Nature of Presenting Problem: reports s/p fall face down last night while ambulating to the bathroom. complaint of headache, diplopia upon awaking up, right knee pain, left lower quadrant pain, and b/l shoulder pain. pt has history of ESRD and cirrhosis. decreased appetite. no fever chills. Review of Systems - Adult - REVIEW OF SYSTEMS - ADULT Constitutional: reports: no symptoms reported Eyes: reports: no symptoms reported Ears, Nose, Mouth & Throat: reports: no symptoms reported Cardiovascular: reports: no symptoms reported Respiratory: reports: no symptoms reported Gastrointestinal: reports: no symptoms reported Genitourinary: reports: no symptoms reported Musculoskeletal: reports: no symptoms reported Integumentary: reports: no symptoms reported Neurological: reports: no symptoms reported Psychiatric: reports: no symptoms reported Endocrine: reports: no symptoms reported Hematologic/Lymphatic: reports: no symptoms reported Allergic/Immunologic: reports: no symptoms reported All Other Systems: Reviewed and Negative Past History - Adult - PAST MEDICAL HISTORY-ADULT Review of Records: reports: Old Records Reviewed, Nursing Assessment Review, Medications Reviewed, Social history reviewed & non-contributory. Major Childhood Illnesses: reports: denies history Cardiovascular: reports: CAD, CHF, HTN Respiratory: reports: asthma Gastrointestinal: reports: liver disease Obstetrical/Gynecological: reports: denies history Genitourinary: reports: dialysis, kidney disease, kidney stones, other (stents in kidneys ) Musculoskeletal: reports: arthritis, chronic pain (neuropathy) Neurological: reports: other (diabetic BLE peripheral neuropathy) Psychiatric: reports: denies history Endocrine/Immune: reports: anemia, Diabetes Other Conditions: reports: denies history - PRIOR SURGERIES/PROCEDURES Surgical/Procedure History: reports: cholecystectomy, other (stents in kidney) - PRIOR HOSPITALIZATIONS Prior Hospitalizations: reports: for other non-related - IMMUNIZATION STATUS Childhood Immunizations: See Nurse Assessment Flu Vaccine: See Nurse Assessment - FAMILY HISTORY Family History: reviewed, not pertinent - SOCIAL HISTORY Smoking: denies Substance Use: none/never Alcohol Use Frequency: never Living Situation: family Physical Exam-Injury Related - Physical Exam-Injury Related Initial Vital Signs Reviewed: Yes General Appearance: alert, moderate distress Eyes: PERRL/EOMI, scleral icterus (mild) Head, Ears, Nose, Mouth & Throat: normocephalic/atraumatic, moist mucous membranes, frontal tenderness (on palpation) Neck: non-tender, full range of motion Respiratory: chest non-tender, lungs clear Cardiovascular: normal peripheral pulses, regular rate, rhythm Abdominal Exam: normal bowel sounds, distended, hernia (umbilical), other (tenderness on palpation of the left lower quadrant) Back Exam: normal inspection, no CVA tenderness Extremity: normal range of motion, pelvis stable, other (tenderness at the right knee. mild abrasion seen, nonbleeding.) Integumentary: normal color, warm/dry Neurologic: grossly normal Psych/Mental Status: oriented x 3 - Glascow Coma Score Best Eye Response (Sunitha): (4) open spontaneously Best Verbal Response ([place]): (5) oriented Best Motor Response (Sunitha): (6) obeys commands Progress - PLAN OF CARE/RESULTS Progress/Plan/Lab Results: Vital Signs - 8 hr 08/21/18 13:42 Temperature 97.8 F Pulse Rate 61 Respiratory Rate 18 Blood Pressure 88/66 O2 Sat by Pulse Oximetry 95 Laboratory Results - last 24 hr 08/21/18 08/21/18 15:00 15:00 WBC 6.91 RBC 3.81 L Hgb 9.9 L Hct 29.7 L MCV 78.0 L MCH 26.0 L MCHC 33.3 RDW Std Deviation 14.9 H Plt Count 197 MPV 11.0 H Immature Gran % (Auto) 0.0 Neut % (Auto) 50.7 Lymph % (Auto) 39.9 [place] % (Auto) 7.1 Eos % (Auto) 1.9 Baso % (Auto) 0.4 Immature Gran # (Auto) 0.00 Neut # (Auto) 3.50 Lymph # (Auto) 2.76 [place] # (Auto) 0.49 Eos # (Auto) 0.13 Baso # (Auto) 0.03 Sodium 135 L Potassium 8.0 H* Chloride 101 Carbon Dioxide 19 L Anion Gap 15 BUN 74 H Creatinine 15.5 H* Estimated GFR/1.73 m2 3 BUN/Creatinine Ratio 5 Glucose 124 H Calculated Osmolality 293 Calcium 6.8 L* Total Bilirubin 0.17 L AST 35 H ALT 18 Alkaline Phosphatase 95 Total Protein 6.3 Albumin 1.8 L Globulin 4.5 Albumin/Globulin Ratio 0.4 Orders Category Date Time Status Admit - [facility] Routine AdmDCTranf 08/21/18 17:33 Active Dialysate Bath: DIRECTED Care 08/21/18 14:40 Completed Dialysate Flow: DIRECTED Care 08/21/18 14:40 Completed Dialysis Blood Flow: DIRECTED Care 08/21/18 14:40 Completed Dialysis Machine Settings: DIRECTED Care 08/21/18 14:40 Completed Dialysis Treatment Time: DIRECTED Care 08/21/18 14:40 Completed Dialysis Treatment Weight ROUTINE Care 08/21/18 14:40 Active Dialysis UF Removal Amount: DIRECTED Care 08/21/18 14:40 Completed Dialyzer Type: DIRECTED Care 08/21/18 14:40 Completed NRSG - Obtain Dialysis Consent NOW Care 08/21/18 14:40 Completed Vital Signs Order ARRIVAL TO ROOM Care 08/21/18 17:[address] ABDOMEN/PELVIS W/O CONTRAST [CT] Stat Exams 08/21/18 14:[address] HEAD W/O CONTRAST [CT] Stat Exams 08/21/18 14:27 Completed KNEE 3 VIEWS RIGHT [RAD] Stat Exams 08/21/18 14:27 Ordered CBC WITH ELECTRONIC DIFF [HEME] Stat Lab 08/21/18 15:00 Completed CMP [COMPREHENSIVE METABOLIC PANEL] [CHEM] Stat Lab 08/21/18 15:00 Completed HGB AND HCT [HEME] Q6H Lab 08/21/18 17:35 Uncollected HGB AND HCT [HEME] Q6H Lab 08/21/18 23:35 Uncollected HGB AND HCT [HEME] Q6H Lab 08/22/18 05:35 Uncollected PROTIME WITH INR [COAG] Stat Lab 08/21/18 15:51 Ordered PTT [COAG] Stat Lab 08/21/18 15:51 Ordered 0.9% Sodium Chloride Inj [Ns] 2,000 ml Med 08/21/18 14:40 Discontinued MISC As Directed mls/hr 0.9% Sodium Chloride Inj [Ns] 500 ml Med 08/21/18 14:35 Discontinued IV Wide Open mls/hr Heparin Med 08/21/18 14:40 Discontinued 3,000 unit IV BOLUS PRN Hydrocodone/APAP 10 mg/325 mg [[place]-10] Med 08/21/18 15:24 Discontinued 1 each PO NOW [facility] [address] [facility] [address], [place] [address] Department of Imaging Patient: GARETT CONCEPCION ADM Date: 08/21/18 MR#: [id number] : 1960 ADM Status: REG ER Age/Sex: 57/F Room/Bed: Loc: ED Ordering Physician: Maria Elena Newby MD Family Physician: Arias Hammonds MD Reason for Procedure: s/p fall ___ Signed EXAM: CT ABDOMEN/PELVIS W/O CONTRAST HISTORY: s/p fall TECHNIQUE: CT abdomen and pelvis without contrast COMPARISON: 07/27/2018 FINDINGS: There has been partial clearing in the right lung base. Trace right pleural fluid. No pneumothoraces in the lower lungs. The liver is nodular and the gallbladder has been removed. Spleen is not enlarged. Hypodense area through the mid spleen has developed since the prior exam. Normal pancreas and adrenal glands. The kidneys are unchanged. No retroperitoneal hematoma. Severe atherosclerosis. No aortic aneurysm. There is prominent ascites. The bowel loops are not dilated. Urinary bladder is mild to moderately distended. The uterus is small. No fracture identified. IMPRESSION: Splenic laceration. No large perisplenic hematoma. No other interval change. This report was discussed with Dr. Newby in the emergency room on 08/21/2018 at 3:35 PM and was readback. This exam was performed using automated exposure control, adjustment of mA or kV according to patient size, and/or use of iterative reconstruction technique. Electronically signed by Hussein Knox 08/21/2018 3:38 PM 08/21/18 1538 Interpreting Physician: Hussein Knox MD Dictated Date/Time: 08/21/18 1531 cc: Maria Elena Newby MD; Arias Hammonds MD [address], [place] [address] Department of Imaging Patient: GARETT CONCEPCION ADM Date: 08/21/18 MR#: [id number] : 1960 ADM Status: REG ER Age/Sex: 57/F Room/Bed: Loc: ED Ordering Physician: Maria Elena Newby MD Family Physician: Arias Hammonds MD Reason for Procedure: s/p fall __ _ Signed EXAM: CT HEAD W/O CONTRAST HISTORY: s/p fall TECHNIQUE: CT head without contrast COMPARISON: 12/11/2017 FINDINGS: No parenchymal hemorrhage. No epidural or subdural hematoma. No subarachnoid hemorrhage. Mild atrophy. No mass identified on this noncontrasted exam. No hydrocephalus. No skull fracture. IMPRESSION: No hemorrhage. No injury. This exam was performed using automated exposure control, adjustment of mA or kV according to patient size, and/or use of iterative reconstruction technique. Electronically signed by Hussein Knox 08/21/2018 3:20 PM 08/21/18 1520 Interpreting Physician: Hussein Knox MD Dictated Date/Time: 08/21/18 1519 cc: Maria Elena Newby MD; Arias Hammonds MD Result Diagrams: 08/21/18 15:00 08/21/18 15:00 - CONSULTS/PCP/HOSPITALIST Notification #1 *Consult/PCP/Hospitalist*: Dr. Hinson Time Discussed: 16:36 (will see in dialysis. ) Reason/Comments: splenic laceration Consult Disposition: Admit #2 Consult: Dr. Canchola Time Discussed: 17:37 Consult Disposition: Admit Departure - Departure Date of Disposition Decision: 08/21/18 Time of Disposition Decision: 17:37 DIAGNOSIS: Splenic laceration, Hyperkalemia, Cirrhosis of liver with ascites, ESRD (end stage renal disease) on dialysis Disposition: ADMITTED INPATIENT 09 Certified Medical Emergency: Emergent Condition: Stable Referrals and Follow-Ups: Arias Hammonds MD [Primary Care Provider] - - Critical Care Note This patient required my direct & personal management of CC.: No Attestation - Physician/ JULISA Attestation The physician spent face to face time with patient:: Yes Advanced Practice Provider documentation review:: Supervising physician onsite and consulted in the evaluation and care of this patient. The physician did have a face to face encounter with the patient.
[2018-08-21] MEDS ORDERED: NS 500 ML IV ONE (14:35)
[2018-08-21] MEDS ORDERED: HEPARIN IV PRN (14:40)
[2018-08-21] MEDS ORDERED: NS 2,000 ML MISC PRN (14:40)
[2018-08-21 15:18] LABS: BASO# 0.03 X1000 (0.0-0.2); BASO% 0.4 % (0.0-0.8); EOS# 0.13 X1000 (0.0-0.7); EOS% 1.9 % (0.0-10.0); HEMATOCRIT 29.7 % (37.0-47.0); HEMOGLOBIN 9.9 g/dL (12.0-16.0); LYMPH# 2.76 X1000 (1.2-3.4); LYMPH% 39.9 % (20.5-51.1); MCHC 33.3 g/dL (33-37); MONO# 0.49 X1000 (0.11-0.59); MONO% 7.1 % (1.7-9.3); NEUT% 50.7 % (42.2-75.2); PLT 197 X1000 (130-400); RBC 3.81 XMIL (4.2-5.4); RDW 14.9 % (11.5-14.5); WBC 6.91 X1000 (4.8-10.8)
--- NOTE | 2018-08-21 15:23 | Diag Imaging Result Doc PS360 ---
EXAM: CT HEAD W/O CONTRAST HISTORY: s/p fall TECHNIQUE: CT head without contrast COMPARISON: 12/11/2017 FINDINGS: No parenchymal hemorrhage. No epidural or subdural hematoma. No subarachnoid hemorrhage. Mild atrophy. No mass identified on this noncontrasted exam. No hydrocephalus. No skull fracture. IMPRESSION: No hemorrhage. No injury. This exam was performed using automated exposure control, adjustment of mA or kV according to patient size, and/or use of iterative reconstruction technique. Electronically signed by Hussein Knox 08/21/2018 3:20 PM
[2018-08-21] MEDS ORDERED: NORCO-10 PO ONE (15:24)
--- NOTE | 2018-08-21 15:40 | Diag Imaging Result Doc PS360 ---
EXAM: CT ABDOMEN/PELVIS W/O CONTRAST HISTORY: s/p fall TECHNIQUE: CT abdomen and pelvis without contrast COMPARISON: 07/27/2018 FINDINGS: There has been partial clearing in the right lung base. Trace right pleural fluid. No pneumothoraces in the lower lungs. The liver is nodular and the gallbladder has been removed. Spleen is not enlarged. Hypodense area through the mid spleen has developed since the prior exam. Normal pancreas and adrenal glands. The kidneys are unchanged. No retroperitoneal hematoma. Severe atherosclerosis. No aortic aneurysm. There is prominent ascites. The bowel loops are not dilated. Urinary bladder is mild to moderately distended. The uterus is small. No fracture identified. IMPRESSION: Splenic laceration. No large perisplenic hematoma. No other interval change. This report was discussed with Dr. Newby in the emergency room on 08/21/2018 at 3:35 PM and was readback. This exam was performed using automated exposure control, adjustment of mA or kV according to patient size, and/or use of iterative reconstruction technique. Electronically signed by Hussein Knox 08/21/2018 3:38 PM
[2018-08-21 15:52] LABS: ALB/GLOB RATIO 0.4; ALBUMIN 1.8 g/dL (3.5-5.0); TOTAL BILIRUBIN 0.17 mg/dL (0.20-1.00); TOTAL PROTEIN 6.3 g/dL (6.3-8.3)
[2018-08-21 15:53] LABS: CALCIUM 6.8 mg/dL (8.8-10.2); CREATININE 15.5 mg/dL (0.5-0.9)
--- NOTE | 2018-08-21 19:09 | Diag Imaging Result Doc PS360 ---
EXAM: KNEE 3 VIEWS RIGHT INDICATION: s/p fall TECHNIQUE: 3 views COMPARISON: 02/17/2018 FINDINGS: There is no discrete fracture, dislocation, or significant intrinsic osseous lesion. There are stable subcortical degenerative cysts at the joint surface of the patella. There is mild stable narrowing of the medial compartment. There is atherosclerotic calcification. Surrounding soft tissues are essentially unremarkable, otherwise. IMPRESSION: Stable knee with no evidence of acute pathology. Electronically signed by Todd Duke 08/21/2018 7:07 PM
[2018-08-21] MEDS ORDERED: KAYEXALATE PO ONE (19:56)
[2018-08-21] MEDS ORDERED: ZOFRAN ODT PO ONE (20:59)
[2018-08-21 22:13] LABS: HEMATOCRIT 31.4 % (37.0-47.0); HEMOGLOBIN 10.3 g/dL (12.0-16.0)
[2018-08-21 22:21] LABS: INR 1.08; PROTIME 14.9 Seconds (11.0-16.0); PTT 28.8 Seconds (22.3-41.8)
--- NOTE | 2018-08-21 23:00 | HISTORY AND PHYSICAL ---
HISTORY OF PRESENT ILLNESS: Ms. Cheney is a 57-year-old female, a patient of Dr. Hammonds, comes to the emergency room after history of fall. She was trying to go to the bathroom on account of urgency and she fell. She fell and hit her jaw as well as her rib cage. She has a known case of cirrhosis of the liver as well as end-stage renal disease and, because of the pain, she came to the emergency room, where CT scan of her abdomen had revealed a splenic laceration, prominent ascites, and bladder was [id number] distended. The liver was nodular and the gallbladder was removed. She had a cholecystectomy, she had some jaw surgery, and she had a shunt placed in the right upper arm for dialysis. She gets dialysis 3 times a week under the direction of Dr. Price. REVIEW OF SYSTEMS: Otherwise unremarkable. MEDICATIONS: Include hydrocodone, she also takes gabapentin 300 mg twice a day, calcium acetate, duloxetine 60 mg daily, amitriptyline 10 mg at bedtime, methocarbamol 500 mg at bedtime, albuterol, DuoNeb 4 times a day, omeprazole, and hydroxyzine. PHYSICAL EXAMINATION: GENERAL: Ms. Cheney is alert, oriented. VITAL SIGNS: Reveal temperature normal, pulse 61 per minute, respiratory rate 18 per minute, blood pressure 88/66. HEENT: Head normocephalic. PERRLA. Fundus examination normal. NECK: Supple. JVP normal. ENT: Unremarkable. There is no evidence of lymphadenopathy, thyroid enlargement, pedal edema, calf tenderness, anemia, cyanosis or clubbing. Pedal pulses well felt. She has a pair of skin and mucous membrane. BREAST: Not done. CHEST: Normal on inspection. LUNGS: Clear on auscultation. PMI is in the normal position. HEART: Sounds normal. No murmur, gallop or rub noted. ABDOMEN: Grossly distended because of ascites. There is some tenderness in the left upper quadrant of abdomen. No guarding, rigidity, free fluid, masses, or organomegaly. Bowel sounds normal. RECTAL: Deferred. SAP PPM CONSULTANT: Higher functions normal. Cranial nerves normal. Motor and sensory system examination unremarkable. Deep tendon reflexes normal. Plantars downgoing. Skull and spine examination normal for age. No cerebellar signs or signs of meningeal irritation on locomotor exam. SKIN: Unremarkable. IMPRESSION: The patient has abdominal pain following history of fall. There is a laceration of the spleen. She has end-stage renal failure, potassium is 8.0. She has gross ascites. We are going to get a surgical consultation for spleen laceration, and we will also get a Nephrology consult with Dr. Price. Will get Kayexalate at the present time. cc: MD Gonzalo Elena MD
--- NOTE | 2018-08-21 23:50 | GENERAL SURGERY CONSULTATION ---
DATE: 08/21/2018 HISTORY OF PRESENT ILLNESS: This 57-year-old female who has a history of end- stage renal disease and cirrhosis with large volume ascites who undergoes 3 times weekly dialysis. She missed her dialysis on Friday. She had a fall yesterday had some left side abdominal pain. She came the ER. She was taken from the ER to dialysis after a CT scan was obtained that showed splenic laceration is non con scan but there is no obvious perisplenic hematoma. She had marginal blood pressures on arrival but apparently this improved with IV fluids. In dialysis she has been hemodynamically stable is actually eating dinner. MEDICAL HISTORY: Cirrhosis and end-stage renal disease with recurrent ascites. SURGICAL HISTORY: Denies abdominal operations. SOCIAL HISTORY: History of alcohol a pack a day currently, has 1 child. REVIEW OF SYSTEMS: Abdominal distention, left-sided pain otherwise 10 point. FAMILY HISTORY: Reviewed, noncontributory. Temperature 97.8 degrees, pulse 61, blood pressure was 88/66 but this did improve, oxygen saturation 95%, she is 135 pounds, 5 foot 6. General: She is alert, no acute distress in dialysis. HEENT: No scleral icterus. No cervical mass. Cardiovascular: She has upper extremity on the right arteriovenous fistula. Her abdomen is protuberant, soft with no obvious injury. There is no peritonitis but some subjective tenderness over the left side of her abdomen. Peripheral vascular: She does have some lower extremity edema but no bony tenderness on musculoskeletal exam. No chest wall tenderness. LAB: White count 6, hematocrit 29, platelets 197,000. Potassium is 8.0, creatinine is 15.5, bilirubin 0.17, AST, ALT, and alkaline phosphatase are normal. She does not have an INR. I reviewed her CT scan that shows a splenic laceration. I do not see a large splenic hematoma but she does have a large volume ascites which makes this somewhat difficult. Her hematocrit is low but I do not have a baseline to compare this to. INR August 12 was 1.02. ASSESSMENT AND PLAN: A 57-year-old female multiple medical issues. She has what appears to be a splenic laceration related to a fall. Will monitor this with serial hematocrit. She is being admitted to Dr. Jesika feliciano. Will keep her NPO. I am going to order an INR as well as serial labs overnight. As long she remains hemodynamically stable with no peritonitis will observe this and treat it nonoperatively as it is at least 24 hours. cc: MD Gonzalo Phoenix MD MTDD
[2018-08-22] MEDS ORDERED: NORCO-5 PO ONE (00:40)
[2018-08-22 02:58] LABS: HEMOGLOBIN 12.3 g/dL (12.0-16.0)
[2018-08-22] MEDS ORDERED: TIGHT: 0.2 ML/HR FOR DIALYSIS MISC PRN (06:05)
[2018-08-22] MEDS ORDERED: NS 2,000 ML MISC PRN (06:05)
[2018-08-22 08:24] LABS: HEMATOCRIT 30.9 % (37.0-47.0); HEMOGLOBIN 10.1 g/dL (12.0-16.0)
[2018-08-22 08:39] LABS: ALBUMIN 1.8 g/dL (3.5-5.0); CALCIUM 6.9 mg/dL (8.8-10.2); CREATININE 10.8 mg/dL (0.5-0.9); PHOSPHORUS 7.6 mg/dL (2.7-4.5); POTASSIUM 5.9 mmol/L (3.5-5.1)
[2018-08-22] MEDS ORDERED: ALBUMIN 25% IV ONE (09:30)
[2018-08-22 13:31] LABS: HEMATOCRIT 31.1 % (37.0-47.0)
--- NOTE | 2018-08-22 18:32 | GENERAL SURGERY PROGRESS NOTE ---
DATE: 08/22/2018 SUBJECTIVE: She is in dialysis this morning. She had dialysis here last night as well. Potassium down to 5.9. The abdominal pain is improved. She remains distended with ascites, but soft. No peritonitis. I reviewed her labs. Hematocrit has fluctuated some; it was up to 37, is back to 30, which is stable from admission. ASSESSMENT AND PLAN: A 57-year-old female with cirrhosis, ascites and end-stage renal disease. She had a fall with a splenic laceration. It appears on a noncontrast computed tomography scan. Hematocrit has been stable and exam remains benign. We will follow her closely going forward. cc: MD Gonzalo Phoenix MD
--- NOTE | 2018-08-22 19:09 | NEPHROLOGY CONSULTATION ---
DATE: 08/22/2018 REASON FOR CONSULTATION: Hyperkalemia and end-stage kidney disease. PHYSICIAN REQUESTING CONSULT: Dr. Newby, and I was contacted directly by him from the emergency room regarding possible splenic laceration and hyperkalemia. HISTORY OF PRESENT ILLNESS: Ms. Cheney is a 57-year-old, woman, who is well known to us. She has known hepatic cirrhosis, congestive heart failure, ESRD. She has been very noncompliant with her dialysis prescription of late. She also has a history of hepatitis C as a cause of her cirrhosis. Diabetes, ongoing tobacco use, hypertension. She has missed several of her recent dialysis treatments stating it was because of diarrhea and that her diarrhea interrupts her dialysis treatment and so she simply skipped. She fell at home and suffered abdominal pain, prompting her visit to the emergency room. She does relate weakness prior to this. Her evaluation in the emergency room disclosed a possible splenic laceration without significant perisplenic hematoma. This prompted surgical evaluation. Her potassium was 8 at the time as well. There was no EKG performed. Again, I was contacted directly from the ER and we arranged for emergency hemodialysis. This was performed yesterday. She is seen today during dialysis. She relates the above history, but states she is overall improved from yesterday. Weakness has improved. Still has some abdominal discomfort. No shortness of breath, nausea or vomiting. PAST MEDICAL HISTORY: As above. HOME MEDICATIONS: Include hydrocodone, gabapentin, calcium acetate, Duloxetine, amitriptyline, methocarbamol. Albuterol, DuoNeb, omeprazole, hydroxyzine. ALLERGIES: None. SOCIAL HISTORY: She is . Lives with her . Ongoing tobacco use. FAMILY HISTORY: Otherwise noncontributory. REVIEW OF SYSTEMS: Otherwise negative. PHYSICAL EXAMINATION: Vital Signs: Blood pressure 119/77, heart rate 82, respirations 16, afebrile. Generally: No acute distress. Chronically ill-appearing. Skin: Warm and dry. HEENT: Conjunctivae are pale pupils are equal. Oropharynx is clear. Neck: Supple. Trachea is midline. Neck vein distention is not present. Heart: PMI nondisplaced. Regular rate and rhythm without gallops or murmurs. Positive S4. Lungs: Have equal breath sounds. No crackles or wheezes. Abdomen: Distended, soft, nontender. Bowel sounds are present. No organomegaly. Extremities: Have no edema, clubbing or cyanosis. IMPRESSION: 1. Hyperkalemia. Improved overnight with dialysis. Potassium 5.9 today. Again, she is currently undergoing dialysis using a 2 potassium bath for 3.5 hours. 2. Chronic kidney disease 5D. As above. Euvolemic. We discussed her dialysis noncompliance in this relationship to her current illness. 3. Splenic laceration. No heparin today. We will follow. cc: MD Gonzalo Badillo MD
--- NOTE | 2018-08-23 13:06 | PROGRESS NOTE ---
DATE: 08/23/2018 SUBJECTIVE: Ms. Cheney is much more alert today. Abdomen is soft, less distended, nontender. Her vital signs are stable. CT scan of the head was negative. Her calcium has come up to 6.9. Hemoglobin is 10, hematocrit 30.1. Potassium is down to 5.9. Overall condition is better. She is on renal diet now. Will continue with the current management. -1 cc: MD Gonzalo Elena MD
--- NOTE | 2018-08-23 13:50 | GENERAL SURGERY PROGRESS NOTE ---
DATE: 08/23/2018 SUBJECTIVE: She has been hemodynamically stable with no abdominal pain. No fevers. OBJECTIVE: Pulse 85, blood pressure 133/80. General: She is alert. Cardiovascular: Normal rate. Pulmonary: No increased work of breathing. Abdomen: Remains protuberant and distended with ascites but nontender. Hematocrits have been stable, the most recent of 31. ASSESSMENT AND PLAN: A 57-year-old female with a splenic laceration related to a fall. She has cirrhosis and end-stage renal disease. The splenic laceration seems to be nonoperative. At this point, we will advance her diet. Continue to follow her clinically. cc: MD Gonzalo Phoenix MD
[2018-08-23] MEDS ORDERED: DUONEB (A & A) INH PRN (18:48)
[2018-08-23] MEDS ORDERED: ATARAX PO PRN (18:48)
[2018-08-23] MEDS: NORCO-5 PO PRN (20:17)
[2018-08-23] MEDS: NEURONTIN PO SCH (20:17)
[2018-08-23] MEDS: ELAVIL PO SCH (20:17)
[2018-08-23] MEDS ORDERED: ROBAXIN PO SCH (21:00)
--- NOTE | 2018-08-24 04:37 | PROGRESS NOTE ---
DATE: 08/22/2018 SUBJECTIVE: Ms. Cheney had history of fall, abdominal pain. She had a laceration in the spleen. She had dialysis today. Her potassium had come down from 8 to 7.8, but her last potassium was 5.9. BUN is 45, creatinine 10.8. She had dialysis yesterday. She was seen by Dr. Hinson, who wants to observe her closely. We will continue the current management. Her calcium level was 6.9. He may give her an IV calcium gluconate today. -2 cc: MD Gonzalo Elena MD
[2018-08-24] MEDS ORDERED: TIGHT: 0.2 ML/HR FOR DIALYSIS MISC PRN (06:08)
[2018-08-24] MEDS ORDERED: HEPARIN IV PRN (06:08)
[2018-08-24] MEDS ORDERED: NS 2,000 ML MISC PRN (06:08)
[2018-08-24 06:12] LABS: HEMATOCRIT 33.9 % (37.0-47.0); HEMOGLOBIN 10.9 g/dL (12.0-16.0); MCHC 32.2 g/dL (33-37); MCV 80.9 FL (81-99); MPV 10.3 FL (7.4-10.4); RBC 4.19 XMIL (4.2-5.4); RDW 14.9 % (11.5-14.5); WBC 6.12 X1000 (4.8-10.8)
[2018-08-24] MEDS: PRILOSEC PO SCH (06:23)
[2018-08-24] MEDS: PHOSLO PO SCH ×3 (06:23→15:47)
--- NOTE | 2018-08-24 07:13 | EKG Report ---
Test Performed on : 08/22/2018 07:21:56 AM Test Reason : CP Blood Pressure : / mmHG Vent. Rate : 071 BPM Atrial Rate : 071 BPM P-R Int : 126 ms QRS Dur : 068 ms QT Int : 446 ms P-R-T Axes : 054 005 039 degrees QTc Int : 484 ms Normal sinus rhythm. Prolonged QT Abnormal ECG When compared with ECG of 28-JUL-2018 07:01, No significant change was found Confirmed by Daniel PEREZ, Alfredo Decker ([id number]) on 08/24/2018 5:05:32 PM
[2018-08-24 07:14] LABS: CALCIUM 7.1 mg/dL (8.8-10.2)
[2018-08-24 07:16] LABS: ALBUMIN 2.3 g/dL (3.5-5.0); CREATININE 8.9 mg/dL (0.5-0.9); PHOSPHORUS 6.6 mg/dL (2.7-4.5); POTASSIUM 4.9 mmol/L (3.5-5.1)
[2018-08-24] MEDS: CYMBALTA PO SCH (08:08)
[2018-08-24] MEDS: NEURONTIN PO SCH ×2 (08:08→20:29)
[2018-08-24] MEDS: NORCO-5 PO PRN ×3 (08:08→23:27)
--- NOTE | 2018-08-24 10:13 | NEPHROLOGY PROGRESS NOTE ---
DATE: 08/24/2018 SUBJECTIVE: Ms. Cheney is resting quietly in bed. She is difficult to arouse this a.m. When she is awake, though she is able to stay awake without drifting off to sleep. States that she had her medication given to her late yesterday evening, after 11 p.m. OBJECTIVE: Her most recent vital signs: Her temperature is 98.5 degrees, blood pressure 123/75, heart rate 78, respirations 12, she is on room air, last recorded saturation 93%. Intake and Output: She has had 1190 in. She has had 0 recorded out. LABORATORY DATA: Sodium 140, potassium 4.9, chloride 101, CO2 of 26, BUN 26, creatinine 8.9, glucose 84, her anion gap is 13 calcium 7.1, phosphorus 6.6, albumin 2.3. White count 6.12, hemoglobin 10.9, hematocrit 33.9 with a platelet count of 188,000. PHYSICAL EXAMINATION: General: This is a 57-year-old female, resting quietly in bed. She is in no acute distress. Her skin is warm and dry. HEENT: Normocephalic, atraumatic. Conjunctiva is pale. She has ADAM. Mucous membranes are dry. Neck is supple. Trachea midline. No evidence of JVD. Cardiovascular: She has regular rate and rhythm. She has an S4. Lungs are clear to auscultation bilaterally. Equal excursion. She is on room air. Abdomen: Large, round. She has positive distention with a hernia palpable. Positive bowel sounds. Genitourinary: Not inspected. Minimal void with dialysis assist. Extremities have no edema, no clubbing or cyanosis. Neurological: She is alert and oriented x3, though she is lethargic. ASSESSMENT AND PLAN: 1. Chronic kidney disease, stage 5D. The patient is due for her routine dialysis treatment today. No indications for further intervention. We will place her on a 2 K bath. She is to dialyze for 3-1/2 hours. We will attempt to pull her to her outpatient dry weight. 2. Electrolytes and acid-base balance. Again, with correction on dialysis. 3. Anemia. This remains low but stable. 4. Abdominal distention. Patient has chronic ascites related to hepatitis C with cirrhosis. The patient states that she is scheduled for a paracentesis tomorrow. We will talk with Dr. Hammonds in regards to having this performed during her hospitalization today or before discharge. 5. Anemia. This is acceptable. 6. Splenic laceration. The patient had received Neurontin [place], Robaxin, and Elavil yesterday evening. We will stop her Robaxin. We will decrease her Neurontin to 100 mg at bedtime, 200 mg in the a.m. with a maximum of 300 mg per dosing for a dialysis patient. I would like to thank you for allowing us to follow with this patient. Dictated by ARTUR Keith for Noel Price MD Face to face encounter, data reviewed, discussed with Farida Bajwa on 08/24/18. I agree with the above assessment and plan of care. cc: ARTUR Keith MD Jagan Reddy, MD [facility]
--- NOTE | 2018-08-24 15:51 | Diag Imaging Result Doc PS360 ---
EXAM: US ABD PARACENTESIS W S/I 08/24/2018 HISTORY: Ascites TECHNIQUE: Ultrasound-guided paracentesis COMMENT: The risks and benefits of the procedure were discussed with the patient including the possibility of bleeding infection or reaction to lidocaine or puncture of hollow viscus. She agreed to the procedure. Following sterile preparation the skin anterolaterally on the right and administration 1% lidocaine to the skin and deeper soft tissues, the paracentesis catheter was placed and subsequently 4 L of clear tylor fluid was drained. There are no immediate complications. IMPRESSION: Successful ultrasound-guided paracentesis. Electronically signed by Dhaval Morris 08/24/2018 3:49 PM
[2018-08-24] MEDS: ELAVIL PO SCH (20:29)
--- NOTE | 2018-08-24 20:51 | PROGRESS NOTE ---
DATE: 08/24/2018 SUBJECTIVE: A 57-year-old female admitted to the hospital on 08/21/2018 basically for hyperkalemia, intractable ascites. The patient is decided to go for rehab. The patient is well known to the institution. EXAMINATION: Vital Signs: Temp is 98, pulse 92, blood pressure is stable. HEENT: Within normal limits. Decreased breath sounds on the right side. Heart: Distant heart sounds. Abdomen: Belly is soft. Ascites noted. Neurologic: No neurological deficits. INVESTIGATIONS: CBC: White cell count 6.1, hematocrit 33.9, platelets 188,000. Sodium 140, potassium 4.9, BUN 26, creatinine 8.9, calcium 7.1, phosphorus 6.6. ASSESSMENT AND PLAN: 1. End-stage kidney disease. Dialysis as per Dr. Price. 2. Intractable ascites due to hepatitis C. Scheduled for paracentesis of ultrasound drained 4 L. 3. Reconcile home medications. 4. Disposition: Rehab placement. LEVEL OF DOCUMENTATION: 25 minutes. cc: Gonzalo Hammonds MD
[2018-08-25] MEDS: PRILOSEC PO SCH (05:31)
[2018-08-25] MEDS: PHOSLO PO SCH ×3 (05:32→16:16)
[2018-08-25 06:52] LABS: ALBUMIN 2.3 g/dL (3.5-5.0); CALCIUM 7.1 mg/dL (8.8-10.2); PHOSPHORUS 4.6 mg/dL (2.7-4.5); POTASSIUM 4.2 mmol/L (3.5-5.1)
[2018-08-25 06:54] LABS: CREATININE 6.2 mg/dL (0.5-0.9)
[2018-08-25] MEDS: CYMBALTA PO SCH (08:45)
[2018-08-25] MEDS: NEURONTIN PO SCH ×2 (08:46→20:09)
--- NOTE | 2018-08-25 08:51 | NEPHROLOGY PROGRESS NOTE ---
DATE: 08/25/2018 SUBJECTIVE: Ms. Cheney is resting quietly in bed. She is a little bit lethargic this a.m. in spite of having some of her nighttime medications decreased. OBJECTIVE: Vital Signs: Temperature 98.8 degrees, blood pressure 110/68, heart rate 81, respirations are 15. She is on room air. Last recorded saturation 97%. She has had 480 in. She has had 1500 out on dialysis with 4 L removed on a paracentesis. LABORATORY DATA: Sodium 139, potassium 4.2, chloride 100, CO2 32, BUN 16, creatinine 6.2, glucose is 90. Her anion gap is 7. Her calcium is 7.1, phosphorus 4.6, albumin is 2.3. Previous hemoglobin is 10.7. PHYSICAL EXAMINATION: General: This is a 57-year-old female. She is resting quietly in bed. Her head of the bed is elevated. She appears chronically ill, no acute distress. Skin: Warm and dry. HEENT: Normocephalic, atraumatic. Conjunctiva is pale. She has ADAM. Mucous membranes are dry. Neck: Supple. Trachea midline. No evidence of JVD. Cardiovascular: She is regular rate and rhythm. S4 is present. Lungs: Clear to auscultation bilaterally. Equal excursion on room air. Abdomen: Distended, though soft. Positive bowel sounds. Genitourinary: Not inspected. Minimal void with dialysis assist. Extremities: Have no edema. No clubbing or cyanosis. Neurological: She is alert and oriented x3. ASSESSMENT AND PLAN: 1. Chronic kidney disease stage 5D. The patient tolerated her dialysis treatment yesterday. She also had a paracentesis that she tolerated well. She states her back is feeling slightly better. No indications for intervention today. 2. Electrolytes and acid-base balance. These are acceptable. 3. Anemia. This is close to target. 4. Splenic laceration. The patient remains on Neurontin, [place] and Elavil. 5. Deconditioning. We will order physical therapy to assist. We have read Dr. Hammonds's note in regards with possible placement for rehab and remain in agreement. I would like to thank you for allowing us to follow with this patient. Dictated by ARTUR Keith for Noel Price MD Face to face encounter, data reviewed, discussed with Farida Bajwa on 08/25/18. I agree with the above assessment and plan of care. cc: ARTUR Keith MD Jagan Reddy, MD MTDD
--- NOTE | 2018-08-25 12:39 | Diag Imaging Result Doc PS360 ---
CHEST-1 VIEW - 08/25/2018 INDICATION: REHAB COMPARISON: 07/27/2018 FINDINGS: Lung volumes are critically low. There is some faint linear atelectasis in the right lung. Otherwise no infiltrates or edema. Heart size is top normal. IMPRESSION: Critically low lung volumes. Linear atelectasis in the right lung. Electronically signed by August Hong 08/25/2018 12:37 PM
[2018-08-25] MEDS: NORCO-5 PO PRN ×2 (13:16→20:17)
[2018-08-25] MEDS: ELAVIL PO SCH (20:09)
--- NOTE | 2018-08-25 21:15 | PROGRESS NOTE ---
DATE: 08/25/2018 SUBJECTIVE: The patient is a little bit better. REVIEW OF SYSTEMS: None reported. The patient is going for dialysis. EXAMINATION: Vital signs: Temperature is 98 degrees, pulse 81, blood pressure 116/81. HEENT: Exam pale. Neck: Supple. Chest: Poor air entry on the right side. Heart: Sounds are regular. Abdomen: Belly is soft and had ascites. Extremities: No peripheral edema. Neurologic: No obvious neurological deficits. LABORATORY DATA: Sodium 139, potassium 4.2, chloride 100, BUN 16, creatinine 6.2, calcium 7.1. EKG normal sinus rhythm with QT interval. ASSESSMENT AND PLAN: 1. Altered mental status due to end-stage kidney disease on hemodialysis as per Dr. Price. 2. Diabetes and hypertension. Stable off medicine. 3. Ascites due to hepatitis C. Paracentesis was done. Currently no present medications. 4. The plan of care is that the patient decided to go for rehab. We will check the chest x-ray. LEVEL OF DOCUMENTATION: 25 minutes. cc: Gonzalo Hammonds MD
[2018-08-26] MEDS: PHOSLO PO SCH ×5 (05:37→15:57)
[2018-08-26] MEDS: PRILOSEC PO SCH ×2 (05:37→06:26)
[2018-08-26] MEDS ORDERED: TIGHT: 0.2 ML/HR FOR DIALYSIS MISC PRN (06:10)
[2018-08-26] MEDS ORDERED: HEPARIN IV PRN (06:10)
[2018-08-26] MEDS ORDERED: NS 2,000 ML MISC PRN (06:10)
--- NOTE | 2018-08-26 08:48 | NEPHROLOGY PROGRESS NOTE ---
DATE: 08/26/2018 TIME SEEN: 0650. SUBJECTIVE: Ms. Cheney is lethargic. She is lying in bed. She does respond to verbal stimuli. States that she is not sleeping well. OBJECTIVE: Her most recent vital signs, temperature 98.4 degrees, blood pressure 110/78, heart rate 84, respirations 14. She is on room air. Last recorded saturation is 96%. She has had 540 in. She has had 0 recorded out. Labs: These are currently pending this a.m. Her previous potassium was 4.2. Previous hemoglobin 10.9 on the . Physical Examination: General: This is a 57-year-old, female. She is resting quietly in bed. She appears chronically ill. She is in no acute distress. Her skin is warm and dry. HEENT: Normocephalic, atraumatic. Conjunctivae pale. She has ADAM. Mucous membranes are dry. Neck: Supple. Trachea midline. No evidence of JVD. Cardiovascular: Regular rate and rhythm. S4 is present. Lungs: Clear to auscultation bilaterally. Equal excursion on room air. Though she does have a congested cough, this clears. Rhonchi clears with cough. Abdomen: Slightly distended. Soft, nontender. Genitourinary: Not inspected. Minimal void with dialysis assist. Extremities: Have no edema. No clubbing or cyanosis. Neurological: Alert and oriented x3. ASSESSMENT AND PLAN: 1. Chronic kidney disease stage 5D. The patient is due for her routine dialysis treatment today. We will place her on a 2 K bath. She is to dialyze for 3.5 hours. We will attempt to pull patient to her outpatient dry weight. 2. Electrolytes and acid-base balance. These are currently pending with a stable potassium yesterday of 4.2. 3. Anemia. Previous hemoglobin of 10.9. No indications for intervention. 4. Splenic laceration. The patient is now only receiving a split dose of Neurontin with [place] and Elavil at night. 5. Deconditioning. The patient is to go to rehab. 6. Congestion. Patient is ordered on albuterol treatments every 6 hours as needed. We will order a bedside spirometer to be done every 4 hours with albuterol treatments to be done every 6 throughout the next 24 to 48 hours. I would like to thank you for allowing us to follow with this patient. Dictated by ARTUR Keith for Noel Price MD Face to face encounter, data reviewed, discussed with Farida Bajwa on 08/26/18. I agree with the above assessment and plan of care. cc: ARTUR Keith MD Jagan Reddy, MD [facility]
[2018-08-26 09:16] LABS: ALBUMIN 2.2 g/dL (3.5-5.0); CALCIUM 7.3 mg/dL (8.8-10.2); CREATININE 7.7 mg/dL (0.5-0.9); PHOSPHORUS 5.2 mg/dL (2.7-4.5)
[2018-08-26] MEDS: DUONEB (A & A) INH SCH ×3 (09:28→21:35)
[2018-08-26] MEDS ORDERED: ALBUMIN 25% IV ONE (09:47)
[2018-08-26] MEDS: NEURONTIN PO SCH ×2 (11:51→21:05)
[2018-08-26] MEDS: NORCO-5 PO PRN (11:52)
[2018-08-26] MEDS: CYMBALTA PO SCH (11:52)
--- NOTE | 2018-08-26 20:18 | PROGRESS NOTE ---
DATE: 08/26/2018 SUBJECTIVE: Patient went for dialysis this morning. No other complaints. Patient was evaluated. PHYSICAL EXAMINATION: Vital Signs: Temperature is 98 degrees pulse 106, blood pressure is stable. HEENT: Within normal limits. Neck: Supple. Chest: Bilateral air entry. Heart: Sounds are regular. Abdomen: Belly is soft, nontender. Good bowel sounds. Neurologic: No obvious deficits. LABS: Sodium 139, potassium 5, BUN 23, creatinine 7.6. ASSESSMENT AND PLAN: 1. End-stage kidney disease, on hemodialysis. 2. Refractory ascites. Abdominal paracentesis as needed. 3. Incentive spirometry for atelectasis. 4. Chronic pain, on Neurontin. 5. Acid reflux disease, on Prilosec. 6. Depression, on Cymbalta and Elavil. 7. Nebulizers as needed. 8. Waiting for rehabilitation placement as per the patient. LEVEL OF DOCUMENTATION: 25 minutes. cc: Gonzalo Hammonds MD
[2018-08-26] MEDS: ELAVIL PO SCH (21:05)
[2018-08-27] MEDS: DUONEB (A & A) INH SCH ×4 (03:20→20:33)
[2018-08-27] MEDS: NORCO-5 PO PRN ×3 (03:31→20:30)
[2018-08-27] MEDS: PRILOSEC PO SCH (06:12)
[2018-08-27] MEDS: PHOSLO PO SCH ×3 (06:12→16:05)
[2018-08-27 06:36] LABS: ALBUMIN 2.7 g/dL (3.5-5.0); CALCIUM 7.4 mg/dL (8.8-10.2); PHOSPHORUS 4.3 mg/dL (2.7-4.5); POTASSIUM 4.3 mmol/L (3.5-5.1)
[2018-08-27 06:47] LABS: CREATININE 5.2 mg/dL (0.5-0.9)
[2018-08-27] MEDS: NEURONTIN PO SCH ×2 (09:22→20:24)
[2018-08-27] MEDS: MUCINEX PO SCH ×2 (09:22→20:25)
[2018-08-27] MEDS: CYMBALTA PO SCH (09:22)
--- NOTE | 2018-08-27 09:35 | NEPHROLOGY PROGRESS NOTE ---
DATE: 08/27/2018 TIME SEEN: 0655 hours. SUBJECTIVE: The patient states that her breathing is just interrupted with occasional coughing since we have started her on inhaler treatments with incentive spirometer. Otherwise, she denies chest pain or increased work of breathing. OBJECTIVE: Temperature 98.7 degrees, blood pressure 121/76, heart rate 97, respirations 20. She is on room air. Last recorded saturation 98%. She has had 804 in. She had 0 removed on dialysis. She was given approximately 900 mL yesterday with hypotension. LABORATORY DATA: Sodium 137, potassium 4.3, chloride 98, CO2 28, BUN 14, creatinine 5.2, glucose is 112. Her anion gap is 11. Her calcium is 7.4. Her phosphorus is 4.3, with an albumin of 2.7. Previous hemoglobin 10.9. PHYSICAL EXAMINATION: General: This is a 57-year-old female resting quietly in bed, head of the bed is slightly elevated, no acute distress. Skin: Warm and dry. HEENT: Normocephalic, atraumatic. Conjunctivae pale. ADAM. Mucous membranes are dry. Neck: Supple. Trachea midline. She has no evidence of JVD. Cardiovascular: She is regular rate and rhythm. She has scattered rhonchi bilateral. She remains on room air. Abdomen: Slightly distended, soft. Positive bowel sounds. Genitourinary: Not inspected. Minimal void with dialysis assist. Extremities: The extremities have no edema. No clubbing or cyanosis. Integumentary: No rashes or lesions evident. ASSESSMENT AND PLAN: 1. Chronic kidney disease, stage 5D. The patient did not tolerate her dialysis treatment well. We had to give her more fluid than removal yesterday. She is doing better today. We will plan for dialysis in the a.m. 2. Electrolytes and acid-base balance. These are acceptable. 3. Anemia. This is acceptable. Hemoglobin last indicated at 10.9. 4. Splenic laceration. Followed by the primary care. 5. Cough and congestion. We had started her on albuterol inhaled treatments q.6 hours along with bedside incentive spirometer every 4 hours. Due to her continued cough, we will go ahead and assist to break this up with order of Mucinex. I would like to thank you for allowing us to follow with this patient. Dictated by ARTUR Keith for Noel Price MD Face to face encounter, data reviewed, discussed with Farida Bajwa on 08/27/18. I agree with the above assessment and plan of care. cc: ARTUR Keith MD Jagan Reddy, MD [facility]
[2018-08-27] MEDS: ELAVIL PO SCH (20:25)
--- NOTE | 2018-08-27 21:36 | PROGRESS NOTE ---
DATE: 08/27/2018 SUBJECTIVE: Patient is out of the bed. Patient wants to go for rehab. OBJECTIVE: Vital Signs: Temperature is 98. Vitals are stable. HEENT: Within normal limits. Chest: Clear. Heart: Sounds are regular. Abdomen: Belly is soft. Moderate ascites noted. Not tense. LAB: CBC: White cell count 6.1, hematocrit 33. SMA 7 is normal. ASSESSMENT AND PLAN: 1. Splenic laceration, stable, due to fall. Will repeat the lab in the morning. 2. Moderate ascites due to hepatitis C, stable. 3. End-stage kidney disease, on dialysis. 4. Will discharge tomorrow if CBC is stable, for rehab placement LEVEL OF DOCUMENTATION: 25 minutes. cc: Gonzalo Hammonds MD
[2018-08-28] MEDS: DUONEB (A & A) INH SCH ×2 (03:19→11:04)
[2018-08-28 05:59] LABS: BASO# 0.03 X1000 (0.0-0.2); BASO% 0.4 % (0.0-0.8); EOS# 0.17 X1000 (0.0-0.7); EOS% 2.4 % (0.0-10.0); HEMATOCRIT 30.9 % (37.0-47.0); HEMOGLOBIN 9.7 g/dL (12.0-16.0); LYMPH# 2.29 X1000 (1.2-3.4); LYMPH% 32.7 % (20.5-51.1); MCH 25.2 PG (27-31); MCHC 31.4 g/dL (33-37); MCV 80.3 FL (81-99); MONO# 0.52 X1000 (0.11-0.59); MONO% 7.4 % (1.7-9.3); MPV 10.6 FL (7.4-10.4); NEUT% 57.1 % (42.2-75.2); PLT 174 X1000 (130-400); RBC 3.85 XMIL (4.2-5.4); RDW 14.6 % (11.5-14.5); WBC 7.01 X1000 (4.8-10.8)
[2018-08-28 06:25] LABS: ALBUMIN 2.6 g/dL (3.5-5.0); CALCIUM 7.7 mg/dL (8.8-10.2); CREATININE 7.4 mg/dL (0.5-0.9); PHOSPHORUS 5.2 mg/dL (2.7-4.5); POTASSIUM 4.8 mmol/L (3.5-5.1)
[2018-08-28] MEDS: PHOSLO PO SCH ×2 (06:25→13:37)
[2018-08-28] MEDS: PRILOSEC PO SCH (06:26)
[2018-08-28 07:29] VITALS: BP 105/83
[2018-08-28] MEDS ORDERED: NS 2,000 ML MISC PRN (07:41)
--- NOTE | 2018-08-28 09:52 | DISCHARGE SUMMARY ---
ADMISSION DATE: 08/21/2018 DISCHARGE DATE: 08/28/2018 DISCHARGING DIAGNOSIS: Splenic laceration, stable, traumatic. SECONDARY DIAGNOSES: 1. Intractable ascites due to hepatitis C infection, genotype 1B, not amenable to treatment. Needs once a week therapeutic paracentesis as scheduled by Dr. Price. 2. Hyperkalemia due to end-stage kidney disease. 3. Abnormal x-ray with right hemidiaphragm elevation. 4. Cirrhosis of liver due to chronic hepatitis C infection. 5. Type 2 diabetes, diet controlled. 6. Hypertension, off medicines. 7. Peripheral neuropathy due to chronic pain due to diabetes. CONSULTANTS: 1. Dr. Noel Price. 2. Dr. Vince Hinson. PROCEDURES: Abdominal paracentesis x1, drained 4 L of fluid, and kidney dialysis as per Dr. Price. BRIEF HISTORY: Please see the H and P that was done by Dr. Canchola. In brief, she is a 57-year-old, female with the above problems, was brought into the ER after she fell while going to the bathroom, sustained injury to the left rib cage. The patient was found to have splenic laceration without hematoma. HOSPITAL COURSE: She was monitored clinically. No signs of active GI bleeding noted. She was not on any anticoagulation. Her hematocrit was stable. During this hospital course, patient was given hemodialysis and 1 abdominal paracentesis. The rest of the hospital course was uneventful. LABORATORY DATA: CBC: White cell count 7, hematocrit 30.9, platelet 174,000. Sodium 136, potassium 4.8, chloride 98, BUN 22, creatinine 7.4, glucose 111, calcium 7.7. DISCHARGE INSTRUCTIONS: patient has been discharged to rehab with the following instructions: 1. Hemodialysis as per Dr. Price. 2. Living will DNR. 3. Abdominal paracentesis as needed. 4. Neurontin 300 p.o. b.i.d., calcium acetate 2 tablets before meals, duloxetine 60 daily, Elavil 10 daily, Robaxin 500 daily, nebulizers as needed, Prilosec 40 mg daily, hydroxyzine as needed for itching, and incentive spirometry. 5. Care of the skin, bladder, and bowels. 6. No need for blood pressure medicine, diabetic medications, and follow up with Dr. Price. He is going to arrange abdominal paracentesis as needed. cc: Gonzalo Hammonds MD MTDD
[2018-08-28] MEDS: NEURONTIN PO SCH (13:37)
[2018-08-28] MEDS: NORCO-5 PO PRN (13:37)
[2018-08-28] MEDS: CYMBALTA PO SCH (13:37)
[2018-08-28] MEDS: MUCINEX PO SCH (13:37)
--- NOTE | 2018-08-28 13:50 | NEPHROLOGY PROGRESS NOTE ---
DATE: 08/28/2018 SUBJECTIVE: Patient is sitting up in bed. She is complaining of a little bit of fullness to her left lower quadrant. OBJECTIVE: Vital Signs: Temperature 98.6 degrees, pulse 88, respiratory rate 18, blood pressure 105/83. Intake 240 mL; output none. General: This is a middle-aged female, currently sitting up in bed. She is awake, alert, no acute distress. HEENT: Normocephalic, atraumatic. ADAM. Neck: Supple without JVD. Cardiovascular: Regular rate and rhythm. Pulmonary: She is clear bilaterally today. Abdomen: Soft, with positive bowel sounds. Mildly tender. She does have a firm area left lower quadrant. Patient states her last bowel movement was last night. Extremities: No clubbing, cyanosis, or edema. Integumentary: Skin is warm and dry. LAB DATA: WBC of 7, hemoglobin 9.7. Sodium 136, potassium 4.8, CO2 28, creatinine 7.4. ASSESSMENT: 1. Chronic kidney disease, 5 D. Today is her routine dialysis day. We will dialyze on a 2 potassium bath/ultrafiltration to her last dry weight. We will try to get some fluid off, but we were unsuccessful on her last visit. 2. Spleen laceration followed by primary care and, again, we are holding heparin today. 3. Cough and congestion followed by primary. 4. Left lower quadrant tenderness and fullness. Her last paracentesis was on the -. Dictated by ARTUR East for Noel Price MD Data reviewed, discussed with Leah Norris on 08/28/18. I agree with the above assessment and plan of care. cc: MD Gonzalo Badillo MD MTDD
== END 2018-08-28 15:07 | DRG 432 ==
LOC: SUPCPDRO → ED 13:02 → 4N 21:09
PROVIDERS: ADMIT Internal Medicine; ATTEND Internal Medicine
CPT/HCPCS: 49083; 70450; 71010; 71045; 73562; 74176; 80053; 80069; 85014; 85018; 85025; 85027; 85610; 85730; 93005; 93010; 94640; 94761; 94799; 97110; 97162; 97530; 99285; A9270; J1644; J7030; P9047

== ENCOUNTER 2018-09-14 23:01 | Inpatient (IN) ==
[2018-09-14] MEDS ORDERED: NS 500 ML IV ONE (23:15)
[2018-09-14 23:25] LABS: ALLEN TEST YES; BE 0.5 mmoll (-3.0-3.0); BLOOD TYPE ARTERIAL; HCO3-(ACT) 25.3 mmoll (20.0-26.0); METHB 1.3 % (0.0-1.5); MODALITY NRB; O2(CT) 14.2 mL/dL (15.0-23.0); O2HB 96.5 % (95.0-99.0); PCO2(98.6) 35 mmHg (35-45); PO2(98.6) 138 mmHg (60-100); SAMPLE BLOOD; SAO2 99.1 % (95.0-100.0); THB 10.3 g/dL (11.5-17.4); pH(98.6) 7.45 (7.35-7.45)
[2018-09-14] MEDS ORDERED: VANCOMYCIN 1 GM/NS 1 GM/250 ML IVPB IV ONE (23:36)
[2018-09-14] MEDS ORDERED: MAXIPIME 1 GM in NS 50 ML IV ONE (23:37)
[2018-09-15 00:11] LABS: BASO# 0.02 X1000 (0.0-0.2); BASO% 0.1 % (0.0-0.8); EOS# 0.01 X1000 (0.0-0.7); HEMATOCRIT 32.2 % (37.0-47.0); HEMOGLOBIN 10.4 g/dL (12.0-16.0); IMM GRAN# 0.21 X1000 (0.0-0.04); LYMPH# 1.64 X1000 (1.2-3.4); LYMPH% 7.5 % (20.5-51.1); MCH 24.9 PG (27-31); MCHC 32.3 g/dL (33-37); MCV 77.2 FL (81-99); MONO# 1.11 X1000 (0.11-0.59); MONO% 5.1 % (1.7-9.3); NEUT# 18.96 X1000 (1.4-6.5); NEUT% 86.3 % (42.2-75.2); PLT 162 X1000 (130-400); RBC 4.17 XMIL (4.2-5.4); RDW 14.9 % (11.5-14.5); WBC 21.95 X1000 (4.8-10.8)
[2018-09-15 00:20] LABS: ALB/GLOB RATIO 0.4; CALCIUM 7.3 mg/dL (8.8-10.2); TOTAL BILIRUBIN 0.39 mg/dL (0.20-1.00); TOTAL PROTEIN 6.7 g/dL (6.3-8.3)
[2018-09-15 01:08] LABS: INR 1.09
[2018-09-15 01:50] LABS: PTT < 20.0 Seconds (22.3-41.8)
--- NOTE | 2018-09-15 01:54 | PROVIDER DOCUMENTATION ---
This chart was entered by Stacie Hubbard Scribe, acting as scribe for Domonique Traore MD. HPI-Respiratory General - General Chief Complaint: Shortness of Breath Stated Complaint: Unresponsive Time Seen by Provider: 09/14/18 23:09 Source: patient, family, EMS Allergies/Adverse Reactions: Patient Allergies Allergy/AdvReac Type Severity Reaction Status Date / Time No Known Allergies Allergy Verified 09/08/18 08:28 Home Medications: Home Medication List Medication Instructions Recorded Confirmed Last Taken Type Gabapentin [Neurontin] 300 mg PO BID 01/16/17 09/15/18 09/14/18 07:00 History Calcium Acetate 2 cap PO AC 01/25/17 09/15/18 09/14/18 18:00 History Duloxetine HCl 60 mg PO DAILY 08/26/17 09/15/18 09/14/18 07:00 History Amitriptyline [Elavil] 10 mg PO HS 08/27/17 09/15/18 09/13/18 21:00 History Methocarbamol [Robaxin] 500 mg PO QHS 08/27/17 09/15/18 09/13/18 21:00 History Albuterol 2.5MG/Ipratrop 0.5MG 3 ml INH Q6H PRN PRN neb 05/26/18 09/15/18 09/14/18 19:00 Rx [Duoneb (A & A)] Omeprazole [Prilosec] 40 mg PO DAILY@0700 cap 05/26/18 09/15/18 09/14/18 07:00 Rx Hydroxyzine HCl 1 tab PO Q8H PRN 06/15/18 09/15/18 08/11/18 21:00 History - History of Present Illness-Resp Nature of Presenting Problem: 58 y/o female presents to ED via EMS from alf with low O2 sat onset just prior to arrival. EMS reports she was desatting and they placed a nonrebreather en route to ED. Pt is confirmed DNR/DNI. Pt is lethargic initially. Quality of Pain: reports: none Severity in ED: reports: moderate Onset/Duration: reports: just prior to arrival Timing: reports: still present Context: reports: other Exposure: reports: unknown cause Cough Quality/Degree: reports: no cough Episode Frequency: no prior episodes Current Respiratory Medication Therapy: Initiated see nurses note Modifying Factors: improves with: oxygen Associated Symptoms: reports: other (low O2 sat) Similar Symptoms Previously?: No Recently seen or treated by another doctor?: No Review of Systems - Adult - REVIEW OF SYSTEMS - ADULT ROS:: limited per condition Constitutional: denies: chills, fever Eyes: reports: no symptoms reported Ears, Nose, Mouth & Throat: reports: no symptoms reported Cardiovascular: denies: chest pain, palpitations Respiratory: reports: other (low O2 sat). denies: cough, shortness of breath Gastrointestinal: denies: abdominal pain, diarrhea, nausea, vomiting Genitourinary: reports: no symptoms reported, other (HD) Musculoskeletal: denies: back pain, joint pain Integumentary: reports: no symptoms reported Neurological: denies: dizziness/vertigo, seizure Psychiatric: reports: no symptoms reported Past History - Adult - PAST MEDICAL HISTORY-ADULT Review of Records: reports: Old Records Reviewed, Nursing Assessment Review, Medications Reviewed Major Childhood Illnesses: reports: denies history Cardiovascular: reports: CAD, CHF, HTN Respiratory: reports: asthma Gastrointestinal: reports: liver disease Obstetrical/Gynecological: reports: denies history Genitourinary: reports: dialysis, kidney disease, kidney stones, other (stents in kidneys ) Musculoskeletal: reports: arthritis, chronic pain (neuropathy) Neurological: reports: other (diabetic BLE peripheral neuropathy) Psychiatric: reports: denies history Endocrine/Immune: reports: anemia, Diabetes 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) - PRIOR SURGERIES/PROCEDURES Surgical/Procedure History: reports: cholecystectomy, other (stents in kidney) - PRIOR HOSPITALIZATIONS Prior Hospitalizations: reports: for other non-related - IMMUNIZATION STATUS Childhood Immunizations: See Nurse Assessment Flu Vaccine: See Nurse Assessment - FAMILY HISTORY Family History: reviewed, not pertinent - SOCIAL HISTORY Smoking: quit less than 1 year Substance Use: none/never Alcohol Use Frequency: never Living Situation: care facility Physical Exam-General - PHYSICAL EXAM-ADULT Initial Vital Signs Reviewed: Yes - CONSTITUTIONAL General Appearance: moderate distress, lethargic - EYES Eyes: PERRL/EOMI - HEAD, EARS, NOSE, MOUTH & THROAT HENMT: normocephalic/atraumatic, moist mucous membranes - NECK Neck: non-tender, full range of motion - RESPIRATORY Respiratory: chest non-tender, normal breath sounds, rhonchi (bilaterally) - CARDIOVASCULAR Cardiovascular: normal peripheral pulses, regular rate, rhythm - GASTROINTESTINAL (ABDOMEN) Abdominal Exam: normal bowel sounds, non tender, soft - MUSCULOSKELETAL Back Exam: normal inspection, no CVA tenderness, no vertebral tenderness Extremity: normal range of motion, non-tender - SKIN Integumentary: normal color, warm/dry - NEUROLOGIC Neurologic: grossly normal - PSYCHIATRIC Psych/Mental Status: normal thought content, normal thought process, oriented x 3 Progress - PLAN OF CARE/RESULTS Progress/Plan/Lab Results: Orders Category Date Time Status Admit - [facility] Routine AdmDCTranf 09/15/18 03:53 Active Activity - Strict Bedrest ORDERED Care 09/15/18 03:53 Active Cardiac Monitoring DIRECTED Care 09/14/18 23:10 Completed IV Insertion ORDERED Care 09/14/18 23:10 Completed Notify MD of + Sepsis Screen NOW Care 09/14/18 23:10 Completed Notify MD of + Sepsis Screen NOW Care 09/14/18 23:10 Completed Notify Physician As Ordered Care 09/14/18 23:10 Completed Resuscitation Status Routine Care 09/15/18 03:19 Ordered Vital Signs Order Q 4-HR ASSESS Care 09/15/18 03:53 Active Z-Document. for Tele Applied ORDERED Care 09/15/18 03:53 Completed CHEST-1 VIEW [RAD] Stat Exams 09/14/18 23:10 Completed ABG [RESP] Routine Lab 09/14/18 23:20 Completed BLOOD CULTURE [BLDCUL] Stat Lab 09/15/18 02:34 Received BNP [PRO B-NATRIURETIC PEPTIDE] Stat Lab 09/14/18 23:45 Completed CBC WITH DIFF [HEME] Stat Lab 09/14/18 23:45 Completed CK PROFILE [SP CHEM] Stat Lab 09/14/18 23:45 Completed COMPREHENSIVE METABOLIC PANEL [CHEM] Stat Lab 09/14/18 23:45 Completed LACTATE, PLASMA [CHEM] Lab 09/15/18 02:30 Completed LACTATE, PLASMA [CHEM] Lab 09/15/18 05:15 Uncollected LACTATE, PLASMA [CHEM] Q3H Lab 09/14/18 00:55 Completed PROTIME WITH INR [COAG] Stat Lab 09/14/18 00:55 Completed PTT [COAG] Stat Lab 09/14/18 00:55 Completed TROPONIN T Stat Lab 09/14/18 23:45 Completed 0.9% Sodium Chloride Inj [Ns] 500 ml Med 09/14/18 23:15 Discontinued IV 250 mls/hr CefEPIME [Maxipime] 1 gm Med 09/14/18 23:37 Discontinued 0.9% Sodium Chloride Inj [Ns] 50 ml IV NOW Vancomycin 1 gm/Ns Med 09/14/18 23:36 Discontinued 1 gm in 250 ml IV NOW Oxygen Device Stat Oth 09/14/18 23:10 Completed Telemetry [OM.EQ] Routine Oth 09/15/18 03:53 Active EKG [EKG] Stat Ther 09/15/18 01:15 Draft Transfer/Admit Order [TRANSFER] Routine Transfer 09/15/18 02:53 Completed Pt care, assessment and plan discussed with the supervising physician Dr. Asha Harper and she agree with the plan as documented. I checked on the pt multiple times during ER time. pt slowly improved. BP is low respond to fluid. pt BP mostly on the low side per chart review. Result Diagrams: 09/15/18 05:10 09/15/18 05:10 - REASSESSMENT Reassessment #1 Time Reassessed: 00:00 Status: improving (Pt more alert with oxygen. Pt meets criteria for sepsis protocol. Fluids and antibiotics ordered.) Reassessment #2 Time Reassessed: 01:30 Status: improving (denies complaints. more alert now.) - XRAY 1 XRAY Study: Chest Impression: See EMR Report - CONSULTS/PCP/HOSPITALIST Notification #1 *Consult/PCP/Hospitalist*: Dr. Potter Time Discussed: 01:44 Reason/Comments: Sepsis; acute respiratory failure; AMS; hypertension Consult Disposition: Admit Departure - Departure Date of Disposition Decision: 09/15/18 Time of Disposition Decision: 01:45 DIAGNOSIS: Elevated troponin Sepsis Qualifiers: Sepsis type: sepsis due to unspecified organism Qualified Code(s): A41.9 - Sepsis, unspecified organism Acute respiratory failure Qualifiers: Respiratory failure complication: unspecified whether with hypoxia or hypercapnia Qualified Code(s): J96.00 - Acute respiratory failure, unspecified whether with hypoxia or hypercapnia Altered mental status Qualifiers: Altered mental status type: unspecified Qualified Code(s): R41.82 - Altered mental status, unspecified Hypertension Qualifiers: Hypertension type: unspecified Qualified Code(s): I10 - Essential (primary) hypertension Disposition: ADMITTED INPATIENT 09 Certified Medical Emergency: Emergent Condition: Critical - Critical Care Note This patient required my direct & personal management of CC.: Yes Total Time (mins): 40 Critical Care Statement: This patient required my direct personal management to treat or rule out processes, the absence of which, could potentiallly result in sudden, clinically significant life or limb threatening deterioration. Attestation - Physician/ JULISA Attestation Patient care was provided by Advanced Practice Provider:: No The physician spent face to face time with patient:: Yes Advanced Practice Provider documentation review:: Supervising physician onsite and consulted in the evaluation and care of this patient. The physician did have a face to face encounter with the patient. This chart was documented by the indicated scribe, (Stacie Hubbard Scribe) and accurately reflects the services I performed and decisions made by me, Domonique Baer MD, as attested by the provider's signature.
[2018-09-15 03:59] LABS: URINE WBC TNTC /HPF (<10)
[2018-09-15] MEDS ORDERED: ZOFRAN IV PRN (04:28)
[2018-09-15] MEDS ORDERED: TYLENOL PO PRN (04:40)
[2018-09-15] MEDS: DUONEB (A & A) INH SCH ×4 (04:50→21:35)
[2018-09-15 06:19] LABS: BASO# 0.02 X1000 (0.0-0.2); BASO% 0.1 % (0.0-0.8); HEMATOCRIT 31.9 % (37.0-47.0); HEMOGLOBIN 10.4 g/dL (12.0-16.0); IMM GRAN# 0.19 X1000 (0.0-0.04); IMM GRAN% 0.9 % (0.0-0.5); LYMPH# 1.56 X1000 (1.2-3.4); LYMPH% 7.2 % (20.5-51.1); MCH 25.2 PG (27-31); MCHC 32.6 g/dL (33-37); MCV 77.2 FL (81-99); MONO# 1.09 X1000 (0.11-0.59); MPV 12.1 FL (7.4-10.4); NEUT# 18.74 X1000 (1.4-6.5); NEUT% 86.8 % (42.2-75.2); PLT 168 X1000 (130-400); RBC 4.13 XMIL (4.2-5.4)
[2018-09-15 06:33] LABS: ALBUMIN 2.2 g/dL (3.5-5.0); CALCIUM 7.8 mg/dL (8.8-10.2); PHOSPHORUS 4.9 mg/dL (2.7-4.5); POTASSIUM 3.5 mmol/L (3.5-5.1)
[2018-09-15 06:35] LABS: CREATININE 8.6 mg/dL (0.5-0.9)
[2018-09-15 07:11] LABS: LYMPHS 18 % (21-51); MONO 4 % (1-9); SEGS 78 % (42-75)
[2018-09-15] MEDS: HUMULIN R SUBQ SCH ×4 (07:17→20:18)
--- NOTE | 2018-09-15 07:55 | Diag Imaging Result Doc PS360 ---
EXAM: CHEST-1 VIEW 09/14/2018 HISTORY: low spo2, rhonchi, AMS TECHNIQUE: AP chest at 1127 COMMENT: There is subsegmental atelectasis in the right base and medial left base. The inspiration is less optimal than on 08/25/2018 but otherwise there has been very little change. IMPRESSION: Bibasilar atelectasis. Poor inspiration. Electronically signed by Dhaval Morris 09/15/2018 7:53 AM
--- NOTE | 2018-09-15 08:00 | EKG Report ---
Test Performed on : 09/15/2018 07:39:06 AM Test Reason : Elevated Troponin Blood Pressure : / mmHG Vent. Rate : 095 BPM Atrial Rate : 095 BPM P-R Int : 128 ms QRS Dur : 072 ms QT Int : 398 ms P-R-T Axes : 038 008 023 degrees QTc Int : 500 ms Normal sinus rhythm. Prolonged QT Abnormal ECG When compared with ECG of 15-SEP-2018 02:49, No significant change was found Confirmed by Robbin Dean MD ([id number]) on 09/16/2018 6:20:44 PM
[2018-09-15] MEDS: PHOSLO PO SCH ×4 (08:30→19:15)
[2018-09-15] MEDS: NEURONTIN PO SCH ×2 (08:30→20:17)
[2018-09-15] MEDS: PRILOSEC PO SCH (08:30)
[2018-09-15] MEDS: HEPARIN SUBQ SCH ×2 (08:30→20:17)
[2018-09-15] MEDS: CYMBALTA PO SCH (08:31)
[2018-09-15] MEDS ORDERED: HEPARIN IV PRN (09:03)
[2018-09-15] MEDS ORDERED: ALBUMIN 25% IV PRN (09:03)
[2018-09-15] MEDS ORDERED: NS 2,000 ML MISC PRN (09:03)
[2018-09-15] MEDS ORDERED: TIGHT: 0.2 ML/HR FOR DIALYSIS MISC PRN (09:03)
--- NOTE | 2018-09-15 10:35 | EKG Report ---
Test Performed on : 09/15/2018 02:49:42 AM Test Reason : AMS, low spo2 Blood Pressure : / mmHG Vent. Rate : 088 BPM Atrial Rate : 088 BPM P-R Int : 134 ms QRS Dur : 074 ms QT Int : 404 ms P-R-T Axes : 037 006 038 degrees QTc Int : 488 ms Normal sinus rhythm. Prolonged QT Abnormal ECG When compared with ECG of 22-AUG-2018 07:21, No significant change was found Unconfirmed Result
--- NOTE | 2018-09-15 11:32 | HISTORY AND PHYSICAL ---
PRIMARY CARE PHYSICIAN: Dr. Bryan Hammonds MD CHIEF COMPLAINT: Shortness of breath. HISTORY OF PRESENT ILLNESS: Ms. Cheney is a 58-year-old female with past medical history most notable for diabetes mellitus, liver cirrhosis, end stage renal disease on hemodialysis on Mondays, Wednesdays and Fridays, and recent problems with hypoxic respiratory failure, stating that she has just recently been placed [facility]. The patient was just recently discharged from our facility on 08/28/2018. Since that time, she has been seen as an outpatient on 09/08/2018 for which she underwent an unsuccessful ultrasound-guided paracentesis. The patient does have a history of cirrhosis as previously mentioned and does have to undergo paracentesis as needed for recurrent ascites. The patient states that for approximately a few days now that she has felt short of breath. She also reports that she has had a cough. She reports that she has been feeling more weak and fatigued and has had decreased appetite and oral intake. Though she is not reporting abdominal pain, she was tender to palpation in her lower abdomen in the suprapubic area. The patient reports that she still does produce some urine, though this is only occasionally. She has been reporting some diarrhea for the past week as well. Though she is denying any headache, she is complaining of some dizziness. She denies any chest pain. She is reporting shortness of breath with a nonproductive cough. She denies any nausea or vomiting. She denies any pain, numbness, tingling or swelling in the extremities. According to ER report, [facility] with low oxygen saturations prior to arrival. They noted her to be altered as well. She did have reported oxygen saturation that was in the 50s, so was placed on a nonrebreather, and this did improve. Upon my examination in the ER, the patient was alert and oriented to person, place, time and situation. She was awake, alert and able to answer questions appropriately. Upon evaluation, she did have leukocytosis noted with a 21,000 white blood cell count. She also did have elevated BUN and creatinine, which is expected. The patient is an end stage renal disease patient on hemodialysis. She was noted to have elevated troponin as well. The patient does have renal disease and may possibly have sepsis, and this could be related to that. She is denying any chest pain. EKG did not show any acute changes from previous. It showed normal sinus rhythm a prolonged QT. Chest x-ray did not show any acute abnormalities other than bibasilar atelectasis. Though it was noted to be a poor inspiration on the x-ray. We did obtain a urinalysis. I was present at bedside when they performed her in-and-out cath. The patient's urine was purulent in appearance. Upon waiting for her urinalysis to be completed by the lab, they called and said that her specimen was so thick that they were unable to run it on their regular urinalysis machine. They did note that it had too numerous to count microscopic white blood cells, though other than this, they could not run any further testing, though a urine culture has been obtained. The patient's abdomen does appear to be slightly distended, though was soft, was not tender upon palpation except for in the suprapubic area, which I believe is related to her urinary tract infection. She was slightly hypotensive upon arrival with blood pressure that was 78/55 with a MAP of 65. She did receive a small 500 mL normal saline bolus in the ER, and since that time, her blood pressure has improved, with the last reading of 103/65 with a MAP of 75. The patient was placed inpatient for admission. REVIEW OF SYSTEMS: A 14-point review of systems was conducted with the patient, and all were negative except for the pertinent positives mentioned in the above HPI. PAST MEDICAL HISTORY: 1. End stage renal disease on hemodialysis Friday, Friday and Friday. 2. Diabetes mellitus. 3. History of hypertension. 4. History of alcohol abuse. 5. History of nicotine dependence. 6. Hypoxic respiratory failure, now requiring supplemental oxygen with nasal cannula. 7. History of cirrhosis of the liver with a history of recurrent ascites requiring paracentesis. PAST SURGICAL HISTORY: 1. Dialysis shunt placement in right upper arm. 2. Cholecystectomy. 3. Reported stent placement and removal from her kidneys. 4. Recent paracentesis on 09/08/2018. SOCIAL HISTORY: The patient is a former smoker. She also has a history of alcoholism, though reports that she quit drinking 3 years ago. There is no known illicit drug abuse. She currently is at [facility] as a patient. FAMILY HISTORY: Positive for her mother having a history of diabetes mellitus and lung cancer. ALLERGIES: The patient reports no known allergies. HOME MEDICATIONS: 1. DuoNeb treatments q.6 hours p.r.n. as needed. 2. Elavil 10 mg p.o. nightly at bedtime. 3. Calcium acetate 667 mg capsule 2 capsules p.o. before meals. 4. [*]60 mg p.o. daily. 5. Gabapentin 300 mg p.o. b.i.d. 6. Hydroxyzine 10 mg p.o. q.8 hours p.r.n. 7. Robaxin 500 mg p.o. nightly at bedtime. 8. Prilosec 40 mg p.o. daily. DIAGNOSTIC DATA: White blood cell count is 21,950, hemoglobin 10.4, hematocrit 32.2, platelet count is 162. PT is 15. INR is 1.09. PTT is less than 20. Sodium 134, potassium 4, chloride 96, serum bicarb is 25, BUN is 31, creatinine 9, GFR of 5, glucose 271, calcium 7.3. Liver function tests within normal limits. CK is 74. Troponin is 0.515. ProBNP is 5033. Plasma lactate initially 4.3 with a repeat of 3.2. Urinalysis obtained via in-and-out straight catheterization. Due to the specimen being very purulent, they were only able to perform a microscopic white blood cell evaluation which was noted to be too numerous to count. We are awaiting urine culture. Arterial blood gases were obtained on FiO2 of 100% per nonrebreather. The pH was 7.45, pCO2 was 35, pO2 of 138, HCO3 was 25.3. The O2 saturation was 99.1%. EKG showed normal sinus rhythm with a prolonged QT at a rate of 88 with a QTC of 488. In comparison with her most recent EKG in 08/2018, there does not appear to be any acute changes noted. Chest x-ray showed bibasilar atelectasis. This is per Radiology. PHYSICAL EXAMINATION: VITAL SIGNS: Temperature is 98.6, heart rate 90, respirations 18, blood pressure 103/65 with oxygen saturation of 100% per nonrebreather at 15 L. GENERAL: Ms. Cheney is a pleasant 58-year-old female who is resting on the ER stretcher. She was in no acute distress. She was awake and alert and able to answer questions appropriately. HEENT: Head is atraumatic and normocephalic. Pupils are equal, round and reactive to light, were 3 mm bilaterally and brisk. Oral mucosa is slightly dry. Oropharynx is clear. NECK: Supple. Trachea midline. CARDIOVASCULAR: The patient has S1 and S2 present. No murmurs, gallops or rubs appreciated, with a regular rate and rhythm. PULMONARY: The patient has symmetrical chest expansion bilaterally. Lung sounds in bilateral full anderson did have expiratory wheezing and rhonchi noted. ABDOMEN: Soft. Does appear to be slightly distended, though was nontender upon palpation except for in the suprapubic region. Bowel sounds were present in all 4 quadrants and were normoactive. EXTREMITIES: No cyanosis or edema noted. Radial and pedal pulses were 2+ bilaterally. INTEGUMENTARY: The patient's skin color is normal for her race, is dry and intact. NEUROLOGICAL: The patient is alert and oriented to person, place, time and situation. She is able to move all extremities. She did not have any focal neurological deficits noted. ASSESSMENT AND PLAN: 1. Urinary tract infection. The patient's urine upon being obtained with an in-and-out straight catheterization was thick, whitish-yellow and purulent. Due to this, they were not able to run it on the regular laboratory machine for urinalysis. It was noted under microscopic examination to have too numerous to count white blood cells. We are awaiting a urine culture, though the patient has reported that she did have tenderness in the suprapubic area upon palpation. It could be the patient may have possible sepsis due to a urinary tract infection. We have placed her with antibiotic coverage of cefepime. She did receive a dose of vancomycin in the ER. We will continue with antibiotics and await urine culture results. 2. History of cirrhosis with recurrent ascites requiring paracentesis. The patient did have a recent paracentesis performed on 09/08/2018. Though at this time, other than suprapubic tenderness, she is not reporting any abdominal tenderness. Her abdomen is soft. We will continue with antibiotic treatment as mentioned above and will continue to follow closely. 3. Possible sepsis. The patient was mildly hypotensive upon arrival to the ER, though looking back at her vital signs on previous admission, she does tend to hang on the lower side. She did receive a one-time normal saline bolus of 500 mL. Since that time, her blood pressure has improved. We will continue to monitor this closely. 4. Hypotension. We will continue with treatments mentioned above for number 3, though after fluid bolus, blood pressure has improved, and she is maintaining adequate blood pressures at this time, though we will continue to monitor this closely. 5. Acute hypoxic respiratory failure. The patient states that in the last couple of weeks that she has been placed on supplemental oxygen [facility]. She was reported to be in the 50s at the penitentiary and has reported shortness of breath and a cough, though with placement of a nonrebreather and now will place her on a Ventimask. Her oxygen saturations have improved. Chest x-ray did not show any definite pneumonia or fluid collections. There was some bibasilar atelectasis. We will continue to follow respiratory status closely. 6. End stage renal disease on hemodialysis on Friday, Wednesdays and Fridays. We have placed a consult with Dr. Price and will await his evaluation and further recommendations for management. The patient states that she did go to the dialysis center on Friday though did not receive her treatment due to she was not feeling well. 7. Diabetes mellitus. We have placed her on pattern fingerstick blood sugars and sliding scale insulin, though the patient states that as of right now, they have taken her off all of her diabetic medications [facility] the [facility]. She has reported that she has had poor oral intake and appetite as well. 8. DVT prophylaxis will be provided with heparin 5000 units subcutaneously q.12 hours. 9. She has been placed in the ICU for close monitoring. We will continue with continuous cardiac telemetry, pulse oximetry and frequent vital signs. She will be on a diabetic and renal diet. We have placed orders for repeat CBC and renal profile later on this morning. The patient's troponins were elevated as well, though she has not had any acute EKG changes and is denying any chest pain. This may be likely due to her renal dysfunction and possible sepsis as well. We will continue with series of cardiac enzymes and repeat EKG later this morning. Continue to monitor this. Further orders and recommendations pending hospital course, diagnostic studies and physician evaluation. Dictated by ARTUR Parra for Melchor Potter MD cc: MD Gonzalo Powell MD
--- NOTE | 2018-09-15 12:13 | Diag Imaging Result Doc PS360 ---
US ABD PARACENTESIS W S/I - 09/15/2018 INDICATION: ascites-routine tap COMPARISON: None FINDINGS: The risks and benefits of the procedure were discussed with the patient. All questions were answered. Written and verbal consent was obtained. Ultrasound scanning demonstrated ascites. Overlying skin was prepped and draped in sterile fashion. Local anesthesia was achieved with injection of 10 cc 1% lidocaine. The paracentesis catheter was advanced until the return of ascites fluid. 4.6 L of tylor serous fluid was aspirated. The catheter was withdrawn intact. There were no known complications. IMPRESSION: Technically successful ultrasound-guided paracentesis with no known complications. Electronically signed by Todd Duke 09/15/2018 12:10 PM
[2018-09-15 14:07] LABS: BODY FLUID SOURCE MISCELLANEOUS
[2018-09-15 14:08] LABS: WBC BF 257 /cumm
[2018-09-15 14:10] LABS: MONOS 80 %; POLYS 20 %
[2018-09-15] MEDS ORDERED: ULTRAM PO ONE (14:37)
[2018-09-15] MEDS ORDERED: MAXIPIME 0.5 GM in NS 50 ML IV ONE (15:48)
--- NOTE | 2018-09-15 18:36 | NEPHROLOGY CONSULTATION ---
DATE: 09/15/2018 REASON FOR ADMISSION: Hypoxemia. REASON FOR CONSULTATION: Assist with management ESRD. HISTORY OF PRESENT ILLNESS: This is a 58-year-old female known to our service for end-stage renal disease on hemodialysis on a Friday, Friday, Friday schedule. She did not dialyze yesterday. She was found to be hypoxemic at the senior living was brought into the emergency room. She was admitted to the hospital for further workup and treatment. The patient is known to us for herpetic cirrhosis, congestive heart failure, ESRD. She is been having a routine ultrasound- guided paracenteses almost weekly. Patient tends to have significantly low blood pressures after such. The patient on this admission came in had O2 saturation in the 50s, was placed on non- rebreather. Admitted to the ICU for further workup and treatment. She has been hypotensive with blood pressures in the 70s to 80s. PAST MEDICAL HISTORY: End-stage renal disease hemodialysis Friday, Friday, Friday, diabetes, hypertension, ETOH abuse, nicotine dependence, hypoxic respiratory failure, history of cirrhosis. SURGICAL HISTORY: She has a AV fistula left upper extremity, cholecystectomy, stent placement removal from kidneys, paracentesis every Friday. ALLERGIES: None. HOME MEDICATIONS: DuoNeb, Elavil, calcium acetate, gabapentin, hydroxyzine, Robaxin, Prilosec. FAMILY HISTORY: Diabetes, lung cancer. SOCIAL HISTORY: She lives at [facility]. No current EtOH, tobacco or illicit drug use. REVIEW OF SYSTEMS: Shortness of breath significant. EXAM: Vital Signs: Temperature 99.6, 195, respiratory rate 18, blood pressure 87/55, intake not measured, output 10 mL. General: This is a middle-aged female is chronically ill-appearing resting in bed. Her O2 saturations drop into the upper 70s, low 80s whenever she removes her nonrebreather. HEENT: Normocephalic, atraumatic. Oral mucosa dry. Neck: Supple. Trachea midline. Cardiovascular: Regular rate and rhythm. Pulmonary: She has coarse rhonchi bilaterally worse on the left. Abdomen: Distended, soft. Positive bowel sounds. : Not inspected. Extremities: No clubbing, cyanosis. Her extremities are somewhat wasted. Integumentary: Skin is warm and dry. Neuro: Nonfocal. LAB DATA: WBC 21.6, hemoglobin 10.7, sodium 134, potassium 3.5, CO2 25, BUN 33, creatinine 8.6. Urinalysis TNTC WBC. ASSESSMENT AND PLAN: 1. Chronic kidney disease 5D. Patient did not dialyze yesterday, we will plan to dialyze her today on a 3K bath/UF to her dry weight after her paracentesis/3-1/2 hour treatment. 2. Cirrhosis with recurrent ascites. Will request a ultrasound-guided paracentesis today along with cell count and culture. 3. Urinary tract infection, possible sepsis. Patient did receive bolus of 500 mL in the emergency room. Again see #1 for plan. 4. Hypoxic respiratory failure. Patient is a do not resuscitate level 1, she is currently on a nonrebreather. 5. Hypotension. Albumin 50 grams during dialysis. Will need to come off dialysis 1 liter positive. rg Dictated by ARTUR East for Noel Price MD Face to face encounter, data reviewed, discussed with Leah Norris on 09/15/18. I agree with the above assessment and plan of care. rg cc: MD Gonzalo Badillo MD [facility]ITAL[facility]riana
[2018-09-15] MEDS: ELAVIL PO SCH (20:18)
[2018-09-15] MEDS ORDERED: CALMOSEPTINE OINTMENT TOP ONE (20:42)
[2018-09-15] MEDS: FLAGYL 500 MG/NS 500 MG/100 ML IVPB IV SCH (22:58)
[2018-09-16] MEDS: DUONEB (A & A) INH SCH ×4 (03:34→21:42)
[2018-09-16] MEDS: FLAGYL 500 MG/NS 500 MG/100 ML IVPB IV SCH (04:26)
[2018-09-16] MEDS: HUMULIN R SUBQ SCH ×4 (06:04→21:50)
[2018-09-16] MEDS: PRILOSEC PO SCH (06:04)
[2018-09-16] MEDS: PHOSLO PO SCH ×3 (06:15→16:03)
[2018-09-16] MEDS: FLAGYL PO SCH ×2 (08:36→21:49)
[2018-09-16] MEDS: NEURONTIN PO SCH ×2 (08:36→21:49)
[2018-09-16] MEDS: CULTURELLE PO SCH (08:36)
[2018-09-16] MEDS: CYMBALTA PO SCH (08:37)
[2018-09-16] MEDS: IMODIUM PO PRN ×4 (08:37→11:12)
[2018-09-16] MEDS: HEPARIN SUBQ SCH ×2 (09:13→21:49)
--- NOTE | 2018-09-16 10:22 | PROGRESS NOTE ---
DATE: 09/16/2018 SUBJECTIVE: A 58-year-old female is well known to this hospital with recurrent admissions. She was admitted on 09/15/2018 for shortness of breath. H and P was reviewed very extensively. PAST MEDICAL HISTORY: Reviewed. PAST SURGICAL HISTORY: Reviewed. MEDICINES: Reviewed. ALLERGIES: Not known. INTERVAL HISTORY: Patient had abdominal paracentesis drained 4.6 L of fluid. Complains of diarrhea. No shortness of breath. No chest pain. The patient is going to dialysis today. OBJECTIVE: Vital Signs: On exam, temperature is 97 degrees, pulse is 82, blood pressure 90/60. HEENT: Exam is slightly pale. Neck: Supple. Lungs: Poor air entry. Heart: Sounds are regular. Abdomen: Belly is soft. Decreased ascites. No signs of peritonitis. Extremities: No peripheral edema. LABS: CBC: White cell count 21, hematocrit 31, platelets 168. The patient was on 100% non- rebreather, slowly weaned off. Sodium 134, potassium 3.5, BUN 33, creatinine 8.6. Plasma lactate was high. MICROBIOLOGY: Blood cultures, urine cultures are pending. Stool white cells negative. C. difficile was negative. ASSESSMENT AND PLAN: 1. End-stage kidney disease on hemodialysis to the right arteriovenous graft by Dr. Price. 2. Intractable ascites due to hepatitis C, not amenable for treatment. Paracentesis as needed to relieve the discomfort. 3. Diarrhea. Rule out dichlorodiphenyl methyl carbinol. Change the Flagyl to 50 twice daily, along with Culturelle and Imodium as needed. 4. Chronic obstructive pulmonary disease weaned off oxygen. Incentive spirometry. 5. Deep vein thrombosis prophylaxis with heparin. 6. History of Stenotrophomonas maltophilia infection enterococci in the past, currently receiving cefepime after dialysis. Living Will, do not resuscitate. Repeat the labs in the morning. The patient is a little better than yesterday. Will transfer to the step-down unit when the bed is available. LEVEL OF DOCUMENTATION: 35 minutes. cc: Gonzalo Hammonds MD
--- NOTE | 2018-09-16 14:32 | NEPHROLOGY PROGRESS NOTE ---
DATE: 09/16/2018 SUBJECTIVE: She is awake, alert. No new complaints. Still complaining of leg pain. No vomiting. OBJECTIVE: Vital signs: Blood pressure 86/58, heart rate 82, respirations 15, afebrile. Intake and Output: Intake 1.7 L. Output 0. PHYSICAL EXAMINATION: No acute distress. Skin is warm and dry. Conjunctivae are pink. Neck veins are not distended. Heart is regular and tachycardic. Lungs are equal with no crackles. Abdomen is flat, soft. Bowel sounds present. Extremities: No edema, clubbing, or cyanosis. IMPRESSION: Chronic kidney disease, 5D. No new lab data today. Appeared euvolemic. No dialysis today. cc: MD Gonzalo Badillo MD
[2018-09-16] MEDS: MAXIPIME 0.5 GM in NS 50 ML IV SCH (16:02)
[2018-09-16] MEDS: ELAVIL PO SCH (21:49)
[2018-09-17] MEDS: DUONEB (A & A) INH SCH ×4 (03:20→22:01)
[2018-09-17 05:50] LABS: BASO# 0.02 X1000 (0.0-0.2); BASO% 0.1 % (0.0-0.8); EOS# 0.02 X1000 (0.0-0.7); EOS% 0.1 % (0.0-10.0); HEMATOCRIT 31.4 % (37.0-47.0); HEMOGLOBIN 10.1 g/dL (12.0-16.0); IMM GRAN# 0.12 X1000 (0.0-0.04); IMM GRAN% 0.7 % (0.0-0.5); LYMPH# 1.13 X1000 (1.2-3.4); LYMPH% 6.6 % (20.5-51.1); MCH 24.5 PG (27-31); MCHC 32.2 g/dL (33-37); MCV 76.2 FL (81-99); MONO# 0.74 X1000 (0.11-0.59); MONO% 4.3 % (1.7-9.3); MPV 12.3 FL (7.4-10.4); NEUT# 15.15 X1000 (1.4-6.5); NEUT% 88.2 % (42.2-75.2); PLT 131 X1000 (130-400); RBC 4.12 XMIL (4.2-5.4); RDW 15.5 % (11.5-14.5); WBC 17.18 X1000 (4.8-10.8)
[2018-09-17 05:57] LABS: ALB/GLOB RATIO 0.6; ALBUMIN 2.4 g/dL (3.5-5.0); CALCIUM 8.3 mg/dL (8.8-10.2); CREATININE 5.3 mg/dL (0.5-0.9); POTASSIUM 3.9 mmol/L (3.5-5.1); TOTAL BILIRUBIN 0.47 mg/dL (0.20-1.00); TOTAL PROTEIN 6.5 g/dL (6.3-8.3)
[2018-09-17] MEDS ORDERED: HEPARIN IV PRN (06:09)
[2018-09-17] MEDS ORDERED: NS 2,000 ML MISC PRN (06:09)
[2018-09-17] MEDS ORDERED: TIGHT: 0.2 ML/HR FOR DIALYSIS MISC PRN (06:09)
[2018-09-17] MEDS ORDERED: ALBUMIN 25% IV ONE (06:09)
[2018-09-17] MEDS: HUMULIN R SUBQ SCH ×4 (06:29→22:27)
[2018-09-17] MEDS: PHOSLO PO SCH ×3 (06:36→15:42)
[2018-09-17] MEDS: PRILOSEC PO SCH (06:36)
[2018-09-17] MEDS: HEPARIN SUBQ SCH ×2 (09:33→20:57)
[2018-09-17] MEDS: CYMBALTA PO SCH (09:34)
[2018-09-17] MEDS: NEURONTIN PO SCH ×2 (09:34→20:57)
[2018-09-17] MEDS: CULTURELLE PO SCH (09:34)
[2018-09-17] MEDS: FLAGYL PO SCH ×2 (09:34→20:57)
[2018-09-17] MEDS: IMODIUM PO PRN ×2 (09:34→13:35)
--- NOTE | 2018-09-17 12:20 | NEPHROLOGY PROGRESS NOTE ---
DATE: 09/17/2018 SUBJECTIVE: Patient is sitting up in the bed. She states that she has not been able to get out of bed yet. OBJECTIVE: Vital Signs: Temperature 98.4 degrees, pulse 107, respiratory rate 18, blood pressure 98/53. Intake 480 mL. Output none. General: Middle-aged female, resting in bed. She is in no acute distress. HEENT: Normocephalic, atraumatic. Conjunctivae are pale. Oral mucosa moist. Neck: Supple, without JVD. Cardiovascular: Regular rate and rhythm. She continues with tachycardia. Pulmonary: She had rhonchi bilaterally and a productive cough. Abdomen: Soft. Nontender. : Not inspected. Extremities: No clubbing, cyanosis, or edema. Laboratory Data: WBC of 17.1, hemoglobin 10.1. Sodium 138, potassium 3.9, CO2 29, creatinine 5.3, albumin 2.4. ASSESSMENT AND PLAN: Chronic kidney disease 5D. Today is her routine dialysis day. She will dialyze on a 3 K bath/UF to dry weight/3.5 hour treatment. We will give her 50 g of albumin during treatment today to assist with blood pressure and the fact that her albumin is quite low. Dictated by ARTUR East for Noel Price MD Face to face encounter, data reviewed, discussed with Leah Norris on 09/17/18. I agree with the above assessment and plan of care. cc: MD Gonzalo Badillo MD [facility]
--- NOTE | 2018-09-17 18:53 | PROGRESS NOTE ---
DATE: 09/17/2018 SUBJECTIVE: The patient is doing better. Diarrhea is improved. No complaints. OBJECTIVE: Temperature is 98 degrees, pulse 99, blood pressure is stable, 100% on 3 L nasal cannula.HEENT Exam: Within normal limits. Poor air entry on the right side. Heart sounds are regular. Belly is soft, nontender. No ascites noted. LABORATORY: CBC: White cell count 17, hematocrit 31, platelets 131,000. Sodium 138, potassium 3.9, chloride 100, BUN 23, creatinine 5.3, glucose 113. Liver function tests were normal. White cells negative. Clostridium difficile is negative. Blood cultures, urine cultures are negative. ASSESSMENT AND PLAN: 1. End-stage kidney disease, on dialysis as per Dr. Price, going for today. 2. Elevated white cell count, stable. 3. Intractable ascites, status post paracentesis, stable. 4. Diarrhea. Rule out Clostridium difficile. Currently, receiving cefepime. I decreased the Flagyl dose. Continue on Imodium and Culturelle, and will send her back to the rehab tomorrow LEVEL OF DOCUMENTATION: 25 minutes. cc: Gonzalo Hammonds MD
[2018-09-17] MEDS: ELAVIL PO SCH (20:56)
[2018-09-17] MEDS: MAXIPIME 0.5 GM in NS 50 ML IV SCH (20:56)
[2018-09-18] MEDS ORDERED: D50W SYRINGE IV ONE (04:06)
[2018-09-18] MEDS: DUONEB (A & A) INH SCH ×4 (04:07→22:52)
[2018-09-18] MEDS: HUMULIN R SUBQ SCH ×4 (06:00→21:00)
[2018-09-18] MEDS: PHOSLO PO SCH ×2 (06:01→17:36)
[2018-09-18] MEDS: PRILOSEC PO SCH (06:02)
[2018-09-18] MEDS: NEURONTIN PO SCH ×2 (09:54→21:06)
[2018-09-18] MEDS: CULTURELLE PO SCH (09:54)
[2018-09-18] MEDS: FLAGYL PO SCH ×2 (09:55→21:06)
[2018-09-18] MEDS: CYMBALTA PO SCH (09:55)
[2018-09-18] MEDS: HEPARIN SUBQ SCH ×2 (09:59→21:05)
[2018-09-18] MEDS ORDERED: NS 1,000 ML IV ONE (10:25)
[2018-09-18] MEDS: ALBUMIN 25% IV SCH (13:36)
--- NOTE | 2018-09-18 15:40 | NEPHROLOGY PROGRESS NOTE ---
DATE: 09/18/2018 SUBJECTIVE: Eyes are open but she is nonverbal this morning. She is moving her arms in the air. OBJECTIVE: Vital Signs: Blood pressure 87/51, heart rate 60, respirations 16, T-max 99.5 degrees. General: Chronically ill, thin, no acute distress. Skin: Warm and dry. Neck: Neck veins are not visible. Heart: Regular. No gallops. Murmur present. Lungs: Equal. No crackles. Abdomen: Soft, flat, nontender. Extremities: No edema, clubbing, or cyanosis. IMPRESSION: Hypotension, altered mental status. We will give albumin and normal saline today for volume expansion. She had dialysis yesterday. No new labs. No other treatment from my perspective today. cc: MD Gonzalo Badillo MD
--- NOTE | 2018-09-18 20:18 | PROGRESS NOTE ---
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 Patient unresponsive. Low blood pressure. Blood sugar is 76, D50 was given. This morning she is confused, able to open up, move the upper extremities. Unable to follow verbal commands. OBJECTIVE: Temperature is 98 degrees, pulse 89, blood pressure is 90/60, 94% on room air. Slightly pale.Chest: Clear. Heart: Sounds are regular. Belly: Soft, nontender. Hard to assess neurological exam. LABS: Blood sugar is 95. ASSESSMENT AND PLAN: 1. Altered mental status, hypoglycemia and if no improvement consider CT of the head. 2. End-stage kidney disease on dialysis, had dialysis yesterday. 3. Intractable ascites due to hepatitis C, stable. 4. Elevated white cell count. Continue on cefepime after dialysis. 5. Diarrhea is improving. Ruled out on low dose of Flagyl. 6. Living will do not resuscitate. Prognosis is poor. Palliative Care consult was obtained. LEVEL OF DOCUMENTATION: 25 minutes. cc: Gonzalo Hammonds MD [facility]
[2018-09-18] MEDS: ELAVIL PO SCH (21:06)
[2018-09-18] MEDS: MAXIPIME 0.5 GM in NS 50 ML IV SCH (21:06)
[2018-09-19] MEDS: DUONEB (A & A) INH SCH ×3 (04:24→16:14)
[2018-09-19] MEDS: PHOSLO PO SCH ×4 (06:12→16:26)
[2018-09-19] MEDS: PRILOSEC PO SCH (06:13)
[2018-09-19] MEDS: HUMULIN R SUBQ SCH ×4 (06:33→21:30)
[2018-09-19] MEDS ORDERED: NS 2,000 ML MISC PRN (08:41)
[2018-09-19] MEDS: CYMBALTA PO SCH (09:34)
[2018-09-19] MEDS: CULTURELLE PO SCH (09:35)
[2018-09-19] MEDS: FLAGYL PO SCH ×2 (09:35→20:18)
[2018-09-19] MEDS: NEURONTIN PO SCH ×2 (09:35→20:18)
[2018-09-19] MEDS: HEPARIN SUBQ SCH ×2 (09:36→20:18)
[2018-09-19] MEDS: ALBUMIN 25% IV SCH (09:48)
[2018-09-19] MEDS: MAXIPIME 0.5 GM in NS 50 ML IV SCH (20:18)
[2018-09-19] MEDS: ELAVIL PO SCH (20:19)
--- NOTE | 2018-09-19 22:05 | PROGRESS NOTE ---
DATE: 09/19/2018 SUBJECTIVE: The patient is arousable. She moves all extremities well. She says she feels a little better today. She is responsive. OBJECTIVE: Vital Signs: Afebrile, pulse 84, respirations 20, blood pressure 106/75, O2 saturation on 3 L 96%. Cardiovascular: RRR. Lungs: Crackles bilaterally today. Abdomen: Soft. Mild ascites. Extremities: No calf tenderness, cords or edema. She moves all extremities well. ASSESSMENT: 1. Mental status change, improved. 2. End-stage renal disease, on hemodialysis per Dr. Price. 3. Cirrhosis with hepatitis C and ascites, stable. 4. Diarrhea, improved with 1 soft bowel movement in the past 24 hours documented. PLAN: The patient received some IV fluids yesterday. She may have a little extra volume today. I believe she is having hemodialysis per Dr. Price. She remains on cefepime and she is on metronidazole orally. She has improved overall with the diarrhea. Stool studies, urine culture and blood cultures were all negative. We will continue to follow clinically day by day on current medications. cc: MD Gonzalo Boyce MD
[2018-09-20] MEDS: DUONEB (A & A) INH SCH ×5 (00:25→23:42)
[2018-09-20] MEDS: HUMULIN R SUBQ SCH ×4 (06:13→21:00)
[2018-09-20] MEDS: PRILOSEC PO SCH ×2 (06:16→06:18)
[2018-09-20] MEDS: PHOSLO PO SCH ×4 (06:16→16:29)
--- NOTE | 2018-09-20 07:38 | NEPHROLOGY PROGRESS NOTE ---
DATE: 09/19/2018 SUBJECTIVE: She has no new complaints today. She is awake and alert. My encounter was for counseling primarily today. She has been considering withdrawal of dialysis. I counseled her that a typical dialysis patient will live approximately 1 week without dialysis. She is not yet clear what she would like to do in terms of continuing dialysis or withdrawing. We will continue to discuss this over the next several days. cc: MD Gonzalo Badillo MD
[2018-09-20] MEDS: CULTURELLE PO SCH (11:54)
[2018-09-20] MEDS: CYMBALTA PO SCH (11:54)
[2018-09-20] MEDS: NEURONTIN PO SCH ×2 (11:54→20:05)
[2018-09-20] MEDS: HEPARIN SUBQ SCH ×2 (11:54→21:31)
[2018-09-20] MEDS: FLAGYL PO SCH ×2 (11:55→20:05)
[2018-09-20] MEDS: ALBUMIN 25% IV SCH (11:57)
--- NOTE | 2018-09-20 14:15 | PROGRESS NOTE ---
DATE: 09/20/2018 SUBJECTIVE: The patient says she feels some better than she did yesterday. She is more talkative and her voice is a little bit stronger than yesterday. She does have diarrhea after she eats, so she is not eating a lot. OBJECTIVE: Vital signs: Afebrile, pulse 70s to 127, respirations 20, blood pressure 105/69, O2 saturation on 3 L 98%. CV: RRR. Lungs: With crackles bilaterally. Abdomen: Nontender. Extremities: No edema. Neurologic: Nonfocal. Three Bowel movements in the past 24 hours, very loose. LABS: No labs done today. Blood sugars in the low 100s primarily. ASSESSMENT: 1. Mental status change, resolved. 2. End-stage renal disease, on hemodialysis per Dr. Price. 3. Cirrhosis with hepatitis C and ascites. 4. Diarrhea. PLAN: For the latter, I am going to try Welchol to see if that will bulk her stools and as this is non-absorbed, it should not hurt her in any way, so will try that medication to see if that helps her symptomatically. Continue cefepime and metronidazole she is on. Continue DuoNeb. cc: MD Gonzalo Boyce MD
[2018-09-20] MEDS: MAXIPIME 0.5 GM in NS 50 ML IV SCH (20:05)
[2018-09-20] MEDS: ELAVIL PO SCH (20:05)
[2018-09-20] MEDS: WELCHOL PO SCH (20:05)
[2018-09-21] MEDS: DUONEB (A & A) INH SCH ×4 (04:08→22:29)
[2018-09-21] MEDS: HUMULIN R SUBQ SCH ×4 (06:04→21:02)
[2018-09-21] MEDS ORDERED: NS 2,000 ML MISC PRN (06:08)
[2018-09-21] MEDS ORDERED: HEPARIN IV PRN (06:08)
[2018-09-21] MEDS ORDERED: TIGHT: 0.2 ML/HR FOR DIALYSIS MISC PRN (06:08)
[2018-09-21] MEDS: PRILOSEC PO SCH (06:14)
[2018-09-21] MEDS: PHOSLO PO SCH ×3 (06:15→17:03)
[2018-09-21 08:22] LABS: ALBUMIN 3.5 g/dL (3.5-5.0); CALCIUM 8.5 mg/dL (8.8-10.2); PHOSPHORUS 2.1 mg/dL (2.7-4.5); POTASSIUM 4.7 mmol/L (3.5-5.1)
[2018-09-21 08:26] LABS: CREATININE 7.5 mg/dL (0.5-0.9)
[2018-09-21] MEDS: CULTURELLE PO SCH (09:27)
[2018-09-21] MEDS: WELCHOL PO SCH ×2 (09:28→21:02)
[2018-09-21] MEDS: CYMBALTA PO SCH (09:28)
[2018-09-21] MEDS: NEURONTIN PO SCH ×2 (09:28→21:02)
[2018-09-21] MEDS: FLAGYL PO SCH (09:28)
[2018-09-21] MEDS: HEPARIN SUBQ SCH ×2 (09:28→21:02)
--- NOTE | 2018-09-21 16:37 | NEPHROLOGY PROGRESS NOTE ---
DATE: 09/21/2018 TIME SEEN: 0615. SUBJECTIVE: Ms. Cheney is resting quietly in bed. She has multiple family members and her significant other at her bedside. She is denying any complaints of discomfort this a.m. OBJECTIVE: Vital signs: Patient's last temperature 98.4 degrees, blood pressure 96/63, heart rate 92, respirations are 16. She is on room air. Last recorded saturation is 100%. She has had 450 mL in. She has had 0 recorded out with need for dialysis. Labs: Her sodium is 137, potassium 4.7, chloride 99, CO2 26, BUN 30, creatinine 7.5, glucose 137. Her anion gap is 12. Her calcium is 8.5, phosphorus 2.1, albumin is 3.5. The patient has a previous hemoglobin of 10.1. PHYSICAL EXAMINATION: General: This is a 58-year-old female. She is resting quietly in bed. Her head of the bed is elevated. She appears in no acute distress. Skin: Warm and dry. HEENT: Normocephalic, atraumatic. Conjunctivae pale. She has ADAM. Mucous membranes are dry. Neck: Supple. Trachea midline. No JVD. Cardiovascular: She is regular rate and rhythm. She is without gallop. She has positive murmur. Lungs: Clear to auscultation bilateral. She does have a slight congested cough, though this is all anterior upper respiratory. She is on room air. Abdomen: Soft, nontender. Slightly distended. Positive bowel sounds. Genitourinary: Not inspected. Minimal void with dialysis assist. Extremities: Have no edema. No clubbing or cyanosis. She has fistula to the right upper arm. ASSESSMENT AND PLAN: 1. Chronic kidney disease stage 5D. Patient is currently a DNR level 1. She has had discussions with Dr. Price over the weekend in regards with stopping her hemodialysis. She has 4 sisters and her significant other at the bedside at this time. She has spoken with her family members and has decided to go ahead and continue her hemodialysis at this time. We will place her on a 2 K bath. She is to dialyze for 3.5 hours. We will attempt to pull patient to her outpatient dry weight of 1 to 2 L. 2. Electrolytes and acid-base balance with correction on dialysis. 3. Anemia. This is low but stable. 4. Hypotension with altered mental status. Patient was given albumin and normal saline on her initial evaluation. Her actual dialysis treatment is in the a.m. Due to her vital signs, we will go ahead and do dialysis today and questionable dialysis again in the morning to get patient back on track. 5. Ascites. Patient has had a paracentesis on the during her hospital stay which also assisted her hypotensive episodes. I would like to thank you for allowing us to follow with this patient. Dictated by ARTUR Keith for Noel Price MD Face to face encounter, data reviewed, discussed with Farida Bajwa on 09/21/18. I agree with the above assessment and plan of care. cc: ARTUR Keith MD Jagan Reddy, MD [facility]
[2018-09-21] MEDS ORDERED: ALBUMIN 25% IV PRN (17:57)
--- NOTE | 2018-09-21 20:54 | PROGRESS NOTE ---
DATE: 09/21/2018 SUBJECTIVE: Events noted over the weekend. Mental confusion is much improved. REVIEW OF SYSTEMS: None reported. She is going for dialysis this afternoon. PHYSICAL EXAMINATION: Vital Signs: Temperature 98 degrees, pulse 88, blood pressure is a little bit low. HEENT: Within normal limits. Slightly pale. Lungs: Decreased breath sounds, right side. Heart: Sounds are regular. Abdomen: Belly is soft. No ascites noted. Neurologic: No obvious neurological deficits. INVESTIGATIONS: Sodium 137, potassium 4.7, BUN 30, creatinine 7.5, glucose 137. All cultures were negative. ASSESSMENT: 1. Altered mental status, improving after correction of hypoglycemia. 2. End-stage kidney disease, on dialysis. 3. Off blood pressure medicines and diabetic medicines. 4. Intractable ascites due to hepatitis C. PLAN OF CARE: Is going for dialysis and diarrhea is improved on loperamide, and will discontinue the Flagyl. There is no evidence of Clostridium difficile noted. Will repeat the labs, CBC in the morning. Living Will, Do Not Resuscitate. LEVEL OF DOCUMENTATION: 25 minutes. cc: Gonzalo Hammonds MD
[2018-09-21] MEDS: MAXIPIME 0.5 GM in NS 50 ML IV SCH (21:01)
[2018-09-21] MEDS: ELAVIL PO SCH (21:02)
[2018-09-22] MEDS: HUMULIN R SUBQ SCH (06:00)
[2018-09-22] MEDS: PHOSLO PO SCH ×2 (06:01→06:10)
[2018-09-22] MEDS: PRILOSEC PO SCH ×2 (06:01→06:10)
[2018-09-22] MEDS: DUONEB (A & A) INH SCH ×2 (06:25→09:26)
[2018-09-22 06:42] LABS: BASO# 0.02 X1000 (0.0-0.2); BASO% 0.3 % (0.0-0.8); EOS# 0.03 X1000 (0.0-0.7); EOS% 0.4 % (0.0-10.0); HEMATOCRIT 27.8 % (37.0-47.0); IMM GRAN# 0.03 X1000 (0.0-0.04); IMM GRAN% 0.4 % (0.0-0.5); LYMPH# 1.17 X1000 (1.2-3.4); LYMPH% 16.8 % (20.5-51.1); MCH 24.7 PG (27-31); MCHC 32.4 g/dL (33-37); MCV 76.2 FL (81-99); MONO# 0.39 X1000 (0.11-0.59); MONO% 5.6 % (1.7-9.3); NEUT# 5.33 X1000 (1.4-6.5); NEUT% 76.5 % (42.2-75.2); PLT 97 X1000 (130-400); RBC 3.65 XMIL (4.2-5.4); WBC 6.97 X1000 (4.8-10.8)
[2018-09-22 06:47] LABS: ALBUMIN 3.8 g/dL (3.5-5.0); CREATININE 4.3 mg/dL (0.5-0.9); PHOSPHORUS 1.7 mg/dL (2.7-4.5)
[2018-09-22 06:49] LABS: BANDS 2 % (0-1); LYMPHS 16 % (21-51); MONO 2 % (1-9); SEGS 80 % (42-75)
[2018-09-22 06:51] LABS: HYPOCHROM 2+; LARGE PLATELETS 1+
[2018-09-22 08:03] VITALS: BP 85/59
--- NOTE | 2018-09-22 08:13 | Diag Imaging Result Doc PS360 ---
EXAM: CHEST-PORTABLE INDICATION: crackles on exam TECHNIQUE: One view COMPARISON: 09/14/2018 FINDINGS: Lung volumes are low and there is stable elevation of the right hemidiaphragm. There is mild subsegmental atelectasis at the lung bases similar to the previous study. No new consolidation is identified. There is no discrete pleural fluid collection or pneumothorax. The cardiomediastinal silhouette and central vasculature are grossly unremarkable. IMPRESSION: Low lung volumes and mild bibasilar subsegmental atelectasis as described. No definite acute pathology, otherwise. Electronically signed by Todd Duke 09/22/2018 8:11 AM
--- NOTE | 2018-09-22 08:52 | DISCHARGE SUMMARY ---
ADMISSION DATE: 09/15/2018 DISCHARGE DATE: 09/22/2018 FINAL DIAGNOSIS: Altered mental status due to metabolic encephalopathy. SECONDARY DIAGNOSES: 1. Hypoglycemia, resolved. 2. Intractable ascites due to hepatitis C infection, genotype 1 B. Paracenteses as needed. 3. End-stage kidney disease, on dialysis. 4. Abnormal chest x-ray with right hemidiaphragm elevation. 5. Cirrhosis of liver due to chronic hepatitis C infection. 6. History of hypertension, off medicine. 7. History of diabetes, off medications. 8. Peripheral neuropathy due to chronic pain. 9. History of splenic laceration, stable. CONSULTS: Dr. Price. PROCEDURES: Abdominal paracentesis x1 drained 4 L of fluid. BRIEF HISTORY: Please see the H and P that was done by the hospitalist. In brief, she is a 58- year-old, female who was brought in by the EMS due to shortness of breath and altered mental status. HOSPITAL COURSE: The patient has no neurological deficits. She had one time with paracentesis done. She also developed hypoglycemia for which she was given D50. The patient received hemodialysis as needed. Rest of the hospital course was uneventful. The patient does have Do Not Resuscitate. Labs at the time of discharge, CBC, white cell count 6.9, hematocrit 28, platelets 97,000. Sodium 139, potassium 4, BUN 15, creatinine 4.3, calcium 8.0. Blood sugars remain well. The patient has elevated white cell count, probably from bronchitis. Patient was given cefepime post dialysis. She developed diarrhea. Subsequent, she was ruled out for C. difficile. During this hospital course, blood cultures, urine cultures, stool cultures were negative. Chest x-ray was abnormal with elevation of right hemidiaphragm. The patient is slowly dwindling. Palliative consult was obtained. The patient is living will, Do Not Resuscitate. She wants to continue current treatment. PLAN OF CARE: 1. Living will, Do Not Resuscitate. 2. Hemodialysis as per Dr. Price. 3. Paracentesis as needed. 4. Neurontin 300 p.o. b.i.d., calcium acetate 667 two capsules with meals 3 times daily, duloxetine 60 daily, Elavil 10 at bedtime, Robaxin 500 at bedtime, nebulizers q.6 as needed, Prilosec 40 daily, hydroxyzine for p.r.n. itching. 5. Continue supportive care. cc: Gonzalo Hammonds MD
[2018-09-22] MEDS: HEPARIN SUBQ SCH (08:54)
[2018-09-22] MEDS: WELCHOL PO SCH (08:54)
[2018-09-22] MEDS: CYMBALTA PO SCH (08:54)
[2018-09-22] MEDS: CULTURELLE PO SCH (08:54)
[2018-09-22] MEDS: NEURONTIN PO SCH (08:55)
--- NOTE | 2018-09-22 14:31 | NEPHROLOGY PROGRESS NOTE ---
DATE: 09/22/2018 DATE AND TIME OF EXAM: 09/22/2018 at 0630 hours. SUBJECTIVE: Ms. Cheney is resting quietly in bed. She states that she is feeling just a little bit better. Breathing has improved after dialysis yesterday. OBJECTIVE: Her most recent vital signs: Previous temperature 98.3 degrees, blood pressure 100/71, heart rate 107, respirations are 16. The patient is currently on 2 L nasal cannula; last recorded saturation is 91%. She has had 350 in she has had 0 recorded out. She actually returned from dialysis hypotensive with fluid given back above her last weight. LABS AND X-RAYS: Sodium is 139, potassium 4, chloride 101, CO2 26, BUN 15, creatinine 4.3, glucose 142. Her anion gap is 12. Her calcium is 8, phosphorus 1.7, albumin 3.8. White count 6.97, hemoglobin 9, hematocrit 27.8, with a platelet count of 97. We had ordered a chest x-ray this a.m. secondary to her increased respiratory status showing low lung volume with mild bibasilar subsegmental atelectasis as described. No discrete pleural fluid collection or pneumothorax. No pulmonary infiltrates discussed. PHYSICAL EXAMINATION: General: This is a 58-year-old female resting quietly in bed. She appears chronically ill, no acute distress. Skin: Warm and dry. HEENT: Normocephalic, atraumatic. Conjunctiva is pale. She has ADAM. Mucous membranes are dry. Neck: Supple. Trachea midline. No JVD. Cardiovascular: She is regular rate and rhythm. She has a systolic murmur. Lungs: Clear to auscultation bilaterally. Equal excursion, currently on O2. Abdomen: Soft, slightly distended, nontender. Positive bowel sounds. Genitourinary: Not inspected. Minimal void with dialysis assist. Extremities: No edema, no clubbing or cyanosis. Fistula intact with palpable thrill. Neurological: Alert and oriented x3. ASSESSMENT AND PLAN: 1. Chronic kidney disease stage 5 D. The patient is due for routine dialysis treatment in the morning. No indications for intervention today. 2. Electrolytes, acid-base balance and anemia. These are all acceptable. 3. Ascites. Patient had paracentesis on the sixteenth. No indications for intervention. 4. Hypotension. The patient is scheduled to be given albumin prior to the start of her hemodialysis in the morning. 5. Though she has opted to continue dialysis, I still think she is a candidate for hospice based on her liver disease. I would like to thank you for allowing us to follow with this patient. Dictated by ARTUR Keith for Noel Price MD Face to face encounter, data reviewed, discussed with Farida Bajwa on 09/22/18. I agree with the above assessment and plan of care. cc: ARTUR Keith MD Jagan Reddy, [facility]
== END 2018-09-22 11:49 | DRG 432 ==
LOC: SUPCPDRO → ED 23:01 → SUATTDRO 09-15 03:31 → ICU 09-15 03:31 → 3S 09-16 18:02 → 1N 09-17 16:55
PROVIDERS: ADMIT Internal Medicine; ATTEND Internal Medicine
CPT/HCPCS: 36415; 49083; 71010; 71045; 80053; 80069; 81001; 81015; 82550; 82805; 82948; 83605; 83880; 84484; 85025; 85610; 85730; 87040; 87045; 87046; 87070; 87088; 87205; 87324; 89051; 89055; 93005; 93010; 94640; 94760; 94761; 94799; 96365; 96366; 96368; 99284; A9270; J0692; J1644; J3370; J7030; J7040; P9047; S0030; XXXXX